=== PATIENT | female | born 1935 | race Caucasian/White ===

== ENCOUNTER → 2016-04-04 | Outpatient (CLI) | payer OTHER ==
[~2016-04-04] MED LIST: AMB5 PO; AMLO-110 PO; ASPEC81 PO; ATOR10TA88 PO; CALC600T37 PO; CALCTAB13 PO; CHOL2000 PO; CLC100X PO; CRAN500C2 PO; CRANPOW PO; DLCS PR; ENOX40IN SQ; FISHOIL PO; FLUT0.15; GLIM2TAB2 PO; HYZ/10015 PO; LISI10TA PO; LOSA50TA6 PO; MELO15TA10 PO; METF-383 PO; METF1000 PO; METF500T PO; METO-551 PO; OMEP20CA9 PO; OXYC1TAB3 PO; PRLSR20 PO
[2016-04-04 13:23] LABS: RATIO 114.2 mcg/mg (0-30.0)
[2016-04-04 13:25] LABS: ESTIMATED AVERAGE GLUCOSE 160 mg/dl; HA1C FLAG Normal (Normal)
== END | disposition home or self-care (01) ==
LOC: C.LABPVFM 08:11
PROVIDERS: ATTEND Family Medicine
DX: E11.29 Type 2 diabetes mellitus with other diabetic kidney complication (principal); E11.49 Type 2 diabetes mellitus with other diabetic neurological complication

== ENCOUNTER → 2016-04-07 | Outpatient (CLI) | payer OTHER | END | disposition home or self-care (01) | LOC: C.LABPVFM 10:23 | PROVIDERS: ATTEND Family Medicine | DX: N39.0 Urinary tract infection, site not specified (principal) ==

== ENCOUNTER → 2016-08-08 | Outpatient (CLI) | payer OTHER ==
[2016-08-08 13:19] LABS: ESTIMATED AVERAGE GLUCOSE 192 mg/dl; HA1C FLAG Normal (Normal)
[2016-08-08 13:29] LABS: ALT/SGPT 27 U/L (12-78); AST/SGOT 18 U/L (15-37); BLOOD UREA NITROGEN 17 mg/dl (7-18); BUN/CREATININE RATIO 20.1 (10-20); CALCIUM 9.3 mg/dl (8.5-10.1); CARBON DIOXIDE 25 mmol/L (21-32); CHLORIDE 99 mmol/L (98-107); CREATININE 0.84 mg/dl (0.60-1.20); GLUCOSE 147 mg/dl (70-99); POTASSIUM 3.8 mmol/L (3.5-5.1); SODIUM 133 mmol/L (136-145)
[2016-08-08 13:31] LABS: ALB/GLOB RATIO 0.9 (0.9-2); ALKALINE PHOSPHATASE 73 U/L (45-117); CHOLESTEROL 120 mg/dl (0-200); HDL CHOLESTEROL 59 mg/dl; LDL CHOLESTEROL CALCULATED 39 mg/dl; TRIGLYCERIDES 111 mg/dl (0-150); VERY LOW DENSITY LIPOPROT CALC 22 mg/dl
[2016-08-08 13:53] LABS: RATIO 44.8 mcg/mg (0-30.0)
== END | disposition home or self-care (01) ==
LOC: C.LABPVFM 09:37
PROVIDERS: ATTEND Family Medicine
DX: R60.9 Edema, unspecified (principal); E78.5 Hyperlipidemia, unspecified; I10 Essential (primary) hypertension; E11.29 Type 2 diabetes mellitus with other diabetic kidney complication

== ENCOUNTER → 2016-09-05 | Outpatient (CLI) | payer OTHER | END | disposition home or self-care (01) | LOC: C.LABPVFM 12:52 | PROVIDERS: ATTEND Nurse Practitioner | DX: N39.0 Urinary tract infection, site not specified (principal) ==

== ENCOUNTER → 2016-09-12 | Outpatient (CLI) | payer OTHER | END | disposition home or self-care (01) | LOC: C.LABPVFM 12:43 | PROVIDERS: ATTEND Nurse Practitioner | DX: R39.9 Unspecified symptoms and signs involving the genitourinary system (principal) ==

== ENCOUNTER → 2016-09-12 | Outpatient (CLI) | payer OTHER ==
--- NOTE | 2016-09-12 15:47 | DIAGNOSTIC IMAGING REPORT ---
KUB CLINICAL HISTORY: Abdominal distension. COMPARISON STUDY: None. FINDINGS: Incidental note is made of cholecystectomy clips and a left hip arthroplasty. The bowel gas pattern is normal. Note is made of a moderate amount of stool within the colon and rectum. IMPRESSION: 1. No evidence for a bowel obstruction. 2. Moderate amount of stool within the colon and rectum. Electronically signed by: Jay Jay Caceres M.D. 09/12/2016 3:46 PM Dictated Date/Time: 09/12/2016 3:45 PM
== END | disposition home or self-care (01) ==
LOC: C.RADPV 15:07
PROVIDERS: ATTEND Family Medicine
DX: R14.0 Abdominal distension (gaseous) (principal); R39.9 Unspecified symptoms and signs involving the genitourinary system

== ENCOUNTER → 2016-09-16 | Outpatient (CLI) | payer OTHER ==
--- NOTE | 2016-09-16 15:27 | DIAGNOSTIC IMAGING REPORT ---
RIGHT HIP UNILATERAL 2 VIEWS CLINICAL HISTORY: HIP PAIN RIGHT Right pain COMPARISON: None. DISCUSSION: Considerable degenerative narrowing of the right hip joint space. Mild sclerosis superior acetabular margin. No evidence for acetabular protrusion. Moderate degenerative change right sacroiliac joint. There is no evidence for soft tissue swelling. IMPRESSION: Moderate to rather significant degenerative narrowing right hip joint space. No acute process. Moderate degenerative change right sacroiliac joint. The above report was generated using voice recognition software. It may contain grammatical, syntax or spelling errors. Electronically signed by: Richard Hartley M.D. 09/16/2016 3:25 PM Dictated Date/Time: 09/16/2016 3:25 PM
== END | disposition home or self-care (01) ==
LOC: C.RADPV 14:43
PROVIDERS: ATTEND Family Medicine
DX: M25.551 Pain in right hip (principal); M25.851 Other specified joint disorders, right hip

== ENCOUNTER 2016-09-24 11:16 | Emergency (ER) | payer OTHER ==
[~2016-09-24] VITALS: Ht 157.5 cm; Wt 103.5 kg
[~2016-09-24 11:16] MED LIST changes: -AMLO-110 PO; -CALC600T37 PO; -CHOL2000 PO; -CRAN500C2 PO; -FLUT0.15; -GLIM2TAB2 PO; -HYZ/10015 PO; -LOSA50TA6 PO; -MELO15TA10 PO; -METF-383 PO; -METF1000 PO; -OMEP20CA9 PO; -PRLSR20 PO
[2016-09-24 11:20] VITALS: TEMP 36.7; Ht 157.5 cm; Wt 103.5 kg
[2016-09-24 12:12] LABS: BASO % 0.4 %; BASO ABS # 0.03 K/uL (0-0.2); COMPLETE YES; HEMATOCRIT 34.8 % (37-47); IG% 0.4 %; LYMPH % 19.1 %; LYMPH ABS # 1.35 K/uL (1.2-3.4); MEAN CELL VOLUME 84.3 fL (80-100); MEAN CORPUSCULAR HEMOGLOBIN 29.5 pg (25-34); MEAN CORPUSCULAR HGB CONC 35.1 g/dl (32-36); MEAN PLATELET VOLUME 8.8 fL (7.4-10.4); NEUT % 65.1 %; PLATELET COUNT 357 K/uL (130-400); RED BLOOD COUNT 4.13 M/uL (4.2-5.4); WHITE BLOOD COUNT 7.06 K/uL (4.8-10.8)
[2016-09-24 12:20] LABS: INR 1.1 (0.9-1.1); PROTHROMBIN TIME (PATIENT) 11.3 SECONDS (9.0-12.0)
[2016-09-24 12:23] LABS: BUN/CREATININE RATIO 22.3 (10-20); CREATININE 0.74 mg/dl (0.60-1.20); POTASSIUM 3.9 mmol/L (3.5-5.1)
[2016-09-24] MEDS ORDERED: METF-383 PO (12:35)
[2016-09-24] MEDS ORDERED: FLUT0.15 (12:35)
[2016-09-24] MEDS ORDERED: LOSA50TA6 PO (12:35)
[2016-09-24] MEDS ORDERED: AMLO-110 PO (12:35)
[2016-09-24] MEDS ORDERED: OMEP20CA9 PO (14:55)
[2016-09-24] MEDS ORDERED: MELO15TA10 PO (15:05)
[2016-09-24] MEDS ORDERED: CHOL2000 PO (15:05)
[2016-09-24] MEDS ORDERED: CALC600T37 PO (15:05)
--- NOTE | 2016-09-24 15:20 | Medical Consult ---
Consultation Date of Consultation: Sep 24, 2016. Attending Physician: Dr. Michele Khoury Reason for Consultation: Hyponatremia, melena History of Present Illness This is an 81 y/o female with a history of DM II, HTN, HLD, osteopenia and chronic rhinitis who presented to the ED on 09/24 with melena x 1 episode. The patient states she had 1 episode of melena last night. She denies seeing any gross blood and states that she has been constipated lately. She had been advised to take stool softeners or laxatives but has not had a chance to go to the store to buy some yet. She denies any lightheadedness, dizziness, loss of consciousness, weakness or fatigue. The patient's hemoglobin is stable at 12.2 , and the patient is without tachycardia or hypotension. In the ED, the patient was also found to be hyponatremic. The patient admits to drinking a lot of water lately as she was instructed to drink a full glass of water with the antibiotic she had been taking for her recent UTI and with the Mobic she is taking for her hip pain. The patient and her daughter deny any confusion or worsening of mental status. The patient denies fevers, chills, sweats, chest pain, palpitations, claudication, cough, wheezing, shortness of breath, nausea, vomiting, abdominal pain, dysuria, hematuria, urinary retention, paralysis, weakness, numbness and tingling. Past Medical/Surgical History DM II HTN HLD Osteopenia Chronic rhinitis Family History Diabetes mellitus Kidney disease Prostate cancer Stroke Social History Smoking Status: Never Smoker Smokeless Tobacco Use: No Alcohol Use: none Drug Use: none Marital Status: Housing Status: lives with family (daughter, son in law and grandson) Occupation Status: retired Allergies Coded Allergies: No Known Allergies (Verified , *, 09/24/16) Home Medications Amlodipine 5 mg PO qd Aspirin 81 mg PO qd Atorvastatin 10 mg PO qpm Calcium 600 mg PO qd Cholecalciferol 2000 IU PO qd Fish oil 2 gm PO BID Flonase 1-2 sprays NA qd Losartan 50 mg PO qpm Meloxicam 15 mg PO qd Metformin 850 mg PO BID Metoprolol tartrate 75 mg PO BID Review of Systems Constitutional: No fever, No chills, No sweats, No weakness, No fatigue Eyes: No worsening of vision, No eye pain, No diplopia ENT: No hearing loss, No sore throat, No trouble swallowing Respiratory: No cough, No wheezing, No shortness of breath Cardiovascular: No chest pain, No claudication, No palpitations Abdomen: + constipation, + problem reported (melena 1 episode), No pain, No nausea, No vomiting Musculoskeletal: No joint pain, No muscle pain, No calf pain Genitourinary - Female: No dysuria, No urinary retention, No hematuria Neurologic: No paralysis, No weakness, No numbness/tingling Integumentary: No rash, No itch, No color change Physical Exam Date Time Temp Pulse Resp B/P (MAP) Pulse Ox O2 Delivery O2 Flow Rate FiO2 09/24/16 13:08 66 18 136/65 97 09/24/16 11:32 67 09/24/16 11:20 36.7 71 20 161/74 96 Room Air General appearance: +Morbidly obese. Well-developed, well-nourished, no apparent distress Head: Normocephalic, atraumatic Eyes: Normal inspection, PERRL, EOMI ENT: Normal ENT inspection, hearing grossly normal, pharynx normal Neck: Supple, no JVD, trachea midline Respiratory/Chest: +Slight crackles left base. Normal breath sounds, no respiratory distress Cardiovascular: Regular rate & rhythm, no gallop, no murmur Abdomen/GI: Normal bowel sounds, non-tender, soft Extremities/Musculoskeletal: Normal inspection, no calf tenderness, no pedal edema Neurological/Psych: Alert, normal mood/affect, oriented x 3 Skin: Normal color, warm/dry, no rash Laboratory Results Last 24 Hours Test 09/24/16 11:36 09/24/16 14:51 White Blood Count 7.06 K/uL Red Blood Count 4.13 M/uL Hemoglobin 12.2 g/dL Hematocrit 34.8 % Mean Corpuscular Volume 84.3 fL Mean Corpuscular Hemoglobin 29.5 pg Mean Corpuscular Hemoglobin Concent 35.1 g/dl Platelet Count 357 K/uL Mean Platelet Volume 8.8 fL Neutrophils (%) (Auto) 65.1 % Lymphocytes (%) (Auto) 19.1 % Monocytes (%) (Auto) 13.0 % Eosinophils (%) (Auto) 2.0 % Basophils (%) (Auto) 0.4 % Neutrophils # (Auto) 4.59 K/uL Lymphocytes # (Auto) 1.35 K/uL Monocytes # (Auto) 0.92 K/uL Eosinophils # (Auto) 0.14 K/uL Basophils # (Auto) 0.03 K/uL RDW Standard Deviation 39.0 fL RDW Coefficient of Variation 12.7 % Immature Granulocyte % (Auto) 0.4 % Immature Granulocyte # (Auto) 0.03 K/uL Prothrombin Time 11.3 SECONDS Prothromb Time International Ratio 1.1 Activated Partial Thromboplast Time 25.1 SECONDS Partial Thromboplastin Ratio 1.0 Sodium Level 126 mmol/L Potassium Level 3.9 mmol/L Chloride Level 92 mmol/L Carbon Dioxide Level 26 mmol/L Anion Gap 8.0 mmol/L Blood Urea Nitrogen 17 mg/dl Creatinine 0.74 mg/dl Est Creatinine Clear Calc Drug Dose 66.1 ml/min Estimated GFR () 87.4 Estimated GFR (Non- 75.4 BUN/Creatinine Ratio 22.3 Random Glucose 74 mg/dl Calcium Level 9.0 mg/dl Total Bilirubin 0.5 mg/dl Direct Bilirubin 0.1 mg/dl Aspartate Amino Transf (AST/SGOT) 17 U/L Alanine Aminotransferase (ALT/SGPT) 27 U/L Alkaline Phosphatase 86 U/L Total Protein 7.3 gm/dl Albumin 3.5 gm/dl Lipase 245 U/L Assessment & Plan 81 y/o female with a history of DM II, HTN, HLD, osteopenia and chronic rhinitis who presented to the ED on 09/24 with melena x 1 episode. Pt hemodynamically stable, Hgb stable and without obvious rectal hemorrhage. Asymptomatic from hyponatremia, likely due to excess water intake. Pt agreeable to going home and following up as an outpatient; I do not think admission is necessary at this point in time. Melena--stable -Hgb 12.2 in ED -ED will set pt up with Dr. Jain for non-urgent colonoscopy -Pt already had been planning on seeing PCP on 09/26 to f/u on recent UTI. Recommend pt also has f/u CBC to ensure hemoglobin is stable, can recheck for fecal occult blood -Pt started on Prilosec 20 mg PO BID -Advised pt to use OTC stool softeners or laxatives such as MiraLAX for constipation Hyponatremia secondary to increased free water intake -Recommend fluid restriction of 8121-6975 mL, or roughly 50-60 fluid ounces -Advised pt to drink other fluids besides plain water, such as zero supriya Gatorade /Powerade -At PCP's office can recheck with f/u basic metabolic profile DM II--last HgbA1c checked 08/08/16 was 8.3 -Continue metformin 850 mg PO BID -Continue to follow up with PCP HTN, HLD--stable -Continue amlodipine 5 mg PO qd, ASA 81 mg PO qd, losartan 50 mg PO qd, metoprolol tartrate 75 mg PO BID, atorvastatin 10 mg PO qpm and fish oil 2 gm PO BID Osteopenia -Continue calcium 600 mg PO qd and vitamin D3 2000 IU PO qd Chronic rhinitis -Continue Flonase qd PA Physician Supervision Note: I interviewed and examined the patient. Discussed with Myriam VARNER and agree with findings and plan as documented in the note. Any exceptions or clarifications are listed here: None Patient here with one bout of melena and no abdominal pain of any kind history diverticulosis incidentally found to have a low sodium. In this excessive free water intake. Has no neurological changes or confusion. vital signs are stable next Abdomen is normoactive bowel sounds soft no focal areas of tenderness neurologically she is awake alert and appropriate cranial nerves II through XII are intact she has symmetric strength and sensation Incidental hyponatremia, the patient was instructed on reducing free water intake she is a already has a primary care appointment on Monday she'll follow up 1 bout of melena with stable hemoglobin and no intra-abdominal symptoms she'll follow-up with gastroenterology for possible evaluation instituting proton pump inhibitor ACEs stable for home Documented By: Michele Jones Additional Copies To Lance Soto M.D.
[2016-09-24 15:36] VITALS: BP 153/74; PULSE 69; O2SAT 96
--- NOTE | 2016-09-24 16:18 | EMERGENCY ROOM VISIT NOTE ---
History Report prepared by Tosha: Gita Spann Under the Supervision of: Dr. Michele Khoury M.D. First contact with patient: 11:40 Chief Complaint: GI ASSESSMENT Stated Complaint: BLACK STOOL, PAIN INSIDE WHEN HAVING BM Nursing Triage Summary: pt to the ED with 1 episode of black stool last night with a BM pt is not on blood thinners no dizziness no SOB History of Present Illness The patient is an 81 year old female who presents to the Emergency Room with complaints of an episode of black stool last night at 2200. She has been having a hard time having bowel movements recently. Yesterday, she noticed that her stool was black. She was unsure if there was any blood. While she was straining to have the bowel movement yesterday, she notes that she had pain in her right lower back. She has been having lower back pain for the past few weeks. It worsens when she bends down or has a bowel movement. The pain does not go down into her legs. She denies any lightheadedness, weakness, abdominal pain, fever, vomiting, chest pain, or SOB. She has not taken any iron supplements or Pepto Bismol. She takes a baby aspirin, but no other blood thinners. She has a history of constipation. She was told to try taking Dulcolax which did help for a few days. Source of History: patient Onset: 2200 Position: other (global) Quality: other (black stool) Timing: other (episodic) Associated Symptoms: + back pain, No fevers, No chest pain, No SOB, No vomiting, No abdominal pain, No weakness Note: Pt reports constipation. Pt denies lightheadedness. Review of Systems See HPI for pertinent positives & negatives. A total of 10 systems reviewed and were otherwise negative. Past Medical & Surgical Medical Problems: (1) Hypertension Surgical Problems: (1) History of cholecystectomy (2) History of hip replacement Family History Diabetes mellitus Social History Smoking Status: Never Smoker Drug Use: none Marital Status: Housing Status: lives with family Occupation Status: retired Current/Historical Medications Scheduled Amlodipine (Norvasc), 5 MG PO QAM Aspirin Enteric Coated (Ecotrin Or Generic *), 81 MG PO DAILY Atorvastatin (Lipitor), 10 MG PO QPM Calcium (Calcium), 600 MG PEG DAILY Cholecalciferol (Vitamin D3), 1 CAP PO DAILY Fish Oil ([place]-3), 2 CAP PO BID Fluticasone Propionate (Nasal) (Flonase Allergy Relief), 1-2 SPRAYS NA DAILY Losartan Potassium (Cozaar), 50 MG PO QPM Meloxicam (Mobic), 1 TAB PO DAILY Metformin Hcl (Glucophage), 850 MG PO BID Metoprolol Tartrate (Lopressor), 75 MG PO BID Omeprazole (Prilosec), 20 MG PO BID [Cranberry], 1 CAPSULE PO DAILY Allergies Coded Allergies: No Known Allergies (Verified , *, 09/24/16) Physical Exam Vital Signs Date Time Temp Pulse Resp B/P (MAP) Pulse Ox O2 Delivery O2 Flow Rate FiO2 09/24/16 15:36 69 18 153/74 96 09/24/16 13:08 66 18 136/65 97 09/24/16 11:32 67 09/24/16 11:20 36.7 71 20 161/74 96 Room Air Physical Exam Constitutional: Vital signs reviewed. Eyes: Pupils are equal round reactive to light. Conjunctiva are noninjected. ENT: Pharynx is clear without erythema or exudate. Mucous membranes are moist. Neck supple without meningeal signs. Respiratory: Clear to auscultation bilaterally. Breath sounds are equal bilaterally. Cardiovascular: Regular rate and rhythm. No rubs or gallops. GI: Soft, nondistended and nontender. Bowel sounds are present. Rectal: Guaiac positive brown stool. Musculoskeletal: No peripheral edema. No lower extremity tenderness. Integumentary: No cyanosis. Neurological: The patient is awake and alert. No focal deficits. Motor and sensation intact in the lower extremities bilaterally. Psychiatric: Normal affect. Medical Decision & Procedures Laboratory Results 09/24/16 11:36 Red Blood Count 4.13, Mean Corpuscular Volume 84.3, Mean Corpuscular Hemoglobin 29.5, Mean Corpuscular Hemoglobin Concent 35.1, Mean Platelet Volume 8.8, Neutrophils (%) (Auto) 65.1, Lymphocytes (%) (Auto) 19.1, Monocytes (%) (Auto) 13.0, Eosinophils (%) (Auto) 2.0, Basophils (%) (Auto) 0.4, Neutrophils # (Auto ) 4.59, Lymphocytes # (Auto) 1.35, Monocytes # (Auto) 0.92, Eosinophils # (Auto ) 0.14, Basophils # (Auto) 0.03 09/24/16 11:36 Test 09/24/16 11:36 09/24/16 14:51 White Blood Count 7.06 K/uL (4.8-10.8) Red Blood Count 4.13 M/uL (4.2-5.4) Hemoglobin 12.2 g/dL (12.0-16.0) Hematocrit 34.8 % (37-47) Mean Corpuscular Volume 84.3 fL (80-100) Mean Corpuscular Hemoglobin 29.5 pg (25-34) Mean Corpuscular Hemoglobin Concent 35.1 g/dl (32-36) Platelet Count 357 K/uL (130-400) Mean Platelet Volume 8.8 fL (7.4-10.4) Neutrophils (%) (Auto) 65.1 % Lymphocytes (%) (Auto) 19.1 % Monocytes (%) (Auto) 13.0 % Eosinophils (%) (Auto) 2.0 % Basophils (%) (Auto) 0.4 % Neutrophils # (Auto) 4.59 K/uL (1.4-6.5) Lymphocytes # (Auto) 1.35 K/uL (1.2-3.4) Monocytes # (Auto) 0.92 K/uL (0.11-0.59) Eosinophils # (Auto) 0.14 K/uL (0-0.5) Basophils # (Auto) 0.03 K/uL (0-0.2) RDW Standard Deviation 39.0 fL (36.4-46.3) RDW Coefficient of Variation 12.7 % (11.5-14.5) Immature Granulocyte % (Auto) 0.4 % Immature Granulocyte # (Auto) 0.03 K/uL (0.00-0.02) Prothrombin Time 11.3 SECONDS (9.0-12.0) Prothromb Time International Ratio 1.1 (0.9-1.1) Activated Partial Thromboplast Time 25.1 SECONDS (21.0-31.0) Partial Thromboplastin Ratio 1.0 Anion Gap 8.0 mmol/L (3-11) Est Creatinine Clear Calc Drug Dose 66.1 ml/min Estimated GFR () 87.4 Estimated GFR (Non- 75.4 BUN/Creatinine Ratio 22.3 (10-20) Calcium Level 9.0 mg/dl (8.5-10.1) Total Bilirubin 0.5 mg/dl (0.2-1) Direct Bilirubin 0.1 mg/dl (0-0.2) Aspartate Amino Transf (AST/SGOT) 17 U/L (15-37) Alanine Aminotransferase (ALT/SGPT) 27 U/L (12-78) Alkaline Phosphatase 86 U/L (45-117) Total Protein 7.3 gm/dl (6.4-8.2) Albumin 3.5 gm/dl (3.4-5.0) Lipase 245 U/L (73-393) Laboratory results as reviewed by me. ED Course 1142: The patient was evaluated in room C6. A complete history and physical exam was performed. 1335: I reevaluated the patient. I discussed the test results with her. She does not wish to stay in the hospital. I have paged GI to arrange follow up. 1341: I discussed the patient's case with Dr. Jain, [facility] gastroenterology. He recommends the patient be started on 20 mg of Prilosec twice daily and recheck hemoglobin on Monday. They will set up a colonoscopy for her. 1344: I reevaluated the patient. I discussed Dr. Jain's recommendations with her. She verbalized understanding. She still would not like to stay in the hospital. She states that she has been drinking a lot of water and avoiding salt because of her hypertension which might be the reason for her low sodium. She was told to hold her aspirin and follow up with GI on Monday. 1356: The nurse informed me that the patient and her family have changed their minds and would like the patient to stay in the hospital. 1404: I discussed the patient's case with Dr. Jones, [facility] hospitalist. The patient will be further evaluated by him. 1451: Dr. Jones has evaluated the patient. After discussion, the patient has decided to go home and follow up as an outpatient. Medical Decision This is an 81-year-old female who presents with black stools and back pain. Differential diagnosis includes spinal stenosis, lumbar disc disease, strain, GI bleed, peptic ulcer disease, anemia. I did perform a limited focused review of portions of the patient's old chart on the electronic medical record. The patient has had no recent pertinent visits to this hospital. I did evaluate the patient as noted above. Patient is presenting with an episode of black stool. She does not take any NSAIDs or blood thinners other than a baby aspirin daily. She also has been having lower back pain for several weeks. She is neurologically intact without signs of spinal cord injury. Her pain is worse with movement. He is IV access was established the patient was placed on a continuous security monitor. I did order and review the patient's blood work as noted in the electronic medical record. She is not anemic. Her sodium is 126. I did discuss the test results with the patient and her daughter. She does state that she has been drinking a lot of water and avoiding salt due to her high blood pressure. She does not have symptomatic hyponatremia. She states last time she had a colonoscopy was 10 years ago. I did discuss the test results with the patient and her daughter. Initially the patient did not wish to be hospitalized. I therefore spoke to Dr. jain of gastroenterology who stated he would arrange for follow up on Monday for recheck of her H&H and endoscopy. He he did recommend Prilosec 20 mg twice a day. I discussed the plan with the patient but then she changed her mind and decided she would stay in the hospital. I did discuss the case with Dr. Mills of the [facility] medical service. He saw the patient and after discussion with him she decided she would go home. I did involve the pillowcase maker to help assure follow up on Monday. I did carefully review return instructions with her and her daughter. She was discharged in good condition. She was given a prescription for Prilosec. Medication Reconcilliation Current Medication List: was personally reviewed by me Blood Pressure Screening Patient's blood pressure: Elevated blood pressure Blood pressure disposition: Referred to PCP Consults Time Called: [phone] Consulting Physician: Dr. Jain [facility] gastroenterology Returned Call: [phone] I discussed the patient's case with him. He recommends the patient be started on 20 mg of Prilosec twice daily and recheck hemoglobin on Monday. They will set up a colonoscopy for her. Additional Consults: Time Called: [phone] Consulted Physician: Dr. Jones, [facility] hospitalist Returned Call: [phone] Additional Comments: I discussed the patient's case with him. The patient will be further evaluated by him. Impression Primary Impression: Upper GI bleed Additional Impressions: Hyponatremia Low back pain Scribe Attestation The scribe's documentation has been prepared under my direct and personally reviewed by me in its entirety. I confirm that the note above accurately reflects all work, treatment, procedures, and medical decision making performed by me. Departure Information Dispostion Home / Self-Care Prescriptions Omeprazole (PRILOSEC) 20 Mg Cap 20 MG PO BID, #20 CAP Prov: Michele Khoury M.D. 09/24/16 Referrals Lance Soto M.D. (PCP) Aiden Jain MD Forms HOME CARE DOCUMENTATION FORM, IMPORTANT VISIT INFORMATION Patient Instructions ED Bleed UGI Stable, Hyponatremia Dc, My [facility] Additional Instructions You have been examined and treated today on an emergency basis only. This is not a substitute for, or an effort to provide, complete comprehensive medical care. It is impossible to recognize and treat all injuries or illnesses in a single emergency department visit. It is therefore important that you follow up closely with your physician within 48 hours to recheck here hemoglobin and sodium level. Also follow up Dr. jain of gastroenterology. Call as soon as possible for an appointment. Return for worsening symptoms or if you develop fever, vomiting, lightheadedness, weakness, shortness of breath, chest pain, blood in your stool or any other concerning symptoms. Problem Qualifiers Additional Impressions: Low back pain Chronicity: acute Back pain laterality: bilateral Sciatica presence: without sciatica Qualified Codes: M54.5 - Low back pain
[2016-09-26] MEDS ORDERED: CRAN500C2 PO (14:56)
[2016-09-26] MEDS ORDERED: GLIM2TAB2 PO (14:56)
[2016-09-26] MEDS ORDERED: HYZ/10015 PO (14:56)
[2016-09-26] MEDS ORDERED: METF1000 PO (14:56)
[2016-09-26] MEDS ORDERED: PRLSR20 PO (14:56)
== END 2016-09-24 15:37 | disposition home or self-care (01) ==
LOC: C.EDB 11:17 → C.EDC 15:37
DX: K92.2 Gastrointestinal hemorrhage, unspecified (principal); E87.1 Hypo-osmolality and hyponatremia; M54.5 Low back pain; E11.9 Type 2 diabetes mellitus without complications; I10 Essential (primary) hypertension; E78.5 Hyperlipidemia, unspecified; J31.0 Chronic rhinitis; M85.80 Other specified disorders of bone density and structure, unspecified site; Z83.3 Family history of diabetes mellitus; Z84.1 Family history of disorders of kidney and ureter; Z80.9 Family history of malignant neoplasm, unspecified; Z82.49 Family history of ischemic heart disease and other diseases of the circulatory system; Z79.82 Long term (current) use of aspirin; Z79.899 Other long term (current) drug therapy

== ENCOUNTER → 2016-09-26 | Outpatient (CLI) | payer OTHER ==
[~2016-09-26] MED LIST changes: -AMB5 PO; +AMLO-110 PO; +CALC600T37 PO; -CALCTAB13 PO; +CHOL2000 PO; -CLC100X PO; +CRAN500C2 PO; -DLCS PR; -ENOX40IN SQ; +FLUT0.15; +GLIM2TAB2 PO; +HYZ/10015 PO; -LISI10TA PO; +LOSA50TA6 PO; +MELO15TA10 PO; +METF-383 PO; +METF1000 PO; -METF500T PO; +OMEP20CA9 PO; -OXYC1TAB3 PO; +PRLSR20 PO
[2016-09-26 12:50] LABS: BASO % 0.5 %; BASO ABS # 0.04 K/uL (0-0.2); COMPLETE YES; EOS % 2.6 %; HEMATOCRIT 35.1 % (37-47); IG% 0.4 %; LYMPH % 21.6 %; LYMPH ABS # 1.59 K/uL (1.2-3.4); MEAN CELL VOLUME 84.6 fL (80-100); MEAN CORPUSCULAR HEMOGLOBIN 29.9 pg (25-34); MEAN CORPUSCULAR HGB CONC 35.3 g/dl (32-36); MONO % 10.4 %; NEUT % 64.5 %; PLATELET COUNT 325 K/uL (130-400); RED BLOOD COUNT 4.15 M/uL (4.2-5.4); WHITE BLOOD COUNT 7.37 K/uL (4.8-10.8)
[2016-09-26 13:26] LABS: BLOOD UREA NITROGEN 17 mg/dl (7-18); BUN/CREATININE RATIO 22.7 (10-20); CALCIUM 9.4 mg/dl (8.5-10.1); CARBON DIOXIDE 27 mmol/L (21-32); CHLORIDE 95 mmol/L (98-107); CREATININE 0.74 mg/dl (0.60-1.20); GLUCOSE 85 mg/dl (70-99); POTASSIUM 3.7 mmol/L (3.5-5.1); SODIUM 129 mmol/L (136-145)
== END | disposition home or self-care (01) ==
LOC: C.LABPVFM 10:51
PROVIDERS: ATTEND Family Medicine
DX: M19.90 Unspecified osteoarthritis, unspecified site (principal); R19.5 Other fecal abnormalities; R82.99 Other abnormal findings in urine

== ENCOUNTER → 2016-09-28 | Day surgery (SDC) | payer OTHER ==
[2016-09-26 14:59] VITALS: Ht 157.5 cm; Wt 106.8 kg
[~2016-09-28] VITALS: Ht 157.5 cm; Wt 106.8 kg
[~2016-09-28] MED LIST changes: -CRANPOW PO; +LIDOCAINE HCL 2% 2 ML VIAL (20MG/ML) ONE; -LOSA50TA6 PO; -MELO15TA10 PO; -METF-383 PO; -OMEP20CA9 PO; +PROPOFOL IV EMULSION 10 MG/ML 20 ML VIAL IV ONE; +SODIUM CHLORIDE 0.9% 500ML 500 ML IV ONE
--- NOTE | 2016-09-28 08:36 | Endo History and Physical ---
History & Physical Date of Service: Sep 28, 2016. Chief Complaint: Melena Referring Physician: Dr. Soto History of Present Illness 81 yo CF who presents for EGD secondary to melena. Past Surgical History Hx Cardiac Surgery: No Hx Internal Defibrillator: No Hx Pacemaker: No Hx Abdominal Surgery: Yes (MICHAELA) Hx of Implantable Prosthesis: No Hx Post-Op Nausea and Vomiting: No Hx Cancer Surgery: No Hx Thoracic Surgery: No Hx Orthopedic: Yes (LT ANGIE, LT FEMUR PLATE S/P BREAK) Hx Urinary Tract Surgery: No Family History Polyp Social History Smoking Status: Never Smoker Hx Substance Use: No Hx Alcohol Use: No Allergies Coded Allergies: No Known Allergies (Verified , 09/28/16) Current Medications Reported Home Medications Medications Dose Route/Sig Max Daily Dose Days Date Category Dose Instructions Prilosec (Omeprazole) 20 Mg Capcr 20 Mg PO BID 09/26/16 Reported NEW PRESCRIPTION - PT HAS NOT STARTED YET Cranberry (Cranberry (Vaccinium Macrocarp) 500 Mg Cap 1 Cap PO QAM 09/26/16 Reported Hyzaar 25MG/100MG (HCTZ/Losartan Potassium) Tab 1 Tab PO QPM 09/26/16 Reported Glimepiride 2 Mg Tab 1 Tab PO QPM 09/26/16 Reported Glucophage (Metformin Hcl) 1,000 Mg Tab 1,000 Mg PO BID 09/26/16 Reported Vitamin D3 (Cholecalciferol) 2,000 Unit Cap 1 Cap PO QAM 09/24/16 Reported Calcium 600 Mg Tab 600 Mg PO BID 09/24/16 Reported Flonase Allergy Relief (Fluticasone Propionate (Nasal)) 50 Mcg/Act Spr 1-2 Sprays NA DAILY 09/24/16 Reported Norvasc (Amlodipine Besylate) 5 Mg Tab 5 Mg PO QAM 09/24/16 Reported [place]-3 (Fish Oil) Oil 2 Cap PO BID 11/13/11 Reported Lopressor (Metoprolol Tartrate) 50 Mg Tab 1.5 Tabs PO BID 11/13/11 Reported Ecotrin Or Generic * (Aspirin) 81 Mg Ectab 81 Mg PO ON HOLD 11/19/08 Reported Lipitor (Atorvastatin Calcium) 10 Mg Tab 10 Mg PO QPM 11/11/08 Reported Vital Signs Weight (Kilograms): 106.82 Height (Feet): 5 Height (Inches): 2 Physical Exam General Appearance: WD/WN, no apparent distress Respiratory/Chest: Auscultation: breath sounds normal Cardiovascular: Heart Auscultation: RRR Abdomen: Bowel Sounds: normal Inspection & Palpation: soft, non-distended, no tenderness, guarding & rebound Assessment and Plan Assessment: 81 yo CF who presents for EGD secondary to melena. Plan: Proceed with EGD.
--- NOTE | 2016-09-28 09:27 | Discharge Instructions ---
Endoscopy Patient Instructions Date / Procedure(s) Performed Sep 28, 2016. EGD Allergy Information Coded Allergies: No Known Allergies (Verified , 09/28/16) Discharge Date / Findings Sep 28, 2016. Normal EGD Medication Instructions Stopped Medication(s): ASPIRIN LAST DOSE 09/24/16 OK to resume all medications today as prescribed Reported Home Medications Medications Dose Route/Sig Max Daily Dose Days Date Category Dose Instructions Prilosec (Omeprazole) 20 Mg Capcr 20 Mg PO BID 09/26/16 Reported NEW PRESCRIPTION - PT HAS NOT STARTED YET Cranberry (Cranberry (Vaccinium Macrocarp) 500 Mg Cap 1 Cap PO QAM 09/26/16 Reported Hyzaar 25MG/100MG (HCTZ/Losartan Potassium) Tab 1 Tab PO QPM 09/26/16 Reported Glimepiride 2 Mg Tab 1 Tab PO QPM 09/26/16 Reported Glucophage (Metformin Hcl) 1,000 Mg Tab 1,000 Mg PO BID 09/26/16 Reported Vitamin D3 (Cholecalciferol) 2,000 Unit Cap 1 Cap PO QAM 09/24/16 Reported Calcium 600 Mg Tab 600 Mg PO BID 09/24/16 Reported Flonase Allergy Relief (Fluticasone Propionate (Nasal)) 50 Mcg/Act Spr 1-2 Sprays NA DAILY 09/24/16 Reported Norvasc (Amlodipine Besylate) 5 Mg Tab 5 Mg PO QAM 09/24/16 Reported [place]-3 (Fish Oil) Oil 2 Cap PO BID 11/13/11 Reported Lopressor (Metoprolol Tartrate) 50 Mg Tab 1.5 Tabs PO BID 11/13/11 Reported Ecotrin Or Generic * (Aspirin) 81 Mg Ectab 81 Mg PO ON HOLD 11/19/08 Reported Lipitor (Atorvastatin Calcium) 10 Mg Tab 10 Mg PO QPM 11/11/08 Reported Provider Instructions Activity Restrictions - No exercising or heavy lifting for 24 hours. - Do not drink alcohol the day of the procedure. - Do not drive a car or operate machinery until the day after the procedure. - Do not make any important decisions or sign important papers in 24 hours after the procedure. Following Day: - Return to full activity which may include returning to work/school. Diet Start your diet with liquids and light foods (jello, soup, juice, toast). Then eat your usual diet if not nauseated. Treatment For Common After Affects For mild abdominal pain, bloating, or excessive gas: - Rest - Eat lightly - Lie on right side Follow-Up Information Follow-up with DR. LY as scheduled Anesthesia Information What You Should Know You have had a procedure that required some medicine to reduce anxiety and discomfort. This treatment is called moderate sedation. After receiving the treatment, you may be sleepy, but you will be able to breathe on your own. The effects of the treatment may last for several hours. Follow these instructions along with Activity/Diet recommendations noted above: * Do NOT do anything where dizziness or clumsiness would be dangerous. * Rest quietly at home today, then you can be up and about tomorrow. * Have a responsible person stay with you the rest of today. * You may have had an I.V. today. If so, you may take the dressing off later today. Recommendations Call your doctor if: * Trouble breathing * Continuous vomiting for more than 24 hours * Temperature above 101 degrees * Severe abdominal pain or bloating * Pain not relieved by pain medicine ordered * There is increased drainage or redness from any incision * A large amount of rectal bleeding greater than 2-3 tablespoons. (If you had a polyp/s removed or have hemorrhoids, a small amount of blood - from the rectum is to be expected.) * You have any unanswered questions or concerns. IN THE EVENT OF A SERIOUS EMERGENCY, GO TO THE NEAREST EMERGENCY ROOM Your discharge instructions were prepared by provider Dutch Mckeon. Patient Instructions Signature Page Matthew Ordonez Patient (or Guardian) Signature/Date: I have read and understand the instructions given to me by my caregivers. Caregiver/RN/Doctor Signature/Date: The above-named patient and/or guardian has received patient instructions on this date. + Original Patient Signature Page (only) stays with chart. Please make copy for patient.
--- NOTE | 2016-09-28 09:47 | Anesthesiology Progress Note ---
Anesthesia Post Op Note Date & Time Sep 28, 2016 at 09:47 Vital Signs Pain Intensity: 0 Vital Signs Past 12 Hours Date Time Temp Pulse Resp B/P (MAP) Pulse Ox O2 Delivery O2 Flow Rate FiO2 09/28/16 09:40 76 20 165/77 (106) 98 Room Air 09/28/16 09:25 68 16 126/42 (70) 97 Room Air 09/28/16 08:30 36.5 74 20 170/73 (105) 100 Room Air Notes Mental Status: alert / awake / arousable, participated in evaluation Pt Amnestic to Procedure: Yes Nausea / Vomiting: adequately controlled Pain: adequately controlled Airway Patency, RR, SpO2: stable & adequate BP & HR: stable & adequate Hydration State: stable & adequate Anesthetic Complications: no major complications apparent
[2016-09-28 09:55] VITALS: BP 158/82; PULSE 68; O2SAT 97
--- NOTE | 2016-09-29 00:14 | GI REPORT ---
Procedure Date: 09/28/2016 9:10 AM Procedure: Upper GI endoscopy Indications: Melena Medicines: Monitored Anesthesia Care Complications: No immediate complications. Estimated Blood Loss: Estimated blood loss: none. Procedure: Pre-Anesthesia Assessment: - Prior to the procedure, a History and Physical was performed, and patient medications and allergies were reviewed. The patient's tolerance of previous anesthesia was also reviewed. The risks and benefits of the procedure and the sedation options and risks were discussed with the patient. All questions were answered, and informed consent was obtained. Prior Anticoagulants: The patient has taken no previous anticoagulant or antiplatelet agents. ASA Grade Assessment: III - A patient with severe systemic disease. After reviewing the risks and benefits, the patient was deemed in satisfactory condition to undergo the procedure. After obtaining informed consent, the endoscope was passed under direct vision. Throughout the procedure, the patient's blood pressure, pulse, and oxygen saturations were monitored continuously. The On-site loaner was introduced through the mouth, and advanced to the second part of duodenum. The upper GI endoscopy was accomplished without difficulty. The patient tolerated the procedure well. Findings: The esophagus was normal. The stomach was normal. The examined duodenum was normal. Impression: - Normal esophagus. - Normal stomach. - Normal examined duodenum. - No specimens collected. Recommendation: - Resume previous diet. - Continue present medications. - Return to primary care physician as previously scheduled. Dutch Mckeon, 09/28/2016 9:26:13 AM This report has been signed electronically. Note Initiated On: 09/28/2016 9:10 AM I attest to the content of the Intraoperative Record and orders documented therein, exceptions below
== END | disposition home or self-care (01) ==
LOC: C.GI 08:08
PROVIDERS: ATTEND Internal Medicine
DX: K92.1 Melena (principal); Z83.71 Family history of colonic polyps; Z79.84 Long term (current) use of oral hypoglycemic drugs; Z79.899 Other long term (current) drug therapy

== ENCOUNTER → 2016-10-21 | Outpatient (CLI) | payer OTHER ==
[~2016-10-21] MED LIST changes: -LIDOCAINE HCL 2% 2 ML VIAL (20MG/ML) ONE; -PROPOFOL IV EMULSION 10 MG/ML 20 ML VIAL IV ONE; -SODIUM CHLORIDE 0.9% 500ML 500 ML IV ONE
[2016-10-21 12:37] LABS: URINE APPEARANCE CLEAR (CLEAR); URINE BILIRUBIN NEG (NEG); URINE COLOR YELLOW; URINE NITRITE NEG (NEG); URINE SPECIFIC GRAVITY 1.014 (1.000-1.030); UROBILINOGEN NEG (NEG); ZZUR CULT IF INDIC CLEAN CATCH NO
[2016-10-21 12:46] LABS: MANUAL MICROSCOPIC REQUIRED? NO; REVIEW REQ? NO
[2016-10-21 13:03] LABS: ALKALINE PHOSPHATASE 79 U/L (45-117); AST/SGOT 13 U/L (15-37); BLOOD UREA NITROGEN 16 mg/dl (7-18); CALCIUM 9.3 mg/dl (8.5-10.1); CARBON DIOXIDE 30 mmol/L (21-32); CHLORIDE 103 mmol/L (98-107); GLUCOSE 132 mg/dl (70-99); POTASSIUM 4.2 mmol/L (3.5-5.1); SODIUM 137 mmol/L (136-145)
[2016-10-21 13:06] LABS: ALT/SGPT 20 U/L (12-78)
[2016-10-21 13:21] LABS: ESTIMATED AVERAGE GLUCOSE 154 mg/dl; HA1C FLAG Normal (Normal)
== END | disposition home or self-care (01) ==
LOC: C.LABPVFM 10:35
PROVIDERS: ATTEND Family Medicine
DX: N39.0 Urinary tract infection, site not specified (principal); E11.49 Type 2 diabetes mellitus with other diabetic neurological complication

== ENCOUNTER → 2016-10-27 | Outpatient (CLI) | payer OTHER ==
--- NOTE | 2016-10-27 12:37 | MAMMOGRAPHY REPORT ---
BILATERAL DIGITAL SCREENING MAMMOGRAM WITH CAD: 10/27/2016 TECHNIQUE: Current study was also evaluated with a Computer Aided Detection (CAD) system. Bilateral CC and MLO and right XCCL views were obtained. COMPARISON: Comparison is made to exams dated: 10/27/2015 mammogram, 10/23/2014 mammogram, 09/16/2013 m ammogram, 09/12/2012 mammogram, 09/12/2011 mammogram, and 09/06/2010 mammogram - [facility] er. BREAST COMPOSITION: There are scattered areas of fibroglandular density in both breasts. FINDINGS: No suspicious masses, calcifications, or areas of architectural distortion are noted in ei ther breast. There has been no significant interval change compared to prior exams. Scattered bilater al benign-appearing calcifications are not significantly changed. IMPRESSION: ACR BI-RADS CATEGORY 2: BENIGN There is no mammographic evidence of malignancy. A 1 year screening mammogram is recommended. The pa tient will receive written notification of the results. Approximately 10% of breast cancers are not detected with mammography. A negative mammographic report should not delay biopsy if a clinically suggestive mass is present. Monica Wood M.D. /:10/27/2016 11:57:[address] Judge: Rosalind PAVON(Niki)(M), [facility] letter sent: Normal 1/2 BI-RADS Code: ACR BI-RADS Category 2: Benign
== END | disposition home or self-care (01) ==
LOC: C.MAMM 10:47
PROVIDERS: ATTEND Family Medicine
DX: Z12.31 Encounter for screening mammogram for malignant neoplasm of breast (principal)

== ENCOUNTER → 2017-05-04 | Outpatient (CLI) | payer OTHER ==
[~2017-05-04] MED LIST changes: +ATOR10TA82 PO; -ATOR10TA88 PO
[2017-05-04 14:32] LABS: ALBUMIN 3.6 gm/dl (3.4-5.0); ALT/SGPT 20 U/L (12-78); BLOOD UREA NITROGEN 20 mg/dl (7-18); CALCIUM 9.1 mg/dl (8.5-10.1); CARBON DIOXIDE 28 mmol/L (21-32); CHOLESTEROL 123 mg/dl (0-200); CREATININE 0.76 mg/dl (0.60-1.20); GLUCOSE 118 mg/dl (70-99); POTASSIUM 3.8 mmol/L (3.5-5.1); SODIUM 136 mmol/L (136-145)
[2017-05-04 14:35] LABS: ALKALINE PHOSPHATASE 84 U/L (45-117); AST/SGOT 17 U/L (15-37); LDL CHOLESTEROL CALCULATED 51 mg/dl
== END | disposition home or self-care (01) ==
LOC: C.LABPVFM 08:38
PROVIDERS: ATTEND Family Medicine
DX: I10 Essential (primary) hypertension (principal); E78.5 Hyperlipidemia, unspecified; R60.9 Edema, unspecified; E11.49 Type 2 diabetes mellitus with other diabetic neurological complication

== ENCOUNTER 2020-10-20 14:32 | Inpatient (IN) ==
[2020-10-20 15:51] LABS: Hematocrit (blood only) 36.3 % (37-47); Mean Corpuscular Hemoglobin 29.5 pg (25-34); Mean Corpuscular Hgb Conc 33.1 g/dL (32-36); Mean Corpuscular Volume 89.2 fL (80-100); Mean Platelet Volume 10.3 fL (7.4-10.4); Platelet Count 155 K/uL (130-400); RDW Coefficient of Variation 14.2 % (11.5-14.5); RDW Standard Deviation 47.1 fL (36.4-46.3); Red Blood Count 4.07 M/uL (4.2-5.4); White Blood Count 5.37 K/uL (4.8-10.8)
[2020-10-20 15:58] LABS: Albumin Level 2.9 gm/dl (3.4-5.0); BUN Creatinine Ratio 16.1 (10-20); C Reactive Protein 15.1 mg/dl (0-0.29); Calcium 7.9 mg/dl (8.5-10.1); Creatinine Clr Calc Pharmacy 49.4 ml/min; Est GFR (Non-African American) 49.2 ml/min; Potassium 3.2 mmol/L (3.5-5.1)
[2020-10-20 16:03] LABS: Albumin Globulin Ratio 0.6 (0.9-2); Bilirubin,Total 0.4 mg/dl (0.2-1); Globulin 4.5 gm/dl (2.5-4.0); Total Protein 7.4 gm/dl (6.4-8.2); Troponin I 0.021 ng/ml (0-0.045)
[2020-10-20] MEDS ORDERED: IBUPROFEN 600 MG TAB PO STA (16:07)
[2020-10-20 16:14] LABS: Basophils # (auto) 0.01 K/uL (0-0.2); Basophils % (auto) 0.2 %; Immature Granulocytes # (auto) 0.01 K/uL (0.00-0.02); Immature Granulocytes % (auto) 0.2 %; Lymphocytes # (auto) 0.54 K/uL (1.2-3.4); Lymphocytes % (auto) 10.1 %; Monocytes # (auto) 0.29 K/uL (0.11-0.59); Monocytes % (auto) 5.4 %; Neutrophils # (auto) 4.52 K/uL (1.4-6.5); Neutrophils % (auto) 84.1 %; Poikilocytosis Present; Polychromasia 1+
--- NOTE | 2020-10-20 16:21 | XRay Report ---
XR chest 1V portable HISTORY: 85 years-old Female cough, covid sxs acute cough COMPARISON: Chest radiograph 08/11/2020 TECHNIQUE: Portable AP view of the chest FINDINGS: Cardiac silhouette is enlarged. Pulmonary vascular congestion with bilateral interstitial coarsening with ill-defined Lower lung zone predominant airspace densities. No pneumothorax. Unchanged blunting of the costophren ic angles. No large pleural effusion. Degenerative changes of the shoulders and spine. IMPRESSION: 1. Cardiomegaly with pulmonary vascular congestion. 2. Interstitial coarsening with bilateral mid and lower lung zone ill-defined airspace opacities sugg estive of multifocal pneumonia. ACT 112: Negative or not required by law. The above report was generated using voice recognition software. It may contain grammatical, syntax o r spelling errors. Electronically signed by: Klever Berrios M.D. 10/20/2020 4:20 PM
[2020-10-20] MEDS ORDERED: dexAMETHasone 6 MG in SYRINGE 0 ML IV ONE (16:54)
[2020-10-20] MEDS ORDERED: dexAMETHasone**PF** 10 MG/ML VIAL ONE (17:09)
[2020-10-20 18:07] LABS: D Dimer 960 ug/L FEU (0-500)
--- NOTE | 2020-10-20 18:24 | History & Physical Report ---
Date of Service October 20, 2020 Assessment & Plan (1) Pneumonia due to COVID-19 virus: Plan: Patient has multifocal pneumonia seen on x-ray She has mild acute hypoxic respiratory failure Admit to Covid isolation Patient was given dexamethasone 6 mg IV x1 in the ER, will continue daily for the next 9 days Okay to give loading dose of remdesivir, follow dosing over next 4 days Albuterol nebs every 6 hours O2 support D-dimer ordered, if positive will need CT angiogram to rule out PE. If negative, DVT prophylaxis with heparin (2) CHF (congestive heart failure): Plan: Continue metoprolol, losartan, and low-dose aspirin Continue Lasix 20 mg p.o. daily Continue atorvastatin Does not appear to be an active CHF exacerbation at this time (3) Hyperlipidemia: Plan: Continue atorvastatin (4) DM (diabetes mellitus), type 2 with neurological complications: Plan: We will hold glimepiride and Metformin for now Patient is on 70/30 at 10 units daily I will add sliding scale to this If patient can tolerate diet, start carb controlled History of Present Illness Chief Complaint: SOB Primary Care Provider: EDNA Barajas This is a 85-year-old female with past medical history of hypertension, type 2 diabetes mellitus, hyperlipidemia that presents today complaining of cough and shortness of breath. Her daughter is in the room who is also experiencing similar symptoms and is also to be admitted. Daughter did give me most of history. Patient tells me that several generations live in her house. This includes her grandson and his daughter, which is the patient's great-granddaughter. Approximately 2 weeks ago, the granddaughter was sent home from school after being exposed to another child at school that had tested positive for Covid. Last week, the granddaughter, who is 11 years old, started to show some mild URI symptoms and was taken by her father to be tested which was positive. Although the child is doing well, about 1 week ago the patient started experiencing similar symptoms. This started with a low-grade fever and some generalized fatigue. Unfortunately, this progressed to shortness of breath and a loose but nonproductive cough. Patient does admit that her cough is not as severe as her daughters and is more dry sounding. Patient had significant dyspnea on exertion. She has not lost her taste or sense or smell. She tried to write out the symptoms but they continue to worsen until she became very short of breath with minimal activity. This is what prompted her to come to the emergency room today with her daughter. In the ER, she was found to have a room air O2 sat of 88%. She is doing much better on nasal cannula oxygen with a sat of 93%. She is febrile to 38.1 C. She is very weak appearing. She does admit to me that she was not vaccinated. Patient is now being admitted with her mother to Covid isolation secondary to Covid pneumonia. Allergies Allergy/AdvReac Type Severity Reaction Status Date / Time codeine AdvReac Confusion Verified 10/20/20 09:53 Home Medications Medication Instructions Recorded Confirmed Type aspirin 81 mg tablet,delayed 81 mg PO QAM 11/30/17 10/20/20 History release (Aspirin Low Dose) cholecalciferol (vitamin D3) 50 2,000 unit PO QAM 11/30/17 10/20/20 History mcg (2,000 unit) capsule (Vitamin D3) metoprolol tartrate 50 mg tablet 75 mg PO BID #270 tab 01/10/20 10/20/20 Rx atorvastatin 10 mg tablet 10 mg PO HS #90 tab 02/17/20 10/20/20 Rx metformin 1,000 mg tablet 1,000 mg PO BID #180 tab 02/17/20 10/20/20 Rx furosemide 20 mg tablet 20 mg PO DAILY #30 tab 08/06/20 10/20/20 Rx pen needle, diabetic, safety 30 #100 ea 08/18/20 10/20/20 Rx gauge x 3/16" (Assure ID Pen Needle) potassium chloride 10 mEq 10 meq PO DAILY #30 tab 08/20/20 10/20/20 Rx tablet,extended release (Klor-Con) glimepiride 2 mg tablet 2 mg PO QAM #90 tab 09/29/20 10/20/20 Rx flash glucose scanning reader #1 ea 10/06/20 10/20/20 Rx (FreeStyle Nesha 14 Day [place]) flash glucose sensor (FreeStyle #1 ea 10/06/20 10/20/20 Rx Nesha 14 Day Sensor) insulin aspar prot-insulin aspart 10 unit SUBCUT DAILY ml 10/06/20 10/20/20 History 100 unit/mL (70-30) subcutaneous pen (Novolog Mix 70-30FlexPen U-100) amlodipine 10 mg tablet 10 mg PO DAILY 10/20/20 10/20/20 History fluticasone propionate 50 2 spray INTRANASAL QAM 10/20/20 10/20/20 History mcg/actuation nasal spray,suspension losartan 100 mg tablet 100 mg PO DAILY 10/20/20 10/20/20 History nystatin 100,000 unit/gram topical 1 applic TOPICAL BID PRN 10/20/20 10/20/20 History powder Past Med/Surg History Medical History Bifascicular block Cancer of sigmoid colon S/P surgery/chemo-09/2017 Colon cancer DVT, lower extremity LLE (01/2018); s/p Xarelto x 3 months GI bleed 10/2017 s/p ex lap Hearing deficit History of palpitations History of PSVT (paroxysmal supraventricular tachycardia) on beta nando Low back pain Chronic Obesity Osteoarthritis Upper GI bleed Surgical History H/O exploratory laparotomy EX LAP, ABDOMINAL WASHOUT (2/2 GIB)= 10/24/17= GRADE 1 VIEW, JACOBSEN 2, ETT 7.0 AT [facility] History of cholecystectomy OPEN History of esophagogastroduodenoscopy (EGD) History of hip replacement LEFT History of open reduction and internal fixation (ORIF) procedure LEFT FEMUR History of open sigmoidectomy 09/2018 History of removal of Port-a-Cath (09/13/18) Removal of Left Subclavian Mediport Dr. 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 Beliefs That Will Affect Care: None marital status: / Current Living Situation: Family Current Living Situation Comment: With daugher Feels Safe at Home: Yes Childhood Exposure to Second-Hand Smoke: No caffeine: Yes Dental Care, Regularly: No Physical Activity Frequency: Does not Exercise Seatbelt Use: always Sunscreen Use: No Assistive Devices: Cane, Glasses and Walker Review of Systems Constitutional: + fever, + fatigue, + weakness and + anorexia; no chills, no weight loss and no weight gain Eyes: as per Subjective / HPI Respiratory: + cough, + chest congestion, + dyspnea, + dyspnea on exertion and + wheezing; no sputum production Cardiovascular: no chest pain, no orthopnea, no palpitations, no lightheadedness and no edema Gastrointestinal: no abdominal pain, no nausea, no vomiting, no constipation and no diarrhea/loose stools Genitourinary: no dysuria, no difficulty urinating, no urinary frequency, no urinary hesitancy, no urinary urgency and no flank pain Musculoskeletal: no back pain, no neck pain, no joint pain, no stiffness and no myalgia Integumentary: no rash Neurologic: no gait abnormality, no unsteadiness, no falls and no generalized weakness Physical Exam Constitutional: + ill appearing and cooperative; no acute distress Neck: trachea midline, no thyromegaly Respiratory: normal respiratory effort Auscultation: + diminished lung sounds, + rhonchi and + wheezes; no crackles and no rales Cardiovascular: Rate/Rhythm: regular rate and regular rhythm Heart Sounds: normal S1 and normal S2 Gastrointestinal (Abdomen): Inspection/Auscultation: abdomen normal to inspection Percussion/Palpation: abdomen soft; abdomen nontender, no guarding, abdomen not rigid and no hepatosplenomegaly Skin: no rashes, warm and dry Results & Data Results & Data ([facility]) Vital Signs (Past 12 Hours) Vital Signs Temp Pulse Resp BP Pulse Ox 10/20/20 17:00 79 25 H 127/64 88 L 10/20/20 16:31 89 24 144/82 H 92 10/20/20 16:00 90 20 143/65 H 93 10/20/20 15:30 82 25 H 155/67 H 92 10/20/20 15:00 85 18 131/74 89 L 10/20/20 14:43 38.1 C H 115 H 22 162/78 H 92 10/20/20 14:40 86 23 162/78 H 93 Laboratory Results Laboratory Results WBC 5.37 K/uL (4.8-10.8) 10/20/20 14:58 RBC 4.07 M/uL (4.2-5.4) L 10/20/20 14:58 Hgb 12.0 g/dL (12.0-16.0) 10/20/20 14:58 Hct 36.3 % (37-47) L 10/20/20 14:58 MCV 89.2 fL (80-100) 10/20/20 14:58 MCH 29.5 pg (25-34) 10/20/20 14:58 MCHC 33.1 g/dL (32-36) 10/20/20 14:58 RDW Std Deviation 47.1 fL (36.4-46.3) H 10/20/20 14:58 RDW Coeff of Sarika 14.2 % (11.5-14.5) 10/20/20 14:58 Plt Count 155 K/uL (130-400) 10/20/20 14:58 MPV 10.3 fL (7.4-10.4) 10/20/20 14:58 Immature Gran % (Auto) 0.2 % 10/20/20 14:58 Neut % (Auto) 84.1 % 10/20/20 14:58 Lymph % (Auto) 10.1 % 10/20/20 14:58 [place] % (Auto) 5.4 % 10/20/20 14:58 Eos % (Auto) 0.0 % 10/20/20 14:58 Baso % (Auto) 0.2 % 10/20/20 14:58 Neut # (Auto) 4.52 K/uL (1.4-6.5) 10/20/20 14:58 Lymph # (Auto) 0.54 K/uL (1.2-3.4) L 10/20/20 14:58 [place] # (Auto) 0.29 K/uL (0.11-0.59) 10/20/20 14:58 Eos # (Auto) 0.00 K/uL (0-0.5) 10/20/20 14:58 Baso # (Auto) 0.01 K/uL (0-0.2) 10/20/20 14:58 Immature Gran # (Auto) 0.01 K/uL (0.00-0.02) 10/20/20 14:58 Polychromasia 1+ 10/20/20 14:58 Poikilocytosis Present 10/20/20 14:58 D-Dimer 960 ug/L FEU (0-500) H* 10/20/20 17:39 Sodium 136 mmol/L (136-145) 10/20/20 14:58 Potassium 3.2 mmol/L (3.5-5.1) L 10/20/20 14:58 Chloride 106 mmol/L (98-107) 10/20/20 14:58 Carbon Dioxide 19 mmol/L (21-32) L 10/20/20 14:58 Anion Gap 11.0 (3-11) 10/20/20 14:58 BUN 17 mg/dl (7-18) 10/20/20 14:58 Creatinine 1.03 mg/dl (0.6-1.2) 10/20/20 14:58 Est Cr Clr Drug Dosing 49.4 ml/min 10/20/20 14:58 Est GFR ( Amer) 57.0 ml/min 10/20/20 14:58 Est GFR (Non-Af Amer) 49.2 ml/min 10/20/20 14:58 BUN/Creatinine Ratio 16.1 (10-20) 10/20/20 14:58 Glucose 205 mg/dl (70-99) H 10/20/20 14:58 Calcium 7.9 mg/dl (8.5-10.1) L 10/20/20 14:58 Total Bilirubin 0.4 mg/dl (0.2-1) 10/20/20 14:58 AST 25 U/L (15-37) 10/20/20 14:58 ALT 20 U/L (12-78) 10/20/20 14:58 Alkaline Phosphatase 53 U/L (45-117) 10/20/20 14:58 Troponin I 0.021 ng/ml (0-0.045) 10/20/20 14:58 C-Reactive Protein 15.10 mg/dl (0-0.29) H 10/20/20 14:58 NT-Pro-B Natriuret Pep 1273 pg/ml (0-1800) 10/20/20 14:58 Total Protein 7.4 gm/dl (6.4-8.2) 10/20/20 14:58 Albumin 2.9 gm/dl (3.4-5.0) L 10/20/20 14:58 Globulin 4.5 gm/dl (2.5-4.0) H 10/20/20 14:58 Albumin/Globulin Ratio 0.6 (0.9-2) L 10/20/20 14:58 Procalcitonin 0.17 ng/ml (0-0.5) 10/20/20 15:58 COVID-19 Eval Order Covid19 at [facility] 10/20/20 14:59 SARS-CoV-2 (PCR) POSITIVE (Negative) A* 10/20/20 14:59 Impressions Chest X-Ray 10/20/20 15:41 XR chest 1V portable HISTORY: 85 years-old Female cough, covid sxs acute cough COMPARISON: Chest radiograph 08/11/2020 TECHNIQUE: Portable AP view of the chest FINDINGS: Cardiac silhouette is enlarged. Pulmonary vascular congestion with bilateral interstitial coarsening with ill-defined Lower lung zone predominant airspace densities. No pneumothorax. Unchanged blunting of the costophrenic angles. No large pleural effusion. Degenerative changes of the shoulders and spine. IMPRESSION: 1. Cardiomegaly with pulmonary vascular congestion. 2. Interstitial coarsening with bilateral mid and lower lung zone ill-defined airspace opacities suggestive of multifocal pneumonia. ACT 112: Negative or not required by law. The above report was generated using voice recognition software. It may contain grammatical, syntax or spelling errors. Electronically signed by: Klever Berrios M.D. 10/20/2020 4:20 PM PG Care Time/CCT Total # of Minutes Spent Total Time Spent with Patient: Total time spent is greater than 50% in coordination of care (as documented) at patient's floor/unit and/or counseling patient: Coding Level of Care Code 02075 Initial Inpt Care Lvl 3 Diagnoses CHF (congestive heart failure) I50.9 Hyperlipidemia E78.5 DM (diabetes mellitus), type 2 with neurological complications E11.49 Pneumonia due to COVID-19 virus U07.1; J12.82
[2020-10-20] MEDS ORDERED: REMDESIVIR 200 MG in SODIUM CHLORIDE 0.9% 210 ML IV STA (18:26)
[2020-10-20] MEDS ORDERED: OPTIRAY 320 125ml IV ONE (20:27)
--- NOTE | 2020-10-20 20:43 | CT Scan Report ---
CT angio chest PE protocol CT DOSE: 717.46 mGycm HISTORY: 85 years-old Female with PE. Acute shortness of breath TECHNIQUE: Multiple CTA images of the chest were obtained after the intravenous administration of 119 ml Optiray. Coronal and sagittal MIPS were obtained from the axial data set and were submitted for review. All measurements were obtained according to NASCET criteria. A dose lowering technique was u tilized adhering to the principles of ALARA. COMPARISON: Chest radiograph of same day FINDINGS: Limited study secondary to upper extremity positioning. CTA: Moderate cardiomegaly. No pericardial effusion. Extensive coronary artery and mitral annular calcific ations. Moderate atherosclerosis of the thoracic aorta without aneurysm or dissection. Descending tho racic aortic tortuosity. Limited evaluation of the pulmonary arterial tree secondary to contrast bolu s timing, respiratory motion artifact and quantum mottle. No central pulmonary emboli identified. No pericardial effusion. CT CHEST: Multinodular thyroid. Prominent mediastinal and hilar lymph nodes measuring up to 9 mm are likely michael ctive. No pneumothorax or pleural effusion. Patchy bilateral subpleural predominant multisegmental groundgla ss densities are noted with mild dependent subsegmental bibasilar consolidation. The central airways are patent. No pneumoperitoneum. Calcifications of the splenic artery. Hepatic steatosis with hepatomegaly. Unrem arkable soft tissues. Degenerative changes of the shoulders and spine. No acute fracture. Demineraliz ed appearance of the bones. IMPRESSION: 1. Limited exam as above. No central pulmonary emboli identified. 2. Patchy bilateral subpleural predominant groundglass densities are compatible with viral pneumonia. 3. Prominent mediastinal and hilar lymph nodes are likely reactive. 4. Moderate cardiomegaly. ACT 112: Negative or not required by law. The above report was generated using voice recognition software. It may contain grammatical, syntax o r spelling errors. Electronically signed by: Klever Berrios M.D. 10/20/2020 8:42 PM
[2020-10-20 22:59] LABS: Appearance Urine Cloudy (Clear); Bacteria Urine Automated 3+ (Negative); Bilirubin Urine Negative (Negative); Blood Urine 2+ (Negative); Color Urine Yellow; Epithelial Cell Urine Auto >30 /lpf (0-5); Glucose Urine UA Negative (Negative); Ketones Urine Trace (Negative); Leukocyte Esterase Urine 1+ (Negative); Nitrite Urine Negative (Negative); Protein Urine 1+ (Negative); Specific Gravity Urine > 1.045 (1.000-1.030); Urobilinogen Urine Negative (Negative); WBC Urine Automated >30 /hpf (0-5)
[2020-10-20] MEDS ORDERED: GLUCOSE 10 TABS/TUBE PO PRN (23:49)
[2020-10-20] MEDS ORDERED: GLUCAGON FOR INJ 1 MG VIAL SQ PRN (23:49)
[2020-10-20] MEDS ORDERED: ONDANSETRON INJ 2 MG/ML 2 ML VIAL IV PRN (23:49)
[2020-10-20] MEDS ORDERED: DEXTROSE 50% 50 ML SYRINGE IV PRN (23:49)
[2020-10-20] MEDS ORDERED: GLUCOSE 40% GEL 15 GM TUBE PO PRN (23:49)
[2020-10-21] MEDS: HEPARIN SOD 5,000 UNIT/0.5 ML VIAL SQ SCH ×3 (00:45→16:17)
[2020-10-21] MEDS: ATORVASTATIN 10 MG TAB PO SCH ×2 (00:45→20:04)
[2020-10-21] MEDS: ALBUTEROL 0.5% NEB SOLN 2.5 MG/0.5 ML VIAL NEB SCH ×3 (00:46→07:12)
[2020-10-21] MEDS: METOPROLOL TARTRATE 25 MG TAB PO SCH ×3 (00:47→20:04)
[2020-10-21] MEDS: INSULIN ASPART 100 UNITS/ML 3 ML PEN SC SCH ×9 (01:09→21:22)
[2020-10-21] MEDS ORDERED: INSULIN ASPART 100 UNITS/ML 3 ML PEN SC ONE (04:00)
[2020-10-21 06:03] LABS: Hematocrit (blood only) 39.1 % (37-47); Mean Corpuscular Hemoglobin 29.7 pg (25-34); Mean Corpuscular Hgb Conc 33.2 g/dL (32-36); Mean Corpuscular Volume 89.5 fL (80-100); Mean Platelet Volume 10.4 fL (7.4-10.4); Platelet Count 154 K/uL (130-400); RDW Coefficient of Variation 14.2 % (11.5-14.5); RDW Standard Deviation 46.7 fL (36.4-46.3); Red Blood Count 4.37 M/uL (4.2-5.4); White Blood Count 4.36 K/uL (4.8-10.8)
[2020-10-21 06:27] LABS: Giant Platelets 1+; Immature Granulocytes # (auto) 0.01 K/uL (0.00-0.02); Immature Granulocytes % (auto) 0.2 %; Lymphocytes # (auto) 0.43 K/uL (1.2-3.4); Lymphocytes % (auto) 9.9 %; Monocytes # (auto) 0.17 K/uL (0.11-0.59); Monocytes % (auto) 3.9 %; Neutrophils # (auto) 3.75 K/uL (1.4-6.5)
[2020-10-21 06:35] LABS: Albumin Level 2.8 gm/dl (3.4-5.0); BUN Creatinine Ratio 21.2 (10-20); Calcium 8.1 mg/dl (8.5-10.1); Creatinine Clr Calc Pharmacy 58.2 ml/min; Est GFR (Non-African American) 59.5 ml/min; Potassium 3.7 mmol/L (3.5-5.1)
[2020-10-21 06:47] LABS: Albumin Globulin Ratio 0.6 (0.9-2); Bilirubin,Total 0.4 mg/dl (0.2-1); Globulin 4.6 gm/dl (2.5-4.0); Total Protein 7.4 gm/dl (6.4-8.2)
[2020-10-21] MEDS: dexAMETHasone 6 MG in SYRINGE 0 ML IV SCH (08:02)
[2020-10-21] MEDS: LOSARTAN POTASSIUM 50 MG TAB PO SCH (08:04)
[2020-10-21] MEDS: ASPIRIN 81 MG ECTAB PO SCH (08:05)
[2020-10-21] MEDS: CHOLECALCIFEROL 1,000 UNITS 25 MCG TAB PO SCH (08:05)
[2020-10-21] MEDS: FUROSEMIDE 20 MG TAB PO SCH (08:05)
[2020-10-21] MEDS: amLODIPine BESYLATE 5 MG TAB PO SCH (08:05)
[2020-10-21] MEDS: POTASSIUM CHLORIDE 10 MEQ TABCR PO SCH (08:05)
[2020-10-21] MEDS: NYSTATIN POWDER 15GM BTL EXT SCH ×2 (08:07→20:05)
[2020-10-21] MEDS: INSULIN HUMAN NPH SC SCH (08:23)
--- NOTE | 2020-10-21 11:26 | Electrocardiogram Report ---
Test Reason : Blood Pressure : / mmHG Vent. Rate : 087 BPM Atrial Rate : 087 BPM P-R Int : 208 ms QRS Dur : 144 ms QT Int : 410 ms P-R-T Axes : 077 -70 028 degrees QTc Int : 493 ms Sinus rhythm with Premature atrial complexes Right bundle branch block Left anterior fascicular block Bifascicular block Possible Lateral infarct , age undetermined Abnormal ECG When compared with ECG of 01-FEB-2018 06:07, Premature atrial complexes are now Present Borderline criteria for Lateral infarct are now Present Confirmed by Delgado White ([id number]) on 10/21/2020 11:25:54 AM Referred By: Layla Monterroso Confirmed By:Delgado White
[2020-10-21] MEDS: ALBUTEROL 0.083% NEBU SOLN 3 ML VIAL NEB SCH ×2 (13:05→19:10)
[2020-10-21] MEDS ORDERED: PHARMACY GLYCEMIC MGMT CONSULT PRN (15:53)
--- NOTE | 2020-10-21 16:08 | Hospitalist Progress Note ---
Date of Service October 21, 2020 Assessment & Plan (1) Pneumonia due to COVID-19 virus: Plan: - COVID positive - CTA: Limited exam as above. No central pulmonary emboli identified. Patchy bilateral subpleural predominant groundglass densities are compatible with viral pneumonia. Prominent mediastinal and hilar lymph nodes are likely reactive. Moderate cardiomegaly. 3-4 L oxygen requirement at time of assessment Continue isolation precautions Continue dexamethasone 10-day total course to be complete 10/30 Continue remdesivir Albuterol nebulizers every 6 hours Transaminitis CRP 15.0, trend Covid dosed Lovenox PPx (2) CHF (congestive heart failure): Plan: Continue metoprolol tartrate 75 mg p.o. twice daily Continue losartan 100 mg p.o. daily Continue aspirin 81 mg daily Patient approximately 5-7 kg above previous known dry weight, lungs coarse with trace rales and some congestion seen on CTA. Suspect patient may be more fluid overloaded than on initial appearance, Lasix 20 mg IV x1 given. 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 daily (3) Hyperlipidemia: Plan: Continue atorvastatin (4) DM (diabetes mellitus), type 2 with neurological complications: Plan: Glucose checks AC/at bedtime Diabetic diet Pharmacy glycemic consult placed for hyperglycemia in the setting of Covid illness Plan: FEN GI: Diabetic diet DVT prophylaxis: Creatinine clearance 58.2, convert prophylaxis from UFH to Lovenox 40 mg every 12 CODE STATUS: Full code Admission and Anticipated Discharge Date Admission Date: October 20, 2020 Lacie Castro is seen at the bedside this morning. She reports that she feels wiped out, and continues to have a junky cough and shortness of breath. Cough is productive for some white sputum today. Denies rigors, not sure if she has a fever, no chills at time of assessment. She reports that she has body aches all over. Reports she has been peeing often, no dysuria. Appetite is poor, but patient thinks a little bit better than yesterday. Endorses some swelling in her legs at baseline which is required Lasix in the past starting this past month. Reviewed dry weight on chart review, appears to be approximately +5 kg from recent documented dry weight Review of Systems Review of Systems: Constitutional: See HPI Eyes: Denies vision change ENT: Denies ear pain, sore throat, sinus pain Cardiovascular: Denies Chest pain, chest pressure, palpitations, extremity swelling Respiratory: See HPI Gastrointestinal: See HPI Genitourinary: Denies dysuria Musculoskeletal: See HPI Integumentary:Denies acute rash, lesions, bruising Neurological: Endorses mild headache, denies numbness/tingling Physical Exam Physical Exam: General: Alert and oriented x3, appears ill/fatigued, nontoxic. Cooperative HEENT: Atraumatic, normocephalic. Pulm: Diffusely coarse, bibasilar crackles/white rales. Symmetrical chest rise. No respiratory distress. Cardiac: RRR, -mrg. Radial pulses intact and symmetrical. Abdominal: Nontender, nondistended, soft. BS present. Extremities: Warm, dry. Mild tenderness to squeeze of arms/legs, patient reports legs tend to be tender to squeezing at baseline with no acute change. Calf asymmetry. PT pulse intact and symmetrical. Trace ankle edema. Results & Data Results & Data ([facility]) Vital Signs (Past 12 Hours) Vital Signs Temp Pulse Pulse Pulse Resp BP Pulse Ox 10/21/20 14:56 94 H 10/21/20 13:05 82 22 93 10/21/20 12:04 37.1 C 124 H 18 142/78 H 91 10/21/20 07:53 36.7 C 82 16 147/76 H 94 10/21/20 07:12 66 18 96 10/21/20 07:07 67 PG Care Time/CCT Total # of Minutes Spent Total Time Spent with Patient: Total time spent is greater than 50% in coordination of care (as documented) at patient's floor/unit and/or counseling patient: Coding Level of Care Code 68843 Subseq Hosp Care Lvl 3 Diagnoses Pneumonia due to COVID-19 virus U07.1; J12.82 CHF (congestive heart failure) I50.9 Hyperlipidemia E78.5 DM (diabetes mellitus), type 2 with neurological complications E11.49
[2020-10-21] MEDS ORDERED: FUROSEMIDE 20 MG in SYRINGE 0 ML IV ONE (16:15)
[2020-10-21] MEDS ORDERED: ENOXAPARIN INJ 40 MG/0.4 ML SYR SQ SCH (16:15)
[2020-10-21] MEDS ORDERED: FUROSEMIDE 40 MG/4 ML VIAL IV ONE (17:46)
--- NOTE | 2020-10-21 19:52 | Pharmacy Report ---
Pharmacy Glycemic Short Note 2 - Date of Service October 21, 2020 - Glycemic Short BSG Results (Last 24 hours): 10/21/20 10/21/20 10/21/20 00:32 04:26 05:27 Glucose 243 H POC Glucose 245 H 246 H 10/21/20 10/21/20 10/21/20 07:51 12:02 16:39 Glucose POC Glucose 218 H 224 H 204 H OUTPATIENT ANTIDIABETIC REGIMEN: * Novolog 70/30, 10 units SC daily * Metformin 1000 mg PO BIDM * Glimepiride 2 mg PO daily * HbA1c: 10.1% (08/11/20) ASSESSMENT: * SOFIA is a 85 year old female admitted on 10/20/20 with COVID-19 pneumonia * Receiving dexamethasone 6 mg IV daily * BSGs have been elevated since time of admission yesterday * NPH 30 units (~0.4 unit/kg of adjusted body weight) given with dexamethasone this morning * Pharmacy consulted for glycemic management at dinnertime today * Will tighten Novolog parameters this evening PLAN FOR INPATIENT GLYCEMIC CONTROL: * Hold outpatient oral diabetes medications * Basal insulin * NPH 30 units SC daily given today * Reassess in AM * Bolus insulin * NovoLog per scale ACHS or Q6hrs while NPO * Goal Range: Low 110 mg/dL - High 140 mg/dL * Correction Factor: 15 mg/dL/unit * Nutritional / Prandial insulin per carb ratio of 1 unit per 5 grams CHO consumed PLAN FOR DISCHARGE: * tbd
[2020-10-21] MEDS: REMDESIVIR 100 MG in SODIUM CHLORIDE 0.9% 230 ML IV SCH (19:58)
[2020-10-21] MEDS: SODIUM CHLORIDE 0.9% 10ML FLUSH IV SCH (22:18)
[2020-10-22] MEDS: ALBUTEROL 0.083% NEBU SOLN 3 ML VIAL NEB SCH ×2 (01:17→07:30)
[2020-10-22] MEDS ORDERED: INSULIN ASPART 100 UNITS/ML 3 ML PEN SC SCH (02:00)
[2020-10-22] MEDS: ENOXAPARIN INJ 40 MG/0.4 ML SYR SQ SCH ×2 (05:21→17:04)
--- NOTE | 2020-10-22 05:36 | Emergency Department Note ---
History of Present Illness General Chief complaint: Shortness of Breath/Dyspnea Stated complaint: ILLNESS, COVID POSITIVE Time Seen by Provider: 10/20/20 15:15 Source: patient Mode of arrival: ambulatory Limitations: no limitations History of Present Illness This patient is an 85-year-old female who presents to the emergency department for evaluation of symptoms of COVID-19. Patient has been ill for 8 days. She was recently exposed to her great granddaughter who was positive for COVID-19. Patient has had loss of taste/smell, decreased appetite, body aches, fevers, cough, shortness of breath and fatigue. She has not yet been tested. She has been taking Tylenol at home for fevers. Patient is a diabetic. Home Medications Medication Instructions Recorded Confirmed Type aspirin 81 mg tablet,delayed 81 mg PO QAM 11/30/17 10/20/20 History release (Aspirin Low Dose) cholecalciferol (vitamin D3) 50 2,000 unit PO QAM 11/30/17 10/20/20 History mcg (2,000 unit) capsule (Vitamin D3) metoprolol tartrate 50 mg tablet 75 mg PO BID #270 tab 01/10/20 10/20/20 Rx atorvastatin 10 mg tablet 10 mg PO HS #90 tab 02/17/20 10/20/20 Rx metformin 1,000 mg tablet 1,000 mg PO BID #180 tab 02/17/20 10/20/20 Rx furosemide 20 mg tablet 20 mg PO DAILY #30 tab 08/06/20 10/20/20 Rx pen needle, diabetic, safety 30 #100 ea 08/18/20 10/20/20 Rx gauge x 3/16" (Assure ID Pen Needle) potassium chloride 10 mEq 10 meq PO DAILY #30 tab 08/20/20 10/20/20 Rx tablet,extended release (Klor-Con) glimepiride 2 mg tablet 2 mg PO QAM #90 tab 09/29/20 10/20/20 Rx flash glucose scanning reader #1 ea 10/06/20 10/20/20 Rx (FreeStyle Nesha 14 Day [place]) flash glucose sensor (FreeStyle #1 ea 10/06/20 10/20/20 Rx Nesha 14 Day Sensor) insulin aspar prot-insulin aspart 10 unit SUBCUT DAILY ml 10/06/20 10/20/20 History 100 unit/mL (70-30) subcutaneous pen (Novolog Mix 70-30FlexPen U-100) amlodipine 10 mg tablet 10 mg PO DAILY 10/20/20 10/20/20 History fluticasone propionate 50 2 spray INTRANASAL QAM 10/20/20 10/20/20 History mcg/actuation nasal spray,suspension losartan 100 mg tablet 100 mg PO DAILY 10/20/20 10/20/20 History nystatin 100,000 unit/gram topical 1 applic TOPICAL BID PRN 10/20/20 10/20/20 History powder Allergies Allergy/AdvReac Type Severity Reaction Status Date / Time codeine AdvReac Confusion Verified 10/20/20 09:53 Past Med/Surg History Medical History Bifascicular block Cancer of sigmoid colon S/P surgery/chemo-09/2017 Colon cancer DVT, lower extremity LLE (01/2018); s/p Xarelto x 3 months GI bleed 10/2017 s/p ex lap Hearing deficit History of palpitations History of PSVT (paroxysmal supraventricular tachycardia) on beta nando Low back pain Chronic Obesity Osteoarthritis Upper GI bleed Surgical History H/O exploratory laparotomy EX LAP, ABDOMINAL WASHOUT (2/2 GIB)= 10/24/17= GRADE 1 VIEW, JACOBSEN 2, ETT 7.0 AT [facility] History of cholecystectomy OPEN History of esophagogastroduodenoscopy (EGD) History of hip replacement LEFT History of open reduction and internal fixation (ORIF) procedure LEFT FEMUR History of open sigmoidectomy 09/2018 History of removal of Port-a-Cath (09/13/18) Removal of Left Subclavian Mediport Dr. 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 Beliefs That Will Affect Care: None marital status: / Current Living Situation: Family Current Living Situation Comment: With daugher Other Information That Helps Us Care for You: No Feels Safe at Home: Yes Safety Concerns: Feels Safe At This Time Childhood Exposure to Second-Hand Smoke: No caffeine: Yes Dental Care, Regularly: No Physical Activity Frequency: Does not Exercise Seatbelt Use: always Sunscreen Use: No Assistive Devices: Glasses and Oxygen - Continuous Review of Systems A total of 10 systems reviewed and were otherwise negative Physical Exam Vital Signs Vital Signs - 24 hr 10/20/20 14:40 10/20/20 14:43 10/20/20 15:00 Temperature 38.1 C H Temperature Source Oral Pulse Rate 86 115 H 85 Pulse Rate [Apical] Pulse Rate from SpO2 Sensor 86 85 Pulse Rhythm Regular Pulse Strength Normal Respiratory Rate 23 22 18 Blood Pressure 162/78 H 162/78 H 131/74 Blood Pressure [Left Arm] Blood Pressure Mean 106 106 93 Blood Pressure Mean [Left Arm] Blood Pressure Position Sitting Pulse Oximetry 93 92 89 L Oxygen Delivery Method Room Air Room Air Room Air Sepsis Recent Fever Within 48 Hours Yes Sepsis New/Unexplained Change in Mental Status N/A Sepsis Action Taken by Nursing No Action Required 10/20/20 15:30 10/20/20 16:00 10/20/20 16:31 Temperature Temperature Source Pulse Rate 82 90 89 Pulse Rate [Apical] Pulse Rate from SpO2 Sensor 77 88 81 Pulse Rhythm Pulse Strength Respiratory Rate 25 H 20 24 Blood Pressure 155/67 H 143/65 H 144/82 H Blood Pressure [Left Arm] Blood Pressure Mean 96 91 102 Blood Pressure Mean [Left Arm] Blood Pressure Position Pulse Oximetry 92 93 92 Oxygen Delivery Method Room Air Room Air Room Air Sepsis Recent Fever Within 48 Hours Sepsis New/Unexplained Change in Mental Status Sepsis Action Taken by Nursing 10/20/20 17:00 10/20/20 19:00 Temperature Temperature Source Pulse Rate 79 Pulse Rate [Apical] 78 Pulse Rate from SpO2 Sensor 79 Pulse Rhythm Pulse Strength Respiratory Rate 25 H 21 Blood Pressure 127/64 Blood Pressure [Left Arm] 139/62 Blood Pressure Mean 85 Blood Pressure Mean [Left Arm] 87 Blood Pressure Position Pulse Oximetry 88 L 94 Oxygen Delivery Method Room Air Sepsis Recent Fever Within 48 Hours Sepsis New/Unexplained Change in Mental Status Sepsis Action Taken by Nursing VITALS: Vitals are noted on the nurse's note and reviewed by myself. GENERAL: This is an 85-year-old female, moderately ill-appearing, sitting up in bed. SKIN: The skin was without rashes. EARS: External auditory canals clear, tympanic membranes pearly coon without erythema or effusion bilaterally. EYES: Pupils equal round and reactive to light and accommodation. MOUTH: Mucous membranes somewhat dry. NECK: Supple without nuchal rigidity. No lymphadenopathy. HEART: Regular rate and rhythm without murmurs gallops or rubs. LUNGS: Diminished breath sounds throughout. ABDOMEN: Soft, nontender to palpation. EXTREMITIES: 1+ pitting edema bilaterally. NEURO: Patient was alert and oriented to person place and time. Course Administered Medications Albuterol (Albuterol 0.083% Nebu Soln 3 Ml Vial) 2.5 mg NEB Q6R MICHELLE Stop: 11/19/20 00:59 Last Admin: 10/22/20 01:17 Dose: 2.5 mg Documented by: [id number] Admin: 10/21/20 19:10 Dose: 2.5 mg Documented by: [id number] Admin: 10/21/20 13:05 Dose: 2.5 mg Documented by: [id number] Amlodipine Besylate (Amlodipine Besylate 5 Mg Tab) 10 mg PO DAILY MICHELLE Stop: 11/20/20 08:59 Last Admin: 10/21/20 08:05 Dose: 10 mg Documented by: [id number] Aspirin (Aspirin 81 Mg Ectab) 81 mg PO QAM MICHELLE Stop: 11/20/20 08:59 Last Admin: 10/21/20 08:05 Dose: 81 mg Documented by: [id number] Atorvastatin Calcium (Atorvastatin 10 Mg Tab) 10 mg PO HS MICHELLE Stop: 11/19/20 23:48 Last Admin: 10/21/20 20:04 Dose: 10 mg Documented by: [id number] Admin: 10/21/20 00:45 Dose: 10 mg Documented by: [id number] Enoxaparin Sodium (Enoxaparin Inj 40 Mg/0.4 Ml Syr) 40 mg SQ Q12H MICHELLE Stop: 11/21/20 05:59 Last Admin: 10/22/20 05:21 Dose: 40 mg Documented by: [id number] Furosemide (Furosemide 20 Mg Tab) 20 mg PO DAILY MICHELLE Stop: 11/20/20 08:59 Last Admin: 10/21/20 08:05 Dose: 20 mg Documented by: [id number] Dexamethasone 6 mg/ Syringe 1.5 mls @ 1 mls/min IV DAILY MICHELLE Stop: 10/31/20 08:59 Last Admin: 10/21/20 08:02 Dose: 1 mls/min Documented by: [id number] Remdesivir 100 mg/ Sodium (Chloride) 250 mls @ 250 mls/hr IV Q24H [facility]; Protocol Stop: 10/24/20 20:59 Last Infusion: 10/21/20 21:00 Dose: 0 mls/hr Documented by: [id number] Admin: 10/21/20 19:58 Dose: 250 mls/hr Documented by: [id number] Insulin Aspart (Insulin Aspart 100 Units/Ml 3 Ml Pen) 0 units SC ACHS [facility] Stop: 11/20/20 07:29 Last Admin: 10/21/20 21:22 Dose: 5 units Documented by: [id number] Cosigned by: [id number] Admin: 10/21/20 17:40 Dose: 10 units Documented by: [id number] Cosigned by: [id number] Admin: 10/21/20 12:32 Dose: 5 units Documented by: [id number] Cosigned by: [id number] Admin: 10/21/20 08:21 Dose: 6 units Documented by: [id number] Cosigned by: [id number] Insulin Human NPH (Insulin Human Nph) 30 units SC DAILY MICHELLE Stop: 11/20/20 08:59 Last Admin: 10/21/20 08:23 Dose: 30 units Documented by: [id number] Cosigned by: [id number] Losartan Potassium (Losartan Potassium 50 Mg Tab) 100 mg PO DAILY [facility] Stop: 11/20/20 08:59 Last Admin: 10/21/20 08:04 Dose: 100 mg Documented by: [id number] Metoprolol Tartrate (Metoprolol Tartrate 25 Mg Tab) 75 mg PO BID [facility] Stop: 11/20/20 00:29 Last Admin: 10/21/20 20:04 Dose: 75 mg Documented by: [id number] Admin: 10/21/20 12:07 Dose: 75 mg Documented by: [id number] Admin: 10/21/20 00:47 Dose: 75 mg Documented by: [id number] Nystatin (Nystatin Powder 15gm Btl) 1 appln EXT BID [facility] Stop: 11/20/20 08:59 Last Admin: 10/21/20 20:05 Dose: 1 appln Documented by: [id number] Admin: 10/21/20 08:07 Dose: 1 appln Documented by: [id number] Potassium Chloride (Potassium Chloride 10 Meq Tabcr) 10 meq PO DAILY MICHELLE Stop: 11/20/20 08:59 Last Admin: 10/21/20 08:05 Dose: 10 meq Documented by: [id number] Sodium Chloride (Sodium Chloride 0.9% 10ml Flush) 30 ml IV Q24H MICHELLE Stop: 10/24/20 20:01 Last Admin: 10/21/20 22:18 Dose: 30 ml Documented by: [id number] Vitamin D (Cholecalciferol 1,000 Units 25 Mcg Tab) 2,000 units PO QAM MICHELLE Stop: 11/20/20 08:59 Last Admin: 10/21/20 08:05 Dose: 2,000 units Documented by: [id number] Discontinued Medications Albuterol (Albuterol 0.5% Neb Soln 2.5 Mg/0.5 Ml Vial) 2.5 mg NEB Q6R [facility] Stop: 11/19/20 00:59 Last Admin: 10/21/20 07:12 Dose: 2.5 mg Documented by: [id number] Admin: 10/21/20 00:47 Dose: Not Given Documented by: [id number] Admin: 10/21/20 00:47 Dose: Not Given Documented by: [id number] Admin: 10/21/20 00:47 Dose: Not Given Documented by: [id number] Admin: 10/21/20 00:47 Dose: Not Given Documented by: [id number] Admin: 10/21/20 00:46 Dose: Not Given Documented by: [id number] Dexamethasone Sodium Phosphate (DexamethasonePf 10 Mg/Ml Vial) Confirm Administered Dose 10 mg .ROUTE .STK-MED ONE Stop: 10/20/20 17:10 Last Admin: 10/20/20 17:16 Dose: Not Given Documented by: [id number] Enoxaparin Sodium (Enoxaparin Inj 40 Mg/0.4 Ml Syr) 40 mg SQ Q12 MICHELLE Stop: 11/20/20 16:14 Last Admin: 10/21/20 17:24 Dose: 40 mg Documented by: [id number] Furosemide (Furosemide 40 Mg/4 Ml Vial) Confirm Administered Dose 40 mg IV .STK- MED ONE Stop: 10/21/20 17:47 Last Admin: 10/21/20 17:58 Dose: Not Given Documented by: [id number] Heparin Sodium (Porcine) (Heparin Sod 5,000 Unit/0.5 Ml Vial) 5,000 units SQ Q8 MICHELLE Stop: 11/20/20 00:29 Last Admin: 10/21/20 16:17 Dose: Not Given Documented by: [id number] Admin: 10/21/20 07:59 Dose: 5,000 units Documented by: [id number] Admin: 10/21/20 00:45 Dose: 5,000 units Documented by: [id number] Dexamethasone 6 mg/ Syringe 1.5 mls @ 1 mls/min IV ONE ONE Stop: 10/20/20 16:55 Last Admin: 10/20/20 17:15 Dose: 1 mls/min Documented by: [id number] Remdesivir 200 mg/ Sodium (Chloride) 250 mls @ 125 mls/hr IV ONE STA; Protocol Stop: 10/20/20 20:25 Last Infusion: 10/20/20 22:24 Dose: 0 mls/hr Documented by: [id number] Admin: 10/20/20 20:06 Dose: 125 mls/hr Documented by: [id number] Furosemide 20 mg/ Syringe 2 mls @ 4 mls/min IV ONE ONE Stop: 10/21/20 16:16 Last Admin: 10/21/20 17:55 Dose: 4 mls/min Documented by: [id number] Ibuprofen (Ibuprofen 600 Mg Tab) 600 mg PO NOW STA Stop: 10/20/20 16:08 Last Admin: 10/20/20 16:17 Dose: 600 mg Documented by: [id number] Insulin Aspart (Insulin Aspart 100 Units/Ml 3 Ml Pen) 0 units SC ACHS MICHELLE Stop: 11/19/20 00:29 Last Admin: 10/21/20 05:16 Dose: Not Given Documented by: [id number] Admin: 10/21/20 05:15 Dose: Not Given Documented by: [id number] Admin: 10/21/20 05:14 Dose: Not Given Documented by: [id number] Admin: 10/21/20 05:12 Dose: Not Given Documented by: [id number] Admin: 10/21/20 01:09 Dose: 4 units Documented by: [id number] Cosigned by: [id number] Insulin Aspart (Insulin Aspart 100 Units/Ml 3 Ml Pen) 0 units SC ONE ONE Stop: 10/21/20 04:01 Last Admin: 10/21/20 04:34 Dose: 4 units Documented by: [id number] Cosigned by: [id number] Insulin Aspart (Insulin Aspart 100 Units/Ml 3 Ml Pen) 0 units SC 0200 MICHELLE Stop: 10/22/20 02:01 Last Admin: 10/22/20 02:37 Dose: 2 units Documented by: [id number] Cosigned by: [id number] Ioversol (Optiray 320 125ml) 119 ml IV ONCE ONE Stop: 10/20/20 20:28 Last Admin: 10/20/20 20:27 Dose: 119 ml Documented by: [id number] Medical Decision Making Differential Diagnosis Differential diagnosis includes COVID-19 pneumonia, reactive airway disease, pneumonia, pneumothorax, COPD, CHF, infections, cardiac ischemia, pulmonary embolism, musculoskeletal, gastrointestinal, as well as other pathologies. Home Medications Current Medication List: was personally reviewed by me Laboratory Data Attestation: I reviewed the patient's lab results. Result diagrams: 10/21/20 05:27 10/21/20 05:27 Lab Results 10/20/20 10/20/20 10/20/20 Range/Units 14:58 14:58 14:59 WBC 5.37 (4.8-10.8) K/uL RBC 4.07 L (4.2-5.4) M/uL Hgb 12.0 (12.0-16.0) g/dL Hct 36.3 L (37-47) % MCV 89.2 (80-100) fL MCH 29.5 (25-34) pg MCHC 33.1 (32-36) g/dL RDW Std Deviation 47.1 H (36.4-46.3) fL RDW Coeff of Sarika 14.2 (11.5-14.5) % Plt Count 155 (130-400) K/uL MPV 10.3 (7.4-10.4) fL Immature Gran % (Auto) 0.2 % Neut % (Auto) 84.1 % Lymph % (Auto) 10.1 % Dundy % (Auto) 5.4 % Eos % (Auto) 0.0 % Baso % (Auto) 0.2 % Neut # (Auto) 4.52 (1.4-6.5) K/uL Lymph # (Auto) 0.54 L (1.2-3.4) K/uL Dundy # (Auto) 0.29 (0.11-0.59) K/uL Eos # (Auto) 0.00 (0-0.5) K/uL Baso # (Auto) 0.01 (0-0.2) K/uL Immature Gran # (Auto) 0.01 (0.00-0.02) K/uL Polychromasia 1+ Poikilocytosis Present D-Dimer (0-500) ug/L FEU Sodium 136 (136-145) mmol/L Potassium 3.2 L (3.5-5.1) mmol/L Chloride 106 (98-107) mmol/L Carbon Dioxide 19 L (21-32) mmol/L Anion Gap 11.0 (3-11) BUN 17 (7-18) mg/dl Creatinine 1.03 (0.6-1.2) mg/dl Est Cr Clr Drug Dosing 49.4 ml/min Est GFR ( Amer) 57.0 ml/min Est GFR (Non-Af Amer) 49.2 ml/min BUN/Creatinine Ratio 16.1 (10-20) Glucose 205 H (70-99) mg/dl Calcium 7.9 L (8.5-10.1) mg/dl Total Bilirubin 0.4 (0.2-1) mg/dl AST 25 (15-37) U/L ALT 20 (12-78) U/L Alkaline Phosphatase 53 (45-117) U/L Troponin I 0.021 (0-0.045) ng/ml C-Reactive Protein 15.10 H (0-0.29) mg/dl NT-Pro-B Natriuret Pep 1273 (0-1800) pg/ml Total Protein 7.4 (6.4-8.2) gm/dl Albumin 2.9 L (3.4-5.0) gm/dl Globulin 4.5 H (2.5-4.0) gm/dl Albumin/Globulin Ratio 0.6 L (0.9-2) Procalcitonin (0-0.5) ng/ml COVID-19 Eval Order Covid19 at [facility] SARS-CoV-2 (PCR) (Negative) 10/20/20 10/20/20 10/20/20 Range/Units 14:59 15:58 17:39 WBC (4.8-10.8) K/uL RBC (4.2-5.4) M/uL Hgb (12.0-16.0) g/dL Hct (37-47) % MCV (80-100) fL MCH (25-34) pg MCHC (32-36) g/dL RDW Std Deviation (36.4-46.3) fL RDW Coeff of Sarika (11.5-14.5) % Plt Count (130-400) K/uL MPV (7.4-10.4) fL Immature Gran % (Auto) % Neut % (Auto) % Lymph % (Auto) % Dundy % (Auto) % Eos % (Auto) % Baso % (Auto) % Neut # (Auto) (1.4-6.5) K/uL Lymph # (Auto) (1.2-3.4) K/uL Dundy # (Auto) (0.11-0.59) K/uL Eos # (Auto) (0-0.5) K/uL Baso # (Auto) (0-0.2) K/uL Immature Gran # (Auto) (0.00-0.02) K/uL Polychromasia Poikilocytosis D-Dimer 960 H* (0-500) ug/L FEU Sodium (136-145) mmol/L Potassium (3.5-5.1) mmol/L Chloride (98-107) mmol/L Carbon Dioxide (21-32) mmol/L Anion Gap (3-11) BUN (7-18) mg/dl Creatinine (0.6-1.2) mg/dl Est Cr Clr Drug Dosing ml/min Est GFR ( Amer) ml/min Est GFR (Non-Af Amer) ml/min BUN/Creatinine Ratio (10-20) Glucose (70-99) mg/dl Calcium (8.5-10.1) mg/dl Total Bilirubin (0.2-1) mg/dl AST (15-37) U/L ALT (12-78) U/L Alkaline Phosphatase (45-117) U/L Troponin I (0-0.045) ng/ml C-Reactive Protein (0-0.29) mg/dl NT-Pro-B Natriuret Pep (0-1800) pg/ml Total Protein (6.4-8.2) gm/dl Albumin (3.4-5.0) gm/dl Globulin (2.5-4.0) gm/dl Albumin/Globulin Ratio (0.9-2) Procalcitonin 0.17 (0-0.5) ng/ml COVID-19 Eval Order SARS-CoV-2 (PCR) POSITIVE A* (Negative) Imaging Data Attestation: I personally reviewed and interpreted this imaging study as follows: Radiologist's Impression: Chest X-Ray 10/20/20 15:41 XR chest 1V portable HISTORY: 85 years-old Female cough, covid sxs acute cough COMPARISON: Chest radiograph 08/11/2020 TECHNIQUE: Portable AP view of the chest FINDINGS: Cardiac silhouette is enlarged. Pulmonary vascular congestion with bilateral interstitial coarsening with ill-defined Lower lung zone predominant airspace densities. No pneumothorax. Unchanged blunting of the costophrenic angles. No large pleural effusion. Degenerative changes of the shoulders and spine. IMPRESSION: 1. Cardiomegaly with pulmonary vascular congestion. 2. Interstitial coarsening with bilateral mid and lower lung zone ill-defined airspace opacities suggestive of multifocal pneumonia. ACT 112: Negative or not required by law. The above report was generated using voice recognition software. It may contain grammatical, syntax or spelling errors. Electronically signed by: Klever Berrios M.D. 10/20/2020 4:20 PM ECG Data Attestation: I personally reviewed and interpreted this ECG as follows: Indication: + SOB/dyspnea Rate (beats per minute): 87 Rhythm: + normal sinus ECG Intervals/blocks: + Left anterior fascicular block and + Right Bundle branch block ECG ST segments: + Nonspecific ST abnormalities Change: the following changes noted (PACs present) MDM Narrative Continuous cardiac cath technologist: Order was placed for continuous cardiac cath technologist. Patient was placed on the cardiac cath technologist. Patient was noted to be in normal sinus rhythm at an initial rate of 85 bpm. The patient is an 85-year-old female who presents today complaining of worsening symptoms of COVID-19. Patient has been ill for 8 days. She is found to be hypoxic in the ER and was placed on oxygen via nasal cannula. Labs revealed no leukocytosis or anemia. Glucose elevated at 205. CRP was elevated. Chest x- ray suggestive of multifocal pneumonia/pulmonary vascular congestion. Given patient's history of CHF and chest x-ray findings, she was not given any IV fluids. She was given a dose of 6 mg Decadron IV. She was given ibuprofen for fever. The patient's case was discussed with the [facility] hospitalist group, who agreed to evaluate the patient for further care. Impression & Plan Pneumonia due to COVID-19 virus, Hypoxia Discharge Plan Visit Data Chief Complaint: Shortness of Breath/Dyspnea Stated Complaint: ILLNESS, COVID POSITIVE ED Provider: Nico Anna ED Midlevel Provider: Jennifer Peter Discharge Problem: Pneumonia due to COVID-19 virus, Hypoxia Patient Disposition: Admitted As Inpatient Discharge Instructions Interventions: ED Discharge Assessment Last Done: 10/20/20 23:21
[2020-10-22 07:00] LABS: Hematocrit (blood only) 37.5 % (37-47); Hemoglobin 12.6 g/dL (12.0-16.0); Immature Granulocytes # (auto) 0.02 K/uL (0.00-0.02); Immature Granulocytes % (auto) 0.3 %; Lymphocytes % (auto) 11.3 %; Mean Corpuscular Hemoglobin 29.8 pg (25-34); Mean Corpuscular Hgb Conc 33.6 g/dL (32-36); Mean Corpuscular Volume 88.7 fL (80-100); Mean Platelet Volume 10.7 fL (7.4-10.4); Monocytes # (auto) 0.58 K/uL (0.11-0.59); Monocytes % (auto) 9.4 %; Platelet Count 191 K/uL (130-400); RDW Coefficient of Variation 14.4 % (11.5-14.5); RDW Standard Deviation 46.7 fL (36.4-46.3); Red Blood Count 4.23 M/uL (4.2-5.4)
[2020-10-22 07:37] LABS: BUN Creatinine Ratio 22.6 (10-20); Creatinine Clr Calc Pharmacy 52.1 ml/min; Est GFR (African American) 59.8 ml/min; Est GFR (Non-African American) 51.6 ml/min; Potassium 3.3 mmol/L (3.5-5.1)
[2020-10-22] MEDS: dexAMETHasone 6 MG in SYRINGE 0 ML IV SCH (07:55)
[2020-10-22] MEDS: CHOLECALCIFEROL 1,000 UNITS 25 MCG TAB PO SCH (07:58)
[2020-10-22] MEDS: ASPIRIN 81 MG ECTAB PO SCH (07:58)
[2020-10-22] MEDS: amLODIPine BESYLATE 5 MG TAB PO SCH (07:58)
[2020-10-22] MEDS: LOSARTAN POTASSIUM 50 MG TAB PO SCH (07:58)
[2020-10-22] MEDS: FUROSEMIDE 20 MG TAB PO SCH (07:58)
[2020-10-22] MEDS: NYSTATIN POWDER 15GM BTL EXT SCH ×2 (07:59→20:25)
[2020-10-22] MEDS: POTASSIUM CHLORIDE 10 MEQ TABCR PO SCH (07:59)
[2020-10-22] MEDS: METOPROLOL TARTRATE 25 MG TAB PO SCH ×2 (07:59→20:25)
[2020-10-22] MEDS: INSULIN ASPART 100 UNITS/ML 3 ML PEN SC SCH ×4 (08:00→20:45)
[2020-10-22] MEDS: INSULIN HUMAN NPH SC SCH (08:30)
[2020-10-22] MEDS ORDERED: COUGH DROP (SUGAR FREE) LOZ 24 LOZ/1 BOX BUCCAL ONE (08:38)
[2020-10-22] MEDS ORDERED: FUROSEMIDE 20 MG in SYRINGE 0 ML IV SCH (09:00)
[2020-10-22] MEDS ORDERED: cefTRIAXone SODIUM 2,000 MG in DEXTROSE 5% 50 ML IV SCH (09:00)
[2020-10-22] MEDS ORDERED: INSULIN HUMAN NPH SC SCH (09:00)
[2020-10-22] MEDS: ACETAMINOPHEN 325 MG TAB PO PRN (11:00)
--- NOTE | 2020-10-22 11:26 | Pharmacy Report ---
Pharmacy Glycemic Short Note 2 - Date of Service October 22, 2020 - Glycemic Short BSG Results (Last 24 hours): 10/21/20 10/21/20 10/21/20 12:02 16:39 20:21 Glucose POC Glucose 224 H 204 H 203 H 10/22/20 10/22/20 10/22/20 01:52 06:43 07:52 Glucose 169 H POC Glucose 156 H 193 H 10/22/20 10:59 Glucose POC Glucose 200 H OUTPATIENT ANTIDIABETIC REGIMEN: * Novolog 70/30, 10 units SC daily * Metformin 1000 mg PO BIDM * Glimepiride 2 mg PO daily * HbA1c: 10.1% (08/11/20) ASSESSMENT: 10/22: * Patient received total of 60 units of insulin yesterday; 30 units basal + 30 units bolus. * Fasting BSG today was 193 mg/dl. Post prandial BSGs yesterday were above 200. * NPH insulin dose should have been increased this AM but it was already given before the adjustment was made. Dose increased for tomorrow AM. * Pt continues to be on Decadron 6 mg IV q24h which is also contributing to the BSG elevation. * Post prandial BSGs have all been elevated above 200 mg/dl. Novolog parameters tightened with lunch. 10/21/20: * SOFIA is a 85 year old female admitted on 10/20/20 with COVID-19 pneumonia * Receiving dexamethasone 6 mg IV daily * BSGs have been elevated since time of admission yesterday * NPH 30 units (~0.4 unit/kg of adjusted body weight) given with dexamethasone this morning * Pharmacy consulted for glycemic management at dinnertime today * Will tighten Novolog parameters this evening PLAN FOR INPATIENT GLYCEMIC CONTROL: * Hold outpatient oral Metformin * Basal insulin * NPH 30 units SC given today * NPH dose increased to 35 units daily starting tomorrow. * Bolus insulin: tightened CF/CR * NovoLog per scale ACHS or Q6hrs while NPO * Goal Range: Low 110 mg/dL - High 140 mg/dL * Correction Factor: 12 mg/dL/unit * Nutritional / Prandial insulin per carb ratio of 1 unit per 4.5 grams CHO consumed PLAN FOR DISCHARGE: * tbd
[2020-10-22] MEDS ORDERED: ALBUTEROL 0.083% NEBU SOLN 3 ML VIAL NEB PRN (12:13)
[2020-10-22] MEDS ORDERED: FUROSEMIDE 20 MG in SYRINGE 0 ML IV ONE (13:30)
--- NOTE | 2020-10-22 13:52 | XRay Report ---
XR chest 1V portable HISTORY: 85 years-old Female hypoxia, ?pulm edema. COVID+ acute hypoxia COMPARISON: Chest radiograph and CTA chest 10/20/2020 TECHNIQUE: Portable AP view of the chest FINDINGS: Cardiac silhouette is enlarged. Pulmonary vascular congestion with progressively worsened reticular i nterstitial densities with ill-defined bibasilar opacities. No pneumothorax. Unchanged blunting of th e costophrenic angles without large pleural effusion. Degenerative changes of the shoulders and spine . IMPRESSION: Cardiomegaly and pulmonary vascular congestion with progressively worsened bilateral mixe d interstitial and alveolar opacities. Findings are suggestive of worsening pneumonia. Superimposed p ulmonary edema would be difficult to exclude. ACT 112: Negative or not required by law. The above report was generated using voice recognition software. It may contain grammatical, syntax o r spelling errors. Electronically signed by: Klever Berrios M.D. 10/22/2020 1:51 PM
[2020-10-22] MEDS: POTASSIUM CHLORIDE CRTAB 20 MEQ TABCR PO SCH ×2 (14:50→20:25)
--- NOTE | 2020-10-22 17:50 | Hospitalist Progress Note ---
Date of Service October 22, 2020 Assessment & Plan (1) Pneumonia due to COVID-19 virus: Plan: - COVID positive - Patient with acute hypoxic respiratory failture 2/2 COVID19 complicated by underlying CHF and possible pulmonary edema. Stable, but remains significantly ill. - CTA: Limited exam as above. No central pulmonary emboli identified. Patchy bilateral subpleural predominant groundglass densities are compatible with viral pneumonia. Prominent mediastinal and hilar lymph nodes are likely reactive. Moderate cardiomegaly. - SpO2 goal >90% Continue isolation precautions Continue dexamethasone 10-day total course to be complete 10/30 Continue remdesivir Albuterol nebulizers every 6 hours Covid dosed Lovenox PPx - Repeat CXR with worsened pna vs pulmonary edema. Lasix tx as noted in CHF (2) CHF (congestive heart failure): Plan: Continue metoprolol tartrate 75 mg p.o. twice daily Continue losartan 100 mg p.o. daily Continue aspirin 81 mg daily Patient approximately 5-7 kg above previous known dry weight, lungs coarse with trace rales and some congestion seen on CTA. Suspect patient may be more fluid overloaded than on initial appearance, Lasix 20 mg IV x1 given. Follow O2, maintain preference for slightly short goods drier status given Covid pneumonia CXR with increased pna vs pulmonary edema. Lasix converted to 20mg IV qAM, follow volume and BID dose PRN as tolerated (3) Hyperlipidemia: Plan: Continue atorvastatin (4) DM (diabetes mellitus), type 2 with neurological complications: Plan: Glucose checks AC/at bedtime Diabetic diet Pharmacy glycemic consult placed for hyperglycemia in the setting of Covid illness (5) Acute respiratory failure with hypoxia: Plan: FEN GI: Diabetic diet DVT prophylaxis: Lovenox CODE STATUS: Full code Admission and Anticipated Discharge Date Admission Date: October 20, 2020 Subjective Seen at bedside. Pt reports feels well, no shortness of breath. Has not ambulated. No chest pain/chest pressure. No fever/chills. Continues to have a cough, wet but not productive. Review of Systems Review of Systems: Constitutional: See HPI Eyes: Denies double vision, vision change, eye pain ENT: Denies ear pain, sore throat, sinus pain Cardiovascular: Denies Chest pain, chest pressure, palpitations, extremity swelling Respiratory: See HPI Gastrointestinal: Denies abdominal pain, nausea, vomiting, constipation, diarrhea Genitourinary: Denies pain with urination, urinary urgency. +urinary frequency with lasix Musculoskeletal: Denies weakness Integumentary:Denies rash, lesions, bruising Neurological: Denies numbness, tingling, focal weakness Physical Exam Physical Exam: General: Alert and oriented x3, appears ill/fatigued, nontoxic. Cooperative HEENT: Atraumatic, normocephalic. Pulm: Diffusely coarse, bibasilar crackles/rales. Symmetrical chest rise. No respiratory distress. Cardiac: RRR, -mrg. Radial pulses intact and symmetrical. Abdominal: Nontender, nondistended, soft. BS present. Extremities: Warm, dry. Mild tenderness to squeeze of arms/legs, patient reports legs tend to be tender to squeezing at baseline with no acute change. Calf asymmetry. PT pulse intact and symmetrical. Trace ankle edema. Results & Data Results & Data ([facility]) Vital Signs (Past 12 Hours) Vital Signs Temp Pulse Pulse Resp BP BP Pulse Ox 10/22/20 15:51 36.8 C 65 20 113/69 93 10/22/20 14:49 36.7 C 10/22/20 11:00 37.9 C H 76 22 130/56 L 94 10/22/20 07:54 37.3 C 84 18 152/64 H 91 10/22/20 07:38 36.5 C 60 18 123/75 92 10/22/20 07:31 86 20 93 10/22/20 07:12 67 PG Care Time/CCT Total # of Minutes Spent Total Time Spent with Patient: Total time spent is greater than 50% in coordination of care (as documented) at patient's floor/unit and/or counseling patient: Coding Level of Care Code 60083 Subseq Hosp Care Lvl 3 Diagnoses Pneumonia due to COVID-19 virus U07.1; J12.82 CHF (congestive heart failure) I50.9 Hyperlipidemia E78.5 DM (diabetes mellitus), type 2 with neurological complications E11.49 Acute respiratory failure with hypoxia J96.01
[2020-10-22] MEDS: REMDESIVIR 100 MG in SODIUM CHLORIDE 0.9% 230 ML IV SCH (20:24)
[2020-10-22] MEDS: ATORVASTATIN 10 MG TAB PO SCH (20:25)
[2020-10-22] MEDS: SODIUM CHLORIDE 0.9% 10ML FLUSH IV SCH (22:25)
[2020-10-23] MEDS: ENOXAPARIN INJ 40 MG/0.4 ML SYR SQ SCH ×2 (06:10→17:51)
[2020-10-23] MEDS: INSULIN ASPART 100 UNITS/ML 3 ML PEN SC SCH ×4 (09:10→20:13)
[2020-10-23] MEDS: INSULIN HUMAN NPH SC SCH (09:10)
[2020-10-23] MEDS: dexAMETHasone 6 MG in SYRINGE 0 ML IV SCH (09:12)
[2020-10-23] MEDS: POTASSIUM CHLORIDE CRTAB 20 MEQ TABCR PO SCH ×3 (09:14→19:56)
[2020-10-23] MEDS: ASPIRIN 81 MG ECTAB PO SCH (09:14)
[2020-10-23] MEDS: LOSARTAN POTASSIUM 50 MG TAB PO SCH (09:14)
[2020-10-23] MEDS: METOPROLOL TARTRATE 25 MG TAB PO SCH ×2 (09:15→19:56)
[2020-10-23] MEDS: amLODIPine BESYLATE 5 MG TAB PO SCH (09:15)
[2020-10-23] MEDS ORDERED: FUROSEMIDE 40 MG in SYRINGE 0 ML IV ONE ×3 (09:15→19:00)
[2020-10-23] MEDS: CHOLECALCIFEROL 1,000 UNITS 25 MCG TAB PO SCH (09:15)
[2020-10-23] MEDS: NYSTATIN POWDER 15GM BTL EXT SCH ×2 (09:16→19:57)
[2020-10-23] MEDS: cephALEXin 500 MG CAP PO SCH ×4 (09:19→19:57)
[2020-10-23 09:38] LABS: Hematocrit (blood only) 38.2 % (37-47); Hemoglobin 12.8 g/dL (12.0-16.0); Immature Granulocytes # (auto) 0.02 K/uL (0.00-0.02); Immature Granulocytes % (auto) 0.3 %; Lymphocytes # (auto) 0.59 K/uL (1.2-3.4); Lymphocytes % (auto) 9.6 %; Mean Corpuscular Hemoglobin 29.4 pg (25-34); Mean Corpuscular Hgb Conc 33.5 g/dL (32-36); Mean Corpuscular Volume 87.6 fL (80-100); Mean Platelet Volume 10.4 fL (7.4-10.4); Monocytes # (auto) 0.57 K/uL (0.11-0.59); Monocytes % (auto) 9.3 %; Neutrophils # (auto) 4.94 K/uL (1.4-6.5); Neutrophils % (auto) 80.8 %; Platelet Count 204 K/uL (130-400); RDW Coefficient of Variation 14.3 % (11.5-14.5); Red Blood Count 4.36 M/uL (4.2-5.4); White Blood Count 6.12 K/uL (4.8-10.8)
[2020-10-23 10:01] LABS: BUN Creatinine Ratio 24.4 (10-20); Calcium 7.9 mg/dl (8.5-10.1); Creatinine Clr Calc Pharmacy 50.7 ml/min; Est GFR (African American) 57.7 ml/min; Est GFR (Non-African American) 49.8 ml/min; Potassium 3.7 mmol/L (3.5-5.1)
--- NOTE | 2020-10-23 13:47 | Hospitalist Progress Note ---
Date of Service October 23, 2020 Assessment & Plan (1) Pneumonia due to COVID-19 virus: Plan: 85yo F who presents with AHRF 2/2 COVID PNA and AoC CHF. COVID PNA - COVID positive - Patient with acute hypoxic respiratory failture 2/2 COVID19 complicated by underlying CHF and possible pulmonary edema. Stable, but remains significantly ill. - CTA: Limited exam as above. No central pulmonary emboli identified. Patchy bilateral subpleural predominant groundglass densities are compatible with viral pneumonia. Prominent mediastinal and hilar lymph nodes are likely reactive. Moderate cardiomegaly. - Repeat CXR with worsened pna vs pulmonary edema. Lasix tx as noted in CHF - Pt remains ill with untrending oxygen requirements, SpO2 goal >90%. currently on high flow nasal cannula Continue isolation precautions Continue dexamethasone 10-day total course to be complete 10/30. Converted to p.o. to reduce total intake fluid load. Continue remdesivir Albuterol nebulizers every 6 hours Covid dosed Lovenox PPx (2) CHF (congestive heart failure): Plan: Patient approximately, lungs coarse with trace rales and some congestion seen on CTA. Suspect patient may be more fluid overloaded than on initial appearance, uptrending weight. Lasix increased to 40 mg IV twice daily, trend creatinine. Target 1-2L N/day at this time if tolerated Continue metoprolol tartrate 75 mg p.o. twice daily Continue losartan 100 mg p.o. daily Continue aspirin 81 mg daily CXR with increased pna vs pulmonary edema. Decadron/IVs consolidated or converted to p.o. to minimize intake volume (3) Hyperlipidemia: Plan: Continue atorvastatin (4) DM (diabetes mellitus), type 2 with neurological complications: Plan: Glucose checks AC/at bedtime Diabetic diet Pharmacy glycemic consult placed for hyperglycemia in the setting of Covid illness (5) Acute respiratory failure with hypoxia: Plan: FEN GI: Diabetic diet DVT prophylaxis: Lovenox CODE STATUS: Full code Admission and Anticipated Discharge Date Admission Date: October 20, 2020 Subjective Seen at bedside today. Reports she feels better than prior, and is not having difficulty breathing. Continues to have nonproductive cough this morning. No fevers/chills/sweats. Denies pain at time of assessment. Update given to grandson, update by phone given to daughter who called while pt at bedside. + wheezing, + Faith. No dyspnea at rest. Review of Systems Review of Systems: Constitutional: See HPI Eyes: Denies double vision, vision change, eye pain ENT: Denies ear pain, sore throat, sinus pain Cardiovascular: Denies Chest pain, chest pressure, palpitations, extremity swelling Respiratory: See HPI Gastrointestinal: Denies abdominal pain, nausea, vomiting, constipation, diarrhea Genitourinary: Denies pain with urination, urinary urgency. +urinary frequency with lasix Musculoskeletal: Denies weakness Integumentary:Denies rash, lesions, bruising Neurological: Denies numbness, tingling, focal weakness Gastrointestinal: no abdominal pain, no nausea, no vomiting, no constipation and no diarrhea/loose stools Genitourinary: no dysuria, no difficulty urinating, no urinary frequency, no urinary hesitancy, no urinary urgency and no flank pain Integumentary: no rash Neurologic: no gait abnormality, no unsteadiness, no falls and no generalized weakness Physical Exam Physical Exam: General: Alert and oriented x3, appears nontoxic. Cooperative HEENT: Atraumatic, normocephalic. Vision and hearing intact. Pulm: Diffusely coarse, bibasilar crackles/rales. Symmetrical chest rise. No respiratory distress. Cardiac: RRR, -mrg. Radial pulses intact and symmetrical. Abdominal: Nontender, nondistended, soft. BS present. Extremities: Warm, dry. No Calf asymmetry. PT pulse intact and symmetrical. Trace ankle edema. Results & Data Results & Data ([facility]) Vital Signs (Past 12 Hours) Vital Signs Temp Pulse Pulse Resp BP Pulse Ox 10/23/20 11:22 36.9 C 66 26 H 121/63 90 10/23/20 07:39 37.0 C 74 14 151/80 H 90 10/23/20 07:00 68 10/23/20 04:21 36.4 C L 67 18 145/84 H 91 PG Care Time/CCT Total # of Minutes Spent Total Time Spent with Patient: Total time spent is greater than 50% in coordination of care (as documented) at patient's floor/unit and/or counseling patient: Coding Level of Care Code 69589 Subseq Hosp Care Lvl 3 Diagnoses Pneumonia due to COVID-19 virus U07.1; J12.82 CHF (congestive heart failure) I50.9 Hyperlipidemia E78.5 DM (diabetes mellitus), type 2 with neurological complications E11.49 Acute respiratory failure with hypoxia J96.01
--- NOTE | 2020-10-23 15:03 | Pharmacy Report ---
Pharmacy Glycemic Short Note 2 - Date of Service October 23, 2020 - Glycemic Short BSG Results (Last 24 hours): 10/22/20 10/22/20 10/23/20 15:52 20:20 07:40 Glucose POC Glucose 155 H 259 H 152 H 10/23/20 10/23/20 09:25 11:23 Glucose 268 H POC Glucose 230 H OUTPATIENT ANTIDIABETIC REGIMEN: * Novolog 70/30, 10 units SC daily * Metformin 1000 mg PO BIDM * Glimepiride 2 mg PO daily * HbA1c: 10.1% (08/11/20) ASSESSMENT: 10/23: * Patient received total of 76 units of insulin yesterday; 30 units basal + 46 units bolus. * Fasting BSG of 152 mg/dL remains above goal but improved compared to y . Will continue current NPH order this am. * Post prandial BSGs are fluctuating. Carb coverage was tightened yesterday. Will further tighten today. * Doses will require adjustment on 10/24 am per dexamethasone will be changing from IV to PO 10/22: * Patient received total of 60 units of insulin yesterday; 30 units basal + 30 units bolus. * Fasting BSG today was 193 mg/dl. Post prandial BSGs yesterday were above 200. * NPH insulin dose should have been increased this AM but it was already given before the adjustment was made. Dose increased for tomorrow AM. * Pt continues to be on Decadron 6 mg IV q24h which is also contributing to the BSG elevation. * Post prandial BSGs have all been elevated above 200 mg/dl. Novolog parameters tightened with lunch. 10/21/20: * SOFIA is a 85 year old female admitted on 10/20/20 with COVID-19 pneumonia * Receiving dexamethasone 6 mg IV daily * BSGs have been elevated since time of admission yesterday * NPH 30 units (~0.4 unit/kg of adjusted body weight) given with dexamethasone this morning * Pharmacy consulted for glycemic management at dinnertime today * Will tighten Novolog parameters this evening PLAN FOR INPATIENT GLYCEMIC CONTROL: * Hold outpatient oral Metformin * Basal insulin * NPH 35 units SC qam - give with dexamethasone * Reassess NPH dose 10/24 * Bolus insulin: tighten carb ratio * NovoLog per scale ACHS or Q6hrs while NPO * Goal Range: Low 110 mg/dL - High 140 mg/dL * Correction Factor: 12 mg/dL/unit * Nutritional / Prandial insulin per carb ratio of 1 unit per 4 grams CHO consumed Starting 10/24: change CF to 15 and carb ratio to 5 PLAN FOR DISCHARGE: * tbd
[2020-10-23 17:46] LABS: BUN Creatinine Ratio 27.4 (10-20); Calcium 8.5 mg/dl (8.5-10.1); Creatinine Clr Calc Pharmacy 46.6 ml/min; Est GFR (African American) 52.1 ml/min; Est GFR (Non-African American) 44.9 ml/min; Potassium 3.7 mmol/L (3.5-5.1)
[2020-10-23] MEDS ORDERED: FUROSEMIDE 40 MG/4 ML VIAL IV ONE (18:00)
[2020-10-23] MEDS: REMDESIVIR 100 MG in SODIUM CHLORIDE 0.9% 230 ML IV SCH (19:54)
[2020-10-23] MEDS: ATORVASTATIN 10 MG TAB PO SCH (19:56)
[2020-10-23] MEDS: SODIUM CHLORIDE 0.9% 10ML FLUSH IV SCH (22:19)
[2020-10-24] MEDS: ENOXAPARIN INJ 40 MG/0.4 ML SYR SQ SCH ×2 (06:10→17:35)
[2020-10-24 06:17] LABS: Basophils # (auto) 0.01 K/uL (0-0.2); Basophils % (auto) 0.1 %; Hematocrit (blood only) 40.6 % (37-47); Hemoglobin 13.7 g/dL (12.0-16.0); Immature Granulocytes # (auto) 0.03 K/uL (0.00-0.02); Immature Granulocytes % (auto) 0.4 %; Lymphocytes # (auto) 0.58 K/uL (1.2-3.4); Lymphocytes % (auto) 7.1 %; Mean Corpuscular Hemoglobin 29.7 pg (25-34); Mean Corpuscular Hgb Conc 33.7 g/dL (32-36); Mean Corpuscular Volume 88.1 fL (80-100); Mean Platelet Volume 10.6 fL (7.4-10.4); Monocytes # (auto) 1.12 K/uL (0.11-0.59); Monocytes % (auto) 13.7 %; Neutrophils # (auto) 6.41 K/uL (1.4-6.5); Neutrophils % (auto) 78.7 %; Platelet Count 267 K/uL (130-400); RDW Coefficient of Variation 14.2 % (11.5-14.5); Red Blood Count 4.61 M/uL (4.2-5.4); White Blood Count 8.15 K/uL (4.8-10.8)
[2020-10-24 07:02] LABS: Calcium 8.3 mg/dl (8.5-10.1); Creatinine Clr Calc Pharmacy 48.8 ml/min; Est GFR (African American) 55.1 ml/min; Est GFR (Non-African American) 47.5 ml/min; Potassium 3.6 mmol/L (3.5-5.1)
[2020-10-24] MEDS: cephALEXin 500 MG CAP PO SCH ×2 (08:15→13:02)
[2020-10-24] MEDS: INSULIN ASPART 100 UNITS/ML 3 ML PEN SC SCH ×4 (08:15→20:20)
[2020-10-24] MEDS: LOSARTAN POTASSIUM 50 MG TAB PO SCH (08:16)
[2020-10-24] MEDS: ASPIRIN 81 MG ECTAB PO SCH (08:16)
[2020-10-24] MEDS: POTASSIUM CHLORIDE CRTAB 20 MEQ TABCR PO SCH ×3 (08:16→20:06)
[2020-10-24] MEDS: amLODIPine BESYLATE 5 MG TAB PO SCH (08:16)
[2020-10-24] MEDS: CHOLECALCIFEROL 1,000 UNITS 25 MCG TAB PO SCH (08:18)
[2020-10-24] MEDS: NYSTATIN POWDER 15GM BTL EXT SCH ×2 (08:18→20:07)
[2020-10-24] MEDS: METOPROLOL TARTRATE 25 MG TAB PO SCH ×2 (08:18→20:06)
[2020-10-24] MEDS: INSULIN HUMAN NPH SC SCH (08:37)
--- NOTE | 2020-10-24 08:44 | XRay Report ---
XR chest 1V portable CLINICAL HISTORY: worsening hypoxia COMPARISON STUDY: Chest CT October 20, 2020. Chest radiograph October 22, 2020. FINDINGS: Lung volumes are normal. Cardiomegaly is unchanged. No pneumothorax or pleural effusion is identified. Extensive bilateral space opacities have progressed. Lucency projecting over the right as pect the mediastinum is likely artifactual. IMPRESSION: 1. Progression of extensive bilateral airspace opacities suggestive of viral pneumonia. 2. Right mediastinal lucency is likely artifactual. Pneumomediastinum is considered less likely. This can be assessed on follow-up chest radiograph. ACT 112: Negative or not required by law. Electronically signed by: Jay Jay Caceres M.D. 10/24/2020 8:43 AM
[2020-10-24] MEDS ORDERED: FUROSEMIDE 80 MG in SYRINGE 0 ML IV ONE (08:45)
--- NOTE | 2020-10-24 08:52 | Pulmonary Consultation ---
Date of Consultation October 24, 2020 Assessment & Plan (1) Acute respiratory failure with hypoxia: (2) Pneumonia due to COVID-19 virus: CT chest 10/20/2020 personally reviewed: Bilateral patchy groundglass opacities appreciated upper and lower lobes Cardiomegaly Minimal mediastinal lymphadenopathy --Acute hypoxic respiratory failure Secondary to multilobar COVID-19 pneumonia COVID-19 PCR positive CRP 15--> 6.9 Procalcitonin 0.17 BNP 10/24/2020 565 Continue with O2 supplementation to keep oxygen saturation between 90-92%. Awake proning will be helpful Continue with incentive spirometry Continue with flutter valve. Recommend patient to be kept euvolemic to negative balance --Probable CELI Patient would benefit from CPAP Patient was scared of the mass. I did explain to the patient that I will go down on the pressure if she is willing to try Plan: Patient is greater than 72 hours since coming to the hospital Her CRP is 6.9 which is less than 7.5. She would not qualify for Tocilizumab. I will increase the dexamethasone 10 mg on a daily basis, give extra 4 mg today Awake proning will be helpful. Case discussed with RN Start the patient on incentive spirometry. No further recommendations from pulmonary perspective. Please call directly with any questions. Thank you for the consult. Please note the above document was generated using voice recognition software. It may contain grammatical, syntax or spelling errors.Any formal questions or concerns about the content, text or information contained within the body of this dictation should be directly addressed to the provider for clarification. History of Present Illness Attending Physician: Darryl Villalpando MD History of Present Illness 85-year-old female past medical history of hypertension, diabetes, dyslipidemia was presented to the hospital with complaints of shortness of breath Patient was found to be COVID-19 positive Patient was requiring increased need of oxygen, pulmonary were consulted to mandi oseguera the same At the time of examination patient was on high flow 85%, 40 L saturating 90-91% She was not in any respiratory distress Denied any chest pain, no headache, no nausea, no vomiting. She stated that she felt better compared to before. No fever or chills Does complain of cough not bringing up any phlegm. No nausea or vomiting. Fair appetite Social history: Non-smoker Allergies Allergy/AdvReac Type Severity Reaction Status Date / Time codeine AdvReac Confusion Verified 10/20/20 09:53 Home Medications Medication Instructions Recorded Confirmed Type aspirin 81 mg tablet,delayed 81 mg PO QAM 11/30/17 10/20/20 History release (Aspirin Low Dose) cholecalciferol (vitamin D3) 50 2,000 unit PO QAM 11/30/17 10/20/20 History mcg (2,000 unit) capsule (Vitamin D3) metoprolol tartrate 50 mg tablet 75 mg PO BID #270 tab 01/10/20 10/20/20 Rx atorvastatin 10 mg tablet 10 mg PO HS #90 tab 02/17/20 10/20/20 Rx metformin 1,000 mg tablet 1,000 mg PO BID #180 tab 02/17/20 10/20/20 Rx furosemide 20 mg tablet 20 mg PO DAILY #30 tab 08/06/20 10/20/20 Rx pen needle, diabetic, safety 30 #100 ea 08/18/20 10/20/20 Rx gauge x 3/16" (Assure ID Pen Needle) potassium chloride 10 mEq 10 meq PO DAILY #30 tab 08/20/20 10/20/20 Rx tablet,extended release (Klor-Con) glimepiride 2 mg tablet 2 mg PO QAM #90 tab 09/29/20 10/20/20 Rx flash glucose scanning reader #1 ea 10/06/20 10/20/20 Rx (FreeStyle Nesha 14 Day Ventress) flash glucose sensor (FreeStyle #1 ea 10/06/20 10/20/20 Rx Nesha 14 Day Sensor) insulin aspar prot-insulin aspart 10 unit SUBCUT DAILY ml 10/06/20 10/20/20 History 100 unit/mL (70-30) subcutaneous pen (Novolog Mix 70-30FlexPen U-100) amlodipine 10 mg tablet 10 mg PO DAILY 10/20/20 10/20/20 History fluticasone propionate 50 2 spray INTRANASAL QAM 10/20/20 10/20/20 History mcg/actuation nasal spray,suspension losartan 100 mg tablet 100 mg PO DAILY 10/20/20 10/20/20 History nystatin 100,000 unit/gram topical 1 applic TOPICAL BID PRN 10/20/20 10/20/20 History powder Patient History Medical History Bifascicular block Cancer of sigmoid colon S/P surgery/chemo-09/2017 Colon cancer DVT, lower extremity LLE (01/2018); s/p Xarelto x 3 months GI bleed 10/2017 s/p ex lap Hearing deficit History of palpitations History of PSVT (paroxysmal supraventricular tachycardia) on beta nando Low back pain Chronic Obesity Osteoarthritis Upper GI bleed Surgical History H/O exploratory laparotomy EX LAP, ABDOMINAL WASHOUT (2/ GIB)= 10/24/17= GRADE 1 VIEW, JACOBSEN 2, ETT 7.0 AT [facility] History of cholecystectomy OPEN History of esophagogastroduodenoscopy (EGD) History of hip replacement LEFT History of open reduction and internal fixation (ORIF) procedure LEFT FEMUR History of open sigmoidectomy 09/2018 History of removal of Port-a-Cath (09/13/18) Removal of Left Subclavian Mediport Dr. 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 Beliefs That Will Affect Care: None marital status: / Current Living Situation: Family Current Living Situation Comment: With daugher Other Information That Helps Us Care for You: No Feels Safe at Home: Yes Safety Concerns: Feels Safe At This Time Childhood Exposure to Second-Hand Smoke: No caffeine: Yes Dental Care, Regularly: No Physical Activity Frequency: Does not Exercise Seatbelt Use: always Sunscreen Use: No Assistive Devices: Oxygen - Continuous Review of Systems Review of Systems: All systems reviewed & are unremarkable except as noted in HPI & below Physical Exam Physical Exam: Constitutional: No acute distress HEENT: EOMI, PERRLA Respiratory system: Decreased air entry bilaterally, no wheeze, no rhonchi, positive crackles bilateral lower lobes CVS: S1-S2 positive, no murmurs or gallops Abdomen: Soft, nontender, nondistended, positive bowel sounds x4, obese Extremities: +2 pulses bilaterally radialis/ dorsalis pedis, no cyanosis, +1 pitting edema bilateral lower extremity Neuro: Awake alert oriented x3 Psych: Normal mood and affect G/U: Positive Calderon Skin: no rashes, warm and dry Lymphatic: no cervical or axillary lymphadenopathy Results & Data Results & Data ([facility]) Vital Signs (Past 12 Hours) Vital Signs Temp Pulse Pulse Resp BP Pulse Ox 10/24/20 08:23 103 H 22 93 10/24/20 07:36 36.5 C 90 26 H 167/73 H 90 10/24/20 07:00 77 10/24/20 03:39 36.8 C 74 24 131/65 94 10/24/20 01:42 80 22 93 10/24/20 00:05 36.4 C L 87 19 144/83 H 81 L 10/24/20 05:37 10/24/20 05:37 PG Care Time/CCT Total # of Minutes Spent Total Time Spent with Patient: Total time spent is greater than 50% in coordination of care (as documented) at patient's floor/unit and/or counseling patient: Coding Level of Care Code 59741 Initial Inpt Care Lvl 3 Diagnoses Acute respiratory failure with hypoxia J96.01 Pneumonia due to COVID-19 virus U07.1; J12.82
[2020-10-24] MEDS ORDERED: FUROSEMIDE 40 MG in SYRINGE 0 ML IV SCH (09:00)
[2020-10-24] MEDS ORDERED: dexAMETHasone 4 MG TAB PO SCH (09:00)
[2020-10-24] MEDS ORDERED: dexAMETHasone 4 MG in SYRINGE 0 ML IV ONE (09:00)
--- NOTE | 2020-10-24 09:11 | Hospitalist Progress Note ---
Date of Service October 24, 2020 Assessment & Plan (1) Pneumonia due to COVID-19 virus: Plan: 85yo F who presents with AHRF 2/2 COVID PNA and AoC CHF. COVID PNA - COVID positive - Patient with acute hypoxic respiratory failture 2/2 COVID19 complicated by underlying CHF and possible pulmonary edema. Stable, but remains significantly ill. - CTA: Limited exam as above. No central pulmonary emboli identified. Patchy bilateral subpleural predominant groundglass densities are compatible with viral pneumonia. Prominent mediastinal and hilar lymph nodes are likely reactive. Moderate cardiomegaly. - CXR 10/24: Worsening bilat opac susp for worsening covid19 PNA - Pt remains ill with untrending oxygen requirements, SpO2 goal >90%. currently on high flow nasal cannula Continue isolation precautions Continue dexamethasone 10-day total course to be complete 10/30. Converted to p.o. to reduce total intake fluid load. Continue remdesivir Albuterol nebulizers every 6 hours Covid dosed Lovenox PPx - Pt refuses bipap, see discussion below - Prone as tolerated, continue recruitment/IS/flutter (2) CHF (congestive heart failure): Plan: Patient w/ lungs coarse with trace rales and some congestion seen on CTA. Suspect patient may be more fluid overloaded than on initial appearance, uptrending weight following admission - Lasix increased to 80 mg IV twice daily, trend creatinine. Target 1-2L N-/day at this time if tolerated. Decrease/hold for Cr / BUN uptrend - 1250cc output with 80mg IV 10/24, pt with inadequate output until IV lasix increased to tdd ~120mg IV. Continue metoprolol tartrate 75 mg p.o. twice daily Continue losartan 100 mg p.o. daily Continue aspirin 81 mg daily CXR with increased pna vs pulmonary edema. Decadron/IVs consolidated or converted to p.o. to minimize intake volume (3) Hyperlipidemia: Plan: Continue atorvastatin (4) DM (diabetes mellitus), type 2 with neurological complications: Plan: Glucose checks AC/at bedtime Diabetic diet Pharmacy glycemic consult placed for hyperglycemia in the setting of Covid illness (5) Acute respiratory failure with hypoxia: Plan: - tx as noted in COVID PNA Plan: FEN GI: Diabetic diet DVT prophylaxis: Lovenox CODE STATUS: Discussed current course of illness requirements. Recommended BiPaP, and that her current oxygen requirements were very high and if to worsen could become life threatening/fatal. Pt expresses an understanding of this, but declines BiPaP and does not want CPR/Intubation under any circumstances. Is able to verbalize back that worsening of her breathing could lead to a fatal emergency, but affirms she does not want intubation/CPR and that she 'would rather go than use that mask, if I go I go." Discussed conversation by phone and updated pts daughter who comfirms that her mother has expressed in the past she did not want CPR/intubation. Discussed that she is on ~day 12 of COVID illness and likely has elements of both worsening COVID on a background of fluid overload/pulmonary edema. Continuing to aggressively diuresis as Cr has remained stable. Code status changed to DNR/DNI 10/24. Admission and Anticipated Discharge Date Admission Date: October 20, 2020 Lcaie Castro seen at the bedside this morning .Feels fatigued, nonproductive cough persists. No fever/chills overnight. Discussed current course of illness requirements. Recommended BiPaP, and that her current oxygen requirements were very high and if to worsen could become life threatening/fatal. Pt expresses an understanding of this, but declines BiPaP and does not want CPR/Intubation under any circumstances. Is able to ve rbalize back that worsening of her breathing could lead to a fatal emergency, but affirms she does not want intubation/CPR and that she 'would rather go than use that mask, if I go I go." Discussed conversation by phone and updated pts daughter who comfirms that her mother has expressed in the past she did not want CPR/intubation. Discussed that she is on ~day 12 of COVID illness and likely has elements of both worsening COVID on a background of fluid overload/pulmonary edema. Continuing to aggressively diuresis as Cr has remained stable. Code status changed to DNR/DNI. Discussed case with pulmonary team, pt does not qualify for tocolizumab, will see as consult. Review of Systems Review of Systems: Constitutional: See HPI Eyes: Denies double vision, vision change, eye pain ENT: Denies ear pain, sore throat, sinus pain Cardiovascular: Denies Chest pain, chest pressure, palpitations, extremity sw elling Respiratory: See HPI Gastrointestinal: Denies abdominal pain, nausea, vomiting, constipation, diarrhea Genitourinary: Denies pain with urination, urinary urgency. +urinary frequency with lasix Musculoskeletal: Endorses general fatigue Integumentary:Denies rash, lesions, bruising Neurological: Denies numbness, tingling, focal weakness Physical Exam Physical Exam: General: Alert and oriented x3, appears nontoxic. Cooperative HEENT: Atraumatic, normocephalic. Vision and hearing intact. Pulm: bibasilar crackles, moderate air movement. Symmetrical chest rise. No respiratory distress. Cardiac: RRR, -mrg. Radial pulses intact and symmetrical. Abdominal: Nontender, nondistended, soft. BS present. Extremities: Warm, dry. No Calf asymmetry. PT pulse intact and symmetrical. Trace ankle edema. Results & Data Results & Data ([facility]) Vital Signs (Past 12 Hours) Vital Signs Temp Pulse Pulse Resp BP Pulse Ox 10/24/20 08:23 103 H 22 93 10/24/20 07:36 36.5 C 90 26 H 167/73 H 90 10/24/20 07:00 77 10/24/20 03:39 36.8 C 74 24 131/65 94 10/24/20 01:42 80 22 93 10/24/20 00:05 36.4 C L 87 19 144/83 H 81 L PG Care Time/CCT Total # of Minutes Spent Total Time Spent with Patient: Total time spent is greater than 50% in coordi nation of care (as documented) at patient's floor/unit and/or counseling patient: Coding Level of Care Code 41720 Subseq Hosp Care Lvl 3 Diagnoses Pneumonia due to COVID-19 virus U07.1; J12.82 CHF (congestive heart failure) I50.9 Hyperlipidemia E78.5 DM (diabetes mellitus), type 2 with neurological complications E11.49 Acute respiratory failure with hypoxia J96.01
[2020-10-24 09:49] LABS: C Reactive Protein 6.29 mg/dl (0-0.29)
--- NOTE | 2020-10-24 10:12 | Pharmacy Report ---
Pharmacy Glycemic Short Note 2 - Date of Service October 24, 2020 - Glycemic Short BSG Results (Last 24 hours): 10/23/20 10/23/20 10/23/20 11:23 16:09 17:16 Glucose 168 H POC Glucose 230 H 176 H 10/23/20 10/24/20 10/24/20 19:53 05:37 07:35 Glucose 169 H POC Glucose 145 H 185 H OUTPATIENT ANTIDIABETIC REGIMEN: * Novolog 70/30, 10 units SC daily * Metformin 1000 mg PO BIDM * Glimepiride 2 mg PO daily * HbA1c: 10.1% (08/11/20) ASSESSMENT: 10/24 * BSGs remain elevated despite increasing NPH and tighten CF/CR yesterday * Dexamethasone changed to PO this AM but then changed back to IV and increased dose to 10mg. * 24hr long acting insulin coverage needed based on A1c. Will increase NPH to BID since patient is on novolog mix (like NPH/novolog mix) as an outpatient. 10/23: * Patient received total of 76 units of insulin yesterday; 30 units basal + 46 units bolus. * Fasting BSG of 152 mg/dL remains above goal but improved compared to yesterday. Will continue current NPH order this am. * Post prandial BSGs are fluctuating. Carb coverage was tightened yesterday. Will further tighten today. * Doses will require adjustment on 10/24 am per dexamethasone will be changing from IV to PO 10/22: * Patient received total of 60 units of insulin yesterday; 30 units basal + 30 units bolus. * Fasting BSG today was 193 mg/dl. Post prandial BSGs yesterday were above 200. * NPH insulin dose should have been increased this AM but it was already given before the adjustment was made. Dose increased for tomorrow AM. * Pt continues to be on Decadron 6 mg IV q24h which is also contributing to the BSG elevation. * Post prandial BSGs have all been elevated above 200 mg/dl. Novolog parameters tightened with lunch. 10/21/20: * SOFIA is a 85 year old female admitted on 10/20/20 with COVID-19 pneumonia * Receiving dexamethasone 6 mg IV daily * BSGs have been elevated since time of admission yesterday * NPH 30 units (~0.4 unit/kg of adjusted body weight) given with dexamethasone this morning * Pharmacy consulted for glycemic management at dinnertime today * Will tighten Novolog parameters this evening PLAN FOR INPATIENT GLYCEMIC CONTROL: * Hold outpatient oral Metformin * Basal insulin * NPH 35 units SC qam - give with dexamethasone * Add NPH 15 units SQ PM * Bolus insulin: no change * NovoLog per scale ACHS or Q6hrs while NPO * Goal Range: Low 110 mg/dL - High 140 mg/dL * Correction Factor: 15 mg/dL/unit * Nutritional / Prandial insulin per carb ratio of 1 unit per 45grams CHO consumed PLAN FOR DISCHARGE: * tbd
[2020-10-24] MEDS ORDERED: INSULIN HUMAN NPH SC SCH (16:30)
[2020-10-24] MEDS: REMDESIVIR 100 MG in SODIUM CHLORIDE 0.9% 230 ML IV SCH (19:53)
[2020-10-24] MEDS: FUROSEMIDE 40 MG in SYRINGE 0 ML IV SCH (20:06)
[2020-10-24] MEDS: ATORVASTATIN 10 MG TAB PO SCH (20:06)
[2020-10-24] MEDS ORDERED: FUROSEMIDE 80 MG in SYRINGE 0 ML IV SCH (21:00)
[2020-10-24] MEDS: SODIUM CHLORIDE 0.9% 10ML FLUSH IV SCH (21:06)
[2020-10-25] MEDS: ENOXAPARIN INJ 40 MG/0.4 ML SYR SQ SCH ×2 (05:34→17:33)
[2020-10-25 08:04] LABS: Basophils # (auto) 0.01 K/uL (0-0.2); Basophils % (auto) 0.1 %; Hematocrit (blood only) 41.7 % (37-47); Hemoglobin 13.8 g/dL (12.0-16.0); Immature Granulocytes # (auto) 0.04 K/uL (0.00-0.02); Immature Granulocytes % (auto) 0.5 %; Lymphocytes # (auto) 1.05 K/uL (1.2-3.4); Lymphocytes % (auto) 12.2 %; Mean Corpuscular Hemoglobin 29.3 pg (25-34); Mean Corpuscular Hgb Conc 33.1 g/dL (32-36); Mean Corpuscular Volume 88.5 fL (80-100); Mean Platelet Volume 10.9 fL (7.4-10.4); Monocytes % (auto) 5.8 %; Neutrophils # (auto) 7.03 K/uL (1.4-6.5); Neutrophils % (auto) 81.4 %; Platelet Count 307 K/uL (130-400); RDW Coefficient of Variation 14.3 % (11.5-14.5); Red Blood Count 4.71 M/uL (4.2-5.4); White Blood Count 8.63 K/uL (4.8-10.8)
[2020-10-25 08:24] LABS: BUN Creatinine Ratio 31.5 (10-20); Calcium 8.3 mg/dl (8.5-10.1); Creatinine Clr Calc Pharmacy 50.7 ml/min; Est GFR (African American) 57.7 ml/min; Est GFR (Non-African American) 49.8 ml/min; Potassium 3.7 mmol/L (3.5-5.1)
[2020-10-25] MEDS: INSULIN HUMAN NPH SC SCH ×2 (09:15→17:20)
[2020-10-25] MEDS: FUROSEMIDE 40 MG in SYRINGE 0 ML IV SCH ×2 (09:15→20:30)
[2020-10-25] MEDS: INSULIN ASPART 100 UNITS/ML 3 ML PEN SC SCH ×4 (09:15→20:51)
[2020-10-25] MEDS: dexAMETHasone 10 MG in SYRINGE 0 ML IV SCH (09:15)
[2020-10-25] MEDS: CHOLECALCIFEROL 1,000 UNITS 25 MCG TAB PO SCH (09:18)
[2020-10-25] MEDS: amLODIPine BESYLATE 5 MG TAB PO SCH (09:19)
[2020-10-25] MEDS: cephALEXin 500 MG CAP PO SCH ×2 (09:19→20:30)
[2020-10-25] MEDS: ASPIRIN 81 MG ECTAB PO SCH (09:19)
[2020-10-25] MEDS: LOSARTAN POTASSIUM 50 MG TAB PO SCH (09:19)
--- NOTE | 2020-10-25 09:19 | Pharmacy Report ---
Pharmacy Glycemic Short Note 2 - Date of Service October 25, 2020 - Glycemic Short BSG Results (Last 24 hours): 10/24/20 10/24/20 10/24/20 11:40 16:11 19:58 Glucose POC Glucose 206 H 177 H 197 H 10/25/20 10/25/20 06:58 07:25 Glucose 203 H POC Glucose 189 H OUTPATIENT ANTIDIABETIC REGIMEN: * Novolog 70/30, 10 units SC daily * Metformin 1000 mg PO BIDM * Glimepiride 2 mg PO daily * HbA1c: 10.1% (08/11/20) ASSESSMENT: 10/25 * Pt has received 82 units of insulin over the past 24hrs * 50 units of basal with NPH * 32 units of bolus with NovoLog * BSGs [phone] mg/dl * All BSGs above goal range. Pt continues on dexamethasone 10mg IV daily which is complicating glycemic control. * CHO intake remains minimal; consuming 15-18g CHO per meal therefore NovoLog administration looks low compared to basal insulin. * Will increase NPH and continue to titrate based on BSG trends. * Insulin will need tapered significantly when dexamethasone dc. 10/24 * BSGs remain elevated despite increasing NPH and tighten CF/CR yesterday * Dexamethasone changed to PO this AM but then changed back to IV and increased dose to 10mg. * 24hr long acting insulin coverage needed based on A1c. Will increase NPH to BID since patient is on novolog mix (like NPH/novolog mix) as an outpatient. 10/23: * Patient received total of 76 units of insulin yesterday; 30 units basal + 46 units bolus. * Fasting BSG of 152 mg/dL remains above goal but improved compared to yesterday. Will continue current NPH order this am. * Post prandial BSGs are fluctuating. Carb coverage was tightened yesterday. Will further tighten today. * Doses will require adjustment on 10/24 am per dexamethasone will be changing from IV to PO 10/22: * Patient received total of 60 units of insulin yesterday; 30 units basal + 30 units bolus. * Fasting BSG today was 193 mg/dl. Post prandial BSGs yesterday were above 200. * NPH insulin dose should have been increased this AM but it was already given before the adjustment was made. Dose increased for tomorrow AM. * Pt continues to be on Decadron 6 mg IV q24h which is also contributing to the BSG elevation. * Post prandial BSGs have all been elevated above 200 mg/dl. Novolog parameters tightened with lunch. 10/21/20: * SOFIA is a 85 year old female admitted on 10/20/20 with COVID-19 pneumonia * Receiving dexamethasone 6 mg IV daily * BSGs have been elevated since time of admission yesterday * NPH 30 units (~0.4 unit/kg of adjusted body weight) given with dexamethasone this morning * Pharmacy consulted for glycemic management at dinnertime today * Will tighten Novolog parameters this evening PLAN FOR INPATIENT GLYCEMIC CONTROL: * Hold outpatient oral Metformin * Basal insulin * NPH 45 units SC qam - give with dexamethasone * increase NPH 20 units SQ PM * Bolus insulin: no change * NovoLog per scale ACHS or Q6hrs while NPO * Goal Range: Low 110 mg/dL - High 140 mg/dL * Correction Factor: 10 mg/dL/unit * Nutritional / Prandial insulin per carb ratio of 1 unit per 3 grams CHO consumed PLAN FOR DISCHARGE: * tbd
[2020-10-25] MEDS: METOPROLOL TARTRATE 25 MG TAB PO SCH ×2 (09:20→20:31)
[2020-10-25] MEDS: POTASSIUM CHLORIDE CRTAB 20 MEQ TABCR PO SCH ×3 (09:21→20:32)
[2020-10-25] MEDS: NYSTATIN POWDER 15GM BTL EXT SCH ×2 (09:21→20:31)
--- NOTE | 2020-10-25 11:30 | Hospitalist Progress Note ---
Date of Service October 25, 2020 Assessment & Plan (1) Pneumonia due to COVID-19 virus: Plan: 85yo F who presents with AHRF 2/2 COVID PNA and AoC CHF. COVID PNA Remains on high flow nasal cannula at 40 L, slightly decreased oxygen fraction from 0.85 2.8 today, SPO2 sats 97% on 0.85 - COVID positive - Patient with acute hypoxic respiratory failture 2/2 COVID19 complicated by underlying CHF and possible pulmonary edema. Stable, but remains significantly ill. - CTA: Limited exam as above. No central pulmonary emboli identified. Patchy bilateral subpleural predominant groundglass densities are compatible with viral pneumonia. Prominent mediastinal and hilar lymph nodes are likely reactive. Moderate cardiomegaly. - CXR 10/24: Worsening bilat opac susp for worsening covid19 PNA - Pt remains ill with untrending oxygen requirements, SpO2 goal >90%. currently on high flow nasal cannula Continue isolation precautions Continue dexamethasone 10-day total course to be complete 10/30. Converted to p.o. to reduce total intake fluid load. Dose increased to 10 mg Continue remdesivir Albuterol nebulizers every 6 hours Covid dosed Lovenox PPx - Pt refuses bipap, see discussion below - Prone as tolerated, continue recruitment/IS/flutter (2) CHF (congestive heart failure): Plan: Patient w/ lungs coarse with trace rales and some congestion seen on CTA. Suspect patient may be more fluid overloaded than on initial appearance, uptrending weight following admission -Continue Lasix twice daily, trend creatinine. Target 1-2L N-/day at this time if tolerated. Decrease/hold for Cr / BUN uptrend Continue metoprolol tartrate 75 mg p.o. twice daily Continue losartan 100 mg p.o. daily Continue aspirin 81 mg daily CXR with increased pna vs pulmonary edema. Decadron/IVs consolidated or converted to p.o. to minimize intake volume (3) Hyperlipidemia: Plan: Continue atorvastatin (4) DM (diabetes mellitus), type 2 with neurological complications: Plan: Glucose checks AC/at bedtime Diabetic diet Pharmacy glycemic consult placed for hyperglycemia in the setting of Covid illness (5) Acute respiratory failure with hypoxia: Plan: - tx as noted in COVID PNA Plan: FEN GI: Diabetic diet DVT prophylaxis: Lovenox CODE STATUS: Discussed current course of illness requirements. recommended BiPaP during course of illness and that her current oxygen requirements were very high and if to worsen could become life threatening/fatal. Pt expresses an understanding of this, but declines BiPaP and does not want CPR/Intubation under any circumstances. Is able to verbalize back that worsening of her breathing could lead to a fatal emergency, but affirms she does not want intubation/CPR and that she 'would rather go than use that mask, if I go I go." Discussed conversation by phone and updated pts daughter who comfirms that her mother has expressed in the past she did not want CPR/intubation. Discussed that she is on ~day 12 of COVID illness and likely has elements of both worsening COVID on a background of fluid overload/pulmonary edema. Continuing to aggressively diuresis as Cr has remained stable. Code status changed to DNR/DNI 10/24. Admission and Anticipated Discharge Date Admission Date: October 20, 2020 Lacie Castro is seen at the bedside this morning. She reports she continues to feel tired and has a wet cough, but thinks she feels slightly better than yesterday. No diarrhea/constipation. Continues to be shortness of breath worsened with exertion. Continues to feel globally fatigued, without focal weakness. No chest pain, chest pressure, palpitations. update given to patient's daughter by phone, all questions answered Review of Systems Review of Systems: Constitutional: See HPI Eyes: Denies double vision, vision change, eye pain ENT: Denies ear pain, sore throat, sinus pain Cardiovascular: Denies Chest pain, chest pressure, palpitations, extremity swelling Respiratory: See HPI Gastrointestinal: Denies abdominal pain, nausea, vomiting, constipation, diarrhea Genitourinary: Denies pain with urination, urinary urgency. Musculoskeletal: Endorses general fatigue Integumentary:Denies rash, lesions, bruising Neurological: Denies numbness, tingling, focal weakness Physical Exam Physical Exam: General: Alert and oriented x3, appears ill but nontoxic. Cooperative HEENT: Atraumatic, normocephalic. Vision and hearing intact. Pulm: bibasilar crackles, coarse, moderate air movement. Symmetrical chest rise. No respiratory distress. Cardiac: RRR, -mrg. Radial pulses intact and symmetrical. Abdominal: Nontender, nondistended, soft. BS present. Extremities: Warm, dry. No Calf asymmetry. PT pulse intact and symmetrical. +ankle edema. Results & Data Results & Data ([facility]) Vital Signs (Past 12 Hours) Vital Signs Temp Pulse Pulse Resp BP Pulse Ox 10/25/20 11:04 69 18 90 10/25/20 09:20 91 10/25/20 08:04 36.8 C 67 20 139/95 91 10/25/20 07:47 68 18 90 10/25/20 07:00 65 10/25/20 03:50 36.8 C 68 18 129/76 90 10/25/20 03:07 69 20 91 10/25/20 02:23 92 10/25/20 01:19 60 85 L 10/25/20 00:00 58 L PG Care Time/CCT Total # of Minutes Spent Total Time Spent with Patient: Total time spent is greater than 50% in coordination of care (as documented) at patient's floor/unit and/or counseling patient: Coding Level of Care Code 77549 Subseq Hosp Care Lvl 3 Diagnoses Pneumonia due to COVID-19 virus U07.1; J12.82 CHF (congestive heart failure) I50.9 Hyperlipidemia E78.5 DM (diabetes mellitus), type 2 with neurological complications E11.49 Acute respiratory failure with hypoxia J96.01
[2020-10-25] MEDS: ATORVASTATIN 10 MG TAB PO SCH (20:31)
[2020-10-26] MEDS: ENOXAPARIN INJ 40 MG/0.4 ML SYR SQ SCH ×2 (05:05→17:39)
[2020-10-26 07:31] LABS: Basophils # (auto) 0.02 K/uL (0-0.2); Basophils % (auto) 0.1 %; Hematocrit (blood only) 41.3 % (37-47); Hemoglobin 13.6 g/dL (12.0-16.0); Immature Granulocytes # (auto) 0.07 K/uL (0.00-0.02); Immature Granulocytes % (auto) 0.5 %; Lymphocytes # (auto) 1.32 K/uL (1.2-3.4); Lymphocytes % (auto) 9.9 %; Mean Corpuscular Hemoglobin 29.3 pg (25-34); Mean Corpuscular Hgb Conc 32.9 g/dL (32-36); Mean Platelet Volume 10.6 fL (7.4-10.4); Monocytes # (auto) 0.77 K/uL (0.11-0.59); Monocytes % (auto) 5.7 %; Neutrophils # (auto) 11.22 K/uL (1.4-6.5); Neutrophils % (auto) 83.8 %; Platelet Count 379 K/uL (130-400); RDW Coefficient of Variation 14.4 % (11.5-14.5); Red Blood Count 4.64 M/uL (4.2-5.4)
[2020-10-26 07:57] LABS: Albumin Level 2.5 gm/dl (3.4-5.0); BUN Creatinine Ratio 31.6 (10-20); Calcium 8.6 mg/dl (8.5-10.1); Creatinine Clr Calc Pharmacy 48.3 ml/min; Est GFR (African American) 54.4 ml/min; Potassium 4.2 mmol/L (3.5-5.1)
[2020-10-26 08:00] LABS: Albumin Globulin Ratio 0.5 (0.9-2); Bilirubin,Total 0.7 mg/dl (0.2-1); Globulin 4.8 gm/dl (2.5-4.0); Total Protein 7.3 gm/dl (6.4-8.2)
[2020-10-26] MEDS: INSULIN ASPART 100 UNITS/ML 3 ML PEN SC SCH ×4 (09:20→20:52)
[2020-10-26] MEDS: INSULIN HUMAN NPH SC SCH ×2 (09:20→17:30)
[2020-10-26] MEDS: FUROSEMIDE 40 MG in SYRINGE 0 ML IV SCH ×2 (09:20→20:18)
[2020-10-26] MEDS: dexAMETHasone 10 MG in SYRINGE 0 ML IV SCH (09:21)
[2020-10-26] MEDS: cephALEXin 500 MG CAP PO SCH ×2 (09:21→20:17)
[2020-10-26] MEDS: POTASSIUM CHLORIDE CRTAB 20 MEQ TABCR PO SCH ×3 (09:22→20:18)
[2020-10-26] MEDS: METOPROLOL TARTRATE 25 MG TAB PO SCH ×2 (09:22→20:17)
[2020-10-26] MEDS: LOSARTAN POTASSIUM 50 MG TAB PO SCH (09:22)
[2020-10-26] MEDS: ASPIRIN 81 MG ECTAB PO SCH (09:23)
[2020-10-26] MEDS: CHOLECALCIFEROL 1,000 UNITS 25 MCG TAB PO SCH (09:23)
[2020-10-26] MEDS: amLODIPine BESYLATE 5 MG TAB PO SCH (09:23)
[2020-10-26] MEDS: NYSTATIN POWDER 15GM BTL EXT SCH ×2 (09:24→20:16)
[2020-10-26] MEDS: SODIUM CHLORIDE 0.65% NA SOLN 45 ML (OCEAN) PRN ×2 (12:57→17:33)
--- NOTE | 2020-10-26 17:22 | Hospitalist Progress Note ---
Date of Service October 26, 2020 Assessment & Plan (1) Pneumonia due to COVID-19 virus: Plan: severe, with acute hypoxic resp failure and large FiO2 requirement. day #7 of IV dexamethasone. dose increased to 10mg/day on 10/25 due to worsening status. previous CTA chest w/o PE. course complicated by probable acute diastolic CHF. s/p 5-day course of Remdesivir. Did not meet candidacy for Tocilizumab. she is likely ~13 days into her illness thus we are clearly in the "inflammatory" state/phase of COVID-19. cont lovenox 40mg BID for VTE prophylaxis. pulm toilet, self-proning as tolerated, etc. patient is DNR. (2) Acute respiratory failure with hypoxia: Plan: 2nd to #1, #3 ongoing (3) Acute diastolic (congestive) heart failure: Plan: has been diuresed for several days. patient does not examine volume-overloaded today. will give additional lasix tonight, then hold lasix and repeat BMP / exam in am to determine need for additional diuresis. cont metoprolol. last echo - 09/2020 as outpatient - preserved EF. (4) Hx of deep venous thrombosis: Plan: no PE on CTA study on 10/20. cont lovenox for DVT proph. (5) Urinary tract infection: Plan: day #4 of keflex. plan 7 days in total. (6) DM (diabetes mellitus), type 2 with neurological complications: Plan: pharmacy assisting with management. cont basal-bolus combo. (7) Hypertension: Plan: BPs acceptable on current meds (8) Hyperlipidemia: Plan: remains on lipitor (9) Morbid obesity with BMI of 40.0-44.9, adult: Plan: BMI 43 (10) Chronic kidney disease, stage 3a: Plan: CrCl high 40s/low 50s bmp am (11) DVT prophylaxis: Plan: lovenox 40mg BID Plan: minimal elevation in AST - cont to trend but relatively stable; likely 2nd to COVID recheck procal in am daughter extensively updated by phone this evening (Janette Earatiya -- currently hospitalized herself with COVID) Admission and Anticipated Discharge Date Admission Date: October 20, 2020 Subjective per staff patient has dyspnea with any movement she is very, very weak appetite fair at best tele overnight wnl patient endorses terrible sleep she is fatigued and tired she continues with cough, dyspnea, orthopnea no chest pain or abd pain continues to pray frequently for recovery Review of Systems Review of Systems: gen - no fever or chills HEENT - no loss of taste/smell CV - no chest pain pulm - no sputum Physical Exam Physical Exam: gen - looks exhausted & tired, dyspneic with moving in bed neck - no obvious JVD mouth - MM beginning to look dry heart - RRR, s1 s2 lungs - fine, dry, bibasilar rales; no wheeze; tachypnea when she moves in bed abd - soft NT ND BS+ ext - trace edema, pulses 2+ b/l psych - restricted affect but a/o x 3 Results & Data Results & Data ([facility]) Vital Signs (Past 12 Hours) Vital Signs Temp Pulse Pulse Pulse Resp BP Pulse Ox 10/26/20 17:07 37.0 C 68 20 142/66 H 98 10/26/20 15:27 72 19 89 L 10/26/20 15:00 66 10/26/20 13:05 91 10/26/20 12:00 36.8 C 72 20 142/63 H 95 10/26/20 10:24 65 20 93 10/26/20 08:10 93 10/26/20 07:29 69 21 91 10/26/20 07:15 62 10/26/20 07:00 36.5 C 64 24 131/73 95 Laboratory Results Laboratory Results - last 24 hr 10/26/20 10/26/20 10/26/20 06:47 06:47 07:00 WBC 13.40 H RBC 4.64 Hgb 13.6 Hct 41.3 MCV 89.0 MCH 29.3 MCHC 32.9 RDW Std Deviation 47.0 H RDW Coeff of Sarika 14.4 Plt Count 379 MPV 10.6 H Immature Gran % (Auto) 0.5 Neut % (Auto) 83.8 Lymph % (Auto) 9.9 [place] % (Auto) 5.7 Eos % (Auto) 0.0 Baso % (Auto) 0.1 Neut # (Auto) 11.22 H Lymph # (Auto) 1.32 [place] # (Auto) 0.77 H Eos # (Auto) 0.00 Baso # (Auto) 0.02 Immature Gran # (Auto) 0.07 H Sodium 141 Potassium 4.2 Chloride 107 Carbon Dioxide 25 Anion Gap 10.0 BUN 34 H Creatinine 1.07 Est Cr Clr Drug Dosing 48.3 Est GFR ( Amer) 54.4 Est GFR (Non-Af Amer) 47.0 BUN/Creatinine Ratio 31.6 H Glucose 145 H POC Glucose 135 H Calcium 8.6 Total Bilirubin 0.7 AST 44 H ALT 40 Alkaline Phosphatase 69 Total Protein 7.3 Albumin 2.5 L Globulin 4.8 H Albumin/Globulin Ratio 0.5 L 10/26/20 10/26/20 10/26/20 11:46 16:45 20:10 WBC RBC Hgb Hct MCV MCH MCHC RDW Std Deviation RDW Coeff of Sarika Plt Count MPV Immature Gran % (Auto) Neut % (Auto) Lymph % (Auto) [place] % (Auto) Eos % (Auto) Baso % (Auto) Neut # (Auto) Lymph # (Auto) [place] # (Auto) Eos # (Auto) Baso # (Auto) Immature Gran # (Auto) Sodium Potassium Chloride Carbon Dioxide Anion Gap BUN Creatinine Est Cr Clr Drug Dosing Est GFR ( Amer) Est GFR (Non-Af Amer) BUN/Creatinine Ratio Glucose POC Glucose 277 H 185 H 211 H Calcium Total Bilirubin AST ALT Alkaline Phosphatase Total Protein Albumin Globulin Albumin/Globulin Ratio PG Care Time/CCT Total # of Minutes Spent Total Time Spent with Patient: Total time spent is greater than 50% in coordination of care (as documented) at patient's floor/unit and/or counseling patient: Coding Level of Care Code 59667 Subseq Hosp Care Lvl 3 Diagnoses Pneumonia due to COVID-19 virus U07.1; J12.82 Acute respiratory failure with hypoxia J96.01 Acute diastolic (congestive) heart failure I50.31 Hx of deep venous thrombosis Z86.718 Urinary tract infection N39.0 DM (diabetes mellitus), type 2 with neurological complications E11.49 Hypertension I10 Hypertension type: essential hypertension Hyperlipidemia E78.5 Morbid obesity with BMI of 40.0-44.9, adult E66.01; Z68.41 DVT prophylaxis Z29.9 Chronic kidney disease, stage 3a N18.31 (1) Hypertension Hypertension type: essential hypertension Qualified Code(s): I10 - Essential (primary) hypertension
[2020-10-26] MEDS: MELATONIN 3 MG TAB PO SCH (20:17)
[2020-10-26] MEDS: ATORVASTATIN 10 MG TAB PO SCH (20:18)
[2020-10-27] MEDS: ENOXAPARIN INJ 40 MG/0.4 ML SYR SQ SCH ×2 (05:54→19:06)
[2020-10-27 07:14] LABS: Calcium 8.5 mg/dl (8.5-10.1); Creatinine Clr Calc Pharmacy 51.3 ml/min; Est GFR (African American) 58.4 ml/min; Est GFR (Non-African American) 50.4 ml/min; Magnesium 2.2 mg/dl (1.8-2.4); Potassium 3.8 mmol/L (3.5-5.1)
[2020-10-27 07:20] LABS: D Dimer 1420 ug/L FEU (0-500)
[2020-10-27] MEDS: dexAMETHasone 10 MG in SYRINGE 0 ML IV SCH (08:45)
[2020-10-27] MEDS: FUROSEMIDE 40 MG in SYRINGE 0 ML IV SCH ×2 (08:45→16:53)
[2020-10-27] MEDS: INSULIN ASPART 100 UNITS/ML 3 ML PEN SC SCH ×4 (08:45→22:21)
[2020-10-27] MEDS: METOPROLOL TARTRATE 25 MG TAB PO SCH ×2 (08:46→22:25)
[2020-10-27] MEDS: cephALEXin 500 MG CAP PO SCH ×2 (08:46→22:25)
[2020-10-27] MEDS: POTASSIUM CHLORIDE CRTAB 20 MEQ TABCR PO SCH ×2 (08:46→13:17)
[2020-10-27] MEDS: ASPIRIN 81 MG ECTAB PO SCH (08:47)
[2020-10-27] MEDS: CHOLECALCIFEROL 1,000 UNITS 25 MCG TAB PO SCH (08:47)
[2020-10-27] MEDS: NYSTATIN POWDER 15GM BTL EXT SCH ×2 (08:47→22:27)
[2020-10-27] MEDS: LOSARTAN POTASSIUM 50 MG TAB PO SCH (08:47)
[2020-10-27] MEDS: SODIUM CHLORIDE 0.65% NA SOLN 45 ML (OCEAN) PRN (08:48)
[2020-10-27] MEDS: amLODIPine BESYLATE 5 MG TAB PO SCH (08:48)
[2020-10-27] MEDS ORDERED: INSULIN HUMAN NPH SC SCH (09:00)
--- NOTE | 2020-10-27 11:03 | Pharmacy Report ---
Pharmacy Glycemic Short Note 2 - Date of Service October 27, 2020 - Glycemic Short BSG Results (Last 24 hours): 10/26/20 10/26/20 10/26/20 11:46 16:45 20:10 Glucose POC Glucose 277 H 185 H 211 H 10/27/20 10/27/20 06:06 07:30 Glucose 95 POC Glucose 85 OUTPATIENT ANTIDIABETIC REGIMEN: * Novolog 70/30, 10 units SC daily * Metformin 1000 mg PO BIDM * Glimepiride 2 mg PO daily * HbA1c: 10.1% (08/11/20) ASSESSMENT: 10/27/20: * Pt received 144 units of insulin yesterday. * 65 units of basal with NPH * 79 units of bolus with Novolog * BSGs remain above goal for most of the day, but fasting BSG has been trending down nicely past few days. * NPH dose increased slightly this morning to provide additional coverage throughout the day. * Carb ratio was tightened yesterday evening, to provide additional prandial coverage while continuing on high-dose steroids. * No further increase at this time. Will continue to adjust as required. 10/25 * Pt has received 82 units of insulin over the past 24hrs * 50 units of basal with NPH * 32 units of bolus with NovoLog * BSGs [phone] mg/dl * All BSGs above goal range. Pt continues on dexamethasone 10mg IV daily which is complicating glycemic control. * CHO intake remains minimal; consuming 15-18g CHO per meal therefore NovoLog administration looks low compared to basal insulin. * Will increase NPH and continue to titrate based on BSG trends. * Insulin will need tapered significantly when dexamethasone dc. 10/24 * BSGs remain elevated despite increasing NPH and tighten CF/CR yesterday * Dexamethasone changed to PO this AM but then changed back to IV and increased dose to 10mg. * 24hr long acting insulin coverage needed based on A1c. Will increase NPH to BID since patient is on novolog mix (like NPH/novolog mix) as an outpatient. 10/22: * Patient received total of 60 units of insulin yesterday; 30 units basal + 30 units bolus. * Fasting BSG today was 193 mg/dl. Post prandial BSGs yesterday were above 200. * NPH insulin dose should have been increased this AM but it was already given before the adjustment was made. Dose increased for tomorrow AM. * Pt continues to be on Decadron 6 mg IV q24h which is also contributing to the BSG elevation. * Post prandial BSGs have all been elevated above 200 mg/dl. Novolog parameters tightened with lunch. 10/21/20: * SOFIA is a 85 year old female admitted on 10/20/20 with COVID-19 pneumonia * Receiving dexamethasone 6 mg IV daily * BSGs have been elevated since time of admission yesterday * NPH 30 units (~0.4 unit/kg of adjusted body weight) given with dexamethasone this morning * Pharmacy consulted for glycemic management at dinnertime today * Will tighten Novolog parameters this evening PLAN FOR INPATIENT GLYCEMIC CONTROL: * Hold outpatient oral Metformin * Basal insulin * NPH 50 units SC qam - give with dexamethasone * increase NPH 20 units SQ PM * Bolus insulin: no change * NovoLog per scale ACHS or Q6hrs while NPO * Goal Range: Low 110 mg/dL - High 140 mg/dL * Correction Factor: 10 mg/dL/unit * Nutritional / Prandial insulin per carb ratio of 1 unit per 2 grams CHO consumed PLAN FOR DISCHARGE: * tbd
[2020-10-27] MEDS: INSULIN HUMAN NPH SC SCH (17:35)
[2020-10-27] MEDS: POLYETHYLENE (MIRALAX) 17 GM PACK PO SCH (17:53)
[2020-10-27] MEDS: SENNA 8.6 MG TAB PO SCH (19:06)
--- NOTE | 2020-10-27 21:04 | Hospitalist Progress Note ---
Date of Service October 27, 2020 Assessment & Plan (1) Pneumonia due to COVID-19 virus: Plan: severe, with acute hypoxic resp failure and large FiO2 requirement. remains on high settings of HFNC. day #8 of IV dexamethasone. plan 10 days minimum. dose increased to 10mg/day on 10/25 due to worsening status. previous CTA chest w/o PE. course complicated by probable acute diastolic CHF which seems resolved. s/p 5-day course of Remdesivir. Did not meet candidacy for Tocilizumab. she is likely ~14 days into her illness thus we are clearly in the "inflammatory" state/phase of COVID-19. cont lovenox 40mg BID for VTE prophylaxis. pulm toilet, self-proning as tolerated, etc. check dopplers of legs due to complaints re: legs, prior h/o DVT, etc. of note - procal remains negative; bacterial superinfection felt unlikely (2) Acute respiratory failure with hypoxia: Plan: 2nd to #1, #3 ongoing (3) Acute diastolic (congestive) heart failure: Plan: resolved. stop IV lasix. last echo - 09/2020 as outpatient - preserved EF. (4) Hx of deep venous thrombosis: Plan: no PE on CTA study on 10/20. cont lovenox for DVT proph. obtain dopplers given b/l leg pains. (5) Urinary tract infection: Plan: day #5 of keflex. plan 7 days in total. (6) DM (diabetes mellitus), type 2 with neurological complications: Plan: pharmacy assisting with management. cont basal-bolus combo. (7) Hypertension: Plan: BPs acceptable on current meds (8) Hyperlipidemia: Plan: remains on lipitor (9) Morbid obesity with BMI of 40.0-44.9, adult: Plan: BMI 43 (10) Chronic kidney disease, stage 3a: Plan: CrCl high 40s/low 50s bmp am for stability (11) DVT prophylaxis: Plan: lovenox 40mg BID (12) Bilateral leg pain: Plan: neuropathy? other? check b12/TSH check dopplers of legs - r/o DVT if dopplers neg consider low-dose gabapentin Plan: minimal elevation in AST - cont to trend but relatively stable; likely 2nd to COVID daughter extensively updated today Admission and Anticipated Discharge Date Admission Date: October 20, 2020 Subjective tele overnight wnl pt reports sleeping better last night she feel more rested today good appetite still coughing, still dyspneic with minimal exertion - but no worse than prior overall she thinks she is a little better today does report acute/chronic b/l leg pains very sensitive to touch worse than baseline however pain is from the knees downward pt reports having had a DVT in the past Review of Systems Review of Systems: gen - no fevers or chills; still w/ fatigue & weakness CV - no chest pain abd - c/o constipation; no nausea - voiding fine pulm - no significant sputum Physical Exam Physical Exam: gen - less-tired appearing today; affect more full today; coughing fit while I was in room neck - no obvious JVD mouth - MM dry heart - RRR, s1 s2, no murmur lungs - fine, dry, bibasilar rales - no change; no wheeze; coughing abd - soft NT ND BS+ ext - no edema, pulses 2+ b/l psych - a/o x 3 musculo - calves and shins mildly tender to palpation; negative Jovana's Results & Data Results & Data ([facility]) Vital Signs (Past 12 Hours) Vital Signs Temp Pulse Pulse Pulse Resp BP Pulse Ox 10/27/20 19:24 36.5 C 66 17 116/68 90 10/27/20 19:02 89 L 10/27/20 18:56 87 22 88 L 10/27/20 15:24 72 18 90 10/27/20 15:18 36.8 C 59 L 23 120/67 93 10/27/20 15:00 62 10/27/20 11:53 36.8 C 61 22 109/68 90 10/27/20 10:59 65 20 90 Laboratory Results Laboratory Results - last 24 hr 10/27/20 10/27/20 10/27/20 06:06 06:06 06:06 D-Dimer 1420 H* Sodium 139 Potassium 3.8 Chloride 108 H Carbon Dioxide 23 Anion Gap 8.0 BUN 38 H Creatinine 1.01 Est Cr Clr Drug Dosing 51.3 Est GFR ( Amer) 58.4 Est GFR (Non-Af Amer) 50.4 BUN/Creatinine Ratio 38.0 H Glucose 95 POC Glucose Calcium 8.5 Magnesium 2.2 AST 37 Procalcitonin 0.05 0910/27/20 10/27/20 07:30 11:49 16:41 D-Dimer Sodium Potassium Chloride Carbon Dioxide Anion Gap BUN Creatinine Est Cr Clr Drug Dosing Est GFR ( Amer) Est GFR (Non-Af Amer) BUN/Creatinine Ratio Glucose POC Glucose 85 205 H 245 H Calcium Magnesium AST Procalcitonin PG Care Time/CCT Total # of Minutes Spent Total Time Spent with Patient: Total time spent is greater than 50% in coordination of care (as documented) at patient's floor/unit and/or counseling patient: Coding Level of Care Code 43267 Subseq Hosp Care Lvl 3 Diagnoses Pneumonia due to COVID-19 virus U07.1; J12.82 Acute respiratory failure with hypoxia J96.01 Acute diastolic (congestive) heart failure I50.31 Hx of deep venous thrombosis Z86.718 Urinary tract infection N39.0 DM (diabetes mellitus), type 2 with neurological complications E11.49 Hypertension I10 Hypertension type: essential hypertension Hyperlipidemia E78.5 Morbid obesity with BMI of 40.0-44.9, adult E66.01; Z68.41 Chronic kidney disease, stage 3a N18.31 DVT prophylaxis Z29.9 Bilateral leg pain M79.604; M79.605 (1) Hypertension Hypertension type: essential hypertension Qualified Code(s): I10 - Essential (primary) hypertension
[2020-10-27] MEDS: ATORVASTATIN 10 MG TAB PO SCH (22:25)
[2020-10-27] MEDS: MELATONIN 3 MG TAB PO SCH (22:25)
[2020-10-28] MEDS: ENOXAPARIN INJ 40 MG/0.4 ML SYR SQ SCH ×2 (06:19→17:30)
--- NOTE | 2020-10-28 07:06 | Ultrasound Report ---
ULTRASOUND BILATERAL LOWER EXTREMITY VENOUS CLINICAL HISTORY: Leg pain. Elevated d-dimer. Covid. COMPARISON STUDY: Bilateral lower extremity venous ultrasound dated 01/16/2020 TECHNIQUE: Real-time, grayscale, and color Doppler sonography of the deep veins of the right and left lower extremity was performed from the inguinal crease to the calf. Compression and augmentation wer e utilized. FINDINGS: There is no sonographic evidence of deep venous thrombosis identified in the right or left lower extremity. The common femoral, superficial femoral, and popliteal veins are patent and normally compressible bilaterally. The greater saphenous vein and the profunda femoris vein at the junction w ith the common femoral vein are clear in both legs. The visualized calf veins are patent bilaterally. IMPRESSION: There is no sonographic evidence of deep venous thrombosis identified in the right or lef t lower extremity. ACT 112: Negative or not required by law. Electronically signed by: Leopoldo Dimas M.D. 10/28/2020 7:04 AM
[2020-10-28 07:22] LABS: Calcium 8.6 mg/dl (8.5-10.1); Creatinine Clr Calc Pharmacy 51.8 ml/min; Est GFR (African American) 59.1 ml/min
[2020-10-28 07:33] LABS: Thyroid Stimulating Hormone 0.347 uIu/ml (0.300-4.500)
[2020-10-28] MEDS: dexAMETHasone 10 MG in SYRINGE 0 ML IV SCH (08:25)
[2020-10-28] MEDS: METOPROLOL TARTRATE 25 MG TAB PO SCH ×2 (08:28→20:40)
[2020-10-28] MEDS: amLODIPine BESYLATE 5 MG TAB PO SCH (08:29)
[2020-10-28] MEDS: NYSTATIN POWDER 15GM BTL EXT SCH ×2 (08:29→20:42)
[2020-10-28] MEDS: INSULIN ASPART 100 UNITS/ML 3 ML PEN SC SCH ×4 (08:30→20:35)
[2020-10-28] MEDS: LOSARTAN POTASSIUM 50 MG TAB PO SCH (08:30)
[2020-10-28] MEDS: CHOLECALCIFEROL 1,000 UNITS 25 MCG TAB PO SCH (08:30)
[2020-10-28] MEDS: ASPIRIN 81 MG ECTAB PO SCH (08:31)
[2020-10-28] MEDS: SENNA 8.6 MG TAB PO SCH (08:32)
[2020-10-28] MEDS: POLYETHYLENE (MIRALAX) 17 GM PACK PO SCH (08:32)
[2020-10-28] MEDS ORDERED: INSULIN HUMAN NPH SC SCH (09:00)
--- NOTE | 2020-10-28 11:06 | Pharmacy Report ---
Pharmacy Glycemic Short Note 2 - Date of Service October 28, 2020 - Glycemic Short BSG Results (Last 24 hours): 10/27/20 10/27/20 10/27/20 11:49 16:41 22:21 Glucose POC Glucose 205 H 245 H 195 H 10/28/20 10/28/20 06:23 07:04 Glucose 81 POC Glucose 77 OUTPATIENT ANTIDIABETIC REGIMEN: * Novolog 70/30, 10 units SC daily * Metformin 1000 mg PO BIDM * Glimepiride 2 mg PO daily * HbA1c: 10.1% (08/11/20) ASSESSMENT: 10/28/20: * Despite adjustments to insulin regimen yesterday, BSGs remained elevated through the afternoon/evening. * Fasting BSG has been below goal the past two mornings. * In light of patient's recent BSG trends, will shift to once-daily qAM NPH to provide maximum coverage throughout the day. * Will consider further increase in carb coverage if daytime hyperglycemia persists (though coverage is already quite aggressive). 10/27 * Pt received 144 units of insulin yesterday. * 65 units of basal with NPH * 79 units of bolus with Novolog * BSGs remain above goal for most of the day, but fasting BSG has been trending down nicely past few days. * NPH dose increased slightly this morning to provide additional coverage throughout the day. * Carb ratio was tightened yesterday evening, to provide additional prandial coverage while continuing on high-dose steroids. * No further increase at this time. Will continue to adjust as required. 10/25 * Pt has received 82 units of insulin over the past 24hrs * 50 units of basal with NPH * 32 units of bolus with NovoLog * BSGs [phone] mg/dl * All BSGs above goal range. Pt continues on dexamethasone 10mg IV daily which is complicating glycemic control. * CHO intake remains minimal; consuming 15-18g CHO per meal therefore NovoLog administration looks low compared to basal insulin. * Will increase NPH and continue to titrate based on BSG trends. * Insulin will need tapered significantly when dexamethasone dc. 10/24 * BSGs remain elevated despite increasing NPH and tighten CF/CR yesterday * Dexamethasone changed to PO this AM but then changed back to IV and increased dose to 10mg. * 24hr long acting insulin coverage needed based on A1c. Will increase NPH to BID since patient is on novolog mix (like NPH/novolog mix) as an outpatient. 10/21/20: * SOFIA is a 85 year old female admitted on 10/20/20 with COVID-19 pneumonia * Receiving dexamethasone 6 mg IV daily * BSGs have been elevated since time of admission yesterday * NPH 30 units (~0.4 unit/kg of adjusted body weight) given with dexamethasone this morning * Pharmacy consulted for glycemic management at dinnertime today * Will tighten Novolog parameters this evening PLAN FOR INPATIENT GLYCEMIC CONTROL: * Hold outpatient oral Metformin * Basal insulin * NPH 75 units SC qAM - give with dexamethasone (omit if DXM is held or discontinued) * Bolus insulin: no change * NovoLog per scale ACHS or Q6hrs while NPO * Goal Range: Low 110 mg/dL - High 140 mg/dL * Correction Factor: 9 mg/dL/unit * Nutritional / Prandial insulin per carb ratio of 1 unit per 2 grams CHO consumed PLAN FOR DISCHARGE: * tbd
[2020-10-28] MEDS: THIAMINE HCL 100 MG TAB PO SCH (11:15)
[2020-10-28] MEDS: CYANOCOBALAMIN 1000 MCG/ML VIAL IM SCH (11:29)
[2020-10-28] MEDS: SODIUM CHLORIDE 0.65% NA SOLN 45 ML (OCEAN) PRN (12:08)
[2020-10-28] MEDS: GABAPENTIN 100 MG CAP PO SCH (20:39)
[2020-10-28] MEDS: ATORVASTATIN 10 MG TAB PO SCH (20:41)
[2020-10-28] MEDS: MELATONIN 3 MG TAB PO SCH (20:41)
[2020-10-28] MEDS ORDERED: bisacodyL 10 MG SUPP PR PRN (21:27)
--- NOTE | 2020-10-28 22:31 | Hospitalist Progress Note ---
Date of Service October 28, 2020 Assessment & Plan (1) Pneumonia due to COVID-19 virus: Plan: severe, with acute hypoxic resp failure and large FiO2 requirement. remains on high settings of HFNC. no significant change overnight. day #9 of IV dexamethasone. plan 10 days minimum. she is on "high-dose" 10mg. will have to wean for several days before stopping. dose was increased to 10mg/day on 10/25 due to worsening status. previous CTA chest w/o PE. course complicated by probable acute diastolic CHF which is resolved. s/p 5-day course of Remdesivir. Did not meet candidacy for Tocilizumab. she is likely ~15 days into her illness. cont lovenox 40mg BID for VTE prophylaxis. pulm toilet, self-proning as tolerated, etc. checked dopplers of legs -- negative for DVT. procal has been negative; bacterial superinfection not suspected. (2) Acute respiratory failure with hypoxia: Plan: 2nd to #1, #3 ongoing (3) Acute diastolic (congestive) heart failure: Plan: resolved. last echo - 09/2020 as outpatient - preserved EF. diuretics stopped. (4) Hx of deep venous thrombosis: Plan: no PE on CTA study on 10/20. dopplers b/l legs neg for DVT. cont lovenox for DVT proph. (5) Urinary tract infection: Plan: completed 7 day course of abx (6) DM (diabetes mellitus), type 2 with neurological complications: Plan: pharmacy assisting with management. cont basal-bolus combo. BSGs today wnl. (7) Hypertension: Plan: BPs acceptable on current meds (8) Hyperlipidemia: Plan: statin (9) Morbid obesity with BMI of 40.0-44.9, adult: Plan: BMI 43 (10) Chronic kidney disease, stage 3a: Plan: CrCl high 40s/low 50s bmps have been stable (11) DVT prophylaxis: Plan: lovenox 40mg BID (12) Bilateral leg pain: Plan: suspect neuropathy this is a long-standing issue B12 def can contribute TSH wnl due to prior chemo for cancer?? other? start gabapentin 100mg HS titrate slowly dopplers neg for DVT (13) Vitamin B12 deficiency: Plan: could be causing what seems to be neuropathy in legs level is <200 start IM injections of B12, 1000mcg daily x 5 doses while here then 1000mcg po daily thereafter x 1 year start gabapentin 100mg HS for presumed neuropathy of legs Plan: needs PT, OT when respiratory status will allow updated her daughter today (who has COVID and was d/c from hospital today) Admission and Anticipated Discharge Date Admission Date: October 20, 2020 Subjective tele stable overnight no events overnight or today did prone for nearly 1 hour today per patient appetite good cough remains - no change CARTWRIGHT remains - no change trying to remain positive, praying much of the day, etc I informed her that her daughter who had COVID was d/c home today - she was happy to hear this Review of Systems Review of Systems: gen - ongoing fatigue psych - slept ok last pm neuro - ongoing paresthesias b/l LEs pulm - CARTWRIGHT, cough - no change GI - still constipated despite meds CV - no chest pain Physical Exam Physical Exam: gen - NAD, no respiratory distress, mild dyspnea with rolling/moving in bed neck - no obvious JVD mouth - MMM today heart - RRR, s1 s2, no murmur lungs - fine, dry, bibasilar rales about [address] back; no wheeze; mild tachypnea if she moves quickly in bed abd - soft NT ND BS+ ext - no edema, pulses 2+ b/l psych - a/o x 3 Results & Data Results & Data ([facility]) Vital Signs (Past 12 Hours) Vital Signs Temp Pulse Pulse Resp BP Pulse Ox 10/28/20 19:39 36.8 C 62 20 108/68 93 10/28/20 16:00 61 10/28/20 15:16 36.7 C 61 19 112/58 L 97 10/28/20 15:10 61 20 93 10/28/20 11:03 36.6 C 54 L 19 125/68 91 10/28/20 10:54 58 L 20 95 Laboratory Results Laboratory Results - last 24 hr 10/28/20 10/28/20 10/28/20 06:23 06:23 07:04 Sodium 140 Potassium 4.0 Chloride 107 Carbon Dioxide 25 Anion Gap 8.0 BUN 43 H Creatinine 1.00 Est Cr Clr Drug Dosing 51.8 Est GFR ( Amer) 59.1 Est GFR (Non-Af Amer) 51.0 BUN/Creatinine Ratio 43.0 H Glucose 81 POC Glucose 77 Calcium 8.6 Vitamin B12 195 TSH 0.347 10/28/20 10/28/20 10/28/20 11:01 16:23 16:47 Sodium Potassium Chloride Carbon Dioxide Anion Gap BUN Creatinine Est Cr Clr Drug Dosing Est GFR ( Amer) Est GFR (Non-Af Amer) BUN/Creatinine Ratio Glucose POC Glucose 153 H 135 H 139 H Calcium Vitamin B12 TSH 10/28/20 20:34 Sodium Potassium Chloride Carbon Dioxide Anion Gap BUN Creatinine Est Cr Clr Drug Dosing Est GFR ( Amer) Est GFR (Non-Af Amer) BUN/Creatinine Ratio Glucose POC Glucose 147 H Calcium Vitamin B12 TSH PG Care Time/CCT Total # of Minutes Spent Total Time Spent with Patient: Total time spent is greater than 50% in coordination of care (as documented) at patient's floor/unit and/or counseling patient: Coding Level of Care Code 98237 Subseq Hosp Care Lvl 3 Diagnoses Pneumonia due to COVID-19 virus U07.1; J12.82 Acute respiratory failure with hypoxia J96.01 Acute diastolic (congestive) heart failure I50.31 Hx of deep venous thrombosis Z86.718 Urinary tract infection N39.0 DM (diabetes mellitus), type 2 with neurological complications E11.49 Hypertension I10 Hypertension type: essential hypertension Hyperlipidemia E78.5 Morbid obesity with BMI of 40.0-44.9, adult E66.01; Z68.41 Chronic kidney disease, stage 3a N18.31 DVT prophylaxis Z29.9 Bilateral leg pain M79.604; M79.605 Vitamin B12 deficiency E53.8 (1) Hypertension Hypertension type: essential hypertension Qualified Code(s): I10 - Essential (primary) hypertension
[2020-10-29] MEDS: ENOXAPARIN INJ 40 MG/0.4 ML SYR SQ SCH ×2 (05:48→17:23)
[2020-10-29] MEDS: SENNA 8.6 MG TAB PO SCH (08:52)
[2020-10-29] MEDS: LOSARTAN POTASSIUM 50 MG TAB PO SCH (08:52)
[2020-10-29] MEDS: METOPROLOL TARTRATE 25 MG TAB PO SCH ×2 (08:52→21:48)
[2020-10-29] MEDS: amLODIPine BESYLATE 5 MG TAB PO SCH (08:52)
[2020-10-29] MEDS: CYANOCOBALAMIN 1000 MCG/ML VIAL IM SCH (08:52)
[2020-10-29] MEDS: THIAMINE HCL 100 MG TAB PO SCH (08:52)
[2020-10-29] MEDS: POLYETHYLENE (MIRALAX) 17 GM PACK PO SCH (08:53)
[2020-10-29] MEDS: ASPIRIN 81 MG ECTAB PO SCH (08:53)
[2020-10-29] MEDS: CHOLECALCIFEROL 1,000 UNITS 25 MCG TAB PO SCH (08:53)
[2020-10-29] MEDS ORDERED: INSULIN HUMAN NPH SC SCH (09:00)
[2020-10-29] MEDS: INSULIN ASPART 100 UNITS/ML 3 ML PEN SC SCH ×4 (09:08→21:39)
[2020-10-29] MEDS: dexAMETHasone 10 MG in SYRINGE 0 ML IV SCH (09:09)
[2020-10-29] MEDS: NYSTATIN POWDER 15GM BTL EXT SCH ×2 (09:10→22:37)
--- NOTE | 2020-10-29 10:15 | Pharmacy Report ---
Pharmacy Glycemic Short Note 2 - Date of Service October 29, 2020 - Glycemic Short BSG Results (Last 24 hours): 10/28/20 10/28/20 10/28/20 11:01 16:23 16:47 POC Glucose 153 H 135 H 139 H 10/28/20 10/29/20 20:34 07:38 POC Glucose 147 H 79 OUTPATIENT ANTIDIABETIC REGIMEN: * Novolog 70/30, 10 units SC daily * Metformin 1000 mg PO BIDM * Glimepiride 2 mg PO daily * HbA1c: 10.1% (08/11/20) ASSESSMENT: 10/29 * BSGs very well controlled yesterday, 77, 153, 139, and 147 mg/dL * Received 133 units of insulin (75 units of NPH and 58 units of Novolog) * Fasting BSG of 79 mg/dL this morning (77 mg/dL yesterday) * Will reduce NPH today and maintain current Novolog parameters * Final dose of dexamethasone today, will need to reassess NPH in AM 10/28 * Despite adjustments to insulin regimen yesterday, BSGs remained elevated through the afternoon/evening. * Fasting BSG has been below goal the past two mornings. * In light of patient's recent BSG trends, will shift to once-daily qAM NPH to provide maximum coverage throughout the day. * Will consider further increase in carb coverage if daytime hyperglycemia persists (though coverage is already quite aggressive). 10/27 * Pt received 144 units of insulin yesterday. * 65 units of basal with NPH * 79 units of bolus with Novolog * BSGs remain above goal for most of the day, but fasting BSG has been trending down nicely past few days. * NPH dose increased slightly this morning to provide additional coverage throughout the day. * Carb ratio was tightened yesterday evening, to provide additional prandial coverage while continuing on high-dose steroids. * No further increase at this time. Will continue to adjust as required. 10/21/20: * SOFIA is a 85 year old female admitted on 10/20/20 with COVID-19 pneumonia * Receiving dexamethasone 6 mg IV daily * BSGs have been elevated since time of admission yesterday * NPH 30 units (~0.4 unit/kg of adjusted body weight) given with dexamethasone this morning * Pharmacy consulted for glycemic management at dinnertime today * Will tighten Novolog parameters this evening PLAN FOR INPATIENT GLYCEMIC CONTROL: * Hold outpatient oral Metformin * Basal insulin * NPH 65 units SC today with last dose of dexamethasone * Reassess in AM * Bolus insulin: no change * NovoLog per scale ACHS or Q6hrs while NPO * Goal Range: Low 110 mg/dL - High 140 mg/dL * Correction Factor: 9 mg/dL/unit * Nutritional / Prandial insulin per carb ratio of 1 unit per 2 grams CHO consumed PLAN FOR DISCHARGE: * tbd - will have better idea of insulin needs once steroids are discontinued
--- NOTE | 2020-10-29 21:43 | Hospitalist Progress Note ---
Date of Service October 29, 2020 Assessment & Plan (1) Pneumonia due to COVID-19 virus: Plan: severe, with acute hypoxic resp failure and large FiO2 requirement. remains on high settings of HFNC. again no significant change overnight. day #10 of IV dexamethasone. plan 10 days minimum. she is on "high-dose" 10mg. will wean to 6mg tomorrow. dose was increased to 10mg/day on 10/25 due to worsening status. previous CTA chest w/o PE. course complicated by probable acute diastolic CHF which has been clinically resolved. s/p 5-day course of Remdesivir. Did not meet candidacy for Tocilizumab. she is likely ~16 days into her illness. cont lovenox 40mg BID for VTE prophylaxis. pulm toilet, self-proning as tolerated, etc. checked dopplers of legs -- negative for DVT. procal has been negative; bacterial superinfection not suspected. repeat cxr in am due to worsening rales on Left today. may need additional diuresis. (2) Acute respiratory failure with hypoxia: Plan: 2nd to #1, #3 ongoing (3) Acute diastolic (congestive) heart failure: Plan: resolved. last echo - 09/2020 as outpatient - preserved EF. diuretics stopped. repeat cxr am. (4) Hx of deep venous thrombosis: Plan: no PE on CTA study on 10/20. dopplers b/l legs neg for DVT. cont lovenox for DVT proph. (5) Urinary tract infection: Plan: completed 7 day course of abx (6) DM (diabetes mellitus), type 2 with neurological complications: Plan: pharmacy assisting with management. cont basal-bolus combo. BSGs today wnl. (7) Hypertension: Plan: BPs acceptable on current meds (8) Hyperlipidemia: Plan: statin (9) Morbid obesity with BMI of 40.0-44.9, adult: Plan: BMI 43 (10) Chronic kidney disease, stage 3a: Plan: CrCl high 40s/low 50s bmps have been stable repeat BMP am (11) DVT prophylaxis: Plan: lovenox 40mg BID (12) Bilateral leg pain: Plan: suspect neuropathy this is a long-standing issue B12 def can contribute TSH wnl due to prior chemo for cancer?? other? started gabapentin 100mg HS 10/28/20 titrate slowly - plan to increase to BID dosing on 10/31/20 dopplers neg for DVT (13) Vitamin B12 deficiency: Plan: could be causing what seems to be neuropathy in legs level is <200 started IM injections of B12, 1000mcg daily x 5 doses while here -- day #2 today then 1000mcg po daily thereafter x 1 year started gabapentin 100mg HS for presumed neuropathy of legs Plan: PT, OT consults appreciated; will need rehab post-discharge Admission and Anticipated Discharge Date Admission Date: October 20, 2020 Subjective no events overnight or today feels about the same eating better still with significant cough - dry, no sputum CARTWRIGHT unchanged no pain in any location tele stable overnight did work with PT today - did ok Review of Systems Review of Systems: gen - fatigue, but no fevers/anorexia/chills CV - no chest pain or pleuritic pain pulm - no changes; ongoing cough, cartwright GI - no abd pain, finally had bowel movement Physical Exam Physical Exam: gen - NAD, coughing throughout the visit neck - no JVD mouth - MMM heart - RRR, s1 s2, no murmur lungs - fine, dry, bibasilar rales about [address] back; a little worse crackles today on Left; mild wheeze b/l abd - soft NT ND BS+ ext - trace edema b/l, pulses 2+ b/l psych - a/o x 3, good spirits Results & Data Results & Data ([facility]) Vital Signs (Past 12 Hours) Vital Signs Temp Pulse Pulse Pulse Resp BP Pulse Ox 10/29/20 19:33 36.8 C 67 30 H 136/66 93 10/29/20 19:23 60 20 90 10/29/20 15:58 36.7 C 60 23 126/69 91 10/29/20 15:37 56 L 20 89 L 10/29/20 15:19 63 10/29/20 11:22 36.7 C 56 L 22 110/66 89 L 10/29/20 11:06 56 L 19 90 10/29/20 09:49 53 L Laboratory Results Laboratory Results - last 24 hr 10/29/20 10/29/20 10/29/20 07:38 11:21 16:01 POC Glucose 79 177 H 137 H 10/29/20 20:40 POC Glucose 130 H PG Care Time/CCT Total # of Minutes Spent Total Time Spent with Patient: Total time spent is greater than 50% in coordination of care (as documented) at patient's floor/unit and/or counseling patient: Coding Level of Care Code 44522 Subseq Hosp Care Lvl 2 Diagnoses Pneumonia due to COVID-19 virus U07.1; J12.82 Acute respiratory failure with hypoxia J96.01 Acute diastolic (congestive) heart failure I50.31 Hx of deep venous thrombosis Z86.718 Urinary tract infection N39.0 DM (diabetes mellitus), type 2 with neurological complications E11.49 Hypertension I10 Hypertension type: essential hypertension Hyperlipidemia E78.5 Morbid obesity with BMI of 40.0-44.9, adult E66.01; Z68.41 Chronic kidney disease, stage 3a N18.31 DVT prophylaxis Z29.9 Bilateral leg pain M79.604; M79.605 Vitamin B12 deficiency E53.8 (1) Hypertension Hypertension type: essential hypertension Qualified Code(s): I10 - Essential (primary) hypertension
[2020-10-29] MEDS: ATORVASTATIN 10 MG TAB PO SCH (21:44)
[2020-10-29] MEDS: GABAPENTIN 100 MG CAP PO SCH ×2 (21:45→22:37)
[2020-10-29] MEDS: MELATONIN 3 MG TAB PO SCH (21:47)
[2020-10-30] MEDS: ENOXAPARIN INJ 40 MG/0.4 ML SYR SQ SCH ×2 (06:20→18:20)
[2020-10-30 07:04] LABS: Calcium 8.6 mg/dl (8.5-10.1); Creatinine Clr Calc Pharmacy 54.7 ml/min; Est GFR (African American) 62.9 ml/min; Est GFR (Non-African American) 54.2 ml/min
[2020-10-30] MEDS: CARBOHYDRATES FOR HYPOGLYCEMIA PO PRN ×3 (07:23→23:18)
[2020-10-30] MEDS: CHOLECALCIFEROL 1,000 UNITS 25 MCG TAB PO SCH (07:44)
[2020-10-30] MEDS: ASPIRIN 81 MG ECTAB PO SCH (07:44)
[2020-10-30] MEDS: THIAMINE HCL 100 MG TAB PO SCH (07:45)
[2020-10-30] MEDS: LOSARTAN POTASSIUM 50 MG TAB PO SCH (07:45)
[2020-10-30] MEDS: METOPROLOL TARTRATE 25 MG TAB PO SCH ×3 (07:45→21:17)
[2020-10-30] MEDS: NYSTATIN POWDER 15GM BTL EXT SCH ×2 (07:46→21:14)
[2020-10-30] MEDS: CYANOCOBALAMIN 1000 MCG/ML VIAL IM SCH (07:46)
[2020-10-30] MEDS: SENNA 8.6 MG TAB PO SCH (07:46)
[2020-10-30] MEDS: amLODIPine BESYLATE 5 MG TAB PO SCH (07:47)
[2020-10-30] MEDS: POLYETHYLENE (MIRALAX) 17 GM PACK PO SCH (07:47)
[2020-10-30] MEDS ORDERED: FUROSEMIDE 20 MG TAB PO ONE ×2 (08:26→16:00)
[2020-10-30] MEDS ORDERED: INSULIN HUMAN NPH SC SCH (09:00)
--- NOTE | 2020-10-30 09:09 | XRay Report ---
XR chest 1V portable CLINICAL HISTORY: covid-19, worsening rales COMPARISON STUDY: October 24, 2020 FINDINGS: No pneumothorax. No pleural effusion. Patchy mixed reticular and airspace opacities are seen bilaterally, slightly improved within right an d left mid to upper lung region and unchanged at bilateral lower lungs. Cardiac silhouette is mildly enlarged, cardiac border is partially obscured by surrounding opacities. Previously seen lucent line at the right aspect of mediastinum likely representing deviated trachea w hich could be due to mass effect from vasculature versus other etiology, findings are stable since pr ior. Pulmonary vasculature is obscured.. Osseous structures: Degenerative changes of the spine and bilateral shoulders. IMPRESSION: 1. Airspace opacities within bilateral lower lungs not significantly changed since prior. Previously seen airspace opacities within mid and upper lungs are improved since prior. 2. Mild cardiomegaly. 3. Previously seen lucency at the right mediastinal region likely represent deviated intrathoracic t rachea which could be due to mass effect from vasculature which was seen on recent CT of the chest pe rformed on October 20, 2020. ACT 112: Negative or not required by law. The above report was generated using voice recognition software. It may contain grammatical, syntax o r spelling errors. Electronically signed by: Ritu Blackwell DO 10/30/2020 9:07 AM
[2020-10-30] MEDS: dexAMETHasone 6 MG in SYRINGE 0 ML IV SCH (09:18)
[2020-10-30] MEDS: INSULIN ASPART 100 UNITS/ML 3 ML PEN SC SCH ×4 (09:37→21:47)
[2020-10-30] MEDS ORDERED: INSULIN HUMAN NPH SC ONE (09:45)
[2020-10-30] MEDS ORDERED: INSULIN ASPART 100 UNITS/ML 3 ML PEN SC ONE (09:45)
--- NOTE | 2020-10-30 09:46 | Pharmacy Report ---
Pharmacy Glycemic Short Note 2 - Date of Service October 30, 2020 - Glycemic Short BSG Results (Last 24 hours): 10/29/20 10/29/20 10/29/20 11:21 16:01 20:40 Glucose POC Glucose 177 H 137 H 130 H 10/30/20 10/30/20 10/30/20 05:53 07:21 07:39 Glucose 55 L POC Glucose 58 L* 62 L* 10/30/20 10/30/20 07:59 08:00 Glucose POC Glucose 69 L* 110 H OUTPATIENT ANTIDIABETIC REGIMEN: * Novolog 70/30, 10 units SC daily * Metformin 1000 mg PO BIDM * Glimepiride 2 mg PO daily * HbA1c: 10.1% (08/11/20) ASSESSMENT: 10/30 * BSGs yesterday ranging 79-177 mg/dL * Received 173 units of insulin (65 units of NPH, 108 units of Novolog) * Fasting BSG of 58 mg/dL, treated with orange juice * Steroids were originally to be discontinued today, but now changed from dexamethasone 10 mg to 6 mg IV daily * Unfortunately, was not notified of steroid change so insulin orders were delayed and likely caused the lunch BSG of 350 mg/dL * Will give one-time IV insulin bolus to help bring down BSGs * NPH reduced today in light of steroid dose reduction and low fasting BSG this morning (~30% reduction) 10/29 * BSGs very well controlled yesterday, 77, 153, 139, and 147 mg/dL * Received 133 units of insulin (75 units of NPH and 58 units of Novolog) * Fasting BSG of 79 mg/dL this morning (77 mg/dL yesterday) * Will reduce NPH today and maintain current Novolog parameters * Final dose of dexamethasone today, will need to reassess NPH in AM 10/28 * Despite adjustments to insulin regimen yesterday, BSGs remained elevated through the afternoon/evening. * Fasting BSG has been below goal the past two mornings. * In light of patient's recent BSG trends, will shift to once-daily qAM NPH to provide maximum coverage throughout the day. * Will consider further increase in carb coverage if daytime hyperglycemia persists (though coverage is already quite aggressive). 10/21/20: * SOFIA is a 85 year old female admitted on 10/20/20 with COVID-19 pneumonia * Receiving dexamethasone 6 mg IV daily * BSGs have been elevated since time of admission yesterday * NPH 30 units (~0.4 unit/kg of adjusted body weight) given with dexamethasone this morning * Pharmacy consulted for glycemic management at dinnertime today * Will tighten Novolog parameters this evening PLAN FOR INPATIENT GLYCEMIC CONTROL: * Hold outpatient oral Metformin * Basal insulin * NPH 45 units SC today with dexamethasone * Reassess in AM * Bolus insulin: no change * NovoLog per scale ACHS or Q6hrs while NPO * Goal Range: Low 110 mg/dL - High 140 mg/dL * Correction Factor: 10 mg/dL/unit * Nutritional / Prandial insulin per carb ratio of 1 unit per 2.5 grams CHO consumed PLAN FOR DISCHARGE: * tbd - will have better idea of insulin needs once steroids are discontinued
[2020-10-30] MEDS ORDERED: INSULIN HUMAN REGULAR PER UNIT 8 UNITS in SYRINGE 7.92 ML IV ONE (11:45)
[2020-10-30] MEDS: NYSTATIN SUSP 500,000 U/5 ML UDC PO SCH ×2 (17:51→21:15)
[2020-10-30] MEDS: ATORVASTATIN 10 MG TAB PO SCH (21:13)
[2020-10-30] MEDS: MELATONIN 3 MG TAB PO SCH (21:14)
[2020-10-30] MEDS: GABAPENTIN 100 MG CAP PO SCH (21:14)
--- NOTE | 2020-10-30 21:28 | Hospitalist Progress Note ---
Date of Service October 30, 2020 Assessment & Plan (1) Pneumonia due to COVID-19 virus: Plan: severe, with acute hypoxic resp failure and large FiO2 requirement. remains on high settings of HFNC but respiratory able to wean mildly today. s/p 10 days of IV dexamethasone. initially was on 6mg daily; then dose was increased to 10mg/day on 10/25 due to worsening resp status. will cut back to 6mg today. would wean by 2mg every days to off. previous CTA chest w/o PE. course complicated by probable acute diastolic CHF. s/p 5-day course of Remdesivir. Did not meet candidacy for Tocilizumab. she is likely ~17 days into her illness. cont lovenox 40mg BID for VTE prophylaxis. pulm toilet, self-proning as tolerated, etc. checked dopplers of legs -- negative for DVT. procal has been negative; bacterial superinfection not suspected. repeat cxr today shows improved infiltrates in apices; basilar infiltrates unchanged. will give 2 doses of PO lasix today (AM and dinner-time) to keep neg I/O balance. (2) Acute respiratory failure with hypoxia: Plan: 2nd to #1, #3 ongoing but decreasing HFNC requirements (3) Acute diastolic (congestive) heart failure: Plan: last echo - 09/2020 as outpatient - preserved EF. diuresed aggressively earlier in stay. due to slowly rising weight, edema of legs, etc will give 2 additional doses of PO lasix today. (4) Hx of deep venous thrombosis: Plan: no PE on CTA study on 10/20. dopplers b/l legs neg for DVT. cont lovenox for DVT proph. (5) Urinary tract infection: Plan: completed 7 day course of abx no symptoms of such at this time (6) DM (diabetes mellitus), type 2 with neurological complications: Plan: pharmacy assisting with management. cont basal-bolus combo. recurrent hypoglycemia - defer adjustments to pharmacy. (7) Hypertension: Plan: BPs acceptable on current meds (8) Hyperlipidemia: Plan: statin (9) Morbid obesity with BMI of 40.0-44.9, adult: Plan: BMI 43 (10) Chronic kidney disease, stage 3a: Plan: CrCl high 40s/low 50s bmps have been stable repeat BMP am due to lasix use (11) DVT prophylaxis: Plan: lovenox 40mg BID (12) Bilateral leg pain: Plan: suspect neuropathy this is a long-standing issue B12 def can contribute TSH wnl due to prior chemo for cancer?? other? started gabapentin 100mg HS 10/28/20 titrate slowly - plan to increase to BID dosing on 10/31/20 dopplers neg for DVT (13) Vitamin B12 deficiency: Plan: could be causing what seems to be neuropathy in legs level is <200 started IM injections of B12, 1000mcg daily x 5 doses while here -- day #3 today then 1000mcg po daily thereafter x 1 year started gabapentin 100mg HS for presumed neuropathy of legs Plan: PT, OT consults appreciated; will need rehab post-discharge patient not interested - we had lengthy discussion about going home post-d/c would likely lead to poor recovery she is very weak and needs intensive rehab to regain prior function anticipate she needs another 5-7 days (could be more) to wean FiO2 daughter Azra updated by phone today Admission and Anticipated Discharge Date Admission Date: October 20, 2020 Subjective tele this am showed brief run of tachycardia no symptoms during such occurred while working with PT? otherwise tele has been normal cough, dyspnea, CARTWRIGHT - no change sleeping ok eating well we discussed rehab post-d/c -- "I'm going home" she states she has been to rehab before -- has no interest in such Review of Systems Review of Systems: gen - fatigue, weakness unchanged pulm - cough unchanged; no sputum; dyspnea - no change cv - no orthopnea, no chest pain GI - no diarrhea Physical Exam Physical Exam: gen - NAD, coughing throughout the visit and purposely taking d eep breaths (she said "I'm practicing my deep breathing") neck - no JVD mouth - MMM heart - RRR, s1 s2, no murmur lungs - fine, dry, bibasilar rales about 1/[address] up back - no change from prior exams abd - soft NT ND BS+ ext - 1+ edema b/l, pulses 2+ b/l psych - a/o x 3 skin - no rash Results & Data Results & Data ([facility]) Vital Signs (Past 12 Hours) Vital Signs Temp Pulse Resp BP BP Pulse Ox 10/30/20 21:17 71 146/78 H 10/30/20 19:48 36.6 C 64 20 134/59 L 92 10/30/20 19:12 64 22 91 10/30/20 16:45 36.8 C 58 L 22 133/74 91 10/30/20 14:21 36.7 C 69 20 143/68 H 95 10/30/20 13:40 74 18 108/64 94 10/30/20 11:33 36.4 C L 66 26 H 134/63 92 10/30/20 10:56 63 18 91 Laboratory Results Laboratory Results - last 24 hr 10/30/20 10/30/20 10/30/20 05:53 07:21 07:39 Sodium 136 Potassium Chloride 107 Carbon Dioxide 23 Anion Gap 6.0 BUN 50 H Creatinine 0.95 Est Cr Clr Drug Dosing 54.7 Est GFR ( Amer) 62.9 Est GFR (Non-Af Amer) 54.2 BUN/Creatinine Ratio 52.0 H Glucose 55 L POC Glucose 58 L* 62 L* Calcium 8.6 Specimen Hemolysis 10/30/20 10/30/20 10/30/20 07:40 07:59 08:00 Sodium Potassium Chloride Carbon Dioxide Anion Gap BUN Creatinine Est Cr Clr Drug Dosing Est GFR ( Amer) Est GFR (Non-Af Amer) BUN/Creatinine Ratio Glucose POC Glucose 69 L* 110 H Calcium Specimen Hemolysis 10/30/20 10/30/20 10/30/20 08:40 11:30 11:31 Sodium Potassium 5.0 Chloride Carbon Dioxide Anion Gap BUN Creatinine Est Cr Clr Drug Dosing Est GFR ( Amer) Est GFR (Non-Af Amer) BUN/Creatinine Ratio Glucose POC Glucose 354 H* 350 H* Calcium Specimen Hemolysis 10/30/20 10/30/20 16:44 21:10 Sodium Potassium Chloride Carbon Dioxide Anion Gap BUN Creatinine Est Cr Clr Drug Dosing Est GFR ( Amer) Est GFR (Non-Af Amer) BUN/Creatinine Ratio Glucose POC Glucose 129 H 129 H Calcium Specimen Hemolysis PG Care Time/CCT Total # of Minutes Spent Total Time Spent with Patient: Total time spent is greater than 50% in coordination of care (as documented) at patient's floor/unit and/or counseling patient: Coding Level of Care Code 99995 Subseq Hosp Care Lvl 2 Diagnoses Pneumonia due to COVID-19 virus U07.1; J12.82 Acute respiratory failure with hypoxia J96.01 Acute diastolic (congestive) heart failure I50.31 Hx of deep venous thrombosis Z86.718 Urinary tract infection N39.0 DM (diabetes mellitus), type 2 with neurological complications E11.49 Hypertension I10 Hypertension type: essential hypertension Hyperlipidemia E78.5 Morbid obesity with BMI of 40.0-44.9, adult E66.01; Z68.41 Chronic kidney disease, stage 3a N18.31 DVT prophylaxis Z29.9 Bilateral leg pain M79.604; M79.605 Vitamin B12 deficiency E53.8 (1) Hypertension Hypertension type: essential hypertension Qualified Code(s): I10 - Essential (primary) hypertension
[2020-10-31] MEDS: ENOXAPARIN INJ 40 MG/0.4 ML SYR SQ SCH ×2 (05:41→16:48)
[2020-10-31] MEDS: NYSTATIN SUSP 500,000 U/5 ML UDC PO SCH ×4 (08:02→21:31)
[2020-10-31] MEDS: POLYETHYLENE (MIRALAX) 17 GM PACK PO SCH (08:02)
[2020-10-31] MEDS: amLODIPine BESYLATE 5 MG TAB PO SCH (08:04)
[2020-10-31] MEDS: THIAMINE HCL 100 MG TAB PO SCH (08:04)
[2020-10-31] MEDS: SENNA 8.6 MG TAB PO SCH (08:04)
[2020-10-31] MEDS: METOPROLOL TARTRATE 25 MG TAB PO SCH ×2 (08:04→21:37)
[2020-10-31] MEDS: CYANOCOBALAMIN 1000 MCG/ML VIAL IM SCH (08:04)
[2020-10-31] MEDS: CHOLECALCIFEROL 1,000 UNITS 25 MCG TAB PO SCH (08:05)
[2020-10-31] MEDS: LOSARTAN POTASSIUM 50 MG TAB PO SCH (08:06)
[2020-10-31] MEDS: ASPIRIN 81 MG ECTAB PO SCH (08:06)
[2020-10-31] MEDS: dexAMETHasone 6 MG in SYRINGE 0 ML IV SCH (08:16)
[2020-10-31] MEDS: NYSTATIN POWDER 15GM BTL EXT SCH ×2 (08:16→21:35)
[2020-10-31] MEDS: INSULIN ASPART 100 UNITS/ML 3 ML PEN SC SCH ×4 (08:46→21:47)
[2020-10-31] MEDS ORDERED: INSULIN HUMAN NPH SC SCH (09:00)
[2020-10-31 09:24] LABS: BUN Creatinine Ratio 33.3 (10-20); Calcium 8.2 mg/dl (8.5-10.1); Creatinine Clr Calc Pharmacy 48.6 ml/min; Est GFR (African American) 54.4 ml/min; Potassium 4.6 mmol/L (3.5-5.1)
[2020-10-31] MEDS: FUROSEMIDE 20 MG TAB PO SCH (12:14)
[2020-10-31] MEDS: OXYMETAZOLINE 0.05% 30 ML BTL PRN (15:23)
--- NOTE | 2020-10-31 20:01 | Hospitalist Progress Note ---
Date of Service October 31, 2020 Assessment & Plan (1) Pneumonia due to COVID-19 virus: Plan: severe, with acute hypoxic resp failure and large FiO2 requirement. slow, gradual day to day improvement in HFNC settings. she reports feeling better overall but very weak. s/p 10 days of IV dexamethasone. initially was on 6mg daily; then dose was increased to 10mg/day on 10/25 due to worsening resp status. cut back to 6mg on 10/30. would wean by 2mg every days to off. thus, wean to 4mg tomorrow. previous CTA chest w/o PE. course complicated by probable acute diastolic CHF. s/p 5-day course of Remdesivir. Did not meet candidacy for Tocilizumab. she is likely ~18 days into her illness. cont lovenox 40mg BID for VTE prophylaxis. pulm toilet, self-proning as tolerated, etc. checked dopplers of legs -- negative for DVT. procal has been negative; bacterial superinfection not suspected. repeat cxr 10/30 with improved infiltrates in apices; basilar infiltrates unchanged. cont lasix daily (PO) to maintain net neg fluid balance. (2) Acute respiratory failure with hypoxia: Plan: 2nd to #1, #3 ongoing - but decreasing HFNC requirements (3) Acute diastolic (congestive) heart failure: Plan: last echo - 09/2020 as outpatient - preserved EF. diuresed aggressively earlier in stay. cont PO lasix to maintain net neg fluid balance day-to-day. (4) Hx of deep venous thrombosis: Plan: no PE on CTA study on 10/20. dopplers b/l legs neg for DVT. cont lovenox for DVT proph. (5) Urinary tract infection: Plan: completed 7 day course of abx resolved (6) DM (diabetes mellitus), type 2 with neurological complications: Plan: pharmacy assisting with management. cont basal-bolus combo. recurrent hypoglycemia - defer adjustments to pharmacy. ordered an HS snack for tonight. (7) Hypertension: Plan: BPs acceptable on current meds (8) Hyperlipidemia: Plan: statin (9) Morbid obesity with BMI of 40.0-44.9, adult: Plan: BMI 43 (10) Chronic kidney disease, stage 3a: Plan: CrCl high 40s/low 50s bmps have been stable repeat BMP am due to lasix use (11) DVT prophylaxis: Plan: lovenox 40mg BID (12) Bilateral leg pain: Plan: suspect neuropathy this is a long-standing issue B12 def can contribute TSH wnl has had DM for long-time so this could be diabetic polyneuropathy prior chemo for cancer could have contributed a well started gabapentin 100mg HS 10/28/20 titrate slowly - plan to increase to 200mg HS tonight then in 2-3 days make it 200mg BID, then gradually increase to 300mg BID dopplers neg for DVT (13) Vitamin B12 deficiency: Plan: level is <200 started IM injections of B12, 1000mcg daily x 5 doses while here -- day #4 today then 1000mcg po daily thereafter x 1 year started gabapentin 100mg HS for presumed neuropathy of legs and titrating such to 200mg tonight Plan: PT, OT consults appreciated; will need rehab post-discharge patient not interested - we had lengthy discussion about going home post-d/c would likely lead to poor recovery she is very weak and needs intensive rehab to regain prior function anticipate she needs another 5-7 days (could be more) to wean FiO2 cricket [place] updated yesterday Admission and Anticipated Discharge Date Admission Date: October 20, 2020 Subjective tele overnight wnl no change overall in cough, dyspnea, energy level eating well fortunately had BM today did have a nosebleed from R nare - needed afrin to stop it remains on HFNC Review of Systems Review of Systems: gen - no fever; fatigue unchanged; weakness unchanged CV - no cp; no orthopnea GI - no N/V/D/abd pain Pulm - no wheeze; cough and dyspnea - no change neuro - no change in hand/leg neuropathy Physical Exam Physical Exam: gen - NAD, no change in appearance since yesterday neck - no JVD mouth - MMM heart - RRR, s1 s2, no murmur lungs - fine, dry, bibasilar rales about [address] back - maybe mildly improved today in comparison to prior exams abd - soft NT ND BS+ ext - <1+ edema b/l, pulses 2+ b/l psych - a/o x 3 Results & Data Results & Data ([facility]) Vital Signs (Past 12 Hours) Vital Signs Temp Pulse Resp BP Pulse Ox 10/31/20 19:45 62 20 95 10/31/20 19:00 36.7 C 67 18 151/79 H 98 10/31/20 16:45 36.6 C 65 22 142/66 H 93 10/31/20 15:40 66 22 92 10/31/20 12:09 36.8 C 56 L 20 121/72 94 10/31/20 10:59 62 24 91 Laboratory Results Laboratory Results - last 24 hr 10/30/20 10/30/20 10/30/20 21:10 23:18 23:19 Sodium Potassium Chloride Carbon Dioxide Anion Gap BUN Creatinine Est Cr Clr Drug Dosing Est GFR ( Amer) Est GFR (Non-Af Amer) BUN/Creatinine Ratio Glucose POC Glucose 129 H 53 L* 56 L* Calcium Specimen Hemolysis 10/30/20 10/31/20 10/31/20 23:33 01:18 03:38 Sodium Potassium Chloride Carbon Dioxide Anion Gap BUN Creatinine Est Cr Clr Drug Dosing Est GFR ( Amer) Est GFR (Non-Af Amer) BUN/Creatinine Ratio Glucose POC Glucose 76 163 H 154 H Calcium Specimen Hemolysis 10/31/20 10/31/20 10/31/20 05:37 07:57 08:33 Sodium 137 Potassium 4.6 Chloride 104 Carbon Dioxide 27 Anion Gap 6.0 BUN 36 H Creatinine 1.07 Est Cr Clr Drug Dosing 48.6 Est GFR ( Amer) 54.4 Est GFR (Non-Af Amer) 47.0 BUN/Creatinine Ratio 33.3 H Glucose 147 H POC Glucose 118 H 93 Calcium 8.2 L Specimen Hemolysis 10/31/20 10/31/20 12:11 16:44 Sodium Potassium Chloride Carbon Dioxide Anion Gap BUN Creatinine Est Cr Clr Drug Dosing Est GFR ( Amer) Est GFR (Non-Af Amer) BUN/Creatinine Ratio Glucose POC Glucose 193 H 162 H Calcium Specimen Hemolysis PG Care Time/CCT Total # of Minutes Spent Total Time Spent with Patient: Total time spent is greater than 50% in coordination of care (as documented) at patient's floor/unit and/or counseling patient: Coding Level of Care Code 44672 Subseq Hosp Care Lvl 3 Diagnoses Pneumonia due to COVID-19 virus U07.1; J12.82 Acute respiratory failure with hypoxia J96.01 Acute diastolic (congestive) heart failure I50.31 Hx of deep venous thrombosis Z86.718 Urinary tract infection N39.0 DM (diabetes mellitus), type 2 with neurological complications E11.49 Hypertension I10 Hypertension type: essential hypertension Hyperlipidemia E78.5 Morbid obesity with BMI of 40.0-44.9, adult E66.01; Z68.41 Chronic kidney disease, stage 3a N18.31 DVT prophylaxis Z29.9 Bilateral leg pain M79.604; M79.605 Vitamin B12 deficiency E53.8 (1) Hypertension Hypertension type: essential hypertension Qualified Code(s): I10 - Essential (primary) hypertension
[2020-10-31] MEDS: GABAPENTIN 100 MG CAP PO SCH (21:30)
[2020-10-31] MEDS: ATORVASTATIN 10 MG TAB PO SCH (21:31)
[2020-10-31] MEDS: MUPIROCIN 2% OINT 22 GM TUBE EXT SCH (21:35)
[2020-10-31] MEDS: MELATONIN 3 MG TAB PO SCH (21:35)
[2020-11-01] MEDS: ENOXAPARIN INJ 40 MG/0.4 ML SYR SQ SCH (06:04)
[2020-11-01 07:48] LABS: Creatinine Clr Calc Pharmacy 59.4 ml/min; Est GFR (Non-African American) 59.5 ml/min; Magnesium 2.4 mg/dl (1.8-2.4); Potassium 4.6 mmol/L (3.5-5.1)
[2020-11-01] MEDS: dexAMETHasone 4 MG TAB PO SCH (08:17)
[2020-11-01] MEDS: NYSTATIN POWDER 15GM BTL EXT SCH ×2 (08:17→21:51)
[2020-11-01] MEDS: METOPROLOL TARTRATE 25 MG TAB PO SCH ×2 (08:17→21:55)
[2020-11-01] MEDS: MUPIROCIN 2% OINT 22 GM TUBE EXT SCH ×2 (08:17→21:53)
[2020-11-01] MEDS: CYANOCOBALAMIN 1000 MCG/ML VIAL IM SCH (08:18)
[2020-11-01] MEDS: CHOLECALCIFEROL 1,000 UNITS 25 MCG TAB PO SCH (08:18)
[2020-11-01] MEDS: NYSTATIN SUSP 500,000 U/5 ML UDC PO SCH ×4 (08:18→21:51)
[2020-11-01] MEDS: POLYETHYLENE (MIRALAX) 17 GM PACK PO SCH (08:18)
[2020-11-01] MEDS: amLODIPine BESYLATE 5 MG TAB PO SCH (08:19)
[2020-11-01] MEDS: ASPIRIN 81 MG ECTAB PO SCH (08:19)
[2020-11-01] MEDS: LOSARTAN POTASSIUM 50 MG TAB PO SCH (08:19)
[2020-11-01] MEDS: SENNA 8.6 MG TAB PO SCH (08:19)
[2020-11-01] MEDS: FUROSEMIDE 20 MG TAB PO SCH (08:20)
[2020-11-01] MEDS: THIAMINE HCL 100 MG TAB PO SCH (08:20)
[2020-11-01] MEDS ORDERED: INSULIN HUMAN NPH SC SCH (09:00)
[2020-11-01] MEDS: INSULIN ASPART 100 UNITS/ML 3 ML PEN SC SCH ×4 (09:10→22:10)
[2020-11-01] MEDS: HYDROcodone/HOMATROPINE SYRUP 5MG/1.5MG 5ML UDP PO PRN ×2 (10:22→17:36)
[2020-11-01] MEDS: OXYMETAZOLINE 0.05% 30 ML BTL PRN (10:23)
[2020-11-01] MEDS: BENZONATATE 100 MG CAPSULE PO SCH ×3 (10:23→21:51)
[2020-11-01] MEDS ORDERED: ENOXAPARIN 80 MG/0.8 ML SYR SQ ONE (11:44)
--- NOTE | 2020-11-01 15:46 | Pharmacy Report ---
Pharmacy Glycemic Short Note 2 - Date of Service November 01, 2020 - Glycemic Short BSG Results (Last 24 hours): 10/31/20 10/31/20 10/31/20 16:44 21:26 23:38 Glucose POC Glucose 162 H 143 H 178 H 11/01/20 11/01/20 11/01/20 03:45 06:42 08:12 Glucose 116 H POC Glucose 136 H 96 11/01/20 11:48 Glucose POC Glucose 211 H OUTPATIENT ANTIDIABETIC REGIMEN: * Novolog 70/30, 10 units SC daily * Metformin 1000 mg PO BIDM * Glimepiride 2 mg PO daily * HbA1c: 10.1% (08/11/20) ASSESSMENT: 11/01: * Matthew received 111 units of insulin yesterday (45 units of NPH, 66 units of Novolog) * Fasting BSG at goal. Continue NPH for steroid induced hyperglycemia. Will decrease dose ~50% due to change in DXM (6 mg IV -> 4 mg Po) * Post prandial BSGs acceptable. Novolog had already been reduced 10/31 PM. Will continue for now 10/30 * BSGs yesterday ranging 79-177 mg/dL * Received 173 units of insulin (65 units of NPH, 108 units of Novolog) * Fasting BSG of 58 mg/dL, treated with orange juice * Steroids were originally to be discontinued today, but now changed from dexamethasone 10 mg to 6 mg IV daily * Unfortunately, was not notified of steroid change so insulin orders were delayed and likely caused the lunch BSG of 350 mg/dL * Will give one-time IV insulin bolus to help bring down BSGs * NPH reduced today in light of steroid dose reduction and low fasting BSG this morning (~30% reduction) 10/29 * BSGs very well controlled yesterday, 77, 153, 139, and 147 mg/dL * Received 133 units of insulin (75 units of NPH and 58 units of Novolog) * Fasting BSG of 79 mg/dL this morning (77 mg/dL yesterday) * Will reduce NPH today and maintain current Novolog parameters * Final dose of dexamethasone today, will need to reassess NPH in AM 10/28 * Despite adjustments to insulin regimen yesterday, BSGs remained elevated through the afternoon/evening. * Fasting BSG has been below goal the past two mornings. * In light of patient's recent BSG trends, will shift to once-daily qAM NPH to provide maximum coverage throughout the day. * Will consider further increase in carb coverage if daytime hyperglycemia persists (though coverage is already quite aggressive). 10/21/20: * SOFIA is a 85 year old female admitted on 10/20/20 with COVID-19 pneumonia * Receiving dexamethasone 6 mg IV daily * BSGs have been elevated since time of admission yesterday * NPH 30 units (~0.4 unit/kg of adjusted body weight) given with dexamethasone this morning * Pharmacy consulted for glycemic management at dinnertime today * Will tighten Novolog parameters this evening PLAN FOR INPATIENT GLYCEMIC CONTROL: * Hold outpatient oral Metformin * Basal insulin * NPH 22 units SC qAM with dexamethasone * Bolus insulin: no change * NovoLog per scale ACHS or Q6hrs while NPO * Goal Range: Low 110 mg/dL - High 140 mg/dL * Correction Factor: 15 mg/dL/unit * Nutritional / Prandial insulin per carb ratio of 1 unit per 3 grams CHO consumed PLAN FOR DISCHARGE: * tbd - will have better idea of insulin needs once steroids are discontinued
[2020-11-01] MEDS ORDERED: FUROSEMIDE 20 MG in SYRINGE 0 ML IV ONE (16:00)
[2020-11-01] MEDS: GABAPENTIN 100 MG CAP PO SCH (21:52)
[2020-11-01] MEDS: ENOXAPARIN INJ 120 MG/0.8 ML SYR SQ SCH (21:52)
[2020-11-01] MEDS: MELATONIN 3 MG TAB PO SCH (21:53)
[2020-11-01] MEDS: ATORVASTATIN 10 MG TAB PO SCH (21:53)
--- NOTE | 2020-11-01 23:22 | Hospitalist Progress Note ---
Date of Service November 01, 2020 Assessment & Plan (1) Pneumonia due to COVID-19 virus: Plan: severe, with acute hypoxic resp failure and large, ongoing FiO2 requirement. she is nearly 20 days into her illness. HFNC settings over the last week had decreased, but then overnight had an increase in FiO2. s/p 10 days of IV dexamethasone. initially was on 6mg daily; then dose was increased to 10mg/day on 10/25 due to worsening resp status. cut back to 6mg on 10/30. then weaned to 4mg today. would wean by 2mg every days to off. previous CTA chest w/o PE but study was not optimal. course complicated by acute diastolic CHF. s/p 5-day course of Remdesivir. Did not meet candidacy for Tocilizumab. cont pulm toilet, self-proning as tolerated, etc. repeat cxr 10/30 with improved infiltrates in apices; basilar infiltrates unchanged. (2) Acute respiratory failure with hypoxia: Plan: 2nd to #1, #3 ongoing had increase in FiO2 requirements overnight 2nd to worsening diastolic CHF? PEs? other? gave additional 20mg of lasix IV today in the afternoon increased lovenox to 1mg/kg BID to cover for possible PEs cont steroids (3) Acute diastolic (congestive) heart failure: Plan: last echo - 09/2020 as outpatient - preserved EF. diuresed aggressively earlier in stay and much of this week. despite such she has increasing body weight. gave additional lasix this afternoon. plan for a limited echo tomorrow to reassess LV function. (4) Hx of deep venous thrombosis: Plan: no PE on CTA study on 10/20 but was suboptimal study. had extensive DVT several years ago. strong family history of VTE - her mother, her daughter, etc. dopplers b/l legs neg for DVT during this stay. despite such I am concerned that she could have PEs given her escalating O2 requirements. would increase lovenox to 1mg/kg BID empirically and plan to repeat a chest CT when she is safe to go to CT scanner. (5) Urinary tract infection: Plan: completed 7 day course of abx resolved (6) DM (diabetes mellitus), type 2 with neurological complications: Plan: pharmacy assisting with management. cont basal-bolus combo. recurrent hypoglycemia - defer adjustments to pharmacy. ordered an HS snack. (7) Hypertension: Plan: BPs acceptable on current meds (8) Hyperlipidemia: Plan: statin (9) Morbid obesity with BMI of 40.0-44.9, adult: Plan: BMI 43 (10) Chronic kidney disease, stage 3a: Plan: CrCl high 40s/low 50s bmps have been stable repeat BMP am due to lasix use (11) DVT prophylaxis: Plan: lovenox 1mg/kg BID as above (12) Bilateral leg pain: Plan: suspect neuropathy this is a long-standing issue B12 def can contribute TSH wnl has had DM for long-time so this could be diabetic polyneuropathy prior chemo for cancer could have contributed a well started gabapentin 100mg HS 10/28/20 increased to 200mg HS 10/31/20 then in 2-3 days make it 200mg BID, then gradually increase to 300mg BID dopplers neg for DVT (13) Vitamin B12 deficiency: Plan: level is <200 started IM injections of B12, 1000mcg daily x 5 doses while here -- day #5 today then 1000mcg po daily thereafter x 1 year started gabapentin for presumed neuropathy of legs Plan: PT, OT consults appreciated; will need rehab post-discharge patient not interested - we had lengthy discussion about going home post-d/c this would likely lead to poor recovery given her extreme weakness anticipate she needs another 5-7 days (could be more) to wean FiO2 cricket [place] updated today Admission and Anticipated Discharge Date Admission Date: October 20, 2020 Subjective tele stable overnight patient states "I had a good day today" she reports breathing is comfortable cough unchanged - still with severe coughing episodes; mainly dry CARTWRIGHT unchanged no further nosebleeding since early yesterday patient did have her FIO2 increased last pm due to desats into the 70s Review of Systems Review of Systems: gen - fatigue, weakness; no fever; no anorexia CV - no chest pain pulm - ongoing cough, dyspnea, CARTWRIGHT gi - no abd pain or nausea/emesis Physical Exam Physical Exam: gen - NAD, no change from 10/31; coughing throughout the visit neck - no obvious JVD mouth - MMM heart - RRR, s1 s2, no murmur lungs - fine, dry, bibasilar rales about [address] up back -- no change from previous abd - soft NT ND BS+ ext - 1+ edema b/l, pulses 2+ b/l psych - a/o x 3 Results & Data Results & Data ([facility]) Vital Signs (Past 12 Hours) Vital Signs Temp Pulse Pulse Resp BP BP Pulse Ox 11/01/20 23:04 37.2 C 59 L 18 135/73 94 11/01/20 21:54 64 148/77 H 11/01/20 20:53 36.7 C 61 19 155/77 H 94 11/01/20 20:01 60 22 94 11/01/20 16:58 36.7 C 58 L 18 127/67 93 11/01/20 15:24 61 18 91 11/01/20 15:03 58 L 11/01/20 11:50 36.8 C 58 L 18 138/67 90 Laboratory Results Laboratory Results - last 24 hr 10/31/20 11/01/20 11/01/20 23:38 03:45 06:42 Sodium 137 Potassium 4.6 Chloride 107 Carbon Dioxide 26 Anion Gap 4.0 BUN 38 H Creatinine 0.88 Est Cr Clr Drug Dosing 59.4 Est GFR ( Amer) 69.0 Est GFR (Non-Af Amer) 59.5 BUN/Creatinine Ratio 43.0 H Glucose 116 H POC Glucose 178 H 136 H Calcium 8.0 L Magnesium 2.4 11/01/20 11/01/20 11/01/20 08:12 11:48 16:56 Sodium Potassium Chloride Carbon Dioxide Anion Gap BUN Creatinine Est Cr Clr Drug Dosing Est GFR ( Amer) Est GFR (Non-Af Amer) BUN/Creatinine Ratio Glucose POC Glucose 96 211 H 150 H Calcium Magnesium 11/01/20 20:51 Sodium Potassium Chloride Carbon Dioxide Anion Gap BUN Creatinine Est Cr Clr Drug Dosing Est GFR ( Amer) Est GFR (Non-Af Amer) BUN/Creatinine Ratio Glucose POC Glucose 157 H Calcium Magnesium PG Care Time/CCT Total # of Minutes Spent Total Time Spent with Patient: Total time spent is greater than 50% in coordination of care (as documented) at patient's floor/unit and/or counseling patient: Coding Level of Care Code 67427 Subseq Hosp Care Lvl 3 Diagnoses Pneumonia due to COVID-19 virus U07.1; J12.82 Acute respiratory failure with hypoxia J96.01 Acute diastolic (congestive) heart failure I50.31 Hx of deep venous thrombosis Z86.718 Urinary tract infection N39.0 DM (diabetes mellitus), type 2 with neurological complications E11.49 Hypertension I10 Hypertension type: essential hypertension Hyperlipidemia E78.5 Morbid obesity with BMI of 40.0-44.9, adult E66.01; Z68.41 Chronic kidney disease, stage 3a N18.31 DVT prophylaxis Z29.9 Bilateral leg pain M79.604; M79.605 Vitamin B12 deficiency E53.8 (1) Hypertension Hypertension type: essential hypertension Qualified Code(s): I10 - Essential (primary) hypertension
[2020-11-02] MEDS: amLODIPine BESYLATE 5 MG TAB PO SCH (08:10)
[2020-11-02] MEDS: POLYETHYLENE (MIRALAX) 17 GM PACK PO SCH (08:10)
[2020-11-02] MEDS: NYSTATIN SUSP 500,000 U/5 ML UDC PO SCH ×4 (08:10→21:00)
[2020-11-02] MEDS: THIAMINE HCL 100 MG TAB PO SCH (08:10)
[2020-11-02] MEDS: SENNA 8.6 MG TAB PO SCH (08:12)
[2020-11-02] MEDS: dexAMETHasone 4 MG TAB PO SCH (08:13)
[2020-11-02] MEDS: CYANOCOBALAMIN 500 MCG TABLET (VITAMIN B-12) PO SCH (08:13)
[2020-11-02] MEDS: LOSARTAN POTASSIUM 50 MG TAB PO SCH (08:13)
[2020-11-02] MEDS: CYANOCOBALAMIN 1000 MCG/ML VIAL IM SCH (08:13)
[2020-11-02] MEDS: BENZONATATE 100 MG CAPSULE PO SCH ×3 (08:14→20:59)
[2020-11-02] MEDS: ASPIRIN 81 MG ECTAB PO SCH (08:14)
[2020-11-02] MEDS: CHOLECALCIFEROL 1,000 UNITS 25 MCG TAB PO SCH (08:14)
[2020-11-02] MEDS: MUPIROCIN 2% OINT 22 GM TUBE EXT SCH ×2 (08:16→21:04)
[2020-11-02] MEDS: METOPROLOL TARTRATE 25 MG TAB PO SCH ×2 (08:16→21:07)
[2020-11-02] MEDS: FUROSEMIDE 20 MG TAB PO SCH (08:16)
[2020-11-02] MEDS: NYSTATIN POWDER 15GM BTL EXT SCH ×2 (08:16→21:03)
[2020-11-02] MEDS: ENOXAPARIN INJ 120 MG/0.8 ML SYR SQ SCH (08:17)
[2020-11-02] MEDS: INSULIN ASPART 100 UNITS/ML 3 ML PEN SC SCH ×4 (08:38→21:43)
[2020-11-02] MEDS ORDERED: INSULIN HUMAN NPH SC SCH (09:00)
--- NOTE | 2020-11-02 09:05 | XCELERA ---
[id number]
[2020-11-02 09:38] LABS: Hemoglobin 13.3 g/dL (12.0-16.0); Mean Corpuscular Hemoglobin 29.9 pg (25-34); Mean Corpuscular Hgb Conc 32.4 g/dL (32-36); Mean Corpuscular Volume 92.1 fL (80-100); Mean Platelet Volume 10.9 fL (7.4-10.4); Platelet Count 325 K/uL (130-400); RDW Coefficient of Variation 14.6 % (11.5-14.5); RDW Standard Deviation 49.6 fL (36.4-46.3); Red Blood Count 4.45 M/uL (4.2-5.4); White Blood Count 14.08 K/uL (4.8-10.8)
--- NOTE | 2020-11-02 09:56 | XRay Report ---
XR chest 1V portable HISTORY: 85 years-old Female Worsening oxygenation acute shortness of breath. COVID Positive. COMPARISON: Chest radiograph 10/30/2020 TECHNIQUE: Portable AP view of the chest FINDINGS: Cardiac silhouette is enlarged. Progressively worsened mixed interstitial and alveolar opacities of t he mid and lower lung zones. No pneumothorax or large pleural effusion. Degenerative changes of the s houlders and spine. IMPRESSION: 1. Progressive bilateral pulmonary opacities suggests worsening pneumonia. 2. Cardiomegaly. ACT 112: Negative or not required by law. The above report was generated using voice recognition software. It may contain grammatical, syntax o r spelling errors. Electronically signed by: Klever Berrios M.D. 11/02/2020 9:54 AM
[2020-11-02 10:14] LABS: BUN Creatinine Ratio 35.5 (10-20); Creatinine Clr Calc Pharmacy 49.4 ml/min; Est GFR (African American) 55.7 ml/min; Est GFR (Non-African American) 48.1 ml/min; Potassium 4.2 mmol/L (3.5-5.1)
[2020-11-02 10:26] LABS: Beta-Hydroxybutyrate 1.47 mg/dl (0.2-2.81)
--- NOTE | 2020-11-02 12:02 | Pharmacy Report ---
Pharmacy Glycemic Short Note 2 - Date of Service November 02, 2020 - Glycemic Short BSG Results (Last 24 hours): 11/01/20 11/01/20 11/02/20 16:56 20:51 08:04 Glucose POC Glucose 150 H 157 H 171 H 11/02/20 11/02/20 11/02/20 09:05 10:23 10:24 Glucose 309 H* POC Glucose 307 H* 309 H* OUTPATIENT ANTIDIABETIC REGIMEN: * Novolog 70/30, 10 units SC daily * Metformin 1000 mg PO BIDM * Glimepiride 2 mg PO daily * HbA1c: 10.1% (08/11/20) ASSESSMENT: 11/02 * 99 units SQ administer over last 24 hrs while tolerating a diet * Fasting BSG elevated above goal this AM, she received 22 units NPH yesterday. * Post-prandial BSGs fairly well controlled yesterday with NPH and Novolog doses. Today is last day of Dexamethasone 4mg PO however, will titrate down NPH dose today and tomorrow in anticipation of improved insulin sensitivity. * Prelunch hyperglycemia noted today, will continue aggressive Novolog correction/prandial doses for now in light of current BSG and reduced NPH dose this AM. 11/01 * Matthew received 111 units of insulin yesterday (45 units of NPH, 66 units of Novolog) * Fasting BSG at goal. Continue NPH for steroid induced hyperglycemia. Will decrease dose ~50% due to change in DXM (6 mg IV -> 4 mg Po) * Post prandial BSGs acceptable. Novolog had already been reduced 10/31 PM. Will continue for now PLAN FOR INPATIENT GLYCEMIC CONTROL: * Hold outpatient oral Metformin * Basal insulin * decrease NPH to 18 units SC qAM with PO dexamethasone, plan to reduce to 12 units SQ qAM tomorrow if dexamethasone d/c'd or lower dose used * Bolus insulin: no change * NovoLog per scale ACHS or Q6hrs while NPO * Goal Range: Low 110 mg/dL - High 140 mg/dL * Correction Factor: 15 mg/dL/unit * Nutritional / Prandial insulin per carb ratio of 1 unit per 3 grams CHO consumed PLAN FOR DISCHARGE: * tbd - will have better idea of insulin needs once steroids are discontinued
--- NOTE | 2020-11-02 12:14 | Hospitalist Progress Note ---
Date of Service November 02, 2020 Assessment & Plan (1) Pneumonia due to COVID-19 virus: Plan: Severe, with acute hypoxic resp failure and large, ongoing FiO2 requirement. - S/p 5-day course of remdesivir. - Did not meet candidacy for tocilizumab. - S/p 10 days of IV dexamethasone -> Will wean to 2 mg PO daily x 2 more days, then stop. - Course complicated by acute diastolic CHF. - Lasix 20 mg IV last given on 11/01. BNP on 11/02 was 250. CXR on 11/02 looking worse. (2) Acute respiratory failure with hypoxia: Plan: 2nd to #1. - Ongoing (3) Acute diastolic (congestive) heart failure: Plan: Last echo in 09/2020 as outpatient - preserved EF. Stable echo this admission with EF 65 - 70%. - Monitor; hold further Lasix for now. (4) Hx of deep venous thrombosis: Plan: No PE on CTA study on 10/20 but was suboptimal study. Had extensive DVT several years ago. Strong family history of VTE - her mother, her daughter, etc. - Dopplers b/l legs neg for DVT during this stay. - Will re-order D-dimer. If higher than previous, would consider repeat CTA chest. -> For now, continue at prophylactic dosing of Lovenox. (5) Bilateral leg pain: Plan: Suspect neuropathy. This is a long-standing issue. TSH wnl. Has had DM for long- time so this could be diabetic polyneuropathy. - Continue gabapentin 200mg PO HS (6) Vitamin B12 deficiency: Plan: B12 level was <200. Started IM injections of B12, 1000mcg daily x 5 doses. - Now on 1000 mcg po daily. (7) DM (diabetes mellitus), type 2 with neurological complications: Plan: Pharmacy assisting with management. - Cont basal-bolus combo. -> Still as high as 310, but tapering steroids. (8) Hypertension: Plan: BP presently 160/70. - Continue amlodipine, losartan, metoprolol (9) Hyperlipidemia: Plan: - Continue statin (10) Morbid obesity with BMI of 40.0-44.9, adult: Plan: BMI 43 - Noted (11) Chronic kidney disease, stage 3a: Plan: CrCl high 40s/low 50s - Cr stable at baseline at present. (12) DVT prophylaxis: Plan: Lovenox 40 mg SQ BID Admission and Anticipated Discharge Date Admission Date: October 20, 2020 Subjective Doing stable today. Feels weak. Shortness of breath is not bad while lying still. Cough is still present, but not as bad after cough medicine. Reports no fevers/chills, chest pain, abdominal pain, nausea, or vomiting. Physical Exam Constitutional: WD/WN, vitals as above Eyes: EOM intact bilaterally; no conjunctival abnormality ENMT: external ear and nose normal, oropharynx normal Neck: trachea midline, no thyromegaly normal visual inspection Respiratory: normal respiratory effort, lungs clear to auscultation + cough and + tachypneic; no respiratory distress Cardiovascular: RRR, no murmur, no edema Gastrointestinal (Abdomen): Inspection/Auscultation: abdomen normal to inspection; abdomen not distended Musculoskeletal: no cyanosis or clubbing, extremities motor strength 5/5 Skin: no rashes, warm and dry Neurologic: moves all extremities and awake Psychiatric: Orientation: alert, oriented to person and cooperative Results & Data Results & Data ([facility]) Vital Signs (Past 12 Hours) Vital Signs Temp Pulse Pulse Resp BP Pulse Ox 11/02/20 10:39 57 L 18 90 11/02/20 08:05 60 159/67 H 11/02/20 08:00 60 11/02/20 07:14 56 L 19 92 11/02/20 03:35 36.8 C 60 20 155/80 H 95 11/02/20 03:29 58 L 18 93 PG Care Time/CCT Total # of Minutes Spent Total Time Spent with Patient: Total time spent is greater than 50% in coordination of care (as documented) at patient's floor/unit and/or counseling patient: Coding Level of Care Code 71685 Subseq Hosp Care Lvl 3 Diagnoses Pneumonia due to COVID-19 virus U07.1; J12.82 Acute respiratory failure with hypoxia J96.01 Acute diastolic (congestive) heart failure I50.31 Hx of deep venous thrombosis Z86.718 DM (diabetes mellitus), type 2 with neurological complications E11.49 Hypertension I10 Hypertension type: essential hypertension Hyperlipidemia E78.5 Morbid obesity with BMI of 40.0-44.9, adult E66.01; Z68.41 Chronic kidney disease, stage 3a N18.31 DVT prophylaxis Z29.9 Bilateral leg pain M79.604; M79.605 Vitamin B12 deficiency E53.8 (1) Hypertension Hypertension type: essential hypertension Qualified Code(s): I10 - Essential (primary) hypertension
[2020-11-02] MEDS: ENOXAPARIN INJ 40 MG/0.4 ML SYR SQ SCH (20:59)
[2020-11-02] MEDS: GABAPENTIN 100 MG CAP PO SCH (20:59)
[2020-11-02] MEDS: MELATONIN 3 MG TAB PO SCH (20:59)
[2020-11-02] MEDS: ATORVASTATIN 10 MG TAB PO SCH (21:00)
[2020-11-03] MEDS ORDERED: INSULIN HUMAN NPH SC SCH ×2 (09:00)
[2020-11-03] MEDS: POLYETHYLENE (MIRALAX) 17 GM PACK PO SCH (09:21)
[2020-11-03] MEDS: METOPROLOL TARTRATE 25 MG TAB PO SCH ×2 (09:21→20:36)
[2020-11-03] MEDS: ASPIRIN 81 MG ECTAB PO SCH (09:22)
[2020-11-03] MEDS: CYANOCOBALAMIN 500 MCG TABLET (VITAMIN B-12) PO SCH (09:22)
[2020-11-03] MEDS: dexAMETHasone 1 MG TAB PO SCH (09:22)
[2020-11-03] MEDS: amLODIPine BESYLATE 5 MG TAB PO SCH (09:22)
[2020-11-03] MEDS: LOSARTAN POTASSIUM 50 MG TAB PO SCH (09:24)
[2020-11-03] MEDS: THIAMINE HCL 100 MG TAB PO SCH (09:24)
[2020-11-03] MEDS: CHOLECALCIFEROL 1,000 UNITS 25 MCG TAB PO SCH (09:24)
[2020-11-03] MEDS: BENZONATATE 100 MG CAPSULE PO SCH ×3 (09:24→20:36)
[2020-11-03] MEDS: NYSTATIN POWDER 15GM BTL EXT SCH ×2 (09:24→21:04)
[2020-11-03] MEDS: MUPIROCIN 2% OINT 22 GM TUBE EXT SCH ×2 (09:25→21:04)
[2020-11-03] MEDS: ENOXAPARIN INJ 40 MG/0.4 ML SYR SQ SCH ×2 (09:25→20:37)
[2020-11-03] MEDS: NYSTATIN SUSP 500,000 U/5 ML UDC PO SCH ×4 (09:25→20:36)
[2020-11-03] MEDS: SENNA 8.6 MG TAB PO SCH (09:25)
[2020-11-03] MEDS: INSULIN ASPART 100 UNITS/ML 3 ML PEN SC SCH ×4 (09:38→21:03)
--- NOTE | 2020-11-03 10:15 | Pharmacy Report ---
Pharmacy Glycemic Short Note 2 - Date of Service November 03, 2020 - Glycemic Short BSG Results (Last 24 hours): 11/02/20 11/02/20 11/02/20 09:05 10:23 10:24 Glucose 309 H* POC Glucose 307 H* 309 H* 11/02/20 11/02/20 11/02/20 12:02 16:50 20:58 Glucose POC Glucose 224 H 174 H 167 H 11/03/20 07:47 Glucose POC Glucose 135 H OUTPATIENT ANTIDIABETIC REGIMEN: * Novolog 70/30, 10 units SC daily * Metformin 1000 mg PO BIDM * Glimepiride 2 mg PO daily * HbA1c: 10.1% (08/11/20) ASSESSMENT: 11/03 * Dexamethasone tapered from 4mg PO daily to 2mg PO daily. Should yield an improvement in BSGs with step down in steroid dosing. * Will decrease CF/CR insulin parameters for decrease in steroids * No changes needed to Lantus as fasting BSG in goal range. 11/02 * 99 units SQ administer over last 24 hrs while tolerating a diet * Fasting BSG elevated above goal this AM, she received 22 units NPH yesterday. * Post-prandial BSGs fairly well controlled yesterday with NPH and Novolog do ses. Today is last day of Dexamethasone 4mg PO however, will titrate down NPH dose today and tomorrow in anticipation of improved insulin sensitivity. * Prelunch hyperglycemia noted today, will continue aggressive Novolog correction/prandial doses for now in light of current BSG and reduced NPH dose this AM. 11/01 * Matthew received 111 units of insulin yesterday (45 units of NPH, 66 units of Novolog) * Fasting BSG at goal. Continue NPH for steroid induced hyperglycemia. Will decrease dose ~50% due to change in DXM (6 mg IV -> 4 mg Po) * Post prandial BSGs acceptable. Novolog had already been reduced 10/31 PM. Will continue for now PLAN FOR INPATIENT GLYCEMIC CONTROL: * Hold outpatient oral Metformin * Basal insulin * NPH 18 units SQ daily in AM * Bolus insulin: loosen * NovoLog per scale ACHS or Q6hrs while NPO * Goal Range: Low 110 mg/dL - High 140 mg/dL * Correction Factor: 20 mg/dL/unit * Nutritional / Prandial insulin per carb ratio of 1 unit per 7 grams CHO consumed PLAN FOR DISCHARGE: * tbd - will have better idea of insulin needs once steroids are discontinued
[2020-11-03] MEDS ORDERED: OPTIRAY 320 125ml IV ONE (11:36)
--- NOTE | 2020-11-03 11:43 | CT Scan Report ---
CT angio chest PE protocol INDICATION: [place] ^11:15 + COVID ^PE. TECHNIQUE: Multidetector row helical CT of the chest was performed. Coronal and sagittal reformations were obtained. Automated dose lowering techniques and/or adjustment according to patient size were u tilized for this exam. Comparison: None available at the time of this dictation. FINDINGS: Lungs and pleura: Diffuse consolidative and airspace opacities are seen bilaterally. Heart and pericardium: Heart size is normal. No pericardial effusion. Vessels: No evidence of pulmonary embolism. Mediastinum and kaykay: Subcentimeter lymph nodes are seen. Chest wall and lower neck: Unremarkable. Abdomen: Unremarkable. Bones: Degenerative changes in the thoracic spine. IMPRESSION: 1. No evidence of pulmonary embolism. 2. Multifocal consolidative and groundglass opacities in this patient with known viral pneumonia. ACT 112: Negative or not required by law. Electronically signed by: Rodrigo Jasmine M.D. 11/03/2020 11:41 AM
--- NOTE | 2020-11-03 15:50 | Hospitalist Progress Note ---
Date of Service November 03, 2020 Assessment & Plan (1) Pneumonia due to COVID-19 virus: Plan: Severe, with acute hypoxic resp failure and large, ongoing FiO2 requirement. - S/p 5-day course of remdesivir. - Did not meet candidacy for tocilizumab. - S/p 10 days of IV dexamethasone -> Will wean to 2 mg PO daily x 2 more days. Last day will be 11/04/2020. - Course complicated by acute diastolic CHF. - Lasix 20 mg IV last given on 11/01. BNP on 11/02 was 250. CXR on 11/02 looking worse. -> Improved today. O2 needs weaning down. (2) Acute respiratory failure with hypoxia: Plan: 2nd to #1. - Ongoing (3) Acute diastolic (congestive) heart failure: Plan: Last echo in 09/2020 as outpatient - preserved EF. Stable echo this admission with EF 65 - 70%. - Monitor; hold further Lasix for now. (4) Hx of deep venous thrombosis: Plan: No PE on CTA study on 10/20 but was suboptimal study. Had extensive DVT several years ago. Strong family history of VTE - her mother, her daughter, etc. - Dopplers b/l legs neg for DVT during this stay. Repeat CTA chest on 11/03 was negative. -> Continue prophylactic dosing of Lovenox. (5) Bilateral leg pain: Plan: Suspect neuropathy. This is a long-standing issue. TSH wnl. Has had DM for long- time so this could be diabetic polyneuropathy. - Continue gabapentin 200mg PO HS (6) Vitamin B12 deficiency: Plan: B12 level was <200. Started IM injections of B12, 1000mcg daily x 5 doses. - Now on 1000 mcg po daily. (7) DM (diabetes mellitus), type 2 with neurological complications: Plan: Pharmacy assisting with management. - Cont basal-bolus combo. -> Still as high as 310, but tapering steroids. Pharmacy will adjust insulin accordingly. (8) Hypertension: Plan: BP presently 125/75. - Continue amlodipine, losartan, metoprolol (9) Hyperlipidemia: Plan: - Continue statin (10) Morbid obesity with BMI of 40.0-44.9, adult: Plan: BMI 43 - Noted (11) Chronic kidney disease, stage 3a: Plan: CrCl high 40s/low 50s - Cr stable at baseline at present. (12) DVT prophylaxis: Plan: Lovenox 40 mg SQ BID Admission and Anticipated Discharge Date Admission Date: October 20, 2020 Subjective Feeling some better today. Still with some cough, but again feels that it is improving with the cough syrup. Modest shortness of breath. Reports no fevers/chills, chest pain, abdominal pain, nausea, or vomiting. Physical Exam Constitutional: WD/WN, vitals as above Eyes: EOM intact bilaterally; no conjunctival abnormality ENMT: external ear and nose normal, oropharynx normal Neck: trachea midline, no thyromegaly normal visual inspection Respiratory: normal respiratory effort, lungs clear to auscultation + cough and + tachypneic; no respiratory distress Cardiovascular: RRR, no murmur, no edema Gastrointestinal (Abdomen): Inspection/Auscultation: abdomen normal to inspection; abdomen not distended Musculoskeletal: no cyanosis or clubbing, extremities motor strength 5/5 Skin: no rashes, warm and dry Neurologic: moves all extremities and awake Psychiatric: Orientation: alert, oriented to person and cooperative Results & Data Results & Data ([facility]) Vital Signs (Past 12 Hours) Vital Signs Temp Pulse Pulse Resp BP Pulse Ox 11/03/20 15:19 36.8 C 70 22 125/72 90 11/03/20 11:56 36.5 C 62 21 127/58 L 92 11/03/20 08:00 53 L 11/03/20 07:49 36.6 C 57 L 22 149/69 H 99 PG Care Time/CCT Total # of Minutes Spent Total Time Spent with Patient: Total time spent is greater than 50% in coordination of care (as documented) at patient's floor/unit and/or counseling patient: Coding Level of Care Code 69046 Subseq Hosp Care Lvl 2 Diagnoses Pneumonia due to COVID-19 virus U07.1; J12.82 Acute respiratory failure with hypoxia J96.01 Acute diastolic (congestive) heart failure I50.31 Hx of deep venous thrombosis Z86.718 Bilateral leg pain M79.604; M79.605 Vitamin B12 deficiency E53.8 DM (diabetes mellitus), type 2 with neurological complications E11.49 Hypertension I10 Hypertension type: essential hypertension Hyperlipidemia E78.5 Morbid obesity with BMI of 40.0-44.9, adult E66.01; Z68.41 Chronic kidney disease, stage 3a N18.31 DVT prophylaxis Z29.9 (1) Hypertension Hypertension type: essential hypertension Qualified Code(s): I10 - Essential (primary) hypertension
[2020-11-03] MEDS: MELATONIN 3 MG TAB PO SCH (20:36)
[2020-11-03] MEDS: ATORVASTATIN 10 MG TAB PO SCH (20:36)
[2020-11-03] MEDS: GABAPENTIN 100 MG CAP PO SCH (20:37)
[2020-11-04 06:43] LABS: Hematocrit (blood only) 36.7 % (37-47); Hemoglobin 11.9 g/dL (12.0-16.0); Mean Corpuscular Hemoglobin 29.2 pg (25-34); Mean Corpuscular Hgb Conc 32.4 g/dL (32-36); Mean Corpuscular Volume 90.2 fL (80-100); Mean Platelet Volume 10.3 fL (7.4-10.4); Platelet Count 267 K/uL (130-400); RDW Coefficient of Variation 14.5 % (11.5-14.5); RDW Standard Deviation 47.4 fL (36.4-46.3); Red Blood Count 4.07 M/uL (4.2-5.4); White Blood Count 13.06 K/uL (4.8-10.8)
[2020-11-04 07:23] LABS: BUN Creatinine Ratio 49.2 (10-20); Calcium 8.1 mg/dl (8.5-10.1); Creatinine Clr Calc Pharmacy 66.1 ml/min; Est GFR (African American) 79.8 ml/min; Est GFR (Non-African American) 68.8 ml/min
[2020-11-04] MEDS: INSULIN ASPART 100 UNITS/ML 3 ML PEN SC SCH ×4 (08:00→20:30)
[2020-11-04] MEDS: THIAMINE HCL 100 MG TAB PO SCH (08:08)
[2020-11-04] MEDS: CHOLECALCIFEROL 1,000 UNITS 25 MCG TAB PO SCH (08:09)
[2020-11-04] MEDS: LOSARTAN POTASSIUM 50 MG TAB PO SCH (08:09)
[2020-11-04] MEDS: SENNA 8.6 MG TAB PO SCH (08:09)
[2020-11-04] MEDS: METOPROLOL TARTRATE 25 MG TAB PO SCH ×2 (08:11→21:16)
[2020-11-04] MEDS: amLODIPine BESYLATE 5 MG TAB PO SCH (08:11)
[2020-11-04] MEDS: dexAMETHasone 1 MG TAB PO SCH (08:12)
[2020-11-04] MEDS: ASPIRIN 81 MG ECTAB PO SCH (08:12)
[2020-11-04] MEDS: CYANOCOBALAMIN 500 MCG TABLET (VITAMIN B-12) PO SCH (08:12)
[2020-11-04] MEDS: BENZONATATE 100 MG CAPSULE PO SCH ×3 (08:12→21:16)
[2020-11-04] MEDS: POLYETHYLENE (MIRALAX) 17 GM PACK PO SCH (08:14)
[2020-11-04] MEDS: ENOXAPARIN INJ 40 MG/0.4 ML SYR SQ SCH ×2 (08:16→21:15)
[2020-11-04] MEDS: NYSTATIN POWDER 15GM BTL EXT SCH ×2 (08:17→21:16)
[2020-11-04] MEDS: MUPIROCIN 2% OINT 22 GM TUBE EXT SCH ×2 (08:23→21:16)
[2020-11-04] MEDS: NYSTATIN SUSP 500,000 U/5 ML UDC PO SCH ×4 (08:23→21:16)
[2020-11-04] MEDS ORDERED: INSULIN HUMAN NPH SC SCH (09:00)
[2020-11-04 09:20] LABS: Estimated Average Glucose 223 mg/dl; Hemoglobin A1C 9.4 % (4.5-5.6)
--- NOTE | 2020-11-04 10:32 | Pharmacy Report ---
Pharmacy Glycemic Short Note 2 - Date of Service November 04, 2020 - Glycemic Short BSG Results (Last 24 hours): 11/03/20 11/03/20 11/03/20 11:53 16:40 20:34 Glucose POC Glucose 286 H 275 H 235 H 11/04/20 11/04/20 06:14 07:42 Glucose 165 H POC Glucose 164 H OUTPATIENT ANTIDIABETIC REGIMEN: * Novolog 70/30, 10 units SC daily * Metformin 1000 mg PO BIDM * Glimepiride 2 mg PO daily * HbA1c: 10.1% (08/11/20) ASSESSMENT: 11/04 * All BSGs > 180 yesterday after dex given. Will increase NPH and tighten CR * Last day of dex therapy today- BSGs should improve tomorrow without steroids. Will empiricaly reduce NPH tomorrow (continue with NPH rather than Lantus since patient is on NPH as an outpatient) 11/03 * Dexamethasone tapered from 4mg PO daily to 2mg PO daily. Should yield an improvement in BSGs with step down in steroid dosing. * Will decrease CF/CR insulin parameters for decrease in steroids 11/02 * 99 units SQ administer over last 24 hrs while tolerating a diet * Fasting BSG elevated above goal this AM, she received 22 units NPH yesterday. * Post-prandial BSGs fairly well controlled yesterday with NPH and Novolog doses. Today is last day of Dexamethasone 4mg PO however, will titrate down NPH dose today and tomorrow in anticipation of improved insulin sensitivity. * Prelunch hyperglycemia noted today, will continue aggressive Novolog correction/prandial doses for now in light of current BSG and reduced NPH dose this AM. 11/01 * Matthew received 111 units of insulin yesterday (45 units of NPH, 66 units of Novolog) * Fasting BSG at goal. Continue NPH for steroid induced hyperglycemia. Will decrease dose ~50% due to change in DXM (6 mg IV -> 4 mg Po) * Post prandial BSGs acceptable. Novolog had already been reduced 10/31 PM. Will continue for now PLAN FOR INPATIENT GLYCEMIC CONTROL: * Hold outpatient oral Metformin * Basal insulin: increase slightly * NPH 21 units SQ daily in AM * Bolus insulin: tighten CR * NovoLog per scale ACHS or Q6hrs while NPO * Goal Range: Low 110 mg/dL - High 140 mg/dL * Correction Factor: 20 mg/dL/unit * Nutritional / Prandial insulin per carb ratio of 1 unit per 6 grams CHO consumed PLAN FOR DISCHARGE: * tbd - will have better idea of insulin needs once steroids are discontinued
--- NOTE | 2020-11-04 16:17 | Hospitalist Progress Note ---
Date of Service November 04, 2020 Assessment & Plan (1) Pneumonia due to COVID-19 virus: Plan: Severe, with acute hypoxic resp failure and large, ongoing FiO2 requirement. - S/p 5-day course of remdesivir. - Did not meet candidacy for tocilizumab. - S/p 10 days of IV dexamethasone -> Weaned to 2 mg PO daily x 2 more days. Last day on 11/04/2020. - Course complicated by acute diastolic CHF. - Lasix 20 mg IV last given on 11/01. BNP on 11/02 was 250. CXR on 11/02 looked worse, but clinically improving. -> Improved today. O2 needs weaning down to 10 L today with good O2 sat. Attempted to lower to 8L, but she went down to 88% without exertion. (2) Acute respiratory failure with hypoxia: Plan: 2nd to #1. - Ongoing (3) Acute diastolic (congestive) heart failure: Plan: Last echo in 09/2020 as outpatient - preserved EF. Stable echo this admission with EF 65 - 70%. - Monitor; hold further Lasix for now. (4) Hx of deep venous thrombosis: Plan: No PE on CTA study on 10/20 but was suboptimal study. Had extensive DVT several years ago. Strong family history of VTE - her mother, her daughter, etc. - Dopplers b/l legs neg for DVT during this stay. Repeat CTA chest on 11/03 was negative. -> Continue prophylactic dosing of Lovenox. (5) Bilateral leg pain: Plan: Suspect neuropathy. This is a long-standing issue. TSH wnl. Has had DM for long- time so this could be diabetic polyneuropathy. - Continue gabapentin 200mg PO HS (6) Vitamin B12 deficiency: Plan: B12 level was <200. Started IM injections of B12, 1000mcg daily x 5 doses. - Now on 1000 mcg po daily. (7) DM (diabetes mellitus), type 2 with neurological complications: Plan: Pharmacy assisting with management. A1c was 9.4% this admission. - Cont basal-bolus combo. -> Still high today, but last day of steroids. Pharmacy adjusted NPH insulin. (8) Hypertension: Plan: BP presently 135/75. - Continue amlodipine, losartan, metoprolol (9) Hyperlipidemia: Plan: - Continue statin (10) Morbid obesity with BMI of 40.0-44.9, adult: Plan: BMI 43 - Noted (11) Chronic kidney disease, stage 3a: Plan: CrCl high 40s/low 50s - Cr stable at baseline at present. (12) DVT prophylaxis: Plan: Lovenox 40 mg SQ BID Admission and Anticipated Discharge Date Admission Date: October 20, 2020 Subjective Feeling some better today. Cough basically gone. Reports no fevers/chills, chest pain, abdominal pain, nausea, or vomiting. Physical Exam Constitutional: WD/WN, vitals as above Eyes: EOM intact bilaterally; no conjunctival abnormality ENMT: external ear and nose normal, oropharynx normal Neck: trachea midline, no thyromegaly normal visual inspection Respiratory: normal respiratory effort, lungs clear to auscultation + cough; no respiratory distress and not tachypneic Cardiovascular: RRR, no murmur, no edema Gastrointestinal (Abdomen): Inspection/Auscultation: abdomen normal to inspection; abdomen not distended Musculoskeletal: no cyanosis or clubbing, extremities motor strength 5/5 Skin: no rashes, warm and dry Neurologic: moves all extremities and awake Psychiatric: Orientation: alert, oriented to person and cooperative Results & Data Results & Data ([facility]) Vital Signs (Past 12 Hours) Vital Signs Temp Pulse Pulse Resp BP BP Pulse Ox 11/04/20 15:42 61 11/04/20 14:54 36.7 C 64 18 133/65 94 11/04/20 10:57 36.7 C 59 L 17 132/74 92 11/04/20 07:53 36.6 C 59 L 17 149/79 H 94 11/04/20 07:15 56 L PG Care Time/CCT Total # of Minutes Spent Total Time Spent with Patient: Total time spent is greater than 50% in coordination of care (as documented) at patient's floor/unit and/or counseling patient: Coding Level of Care Code 96942 Subseq Hosp Care Lvl 2 Diagnoses Pneumonia due to COVID-19 virus U07.1; J12.82 Acute respiratory failure with hypoxia J96.01 Acute diastolic (congestive) heart failure I50.31 Hx of deep venous thrombosis Z86.718 Bilateral leg pain M79.604; M79.605 Vitamin B12 deficiency E53.8 DM (diabetes mellitus), type 2 with neurological complications E11.49 Hypertension I10 Hypertension type: essential hypertension Hyperlipidemia E78.5 Morbid obesity with BMI of 40.0-44.9, adult E66.01; Z68.41 Chronic kidney disease, stage 3a N18.31 DVT prophylaxis Z29.9 (1) Hypertension Hypertension type: essential hypertension Qualified Code(s): I10 - Essential (primary) hypertension
[2020-11-04] MEDS: GABAPENTIN 100 MG CAP PO SCH (21:16)
[2020-11-04] MEDS: ATORVASTATIN 10 MG TAB PO SCH (21:16)
[2020-11-04] MEDS: MELATONIN 3 MG TAB PO SCH (21:16)
[2020-11-05 07:19] LABS: Hematocrit (blood only) 37.6 % (37-47); Hemoglobin 12.4 g/dL (12.0-16.0); Mean Corpuscular Hemoglobin 29.4 pg (25-34); Mean Corpuscular Volume 89.1 fL (80-100); Mean Platelet Volume 10.3 fL (7.4-10.4); Platelet Count 295 K/uL (130-400); RDW Coefficient of Variation 14.6 % (11.5-14.5); RDW Standard Deviation 47.4 fL (36.4-46.3); Red Blood Count 4.22 M/uL (4.2-5.4); White Blood Count 14.91 K/uL (4.8-10.8)
[2020-11-05 07:53] LABS: BUN Creatinine Ratio 38.4 (10-20); Calcium 8.3 mg/dl (8.5-10.1); Creatinine Clr Calc Pharmacy 61.4 ml/min; Est GFR (African American) 71.9 ml/min; Potassium 4.9 mmol/L (3.5-5.1)
[2020-11-05] MEDS: INSULIN HUMAN NPH SC SCH (09:00)
[2020-11-05] MEDS ORDERED: INSULIN HUMAN NPH SC SCH (09:00)
[2020-11-05] MEDS: INSULIN ASPART 100 UNITS/ML 3 ML PEN SC SCH ×4 (09:00→21:51)
[2020-11-05] MEDS: METOPROLOL TARTRATE 25 MG TAB PO SCH ×2 (09:50→20:57)
[2020-11-05] MEDS: NYSTATIN SUSP 500,000 U/5 ML UDC PO SCH ×4 (09:51→20:57)
[2020-11-05] MEDS: BENZONATATE 100 MG CAPSULE PO SCH ×3 (09:52→20:57)
[2020-11-05] MEDS: ASPIRIN 81 MG ECTAB PO SCH (09:52)
[2020-11-05] MEDS: CHOLECALCIFEROL 1,000 UNITS 25 MCG TAB PO SCH (09:52)
[2020-11-05] MEDS: SENNA 8.6 MG TAB PO SCH (09:52)
[2020-11-05] MEDS: CYANOCOBALAMIN 500 MCG TABLET (VITAMIN B-12) PO SCH (09:52)
[2020-11-05] MEDS: amLODIPine BESYLATE 5 MG TAB PO SCH (09:52)
[2020-11-05] MEDS: ENOXAPARIN INJ 40 MG/0.4 ML SYR SQ SCH ×2 (09:53→20:58)
[2020-11-05] MEDS: LOSARTAN POTASSIUM 50 MG TAB PO SCH (09:53)
[2020-11-05] MEDS: THIAMINE HCL 100 MG TAB PO SCH (09:53)
[2020-11-05] MEDS: POLYETHYLENE (MIRALAX) 17 GM PACK PO SCH (09:54)
[2020-11-05] MEDS: MUPIROCIN 2% OINT 22 GM TUBE EXT SCH ×2 (10:05→20:59)
[2020-11-05] MEDS: NYSTATIN POWDER 15GM BTL EXT SCH ×2 (10:06→20:59)
--- NOTE | 2020-11-05 10:48 | Pharmacy Report ---
Pharmacy Glycemic Short Note 2 - Date of Service November 05, 2020 - Glycemic Short BSG Results (Last 24 hours): 11/04/20 11/04/20 11/04/20 11:49 16:50 21:14 Glucose POC Glucose 245 H 279 H 290 H 11/05/20 11/05/20 06:57 07:43 Glucose 77 POC Glucose 82 OUTPATIENT ANTIDIABETIC REGIMEN: * Novolog 70/30, 10 units SC daily * Metformin 1000 mg PO BIDM * Glimepiride 2 mg PO daily * HbA1c: 10.1% (08/11/20) ASSESSMENT: 11/05 * BSGs [phone] mg/dl over the past 24hrs * AM fasting is slightly below goal range for inpatient targets at 82mg/dl. Duration of action of NPH is 12-18hrs. Unlikely that it is affecting fasting BSG but will decrease slightly regardless * All BSGs >240 yesterday. BSGs should improve without dexamethasone today. Will empirically loosen CF/CR since steroids no longer on board. 11/04 * All BSGs > 180 yesterday after dex given. Will increase NPH and tighten CR * Last day of dex therapy today- BSGs should improve tomorrow without steroids. Will empiricaly reduce NPH tomorrow (continue with NPH rather than Lantus since patient is on NPH as an outpatient) 11/03 * Dexamethasone tapered from 4mg PO daily to 2mg PO daily. Should yield an improvement in BSGs with step down in steroid dosing. * Will decrease CF/CR insulin parameters for decrease in steroids 11/02 * 99 units SQ administer over last 24 hrs while tolerating a diet * Fasting BSG elevated above goal this AM, she received 22 units NPH yesterday. * Post-prandial BSGs fairly well controlled yesterday with NPH and Novolog doses. Today is last day of Dexamethasone 4mg PO however, will titrate down NPH dose today and tomorrow in anticipation of improved insulin sensitivity. * Prelunch hyperglycemia noted today, will continue aggressive Novolog correction/prandial doses for now in light of current BSG and reduced NPH dose this AM. 11/01 * Matthew received 111 units of insulin yesterday (45 units of NPH, 66 units of Novolog) * Fasting BSG at goal. Continue NPH for steroid induced hyperglycemia. Will decrease dose ~50% due to change in DXM (6 mg IV -> 4 mg Po) * Post prandial BSGs acceptable. Novolog had already been reduced 10/31 PM. Will continue for now PLAN FOR INPATIENT GLYCEMIC CONTROL: * Hold outpatient oral Metformin * Basal insulin: decrease slightly * NPH 20 units SQ daily in AM * Bolus insulin: tighten CR * NovoLog per scale ACHS or Q6hrs while NPO * Goal Range: Low 110 mg/dL - High 140 mg/dL * Correction Factor: 25 mg/dL/unit * Nutritional / Prandial insulin per carb ratio of 1 unit per 8 grams CHO consumed PLAN FOR DISCHARGE: * tbd - will have better idea of insulin needs once steroids are discontinued
--- NOTE | 2020-11-05 16:08 | Hospitalist Progress Note ---
Date of Service November 05, 2020 Assessment & Plan (1) Pneumonia due to COVID-19 virus: Plan: Severe, with acute hypoxic resp failure and large, ongoing FiO2 requirement. - S/p 5-day course of remdesivir. - Did not meet candidacy for tocilizumab. - S/p 10 days of IV dexamethasone -> Weaned to 2 mg PO daily x 2 more days. Last day on 11/04/2020. - Course complicated by acute diastolic CHF. - Lasix 20 mg IV last given on 11/01. BNP on 11/02 was 250. CXR on 11/02 looked worse, but clinically improving. -> Improved today. O2 needs weaning down to 4-6 L today with good O2 sat. She feels that she still wants to go home. She is not very willing to consider other options. She has somewhat unrealistic expectations that she will just use a bedside commode at home, when she cannot here. (2) Acute respiratory failure with hypoxia: Plan: 2nd to #1. - Ongoing (3) Acute diastolic (congestive) heart failure: Plan: Last echo in 09/2020 as outpatient - preserved EF. Stable echo this admission with EF 65 - 70%. - Monitor; hold further Lasix for now. (4) Hx of deep venous thrombosis: Plan: No PE on CTA study on 10/20 but was suboptimal study. Had extensive DVT several years ago. Strong family history of VTE - her mother, her daughter, etc. - Dopplers b/l legs neg for DVT during this stay. Repeat CTA chest on 11/03 was negative. -> Continue prophylactic dosing of Lovenox. (5) Bilateral leg pain: Plan: Suspect neuropathy. This is a long-standing issue. TSH wnl. Has had DM for long- time so this could be diabetic polyneuropathy. - Continue gabapentin 200mg PO HS (6) Vitamin B12 deficiency: Plan: B12 level was <200. Started IM injections of B12, 1000mcg daily x 5 doses. - Now on 1000 mcg po daily. (7) DM (diabetes mellitus), type 2 with neurological complications: Plan: Pharmacy assisting with management. A1c was 9.4% this admission. - Cont basal-bolus combo. -> Good in morning, but higher after lunch. Pharmacy adjusting NPH insulin. (8) Hypertension: Plan: BP presently 140/70. - Continue amlodipine, losartan, metoprolol (9) Hyperlipidemia: Plan: - Continue statin (10) Morbid obesity with BMI of 40.0-44.9, adult: Plan: BMI 43 - Noted (11) Chronic kidney disease, stage 3a: Plan: CrCl high 40s/low 50s - Cr stable at baseline at present. (12) DVT prophylaxis: Plan: Lovenox 40 mg SQ daily Admission and Anticipated Discharge Date Admission Date: October 20, 2020 Subjective Stable today. Still wants to go home. Reports no fevers/chills, chest pain, abdominal pain, nausea, or vomiting. Physical Exam Constitutional: WD/WN, vitals as above Eyes: EOM intact bilaterally; no conjunctival abnormality ENMT: external ear and nose normal, oropharynx normal Neck: trachea midline, no thyromegaly normal visual inspection Respiratory: normal respiratory effort, lungs clear to auscultation + cough; no respiratory distress and not tachypneic Cardiovascular: RRR, no murmur, no edema Gastrointestinal (Abdomen): Inspection/Auscultation: abdomen normal to inspection; abdomen not distended Musculoskeletal: no cyanosis or clubbing, extremities motor strength 5/5 Skin: no rashes, warm and dry Neurologic: moves all extremities and awake Psychiatric: Orientation: alert, oriented to person and cooperative Results & Data Results & Data ([facility]) Vital Signs (Past 12 Hours) Vital Signs Temp Pulse Pulse Resp BP Pulse Ox 11/05/20 11:54 36.7 C 65 19 147/71 H 94 11/05/20 07:47 36.6 C 64 18 144/83 H 96 11/05/20 06:12 56 L 11/05/20 05:12 36.4 C L 60 18 134/70 93 PG Care Time/CCT Total # of Minutes Spent Total Time Spent with Patient: Total time spent is greater than 50% in coordination of care (as documented) at patient's floor/unit and/or counseling patient: Coding Level of Care Code 67711 Subseq Hosp Care Lvl 2 Diagnoses Pneumonia due to COVID-19 virus U07.1; J12.82 Acute respiratory failure with hypoxia J96.01 Acute diastolic (congestive) heart failure I50.31 Hx of deep venous thrombosis Z86.718 Bilateral leg pain M79.604; M79.605 Vitamin B12 deficiency E53.8 DM (diabetes mellitus), type 2 with neurological complications E11.49 Hypertension I10 Hypertension type: essential hypertension Hyperlipidemia E78.5 Morbid obesity with BMI of 40.0-44.9, adult E66.01; Z68.41 Chronic kidney disease, stage 3a N18.31 DVT prophylaxis Z29.9 (1) Hypertension Hypertension type: essential hypertension Qualified Code(s): I10 - Essential (primary) hypertension
[2020-11-05] MEDS: GABAPENTIN 100 MG CAP PO SCH (20:56)
[2020-11-05] MEDS: MELATONIN 3 MG TAB PO SCH (20:58)
[2020-11-05] MEDS: ATORVASTATIN 10 MG TAB PO SCH (20:58)
[2020-11-06 06:22] LABS: Hematocrit (blood only) 37.2 % (37-47); Hemoglobin 12.3 g/dL (12.0-16.0); Mean Corpuscular Hemoglobin 29.6 pg (25-34); Mean Corpuscular Hgb Conc 33.1 g/dL (32-36); Mean Corpuscular Volume 89.4 fL (80-100); Mean Platelet Volume 10.6 fL (7.4-10.4); Platelet Count 226 K/uL (130-400); RDW Coefficient of Variation 14.9 % (11.5-14.5); Red Blood Count 4.16 M/uL (4.2-5.4); White Blood Count 10.86 K/uL (4.8-10.8)
[2020-11-06 07:01] LABS: BUN Creatinine Ratio 31.4 (10-20); Calcium 8.3 mg/dl (8.5-10.1); Creatinine Clr Calc Pharmacy 61.4 ml/min; Est GFR (African American) 71.9 ml/min; Potassium 4.9 mmol/L (3.5-5.1)
[2020-11-06] MEDS: NYSTATIN SUSP 500,000 U/5 ML UDC PO SCH ×2 (08:22→12:10)
[2020-11-06] MEDS: METOPROLOL TARTRATE 25 MG TAB PO SCH ×2 (08:23→23:08)
[2020-11-06] MEDS: POLYETHYLENE (MIRALAX) 17 GM PACK PO SCH (08:24)
[2020-11-06] MEDS: MUPIROCIN 2% OINT 22 GM TUBE EXT SCH (08:26)
[2020-11-06] MEDS: LOSARTAN POTASSIUM 50 MG TAB PO SCH (08:27)
[2020-11-06] MEDS: CHOLECALCIFEROL 1,000 UNITS 25 MCG TAB PO SCH (08:27)
[2020-11-06] MEDS: ASPIRIN 81 MG ECTAB PO SCH (08:27)
[2020-11-06] MEDS: amLODIPine BESYLATE 5 MG TAB PO SCH (08:27)
[2020-11-06] MEDS: CYANOCOBALAMIN 500 MCG TABLET (VITAMIN B-12) PO SCH (08:27)
[2020-11-06] MEDS: BENZONATATE 100 MG CAPSULE PO SCH ×3 (08:28→23:07)
[2020-11-06] MEDS: THIAMINE HCL 100 MG TAB PO SCH (08:28)
[2020-11-06] MEDS: SENNA 8.6 MG TAB PO SCH (08:28)
[2020-11-06] MEDS: ENOXAPARIN INJ 40 MG/0.4 ML SYR SQ SCH (08:29)
[2020-11-06] MEDS: INSULIN ASPART 100 UNITS/ML 3 ML PEN SC SCH ×4 (08:30→18:18)
[2020-11-06] MEDS: NYSTATIN POWDER 15GM BTL EXT SCH (08:31)
[2020-11-06] MEDS: INSULIN HUMAN NPH SC SCH (08:42)
--- NOTE | 2020-11-06 14:01 | Pharmacy Report ---
Pharmacy Glycemic Short Note 2 - Date of Service November 06, 2020 - Glycemic Short BSG Results (Last 24 hours): 11/05/20 11/05/20 11/06/20 16:39 20:22 05:33 Glucose 99 POC Glucose 231 H 256 H 11/06/20 11/06/20 07:50 11:55 Glucose POC Glucose 97 153 H OUTPATIENT ANTIDIABETIC REGIMEN: * Novolog 70/30, 10 units SC daily * Metformin 1000 mg PO BIDM * Glimepiride 2 mg PO daily * HbA1c: 10.1% (08/11/20) ASSESSMENT: 11/06 * Patient received total of 54 units of insulin yesterday, of which 20 units were NPH * Fasting BSG 99 mg/dL - continue same NPH * Plan to tighten CR 11/05 * BSGs [phone] mg/dl over the past 24hrs * AM fasting is slightly below goal range for inpatient targets at 82mg/dl. Duration of action of NPH is 12-18hrs. Unlikely that it is affecting fasting BSG but will decrease slightly regardless * All BSGs >240 yesterday. BSGs should improve without dexamethasone today. Will empirically loosen CF/CR since steroids no longer on board. 11/04 * All BSGs > 180 yesterday after dex given. Will increase NPH and tighten CR * Last day of dex therapy today- BSGs should improve tomorrow without steroids. Will empiricaly reduce NPH tomorrow (continue with NPH rather than Lantus since patient is on NPH as an outpatient) 11/03 * Dexamethasone tapered from 4mg PO daily to 2mg PO daily. Should yield an improvement in BSGs with step down in steroid dosing. * Will decrease CF/CR insulin parameters for decrease in steroids 11/02 * 99 units SQ administer over last 24 hrs while tolerating a diet * Fasting BSG elevated above goal this AM, she received 22 units NPH yesterday. * Post-prandial BSGs fairly well controlled yesterday with NPH and Novolog doses. Today is last day of Dexamethasone 4mg PO however, will titrate down NPH dose today and tomorrow in anticipation of improved insulin sensitivity. * Prelunch hyperglycemia noted today, will continue aggressive Novolog correction/prandial doses for now in light of current BSG and reduced NPH dose this AM. 11/01 * Matthew received 111 units of insulin yesterday (45 units of NPH, 66 units of Novolog) * Fasting BSG at goal. Continue NPH for steroid induced hyperglycemia. Will decrease dose ~50% due to change in DXM (6 mg IV -> 4 mg Po) * Post prandial BSGs acceptable. Novolog had already been reduced 9 PM. Will continue for now PLAN FOR INPATIENT GLYCEMIC CONTROL: * Hold outpatient oral Metformin * Basal insulin: * NPH 20 units SQ daily in AM * Bolus insulin: tighten CR * NovoLog per scale ACHS or Q6hrs while NPO * Goal Range: Low 110 mg/dL - High 140 mg/dL * Correction Factor: 25 mg/dL/unit * Nutritional / Prandial insulin per carb ratio of 1 unit per 6 grams CHO consumed PLAN FOR DISCHARGE: * tbd - will have better idea of insulin needs in another day once steroids completely worn off, insulin needs have not been stable
--- NOTE | 2020-11-06 15:48 | Hospitalist Progress Note ---
Date of Service November 06, 2020 Assessment & Plan (1) Pneumonia due to COVID-19 virus: Plan: Severe, with acute hypoxic resp failure and large, ongoing FiO2 requirement. - S/p 5-day course of remdesivir. - Did not meet candidacy for tocilizumab. - S/p 10 days of IV dexamethasone -> Weaned to 2 mg PO daily x 2 more days. Last day on 11/04/2020. - Course complicated by acute diastolic CHF. - Lasix 20 mg IV last given on 11/01. BNP on 11/02 was 250. CXR on 11/02 looked worse, but clinically improving. -> Improved today. O2 needs weaning down to 4 L today with good O2 sat. Very sad about tongue which is bothering her quite a bit. (2) Tongue ulcer: Plan: Tongue ulcers noted by the patient on 11/06 to me. Looking back, she has actually been on Nystatin for 15 days without improvement. - Stop Nystatin - Discussed with ENT. Recommend dexamethasone 5 mg / 5 mL swish and spit BID with Magic Mouthwash for symptomatic. - Given Covid, ENT ask to consult as outpatient after isolation. (3) Acute respiratory failure with hypoxia: Plan: 2nd to #1. - Ongoing (4) Acute diastolic (congestive) heart failure: Plan: Last echo in 09/2020 as outpatient - preserved EF. Stable echo this admission with EF 65 - 70%. - Monitor; hold further Lasix for now. (5) Hx of deep venous thrombosis: Plan: No PE on CTA study on 10/20 but was suboptimal study. Had extensive DVT several years ago. Strong family history of VTE - her mother, her daughter, etc. - Dopplers b/l legs neg for DVT during this stay. Repeat CTA chest on 11/03 was negative. -> Continue prophylactic dosing of Lovenox. (6) Bilateral leg pain: Plan: Suspect neuropathy. This is a long-standing issue. TSH wnl. Has had DM for long- time so this could be diabetic polyneuropathy. - Continue gabapentin 200mg PO HS (7) Vitamin B12 deficiency: Plan: B12 level was <200. Started IM injections of B12, 1000mcg daily x 5 doses. - Now on 1000 mcg po daily. (8) DM (diabetes mellitus), type 2 with neurological complications: Plan: Pharmacy assisting with management. A1c was 9.4% this admission. - Cont basal-bolus combo. -> Good in morning, but higher after lunch. Pharmacy adjusting NPH insulin. (She uses this at home, so will continue despite being off steroids.) (9) Hypertension: Plan: BP presently 125/70. - Continue amlodipine, losartan, metoprolol (10) Hyperlipidemia: Plan: - Continue statin (11) Morbid obesity with BMI of 40.0-44.9, adult: Plan: BMI 43 - Noted (12) Chronic kidney disease, stage 3a: Plan: CrCl 50 - 60 mL/min at baseline (Cr ~0.85 - 1.0). - Cr stable at baseline at present. (13) DVT prophylaxis: Plan: Lovenox 40 mg SQ daily Admission and Anticipated Discharge Date Admission Date: October 20, 2020 Subjective Discouraged today because her tongue is painful. Doesn't want to go home now. Reports no fevers/chills, chest pain, abdominal pain, nausea, or vomiting. Physical Exam Constitutional: WD/WN, vitals as above Eyes: EOM intact bilaterally; no conjunctival abnormality ENMT: external ear and nose normal, oropharynx normal Neck: trachea midline, no thyromegaly normal visual inspection Respiratory: normal respiratory effort, lungs clear to auscultation + cough; no respiratory distress and not tachypneic Cardiovascular: RRR, no murmur, no edema Gastrointestinal (Abdomen): Inspection/Auscultation: abdomen normal to inspection; abdomen not distended Musculoskeletal: no cyanosis or clubbing, extremities motor strength 5/5 Skin: no rashes, warm and dry Neurologic: moves all extremities and awake Psychiatric: Orientation: alert, oriented to person and cooperative Results & Data Results & Data ([facility]) Vital Signs (Past 12 Hours) Vital Signs Temp Pulse Pulse Pulse Resp BP BP 11/06/20 15:17 70 11/06/20 13:00 11/06/20 11:58 37.1 C 68 21 125/66 11/06/20 10:00 11/06/20 07:51 37.2 C 71 20 134/71 11/06/20 05:52 11/06/20 04:05 36.9 C 61 20 154/76 H Pulse Ox 11/06/20 15:17 11/06/20 13:00 90 11/06/20 11:58 92 11/06/20 10:00 93 11/06/20 07:51 92 11/06/20 05:52 89 L 11/06/20 04:05 95 PG Care Time/CCT Total # of Minutes Spent Total Time Spent with Patient: Total time spent is greater than 50% in coordination of care (as documented) at patient's floor/unit and/or counseling patient: Coding Level of Care Code 59847 Subseq Hosp Care Lvl 3 Diagnoses Pneumonia due to COVID-19 virus U07.1; J12.82 Acute respiratory failure with hypoxia J96.01 Acute diastolic (congestive) heart failure I50.31 Hx of deep venous thrombosis Z86.718 Bilateral leg pain M79.604; M79.605 Vitamin B12 deficiency E53.8 DM (diabetes mellitus), type 2 with neurological complications E11.49 Hypertension I10 Hypertension type: essential hypertension Hyperlipidemia E78.5 Morbid obesity with BMI of 40.0-44.9, adult E66.01; Z68.41 Chronic kidney disease, stage 3a N18.31 DVT prophylaxis Z29.9 Tongue ulcer K14.0 (1) Hypertension Hypertension type: essential hypertension Qualified Code(s): I10 - Essential (primary) hypertension
[2020-11-06] MEDS ORDERED: DEXAMETHASONE 5 MG/5 ML UDP PO SCH (21:00)
[2020-11-06] MEDS: GABAPENTIN 100 MG CAP PO SCH (23:07)
[2020-11-06] MEDS: ATORVASTATIN 10 MG TAB PO SCH (23:07)
[2020-11-06] MEDS: MELATONIN 3 MG TAB PO SCH (23:07)
[2020-11-07] MEDS: INSULIN ASPART 100 UNITS/ML 3 ML PEN SC SCH ×5 (00:35→22:15)
[2020-11-07] MEDS: NYSTATIN POWDER 15GM BTL EXT SCH ×3 (00:36→22:33)
[2020-11-07] MEDS: MUPIROCIN 2% OINT 22 GM TUBE EXT SCH ×3 (00:38→22:32)
[2020-11-07] MEDS: DEXAMETHASONE CONC 1 MG/ML 30 ML PO SCH ×3 (00:44→22:28)
[2020-11-07] MEDS: CYANOCOBALAMIN 500 MCG TABLET (VITAMIN B-12) PO SCH (09:36)
[2020-11-07] MEDS: ENOXAPARIN INJ 40 MG/0.4 ML SYR SQ SCH (09:36)
[2020-11-07] MEDS: ASPIRIN 81 MG ECTAB PO SCH (09:37)
[2020-11-07] MEDS: amLODIPine BESYLATE 5 MG TAB PO SCH (09:37)
[2020-11-07] MEDS: BENZONATATE 100 MG CAPSULE PO SCH ×3 (09:37→22:31)
[2020-11-07] MEDS: CHOLECALCIFEROL 1,000 UNITS 25 MCG TAB PO SCH (09:37)
[2020-11-07] MEDS: SENNA 8.6 MG TAB PO SCH (09:38)
[2020-11-07] MEDS: POLYETHYLENE (MIRALAX) 17 GM PACK PO SCH (09:38)
[2020-11-07] MEDS: METOPROLOL TARTRATE 25 MG TAB PO SCH ×2 (09:39→22:39)
[2020-11-07] MEDS: LOSARTAN POTASSIUM 50 MG TAB PO SCH (09:39)
[2020-11-07] MEDS: THIAMINE HCL 100 MG TAB PO SCH (09:40)
[2020-11-07] MEDS: INSULIN HUMAN NPH SC SCH ×2 (11:57→22:15)
--- NOTE | 2020-11-07 13:57 | Pharmacy Report ---
Pharmacy Glycemic Short Note 2 - Date of Service November 07, 2020 - Glycemic Short BSG Results (Last 24 hours): 11/06/20 11/06/20 11/07/20 17:15 20:51 07:48 POC Glucose 131 H 190 H 209 H 11/07/20 11:51 POC Glucose 241 H OUTPATIENT ANTIDIABETIC REGIMEN: * Novolog 70/30, 10 units SC daily * Metformin 1000 mg PO BIDM * Glimepiride 2 mg PO daily * HbA1c: 10.1% (08/11/20) ASSESSMENT: 11/07 * Patient received total of 51 units of insulin yesterday, of which 20 units were NPH * Fasting BSG 209 mg/dL despite receiving 2 units of correctional insulin at bedtime for BSG 190mg/dl * Add NPH at HS * Tighten CR & CF 11/06 * Patient received total of 54 units of insulin yesterday, of which 20 units were NPH * Fasting BSG 99 mg/dL - continue same NPH * Plan to tighten CR 11/05 * BSGs [phone] mg/dl over the past 24hrs * AM fasting is slightly below goal range for inpatient targets at 82mg/dl. Duration of action of NPH is 12-18hrs. Unlikely that it is affecting fasting BSG but will decrease slightly regardless * All BSGs >240 yesterday. BSGs should improve without dexamethasone today. Will empirically loosen CF/CR since steroids no longer on board. 11/04 * All BSGs > 180 yesterday after dex given. Will increase NPH and tighten CR * Last day of dex therapy today- BSGs should improve tomorrow without steroids. Will empiricaly reduce NPH tomorrow (continue with NPH rather than Lantus since patient is on NPH as an outpatient) 11/03 * Dexamethasone tapered from 4mg PO daily to 2mg PO daily. Should yield an improvement in BSGs with step down in steroid dosing. * Will decrease CF/CR insulin parameters for decrease in steroids 11/02 * 99 units SQ administer over last 24 hrs while tolerating a diet * Fasting BSG elevated above goal this AM, she received 22 units NPH yesterday. * Post-prandial BSGs fairly well controlled yesterday with NPH and Novolog doses. Today is last day of Dexamethasone 4mg PO however, will titrate down NPH dose today and tomorrow in anticipation of improved insulin sensitivity. * Prelunch hyperglycemia noted today, will continue aggressive Novolog correction/prandial doses for now in light of current BSG and reduced NPH dose this AM. 11/01 * Matthew received 111 units of insulin yesterday (45 units of NPH, 66 units of Novolog) * Fasting BSG at goal. Continue NPH for steroid induced hyperglycemia. Will decrease dose ~50% due to change in DXM (6 mg IV -> 4 mg Po) * Post prandial BSGs acceptable. Novolog had already been reduced 10/31 PM. Will continue for now PLAN FOR INPATIENT GLYCEMIC CONTROL: * Hold outpatient oral Metformin * Basal insulin: * NPH 20 units SQ daily in AM * 0-15 units HS: (0 units BSG < 180, 10 units BSG 180-220, 15 units BSG > 220) * Bolus insulin: tighten CR * NovoLog per scale ACHS or Q6hrs while NPO * Goal Range: Low 110 mg/dL - High 140 mg/dL * Correction Factor: 15 mg/dL/unit * Nutritional / Prandial insulin per carb ratio of 1 unit per 5 grams CHO consumed PLAN FOR DISCHARGE: * tbd - will have better idea of insulin needs in another day once steroids completely worn off, insulin needs have not been stable
--- NOTE | 2020-11-07 18:09 | Hospitalist Progress Note ---
Date of Service November 07, 2020 Assessment & Plan (1) Pneumonia due to COVID-19 virus: Plan: Severe, with acute hypoxic resp failure and large, ongoing FiO2 requirement. - S/p 5-day course of remdesivir. - Did not meet candidacy for tocilizumab. - S/p 10 days of IV dexamethasone -> Weaned to 2 mg PO daily x 2 more days. Last day on 11/04/2020. - Course complicated by acute diastolic CHF. - Lasix 20 mg IV last given on 11/01. BNP on 11/02 was 250. CXR on 11/02 looked worse, but clinically improving. -> Improved today. O2 needs weaning down to 4 L today with good O2 sat. Has more energy. Was able to work with PT, but did desaturate with exertion. (2) Tongue ulcer: Plan: Tongue ulcers noted by the patient on 11/06 to me. Looking back, she has actually been on Nystatin for 15 days without improvement. - Stopped Nystatin on 11/06 - Discussed with ENT. Recommend dexamethasone 5 mg / 5 mL swish and spit BID with Magic Mouthwash for symptomatic. - Given Covid, ENT ask to consult as outpatient after isolation. (3) Acute respiratory failure with hypoxia: Plan: 2nd to #1. - Ongoing (4) Acute diastolic (congestive) heart failure: Plan: Last echo in 09/2020 as outpatient - preserved EF. Stable echo this admission with EF 65 - 70%. - Monitor; hold further Lasix for now. (5) Hx of deep venous thrombosis: Plan: No PE on CTA study on 10/20 but was suboptimal study. Had extensive DVT several years ago. Strong family history of VTE - her mother, her daughter, etc. - Dopplers b/l legs neg for DVT during this stay. Repeat CTA chest on 11/03 was negative. -> Continue prophylactic dosing of Lovenox. (6) Bilateral leg pain: Plan: Suspect neuropathy. This is a long-standing issue. TSH wnl. Has had DM for long- time so this could be diabetic polyneuropathy. - Continue gabapentin 200mg PO HS (7) Vitamin B12 deficiency: Plan: B12 level was <200. Started IM injections of B12, 1000mcg daily x 5 doses. - Now on 1000 mcg po daily. (8) DM (diabetes mellitus), type 2 with neurological complications: Plan: Pharmacy assisting with management. A1c was 9.4% this admission. - Cont basal-bolus combo. -> On NPH (She uses this at home, so will continue despite being off steroids.) Sugars generally 190 - 240 in last 24 hours. (9) Hypertension: Plan: BP presently 125/70. - Continue amlodipine, losartan, metoprolol (10) Hyperlipidemia: Plan: - Continue statin (11) Morbid obesity with BMI of 40.0-44.9, adult: Plan: BMI 43 - Noted (12) Chronic kidney disease, stage 3a: Plan: CrCl 50 - 60 mL/min at baseline (Cr ~0.85 - 1.0). - Cr stable at baseline at present. (13) DVT prophylaxis: Plan: Lovenox 40 mg SQ daily Admission and Anticipated Discharge Date Admission Date: October 20, 2020 Subjective Feeling better today. Reports no fevers/chills, chest pain, abdominal pain, nausea, or vomiting. Physical Exam Constitutional: WD/WN, vitals as above Eyes: EOM intact bilaterally; no conjunctival abnormality ENMT: external ear and nose normal, oropharynx normal Neck: trachea midline, no thyromegaly normal visual inspection Respiratory: normal respiratory effort, lungs clear to auscultation + cough; no respiratory distress and not tachypneic Cardiovascular: RRR, no murmur, no edema Gastrointestinal (Abdomen): Inspection/Auscultation: abdomen normal to inspection; abdomen not distended Musculoskeletal: no cyanosis or clubbing, extremities motor strength 5/5 Skin: no rashes, warm and dry Neurologic: moves all extremities and awake Psychiatric: Orientation: alert, oriented to person and cooperative Results & Data Results & Data ([facility]) Vital Signs (Past 12 Hours) Vital Signs Temp Pulse Pulse Resp BP Pulse Ox 11/07/20 16:00 68 11/07/20 15:31 36.7 C 69 20 121/69 98 11/07/20 11:48 37.0 C 62 20 121/66 94 PG Care Time/CCT Total # of Minutes Spent Total Time Spent with Patient: Total time spent is greater than 50% in coordination of care (as documented) at patient's floor/unit and/or counseling patient: Coding Level of Care Code 96429 Subseq Hosp Care Lvl 2 Diagnoses Pneumonia due to COVID-19 virus U07.1; J12.82 Tongue ulcer K14.0 Acute respiratory failure with hypoxia J96.01 Acute diastolic (congestive) heart failure I50.31 Hx of deep venous thrombosis Z86.718 Bilateral leg pain M79.604; M79.605 Vitamin B12 deficiency E53.8 DM (diabetes mellitus), type 2 with neurological complications E11.49 Hypertension I10 Hypertension type: essential hypertension Hyperlipidemia E78.5 Morbid obesity with BMI of 40.0-44.9, adult E66.01; Z68.41 Chronic kidney disease, stage 3a N18.31 DVT prophylaxis Z29.9 (1) Hypertension Hypertension type: essential hypertension Qualified Code(s): I10 - Essential (primary) hypertension
[2020-11-07] MEDS: GABAPENTIN 100 MG CAP PO SCH (22:28)
[2020-11-07] MEDS: ATORVASTATIN 10 MG TAB PO SCH (22:30)
[2020-11-07] MEDS: MELATONIN 3 MG TAB PO SCH (22:41)
[2020-11-08] MEDS: amLODIPine BESYLATE 5 MG TAB PO SCH (10:05)
[2020-11-08] MEDS: CHOLECALCIFEROL 1,000 UNITS 25 MCG TAB PO SCH (10:08)
[2020-11-08] MEDS: SENNA 8.6 MG TAB PO SCH (10:08)
[2020-11-08] MEDS: THIAMINE HCL 100 MG TAB PO SCH (10:10)
[2020-11-08] MEDS: DEXAMETHASONE CONC 1 MG/ML 30 ML PO SCH ×2 (10:10→20:30)
[2020-11-08] MEDS: METOPROLOL TARTRATE 25 MG TAB PO SCH ×2 (10:11→20:33)
[2020-11-08] MEDS: CYANOCOBALAMIN 500 MCG TABLET (VITAMIN B-12) PO SCH (10:12)
[2020-11-08] MEDS: ASPIRIN 81 MG ECTAB PO SCH (10:13)
[2020-11-08] MEDS: ENOXAPARIN INJ 40 MG/0.4 ML SYR SQ SCH (10:13)
[2020-11-08] MEDS: MUPIROCIN 2% OINT 22 GM TUBE EXT SCH ×2 (10:13→20:37)
[2020-11-08] MEDS: LOSARTAN POTASSIUM 50 MG TAB PO SCH (10:14)
[2020-11-08] MEDS: NYSTATIN POWDER 15GM BTL EXT SCH ×2 (10:14→20:38)
[2020-11-08] MEDS: POLYETHYLENE (MIRALAX) 17 GM PACK PO SCH (10:17)
[2020-11-08] MEDS: INSULIN ASPART 100 UNITS/ML 3 ML PEN SC SCH ×4 (10:20→20:58)
[2020-11-08] MEDS: INSULIN HUMAN NPH SC SCH ×2 (10:20→20:58)
[2020-11-08] MEDS: BENZONATATE 100 MG CAPSULE PO SCH ×3 (10:28→20:29)
--- NOTE | 2020-11-08 16:05 | Hospitalist Progress Note ---
Date of Service November 08, 2020 Assessment & Plan (1) Pneumonia due to COVID-19 virus: Plan: Severe, with acute hypoxic resp failure and large, ongoing FiO2 requirement. - S/p 5-day course of remdesivir. - Did not meet candidacy for tocilizumab. - S/p 10 days of IV dexamethasone -> Weaned to 2 mg PO daily x 2 more days. Last day on 11/04/2020. - Course complicated by acute diastolic CHF. - Lasix 20 mg IV last given on 11/01. -> Improved today. O2 needs weaning down to 3 L today with good O2 sat. Has more energy. Was able to work with PT, but did desaturate with exertion. Much more energy today. Will get PT/OT tomorrow to re-assess. Begin to find a rehab as she is now willing to go to rehab. (2) Tongue ulcer: Plan: Tongue ulcers noted by the patient on 11/06 to me. Looking back, she had actually been on Nystatin for 7 days without improvement. - Stopped Nystatin on 11/06 - Discussed with ENT. Recommend dexamethasone 5 mg / 5 mL swish and spit BID with Magic Mouthwash for symptomatic help. - Given Covid, ENT ask to consult as outpatient after isolation. -> As of 11/08, tongue lesions are definitely improving and causing less pain f or her. (3) Acute respiratory failure with hypoxia: Plan: 2nd to #1. - Ongoing (4) Acute diastolic (congestive) heart failure: Plan: Last echo in 09/2020 as outpatient - preserved EF. Stable echo this admission with EF 65 - 70%. - Monitor; hold further Lasix for now. (5) Hx of deep venous thrombosis: Plan: No PE on CTA study on 10/20 but was suboptimal study. Had extensive DVT several years ago. Strong family history of VTE - her mother, her daughter, etc. - Dopplers b/l legs neg for DVT during this stay. Repeat CTA chest on 11/03 was negative. -> Continue prophylactic dosing of Lovenox. (6) Bilateral leg pain: Plan: Suspect neuropathy. This is a long-standing issue. TSH wnl. Has had DM for long- time so this could be diabetic polyneuropathy. - Continue gabapentin 200mg PO HS (7) Vitamin B12 deficiency: Plan: B12 level was <200. Started IM injections of B12, 1000mcg daily x 5 doses. - Now on 1000 mcg po daily. (8) DM (diabetes mellitus), type 2 with neurological complications: Plan: Pharmacy assisting with management. A1c was 9.4% this admission. - Cont basal-bolus combo. -> On NPH (She uses this at home, so will continue despite being off steroids.) Sugars generally 190 - 240 in last 24 hours. (9) Hypertension: Plan: BP presently 115/70. - Continue amlodipine, losartan, metoprolol (10) Hyperlipidemia: Plan: - Continue statin (11) Morbid obesity with BMI of 40.0-44.9, adult: Plan: BMI 43 - Noted (12) Chronic kidney disease, stage 3a: Plan: CrCl 50 - 60 mL/min at baseline (Cr ~0.85 - 1.0). - Cr stable at baseline at present. (13) DVT prophylaxis: Plan: Lovenox 40 mg SQ daily Admission and Anticipated Discharge Date Admission Date: October 20, 2020 Subjective Doing well today. Joking about Abelino Alvarez. No major issues today. Tongue is feeling better. Reports no fevers/chills, chest pain, shortness of breath, abdominal pain, nausea, or vomiting. Physical Exam Constitutional: WD/WN, vitals as above Eyes: EOM intact bilaterally; no conjunctival abnormality ENMT: external ear and nose normal, oropharynx normal Neck: trachea midline, no thyromegaly normal visual inspection Respiratory: normal respiratory effort, lungs clear to auscultation no respiratory distress, no cough and not tachypneic Cardiovascular: RRR, no murmur, no edema Gastrointestinal (Abdomen): Inspection/Auscultation: abdomen normal to inspection; abdomen not distended Musculoskeletal: no cyanosis or clubbing, extremities motor strength 5/5 Skin: no rashes, warm and dry Neurologic: moves all extremities and awake Psychiatric: Orientation: alert, oriented to person and cooperative Results & Data Results & Data ([facility]) Vital Signs (Past 12 Hours) Vital Signs Temp Pulse Resp BP Pulse Ox 11/08/20 10:41 36.8 C 65 22 114/65 91 11/08/20 07:24 36.7 C 60 20 145/72 H 94 11/08/20 04:12 36.6 C 59 L 19 155/77 H 97 PG Care Time/CCT Total # of Minutes Spent Total Time Spent with Patient: Total time spent is greater than 50% in coordination of care (as documented) at patient's floor/unit and/or counseling patient: Coding Level of Care Code 85677 Subseq Hosp Care Lvl 2 Diagnoses Pneumonia due to COVID-19 virus U07.1; J12.82 Tongue ulcer K14.0 Acute respiratory failure with hypoxia J96.01 Acute diastolic (congestive) heart failure I50.31 Hx of deep venous thrombosis Z86.718 Bilateral leg pain M79.604; M79.605 Vitamin B12 deficiency E53.8 DM (diabetes mellitus), type 2 with neurological complications E11.49 Hypertension I10 Hypertension type: essential hypertension Hyperlipidemia E78.5 Morbid obesity with BMI of 40.0-44.9, adult E66.01; Z68.41 Chronic kidney disease, stage 3a N18.31 DVT prophylaxis Z29.9 (1) Hypertension Hypertension type: essential hypertension Qualified Code(s): I10 - Essential (primary) hypertension
[2020-11-08] MEDS: ATORVASTATIN 10 MG TAB PO SCH (20:29)
[2020-11-08] MEDS: GABAPENTIN 100 MG CAP PO SCH (20:31)
[2020-11-08] MEDS: MELATONIN 3 MG TAB PO SCH (20:36)
[2020-11-09 07:39] LABS: Hematocrit (blood only) 34.3 % (37-47); Hemoglobin 11.5 g/dL (12.0-16.0); Mean Corpuscular Hemoglobin 29.8 pg (25-34); Mean Corpuscular Hgb Conc 33.5 g/dL (32-36); Mean Corpuscular Volume 88.9 fL (80-100); Platelet Count 176 K/uL (130-400); RDW Coefficient of Variation 14.8 % (11.5-14.5); RDW Standard Deviation 47.4 fL (36.4-46.3); Red Blood Count 3.86 M/uL (4.2-5.4); White Blood Count 9.54 K/uL (4.8-10.8)
[2020-11-09 08:03] LABS: Calcium 8.1 mg/dl (8.5-10.1); Creatinine Clr Calc Pharmacy 74.2 ml/min; Est GFR (African American) 90.9 ml/min; Est GFR (Non-African American) 78.5 ml/min; Magnesium 2.1 mg/dl (1.8-2.4); Potassium 4.5 mmol/L (3.5-5.1)
[2020-11-09] MEDS: INSULIN HUMAN NPH SC SCH ×2 (08:45→21:29)
[2020-11-09] MEDS: INSULIN ASPART 100 UNITS/ML 3 ML PEN SC SCH ×4 (08:45→21:28)
[2020-11-09] MEDS: CHOLECALCIFEROL 1,000 UNITS 25 MCG TAB PO SCH (08:45)
[2020-11-09] MEDS: NYSTATIN POWDER 15GM BTL EXT SCH ×2 (08:46→21:04)
[2020-11-09] MEDS: DEXAMETHASONE CONC 1 MG/ML 30 ML PO SCH ×2 (08:47→21:00)
[2020-11-09] MEDS: ENOXAPARIN INJ 40 MG/0.4 ML SYR SQ SCH (08:47)
[2020-11-09] MEDS: CYANOCOBALAMIN 500 MCG TABLET (VITAMIN B-12) PO SCH (08:48)
[2020-11-09] MEDS: LOSARTAN POTASSIUM 50 MG TAB PO SCH (08:48)
[2020-11-09] MEDS: amLODIPine BESYLATE 5 MG TAB PO SCH (08:48)
[2020-11-09] MEDS: ASPIRIN 81 MG ECTAB PO SCH (08:48)
[2020-11-09] MEDS: THIAMINE HCL 100 MG TAB PO SCH (08:49)
[2020-11-09] MEDS: SENNA 8.6 MG TAB PO SCH (08:49)
[2020-11-09] MEDS: MUPIROCIN 2% OINT 22 GM TUBE EXT SCH ×2 (08:50→21:03)
[2020-11-09] MEDS: POLYETHYLENE (MIRALAX) 17 GM PACK PO SCH (09:10)
[2020-11-09] MEDS: METOPROLOL TARTRATE 25 MG TAB PO SCH ×2 (11:03→21:03)
[2020-11-09] MEDS: BENZONATATE 100 MG CAPSULE PO SCH ×3 (11:03→21:00)
[2020-11-09] MEDS: ATORVASTATIN 10 MG TAB PO SCH (20:57)
[2020-11-09] MEDS ORDERED: NYSTATIN SUSP 500,000 U/5 ML UDC PO SCH (21:00)
[2020-11-09] MEDS: GABAPENTIN 100 MG CAP PO SCH (21:02)
[2020-11-09] MEDS: MELATONIN 3 MG TAB PO SCH (21:08)
--- NOTE | 2020-11-09 22:06 | Hospitalist Progress Note ---
Date of Service November 09, 2020 Assessment & Plan (1) Pneumonia due to COVID-19 virus: Plan: Severe, with acute hypoxic resp failure and large, ongoing FiO2 requirement. - S/p 5-day course of remdesivir. - Did not meet candidacy for tocilizumab. - S/p 10 days of IV dexamethasone -> Weaned to 2 mg PO daily x 2 more days. Last day on 11/04/2020. - Course complicated by acute diastolic CHF. - Lasix 20 mg IV last given on 11/01. -> Improved today. remains on 3 L today with good O2 sat. Has more energy. -Awaiting new input from PT. (2) Tongue ulcer: Plan: Tongue ulcers noted by the patient on 11/06 to me. Looking back, she had actually been on Nystatin for 7 days without improvement. - Stopped Nystatin on 11/06 - Discussed with ENT. Recommend dexamethasone 5 mg / 5 mL swish and spit BID with Magic Mouthwash for symptomatic help. - Given Covid, ENT ask to consult as outpatient after isolation. -> As of 11/08, tongue lesions are definitely improving and causing less pain for her. -Patient reports on 11/09 no improvement from the day prior. (3) Acute respiratory failure with hypoxia: Plan: 2nd to #1. - Ongoing (4) Acute diastolic (congestive) heart failure: Plan: Last echo in 09/2020 as outpatient - preserved EF. Stable echo this admission with EF 65 - 70%. - Monitor; hold further Lasix for now. (5) Hx of deep venous thrombosis: Plan: No PE on CTA study on 10/20 but was suboptimal study. Had extensive DVT several years ago. Strong family history of VTE - her mother, her daughter, etc. - Dopplers b/l legs neg for DVT during this stay. Repeat CTA chest on 11/03 was negative. -> Continue prophylactic dosing of Lovenox. (6) Bilateral leg pain: Plan: Suspect neuropathy. This is a long-standing issue. TSH wnl. Has had DM for long- time so this could be diabetic polyneuropathy. - Continue gabapentin 200mg PO HS (7) Vitamin B12 deficiency: Plan: B12 level was <200. Started IM injections of B12, 1000mcg daily x 5 doses. - Now on 1000 mcg po daily. (8) DM (diabetes mellitus), type 2 with neurological complications: Plan: Pharmacy assisting with management. A1c was 9.4% this admission. - Cont basal-bolus combo. -> On NPH (She uses this at home, so will continue despite being off steroids.) Sugars generally 190 - 240 in last 24 hours. (9) Hypertension: Plan: BP presently 115/70. - Continue amlodipine, losartan, metoprolol (10) Hyperlipidemia: Plan: - Continue statin (11) Morbid obesity with BMI of 40.0-44.9, adult: Plan: BMI 43 - Noted (12) Chronic kidney disease, stage 3a: Plan: CrCl 50 - 60 mL/min at baseline (Cr ~0.85 - 1.0). - Cr stable at baseline at present. (13) DVT prophylaxis: Plan: Lovenox 40 mg SQ daily Admission and Anticipated Discharge Date Admission Date: October 20, 2020 Subjective Patient reports no new symptoms. She is interested in seeing physical therapy. Review of Systems 2 Review of Systems: All systems reviewed & are unremarkable except as noted in HPI & below Physical Exam Physical Exam: Constitutional: WD/WN, vitals as above Eyes: EOM intact bilaterally; no conjunctival abnormality ENMT: external ear and nose normal, oropharynx normal Neck: trachea midline, no thyromegaly normal visual inspection Respiratory: normal respiratory effort, lungs clear to auscultation no respiratory distress, no cough and not tachypneic Cardiovascular: RRR, no murmur, no edema Gastrointestinal (Abdomen): Inspection/Auscultation: abdomen normal to inspection; abdomen not distended Musculoskeletal: no cyanosis or clubbing, extremities motor strength 5/5 Skin: no rashes, warm and dry Neurologic: moves all extremities and awake Psychiatric: Orientation: alert, oriented to person and cooperative Results & Data Results & Data ([facility]) Vital Signs (Past 12 Hours) Vital Signs Temp Pulse Resp BP Pulse Ox 11/09/20 18:09 36.4 C L 62 20 111/65 91 11/09/20 15:28 36.5 C 74 19 138/78 93 11/09/20 11:00 36.6 C 64 22 126/65 94 PG Care Time/CCT Total # of Minutes Spent Total Time Spent with Patient: Total time spent is greater than 50% in coordination of care (as documented) at patient's floor/unit and/or counseling patient: Coding Level of Care Code 07535 Subseq Hosp Care Lvl 3 Diagnoses Pneumonia due to COVID-19 virus U07.1; J12.82 Tongue ulcer K14.0 Acute respiratory failure with hypoxia J96.01 Acute diastolic (congestive) heart failure I50.31 Hx of deep venous thrombosis Z86.718 Bilateral leg pain M79.604; M79.605 Vitamin B12 deficiency E53.8 DM (diabetes mellitus), type 2 with neurological complications E11.49 Hypertension I10 Hypertension type: essential hypertension Hyperlipidemia E78.5 Morbid obesity with BMI of 40.0-44.9, adult E66.01; Z68.41 Chronic kidney disease, stage 3a N18.31 DVT prophylaxis Z29.9 Time Spent (min) 35 (1) Hypertension Hypertension type: essential hypertension Qualified Code(s): I10 - Essential (primary) hypertension
[2020-11-10] MEDS: INSULIN ASPART 100 UNITS/ML 3 ML PEN SC SCH ×4 (09:22→21:15)
[2020-11-10] MEDS: CHOLECALCIFEROL 1,000 UNITS 25 MCG TAB PO SCH (09:25)
[2020-11-10] MEDS: ASPIRIN 81 MG ECTAB PO SCH (09:29)
[2020-11-10] MEDS: amLODIPine BESYLATE 5 MG TAB PO SCH (09:29)
[2020-11-10] MEDS: THIAMINE HCL 100 MG TAB PO SCH (09:29)
[2020-11-10] MEDS: LOSARTAN POTASSIUM 50 MG TAB PO SCH (09:29)
[2020-11-10] MEDS: CYANOCOBALAMIN 500 MCG TABLET (VITAMIN B-12) PO SCH (09:30)
[2020-11-10] MEDS: MUPIROCIN 2% OINT 22 GM TUBE EXT SCH ×2 (09:30→21:40)
[2020-11-10] MEDS: SENNA 8.6 MG TAB PO SCH (09:30)
[2020-11-10] MEDS: NYSTATIN POWDER 15GM BTL EXT SCH ×2 (09:30→21:29)
[2020-11-10] MEDS: POLYETHYLENE (MIRALAX) 17 GM PACK PO SCH (09:30)
[2020-11-10] MEDS: DEXAMETHASONE CONC 1 MG/ML 30 ML PO SCH ×2 (09:30→21:30)
[2020-11-10] MEDS: METOPROLOL TARTRATE 25 MG TAB PO SCH ×2 (09:30→21:29)
[2020-11-10] MEDS: BENZONATATE 100 MG CAPSULE PO SCH ×3 (09:32→21:39)
[2020-11-10] MEDS: ENOXAPARIN INJ 40 MG/0.4 ML SYR SQ SCH (09:33)
[2020-11-10] MEDS: INSULIN HUMAN NPH SC SCH ×2 (09:34→21:15)
--- NOTE | 2020-11-10 11:16 | Hospitalist Progress Note ---
Date of Service November 10, 2020 Assessment & Plan (1) Pneumonia due to COVID-19 virus: Plan: Severe, with acute hypoxic resp failure and large, ongoing FiO2 requirement. - S/p 5-day course of remdesivir. - Did not meet candidacy for tocilizumab. - S/p 10 days of IV dexamethasone -> Weaned to 2 mg PO daily x 2 more days. Last day on 11/04/2020. - Course complicated by acute diastolic CHF. - Lasix 20 mg IV last given on 11/01. -> Improved remains on 3 L today with good O2 sat. Has more energy. -appreciatre input from PT (2) Tongue ulcer: Plan: Tongue ulcers noted by the patient on 11/06 to me. Looking back, she had actually been on Nystatin for 7 days without improvement. - Stopped Nystatin on 11/06 - Discussed with ENT. Recommend dexamethasone 5 mg / 5 mL swish and spit BID with Magic Mouthwash for symptomatic help. - Given Covid, ENT ask to consult as outpatient after isolation. -> As of 11/08, tongue lesions are definitely improving and causing less pain for her. -Patient reports on 11/09 no improvement from the day prior. (3) Acute respiratory failure with hypoxia: Plan: 2nd to #1. - Ongoing (4) Acute diastolic (congestive) heart failure: Plan: Last echo in 09/2020 as outpatient - preserved EF. Stable echo this admission with EF 65 - 70%. - Monitor; hold further Lasix for now. (5) Hx of deep venous thrombosis: Plan: No PE on CTA study on 10/20 but was suboptimal study. Had extensive DVT several years ago. Strong family history of VTE - her mother, her daughter, etc. - Dopplers b/l legs neg for DVT during this stay. Repeat CTA chest on 11/03 was negative. -> Continue prophylactic dosing of Lovenox. (6) Bilateral leg pain: Plan: Suspect neuropathy. This is a long-standing issue. TSH wnl. Has had DM for long- time so this could be diabetic polyneuropathy. - Continue gabapentin 200mg PO HS (7) Vitamin B12 deficiency: Plan: B12 level was <200. Started IM injections of B12, 1000mcg daily x 5 doses. - Now on 1000 mcg po daily. (8) DM (diabetes mellitus), type 2 with neurological complications: Plan: Pharmacy assisting with management. A1c was 9.4% this admission. - Cont basal-bolus combo. -> On NPH (She uses this at home, so will continue despite being off steroids.) Sugars generally 190 - 240 in last 24 hours. (9) Hypertension: Plan: BP presently 115/70. - Continue amlodipine, losartan, metoprolol (10) Hyperlipidemia: Plan: - Continue statin (11) Morbid obesity with BMI of 40.0-44.9, adult: Plan: BMI 43 - Noted (12) Chronic kidney disease, stage 3a: Plan: CrCl 50 - 60 mL/min at baseline (Cr ~0.85 - 1.0). - Cr stable at baseline at present. (13) DVT prophylaxis: Plan: Lovenox 40 mg SQ daily Admission and Anticipated Discharge Date Admission Date: October 20, 2020 Subjective 85 yo femaLe reports feeling about the same. She states that she got very short of breath when she participated with Physical therapy. Review of Systems Review of Systems: All systems reviewed & are unremarkable except as noted in HPI & below Physical Exam Physical Exam: Constitutional: WD/WN, vitals as above Eyes: EOM intact bilaterally; no conjunctival abnormality ENMT: external ear and nose normal, oropharynx normal Neck: trachea midline, no thyromegaly normal visual inspection Respiratory: normal respiratory effort, lungs clear to auscultation no respiratory distress, no cough and not tachypneic Cardiovascular: RRR, no murmur, no edema Gastrointestinal (Abdomen): Inspection/Auscultation: abdomen normal to inspection; abdomen not distended Musculoskeletal: no cyanosis or clubbing, extremities motor strength 5/5 Skin: no rashes, warm and dry Neurologic: moves all extremities and awake Psychiatric: Orientation: alert, oriented to person and cooperative Results & Data Results & Data ([facility]) Vital Signs (Past 12 Hours) Vital Signs Temp Pulse Pulse Pulse Resp BP Pulse Ox 11/10/20 08:00 67 20 96 11/10/20 07:39 36.5 C 55 L 22 145/75 H 98 11/10/20 03:21 36.3 C L 53 L 20 148/70 H 98 11/10/20 01:52 54 L 11/09/20 23:41 36.5 C 52 L 20 135/78 98 PG Care Time/CCT Total # of Minutes Spent Total Time Spent with Patient: Total time spent is greater than 50% in coordination of care (as documented) at patient's floor/unit and/or counseling patient: Coding Level of Care Code 42730 Subseq Hosp Care Lvl 2 Diagnoses Pneumonia due to COVID-19 virus U07.1; J12.82 Tongue ulcer K14.0 Acute respiratory failure with hypoxia J96.01 Acute diastolic (congestive) heart failure I50.31 Hx of deep venous thrombosis Z86.718 Bilateral leg pain M79.604; M79.605 Vitamin B12 deficiency E53.8 DM (diabetes mellitus), type 2 with neurological complications E11.49 Hypertension I10 Hypertension type: essential hypertension Hyperlipidemia E78.5 Morbid obesity with BMI of 40.0-44.9, adult E66.01; Z68.41 Chronic kidney disease, stage 3a N18.31 DVT prophylaxis Z29.9 Time Spent (min) 25 (1) Hypertension Hypertension type: essential hypertension Qualified Code(s): I10 - Essential (primary) hypertension
--- NOTE | 2020-11-10 13:51 | Pharmacy Report ---
Pharmacy Glycemic Short Note 2 - Date of Service November 10, 2020 - Glycemic Short BSG Results (Last 24 hours): 11/09/20 11/09/20 11/10/20 16:36 20:36 07:37 POC Glucose 102 H 145 H 148 H 11/10/20 11:35 POC Glucose 208 H OUTPATIENT ANTIDIABETIC REGIMEN: * Novolog 70/30, 10 units SC daily * Metformin 1000 mg PO BIDM * Glimepiride 2 mg PO daily * HbA1c: 10.1% (08/11/20) ASSESSMENT: 11/10 * Patient received total of 65 units of insulin yesterday, of which 20 units were NPH * Fasting BSG 148 mg/dL - continue same NPH scale * Continue same cf/cr 11/07 * Patient received total of 51 units of insulin yesterday, of which 20 units were NPH * Fasting BSG 209 mg/dL despite receiving 2 units of correctional insulin at bedtime for BSG 190mg/dl * Add NPH at HS * Tighten CR & CF 11/06 * Patient received total of 54 units of insulin yesterday, of which 20 units were NPH * Fasting BSG 99 mg/dL - continue same NPH * Plan to tighten CR 11/05 * BSGs [phone] mg/dl over the past 24hrs * AM fasting is slightly below goal range for inpatient targets at 82mg/dl. Duration of action of NPH is 12-18hrs. Unlikely that it is affecting fasting BSG but will decrease slightly regardless * All BSGs >240 yesterday. BSGs should improve without dexamethasone today. Will empirically loosen CF/CR since steroids no longer on board. 11/04 * All BSGs > 180 yesterday after dex given. Will increase NPH and tighten CR * Last day of dex therapy today- BSGs should improve tomorrow without steroids. Will empiricaly reduce NPH tomorrow (continue with NPH rather than Lantus since patient is on NPH as an outpatient) 11/03 * Dexamethasone tapered from 4mg PO daily to 2mg PO daily. Should yield an improvement in BSGs with step down in steroid dosing. * Will decrease CF/CR insulin parameters for decrease in steroids 11/02 * 99 units SQ administer over last 24 hrs while tolerating a diet * Fasting BSG elevated above goal this AM, she received 22 units NPH yesterday. * Post-prandial BSGs fairly well controlled yesterday with NPH and Novolog doses. Today is last day of Dexamethasone 4mg PO however, will titrate down NPH dose today and tomorrow in anticipation of improved insulin sensitivity. * Prelunch hyperglycemia noted today, will continue aggressive Novolog correction/prandial doses for now in light of current BSG and reduced NPH dose this AM. 11/01 * Matthwe received 111 units of insulin yesterday (45 units of NPH, 66 units of Novolog) * Fasting BSG at goal. Continue NPH for steroid induced hyperglycemia. Will decrease dose ~50% due to change in DXM (6 mg IV -> 4 mg Po) * Post prandial BSGs acceptable. Novolog had already been reduced 10/31 PM. Will continue for now PLAN FOR INPATIENT GLYCEMIC CONTROL: * Hold outpatient oral Metformin * Basal insulin: * NPH 20 units SQ daily in AM * 0-15 units HS: (0 units BSG < 180, 10 units BSG 180-220, 15 units BSG > 220) * Bolus insulin: tighten CR * NovoLog per scale ACHS or Q6hrs while NPO * Goal Range: Low 110 mg/dL - High 140 mg/dL * Correction Factor: 15 mg/dL/unit * Nutritional / Prandial insulin per carb ratio of 1 unit per 5 grams CHO consumed PLAN FOR DISCHARGE: * A1c 9.4% - goal <8% * Patient only on Novolog 70/30 - 10 units once daily. Patient could benefit from dosage increase as likely this is not covering full ~24 hr needs. Could consider increasing to Novolog 70/30 - 15 units daily in AM, 10 units daily with dinner. Regimen would likely need adjusted outpatient and titrated as needed. Would ensure patient checking blood sugars at least 2x/day (in AM/PM) and reporting frequent hypo/hyperglycemia to provider * Renal function stable, could continue with metformin and glimepiride on discharge
[2020-11-10] MEDS: GABAPENTIN 100 MG CAP PO SCH (21:29)
[2020-11-10] MEDS: ATORVASTATIN 10 MG TAB PO SCH (21:29)
[2020-11-10] MEDS: MELATONIN 3 MG TAB PO SCH (21:39)
[2020-11-11 07:36] LABS: Hematocrit (blood only) 34.2 % (37-47); Hemoglobin 11.2 g/dL (12.0-16.0); Mean Corpuscular Hemoglobin 29.2 pg (25-34); Mean Corpuscular Hgb Conc 32.7 g/dL (32-36); Mean Corpuscular Volume 89.3 fL (80-100); Platelet Count 163 K/uL (130-400); RDW Coefficient of Variation 15.1 % (11.5-14.5); RDW Standard Deviation 48.6 fL (36.4-46.3); Red Blood Count 3.83 M/uL (4.2-5.4); White Blood Count 6.35 K/uL (4.8-10.8)
[2020-11-11 08:10] LABS: BUN Creatinine Ratio 35.4 (10-20); C Reactive Protein 0.67 mg/dl (0-0.29); Calcium 8.2 mg/dl (8.5-10.1); Creatinine Clr Calc Pharmacy 77.2 ml/min; Est GFR (African American) 92.2 ml/min; Est GFR (Non-African American) 79.6 ml/min; Potassium 4.5 mmol/L (3.5-5.1)
[2020-11-11] MEDS: ENOXAPARIN INJ 40 MG/0.4 ML SYR SQ SCH (09:09)
[2020-11-11] MEDS: amLODIPine BESYLATE 5 MG TAB PO SCH (09:10)
[2020-11-11] MEDS: DEXAMETHASONE CONC 1 MG/ML 30 ML PO SCH ×2 (09:10→20:40)
[2020-11-11] MEDS: LOSARTAN POTASSIUM 50 MG TAB PO SCH (09:10)
[2020-11-11] MEDS: THIAMINE HCL 100 MG TAB PO SCH (09:11)
[2020-11-11] MEDS: SENNA 8.6 MG TAB PO SCH (09:11)
[2020-11-11] MEDS: METOPROLOL TARTRATE 25 MG TAB PO SCH ×2 (09:11→20:42)
[2020-11-11] MEDS: ASPIRIN 81 MG ECTAB PO SCH (09:11)
[2020-11-11] MEDS: CYANOCOBALAMIN 500 MCG TABLET (VITAMIN B-12) PO SCH (09:11)
[2020-11-11] MEDS: CHOLECALCIFEROL 1,000 UNITS 25 MCG TAB PO SCH (09:11)
[2020-11-11] MEDS: MUPIROCIN 2% OINT 22 GM TUBE EXT SCH ×2 (09:12→20:43)
[2020-11-11] MEDS: POLYETHYLENE (MIRALAX) 17 GM PACK PO SCH (09:12)
[2020-11-11] MEDS: NYSTATIN POWDER 15GM BTL EXT SCH ×2 (09:16→20:44)
[2020-11-11] MEDS: BENZONATATE 100 MG CAPSULE PO SCH ×3 (09:19→20:53)
[2020-11-11] MEDS: INSULIN ASPART 100 UNITS/ML 3 ML PEN SC SCH ×4 (09:56→20:48)
[2020-11-11] MEDS: INSULIN HUMAN NPH SC SCH ×2 (09:57→20:47)
[2020-11-11] MEDS: GABAPENTIN 100 MG CAP PO SCH (20:41)
[2020-11-11] MEDS: ATORVASTATIN 10 MG TAB PO SCH (20:44)
[2020-11-11] MEDS: MELATONIN 3 MG TAB PO SCH (20:53)
--- NOTE | 2020-11-11 20:58 | Hospitalist Progress Note ---
Date of Service November 11, 2020 Assessment & Plan (1) Pneumonia due to COVID-19 virus: Plan: Severe, with acute hypoxic resp failure and large, ongoing FiO2 requirement. - S/p 5-day course of remdesivir. - Did not meet candidacy for tocilizumab. - S/p 10 days of IV dexamethasone -> Weaned to 2 mg PO daily x 2 more days. Last day on 11/04/2020. - Course complicated by acute diastolic CHF. - Lasix 20 mg IV last given on 11/01. -> Improved now on 2 L today with good O2 sat. Has more energy. -appreciatre input from PT will transfer outside of COVID unit. (2) Tongue ulcer: Plan: Tongue ulcers noted by the patient on 11/06 to me. Looking back, she had actually been on Nystatin for 7 days without improvement. - Stopped Nystatin on 11/06 - Discussed with ENT. Recommend dexamethasone 5 mg / 5 mL swish and spit BID with Magic Mouthwash for symptomatic help. - Given Covid, ENT ask to consult as outpatient after isolation. -> As of 11/08, tongue lesions are definitely improving and causing less pain for her. -Patient reports on 11/11 mild improvement from the day prior. (3) Acute respiratory failure with hypoxia: Plan: 2nd to #1. - Ongoing (4) Acute diastolic (congestive) heart failure: Plan: Last echo in 09/2020 as outpatient - preserved EF. Stable echo this admission with EF 65 - 70%. - Monitor; hold further Lasix for now. (5) Hx of deep venous thrombosis: Plan: No PE on CTA study on 10/20 but was suboptimal study. Had extensive DVT several years ago. Strong family history of VTE - her mother, her daughter, etc. - Dopplers b/l legs neg for DVT during this stay. Repeat CTA chest on 11/03 was negative. -> Continue prophylactic dosing of Lovenox. (6) Bilateral leg pain: Plan: Suspect neuropathy. This is a long-standing issue. TSH wnl. Has had DM for long- time so this could be diabetic polyneuropathy. - Continue gabapentin 200mg PO HS (7) Vitamin B12 deficiency: Plan: B12 level was <200. Started IM injections of B12, 1000mcg daily x 5 doses. - Now on 1000 mcg po daily. (8) DM (diabetes mellitus), type 2 with neurological complications: Plan: Pharmacy assisting with management. A1c was 9.4% this admission. - Cont basal-bolus combo. -> On NPH (She uses this at home, so will continue despite being off steroids.) Sugars generally 190 - 240 in last 24 hours. (9) Hypertension: Plan: BP presently 115/70. - Continue amlodipine, losartan, metoprolol (10) Hyperlipidemia: Plan: - Continue statin (11) Morbid obesity with BMI of 40.0-44.9, adult: Plan: BMI 43 - Noted (12) Chronic kidney disease, stage 3a: Plan: CrCl 50 - 60 mL/min at baseline (Cr ~0.85 - 1.0). - Cr stable at baseline at present. (13) DVT prophylaxis: Plan: Lovenox 40 mg SQ daily Admission and Anticipated Discharge Date Admission Date: October 20, 2020 Subjective Patient reports no new symptoms. Review of Systems Review of Systems: All systems reviewed & are unremarkable except as noted in HPI & below Physical Exam Physical Exam: Constitutional: WD/WN, vitals as above Eyes: EOM intact bilaterally; no conjunctival abnormality ENMT: external ear and nose normal, oropharynx normal Neck: trachea midline, no thyromegaly normal visual inspection Respiratory: normal respiratory effort, lungs clear to auscultation no respiratory distress, no cough and not tachypneic Cardiovascular: RRR, no murmur, no edema Gastrointestinal (Abdomen): Inspection/Auscultation: abdomen normal to inspection; abdomen not distended Musculoskeletal: no cyanosis or clubbing, extremities motor strength 5/5 Skin: no rashes, warm and dry Neurologic: moves all extremities and awake Psychiatric: Orientation: alert, oriented to person and cooperative Results & Data Results & Data ([facility]) Vital Signs (Past 12 Hours) Vital Signs Temp Pulse Pulse Resp BP BP Pulse Ox 11/11/20 20:37 62 133/72 11/11/20 17:06 36.9 C 55 L 18 117/68 95 11/11/20 11:19 36.7 C 64 19 129/81 94 PG Care Time/CCT Total # of Minutes Spent Total Time Spent with Patient: Total time spent is greater than 50% in coordination of care (as documented) at patient's floor/unit and/or counseling patient: Coding Level of Care Code 54321 Subseq Hosp Care Lvl 2 Diagnoses Pneumonia due to COVID-19 virus U07.1; J12.82 Tongue ulcer K14.0 Acute respiratory failure with hypoxia J96.01 Acute diastolic (congestive) heart failure I50.31 Hx of deep venous thrombosis Z86.718 Bilateral leg pain M79.604; M79.605 Vitamin B12 deficiency E53.8 DM (diabetes mellitus), type 2 with neurological complications E11.49 Hypertension I10 Hypertension type: essential hypertension Hyperlipidemia E78.5 Morbid obesity with BMI of 40.0-44.9, adult E66.01; Z68.41 Chronic kidney disease, stage 3a N18.31 DVT prophylaxis Z29.9 (1) Hypertension Hypertension type: essential hypertension Qualified Code(s): I10 - Essential (primary) hypertension
[2020-11-12] MEDS: THIAMINE HCL 100 MG TAB PO SCH (08:33)
[2020-11-12] MEDS: ENOXAPARIN INJ 40 MG/0.4 ML SYR SQ SCH (08:33)
[2020-11-12] MEDS: SENNA 8.6 MG TAB PO SCH (08:34)
[2020-11-12] MEDS: CHOLECALCIFEROL 1,000 UNITS 25 MCG TAB PO SCH (08:34)
[2020-11-12] MEDS: POLYETHYLENE (MIRALAX) 17 GM PACK PO SCH (08:34)
[2020-11-12] MEDS: CYANOCOBALAMIN 500 MCG TABLET (VITAMIN B-12) PO SCH (08:34)
[2020-11-12] MEDS: LOSARTAN POTASSIUM 50 MG TAB PO SCH (08:34)
[2020-11-12] MEDS: ASPIRIN 81 MG ECTAB PO SCH (08:34)
[2020-11-12] MEDS: DEXAMETHASONE CONC 1 MG/ML 30 ML PO SCH ×2 (08:34→20:46)
[2020-11-12] MEDS: NYSTATIN POWDER 15GM BTL EXT SCH ×2 (08:35→19:48)
[2020-11-12] MEDS: amLODIPine BESYLATE 5 MG TAB PO SCH (08:35)
[2020-11-12] MEDS: MUPIROCIN 2% OINT 22 GM TUBE EXT SCH ×2 (08:36→19:51)
[2020-11-12] MEDS: BENZONATATE 100 MG CAPSULE PO SCH ×3 (08:41→20:08)
[2020-11-12] MEDS: INSULIN HUMAN NPH SC SCH ×2 (08:42→21:39)
[2020-11-12] MEDS: INSULIN ASPART 100 UNITS/ML 3 ML PEN SC SCH ×4 (08:47→21:38)
[2020-11-12] MEDS: METOPROLOL TARTRATE 25 MG TAB PO SCH ×2 (08:51→19:49)
--- NOTE | 2020-11-12 10:46 | Pharmacy Report ---
Pharmacy Glycemic Short Note 2 - Date of Service November 12, 2020 - Glycemic Short BSG Results (Last 24 hours): 11/11/20 11/11/20 11/11/20 11:19 16:26 20:33 POC Glucose 253 H 88 197 H 11/12/20 08:02 POC Glucose 141 H OUTPATIENT ANTIDIABETIC REGIMEN: * Novolog 70/30, 10 units SC daily * Metformin 1000 mg PO BIDM * Glimepiride 2 mg PO daily * HbA1c: 10.1% (08/11/20) ASSESSMENT: 11/12: * Patient received total 93 units of insulin yesterday; 28 units basal + 65 units bolus. * Fasting BSG today was 141 mg/dl. Continued current basal NPH dosing BID (HS dose is a scale based on BSG). * Pre-lunch BSG yesterday was elevated at 253. Novolog CR was tightened. Since then BSGs have been 88 at dinner and 197 at HS. Continue today with same parameters as yesterday. 11/10 * Patient received total of 65 units of insulin yesterday, of which 20 units were NPH * Fasting BSG 148 mg/dL - continue same NPH scale * Continue same cf/cr 11/07 * Patient received total of 51 units of insulin yesterday, of which 20 units were NPH * Fasting BSG 209 mg/dL despite receiving 2 units of correctional insulin at bedtime for BSG 190mg/dl * Add NPH at HS * Tighten CR & CF 11/06 * Patient received total of 54 units of insulin yesterday, of which 20 units were NPH * Fasting BSG 99 mg/dL - continue same NPH * Plan to tighten CR 11/05 * BSGs [phone] mg/dl over the past 24hrs * AM fasting is slightly below goal range for inpatient targets at 82mg/dl. Duration of action of NPH is 12-18hrs. Unlikely that it is affecting fasting BSG but will decrease slightly regardless * All BSGs >240 yesterday. BSGs should improve without dexamethasone today. Will empirically loosen CF/CR since steroids no longer on board. 11/04 * All BSGs > 180 yesterday after dex given. Will increase NPH and tighten CR * Last day of dex therapy today- BSGs should improve tomorrow without steroids. Will empiricaly reduce NPH tomorrow (continue with NPH rather than Lantus since patient is on NPH as an outpatient) 11/03 * Dexamethasone tapered from 4mg PO daily to 2mg PO daily. Should yield an improvement in BSGs with step down in steroid dosing. * Will decrease CF/CR insulin parameters for decrease in steroids 11/02 * 99 units SQ administer over last 24 hrs while tolerating a diet * Fasting BSG elevated above goal this AM, she received 22 units NPH yesterday. * Post-prandial BSGs fairly well controlled yesterday with NPH and Novolog doses . Today is last day of Dexamethasone 4mg PO however, will titrate down NPH dose today and tomorrow in anticipation of improved insulin sensitivity. * Prelunch hyperglycemia noted today, will continue aggressive Novolog correction/prandial doses for now in light of current BSG and reduced NPH dose this AM. 11/01 * Matthew received 111 units of insulin yesterday (45 units of NPH, 66 units of Novolog) * Fasting BSG at goal. Continue NPH for steroid induced hyperglycemia. Will decrease dose ~50% due to change in DXM (6 mg IV -> 4 mg Po) * Post prandial BSGs acceptable. Novolog had already been reduced 10/31 PM. Will continue for now PLAN FOR INPATIENT GLYCEMIC CONTROL: * Hold outpatient oral Metformin * Basal insulin: * NPH 20 units SQ daily in AM * 0-10 units HS: (0 units BSG < 180, 8 units BSG 180-220, 10 units BSG > 220) * Bolus insulin: tightened CR * NovoLog per scale ACHS or Q6hrs while NPO * Goal Range: Low 110 mg/dL - High 140 mg/dL * Correction Factor: 12 mg/dL/unit * Nutritional / Prandial insulin per carb ratio of 1 unit per 3 grams CHO consumed PLAN FOR DISCHARGE: * A1c 9.4% - goal <8% * Patient only on Novolog 70/30 - 10 units once daily. Patient could benefit from dosage increase as likely this is not covering full ~24 hr needs. Could consider increasing to Novolog 70/30 - 15 units daily in AM, 10 units daily with dinner. Regimen would likely need adjusted outpatient and titrated as needed. Would ensure patient checking blood sugars at least 2x/day (in AM/PM) and reporting frequent hypo/hyperglycemia to provider * Renal function stable, could continue with metformin and glimepiride on discharge
[2020-11-12] MEDS: ATORVASTATIN 10 MG TAB PO SCH (19:49)
[2020-11-12] MEDS: GABAPENTIN 100 MG CAP PO SCH (19:50)
[2020-11-12] MEDS: MELATONIN 3 MG TAB PO SCH (20:08)
--- NOTE | 2020-11-12 20:44 | Hospitalist Progress Note ---
Date of Service November 12, 2020 Assessment & Plan (1) Pneumonia due to COVID-19 virus: Plan: Severe, with acute hypoxic resp failure and large, ongoing FiO2 requirement. - S/p 5-day course of remdesivir. - Did not meet candidacy for tocilizumab. - S/p 10 days of IV dexamethasone -> Weaned to 2 mg PO daily x 2 more days. Last day on 11/04/2020. - Course complicated by acute diastolic CHF. - Lasix 20 mg IV last given on 11/01. -> remains on 2 L today with good O2 sat. Has more energy. -awaiting placement (2) Tongue ulcer: Plan: Tongue ulcers noted by the patient on 11/06 to me. Looking back, she had actually been on Nystatin for 7 days without improvement. - Stopped Nystatin on 11/06 - Discussed with ENT. Recommend dexamethasone 5 mg / 5 mL swish and spit BID with Magic Mouthwash for symptomatic help. - Given Covid, ENT ask to consult as outpatient after isolation. -> As of 11/08, tongue lesions are definitely improving and causing less pain for her. -Patient reports on 11/12 mild improvement from the day prior. (3) Acute respiratory failure with hypoxia: Plan: 2nd to #1. - Ongoing (4) Acute diastolic (congestive) heart failure: Plan: Last echo in 09/2020 as outpatient - preserved EF. Stable echo this admission with EF 65 - 70%. - Monitor; hold further Lasix for now. (5) Hx of deep venous thrombosis: Plan: No PE on CTA study on 10/20 but was suboptimal study. Had extensive DVT several years ago. Strong family history of VTE - her mother, her daughter, etc. - Dopplers b/l legs neg for DVT during this stay. Repeat CTA chest on 11/03 was negative. -> Continue prophylactic dosing of Lovenox. (6) Bilateral leg pain: Plan: Suspect neuropathy. This is a long-standing issue. TSH wnl. Has had DM for long- time so this could be diabetic polyneuropathy. - Continue gabapentin 200mg PO HS (7) Vitamin B12 deficiency: Plan: B12 level was <200. Started IM injections of B12, 1000mcg daily x 5 doses. - Now on 1000 mcg po daily. (8) DM (diabetes mellitus), type 2 with neurological complications: Plan: Pharmacy assisting with management. A1c was 9.4% this admission. - Cont basal-bolus combo. -> On NPH (She uses this at home, so will continue despite being off steroids.) Sugars generally 190 - 240 in last 24 hours. (9) Hypertension: Plan: BP presently 115/70. - Continue amlodipine, losartan, metoprolol (10) Hyperlipidemia: Plan: - Continue statin (11) Morbid obesity with BMI of 40.0-44.9, adult: Plan: BMI 43 - Noted (12) Chronic kidney disease, stage 3a: Plan: CrCl 50 - 60 mL/min at baseline (Cr ~0.85 - 1.0). - Cr stable at baseline at present. (13) DVT prophylaxis: Plan: Lovenox 40 mg SQ daily Admission and Anticipated Discharge Date Admission Date: October 20, 2020 Subjective Patient reports feeling well. Review of Systems Review of Systems: All systems reviewed & are unremarkable except as noted in HPI & below Physical Exam Physical Exam: Constitutional: WD/WN, vitals as above Eyes: EOM intact bilaterally; no conjunctival abnormality ENMT: external ear and nose normal, oropharynx normal Neck: trachea midline, no thyromegaly normal visual inspection Respiratory: normal respiratory effort, lungs clear to auscultation no respiratory distress, no cough and not tachypneic Cardiovascular: RRR, no murmur, no edema Gastrointestinal (Abdomen): Inspection/Auscultation: abdomen normal to inspection; abdomen not distended Musculoskeletal: no cyanosis or clubbing, extremities motor strength 5/5 Skin: no rashes, warm and dry Neurologic: moves all extremities and awake Psychiatric: Orientation: alert, oriented to person and cooperative Results & Data Results & Data ([facility]) Vital Signs (Past 12 Hours) Vital Signs Temp Pulse Resp BP Pulse Ox 11/12/20 19:45 36.4 C L 63 22 146/72 H 90 11/12/20 16:03 36.5 C 56 L 16 151/96 H 92 PG Care Time/CCT Total # of Minutes Spent Total Time Spent with Patient: Total time spent is greater than 50% in coordination of care (as documented) at patient's floor/unit and/or counseling patient: Coding Level of Care Code 68172 Subseq Hosp Care Lvl 2 Diagnoses Pneumonia due to COVID-19 virus U07.1; J12.82 Tongue ulcer K14.0 Acute respiratory failure with hypoxia J96.01 Acute diastolic (congestive) heart failure I50.31 Hx of deep venous thrombosis Z86.718 Bilateral leg pain M79.604; M79.605 Vitamin B12 deficiency E53.8 DM (diabetes mellitus), type 2 with neurological complications E11.49 Hypertension I10 Hypertension type: essential hypertension Hyperlipidemia E78.5 Morbid obesity with BMI of 40.0-44.9, adult E66.01; Z68.41 Chronic kidney disease, stage 3a N18.31 DVT prophylaxis Z29.9 Time Spent (min) 25 (1) Hypertension Hypertension type: essential hypertension Qualified Code(s): I10 - Essential (primary) hypertension
[2020-11-13] MEDS: CHOLECALCIFEROL 1,000 UNITS 25 MCG TAB PO SCH (08:20)
[2020-11-13] MEDS: THIAMINE HCL 100 MG TAB PO SCH (08:20)
[2020-11-13] MEDS: amLODIPine BESYLATE 5 MG TAB PO SCH (08:21)
[2020-11-13] MEDS: ASPIRIN 81 MG ECTAB PO SCH (08:21)
[2020-11-13] MEDS: LOSARTAN POTASSIUM 50 MG TAB PO SCH (08:21)
[2020-11-13] MEDS: DEXAMETHASONE CONC 1 MG/ML 30 ML PO SCH ×2 (08:22→21:03)
[2020-11-13] MEDS: ENOXAPARIN INJ 40 MG/0.4 ML SYR SQ SCH (08:22)
[2020-11-13] MEDS: CYANOCOBALAMIN 500 MCG TABLET (VITAMIN B-12) PO SCH (08:52)
[2020-11-13] MEDS: SENNA 8.6 MG TAB PO SCH (08:53)
[2020-11-13] MEDS: METOPROLOL TARTRATE 25 MG TAB PO SCH ×2 (08:53→21:00)
[2020-11-13] MEDS: MUPIROCIN 2% OINT 22 GM TUBE EXT SCH ×2 (08:54→21:03)
[2020-11-13] MEDS: NYSTATIN POWDER 15GM BTL EXT SCH ×2 (08:55→21:03)
[2020-11-13] MEDS: INSULIN ASPART 100 UNITS/ML 3 ML PEN SC SCH ×4 (08:57→21:04)
[2020-11-13] MEDS: INSULIN HUMAN NPH SC SCH ×2 (08:59→21:06)
[2020-11-13] MEDS: BENZONATATE 100 MG CAPSULE PO SCH ×3 (09:06→22:10)
[2020-11-13] MEDS: POLYETHYLENE (MIRALAX) 17 GM PACK PO SCH (09:06)
[2020-11-13] MEDS: CARBOHYDRATES FOR HYPOGLYCEMIA PO PRN (17:14)
--- NOTE | 2020-11-13 20:42 | Hospitalist Progress Note ---
Date of Service November 13, 2020 Assessment & Plan (1) Pneumonia due to COVID-19 virus: Plan: Severe, with acute hypoxic resp failure and large, ongoing FiO2 requirement. - S/p 5-day course of remdesivir. - Did not meet candidacy for tocilizumab. - S/p 10 days of IV dexamethasone -> Weaned to 2 mg PO daily x 2 more days. Last day on 11/04/2020. - Course complicated by acute diastolic CHF. - Lasix 20 mg IV last given on 11/01. -> remains on 2-3 L today with good O2 sat. Has more energy. -awaiting placement (2) Tongue ulcer: Plan: Tongue ulcers noted by the patient on 11/06 to me. Looking back, she had actually been on Nystatin for 7 days without improvement. - Stopped Nystatin on 11/06 - Discussed with ENT. Recommend dexamethasone 5 mg / 5 mL swish and spit BID wit h Magic Mouthwash for symptomatic help. - Given Covid, ENT ask to consult as outpatient after isolation. -> As of 11/08, tongue lesions are definitely improving and causing less pain for her. -Patient reports improvement. Not much pain today. (3) Acute respiratory failure with hypoxia: Plan: 2nd to #1. - Ongoing (4) Acute diastolic (congestive) heart failure: Plan: Last echo in 09/2020 as outpatient - preserved EF. Stable echo this admission wi th EF 65 - 70%. - Monitor; hold further Lasix for now. will check BNP in AM. (5) Hx of deep venous thrombosis: Plan: No PE on CTA study on 10/20 but was suboptimal study. Had extensive DVT several years ago. Strong family history of VTE - her mother, her daughter, etc. - Dopplers b/l legs neg for DVT during this stay. Repeat CTA chest on 11/03 was negative. -> Continue prophylactic dosing of Lovenox. (6) Bilateral leg pain: Plan: Suspect neuropathy. This is a long-standing issue. TSH wnl. Has had DM for long- time so this could be diabetic polyneuropathy. - Continue gabapentin 200mg PO HS (7) Vitamin B12 deficiency: Plan: B12 level was <200. Started IM injections of B12, 1000mcg daily x 5 doses. - Now on 1000 mcg po daily. (8) DM (diabetes mellitus), type 2 with neurological complications: Plan: Pharmacy assisting with management. A1c was 9.4% this admission. - Cont basal-bolus combo. -> On NPH (She uses this at home, so will continue despite being off steroids.) Sugars generally 190 - 240 in last 24 hours. (9) Hypertension: Plan: BP presently 115/70. - Continue amlodipine, losartan, metoprolol (10) Hyperlipidemia: Plan: - Continue statin (11) Morbid obesity with BMI of 40.0-44.9, adult: Plan: BMI 43 - Noted (12) Chronic kidney disease, stage 3a: Plan: CrCl 50 - 60 mL/min at baseline (Cr ~0.85 - 1.0). - Cr stable at baseline at present. (13) DVT prophylaxis: Plan: Lovenox 40 mg SQ daily Admission and Anticipated Discharge Date Admission Date: October 20, 2020 Subjective Patient reports no new symptoms. Review of Systems Review of Systems: All systems reviewed & are unremarkable except as noted in HPI & below Physical Exam Physical Exam: Constitutional: WD/WN, vitals as above Eyes: EOM intact bilaterally; no conjunctival abnormality ENMT: external ear and nose normal, oropharynx normal Neck: trachea midline, no thyromegaly normal visual inspection Respiratory: normal respiratory effort, lungs clear to auscultation no respiratory distress, no cough and not tachypneic Cardiovascular: RRR, no murmur, no edema Gastrointestinal (Abdomen): Inspection/Auscultation: abdomen normal to inspection; abdomen not distended Musculoskeletal: no cyanosis or clubbing, extremities motor strength 5/5 Skin: no rashes, warm and dry Neurologic: moves all extremities and awake Psychiatric: Orientation: alert, oriented to person and cooperative Results & Data Results & Data ([facility]) Vital Signs (Past 12 Hours) Vital Signs Temp Pulse Resp BP Pulse Ox 11/13/20 16:45 36.7 C 57 L 16 118/72 97 11/13/20 15:22 95 PG Care Time/CCT Total # of Minutes Spent Total Time Spent with Patient: Total time spent is greater than 50% in coordination of care (as documented) at patient's floor/unit and/or counseling patient: Coding Level of Care Code 23523 Subseq Hosp Care Lvl 2 Diagnoses Pneumonia due to COVID-19 virus U07.1; J12.82 Tongue ulcer K14.0 Acute respiratory failure with hypoxia J96.01 Acute diastolic (congestive) heart failure I50.31 Hx of deep venous thrombosis Z86.718 Bilateral leg pain M79.604; M79.605 Vitamin B12 deficiency E53.8 DM (diabetes mellitus), type 2 with neurological complications E11.49 Hypertension I10 Hypertension type: essential hypertension Hyperlipidemia E78.5 Morbid obesity with BMI of 40.0-44.9, adult E66.01; Z68.41 Chronic kidney disease, stage 3a N18.31 DVT prophylaxis Z29.9 (1) Hypertension Hypertension type: essential hypertension Qualified Code(s): I10 - Essential (primary) hypertension
[2020-11-13] MEDS: GABAPENTIN 100 MG CAP PO SCH (21:02)
[2020-11-13] MEDS: ATORVASTATIN 10 MG TAB PO SCH (21:02)
[2020-11-13] MEDS: MELATONIN 3 MG TAB PO SCH (22:10)
[2020-11-14 06:46] LABS: Hematocrit (blood only) 32.7 % (37-47); Hemoglobin 10.8 g/dL (12.0-16.0); Mean Corpuscular Hemoglobin 29.6 pg (25-34); Mean Corpuscular Volume 89.6 fL (80-100); Mean Platelet Volume 9.9 fL (7.4-10.4); Platelet Count 155 K/uL (130-400); RDW Coefficient of Variation 15.9 % (11.5-14.5); RDW Standard Deviation 50.8 fL (36.4-46.3); Red Blood Count 3.65 M/uL (4.2-5.4); White Blood Count 5.85 K/uL (4.8-10.8)
[2020-11-14 07:19] LABS: BUN Creatinine Ratio 35.9 (10-20); Creatinine Clr Calc Pharmacy 69.9 ml/min; Est GFR (Non-African American) 73.4 ml/min
[2020-11-14] MEDS: ENOXAPARIN INJ 40 MG/0.4 ML SYR SQ SCH (09:32)
[2020-11-14] MEDS: THIAMINE HCL 100 MG TAB PO SCH (09:33)
[2020-11-14] MEDS: amLODIPine BESYLATE 5 MG TAB PO SCH (09:33)
[2020-11-14] MEDS: CYANOCOBALAMIN 500 MCG TABLET (VITAMIN B-12) PO SCH (09:33)
[2020-11-14] MEDS: SENNA 8.6 MG TAB PO SCH (09:33)
[2020-11-14] MEDS: CHOLECALCIFEROL 1,000 UNITS 25 MCG TAB PO SCH (09:33)
[2020-11-14] MEDS: ASPIRIN 81 MG ECTAB PO SCH (09:34)
[2020-11-14] MEDS: LOSARTAN POTASSIUM 50 MG TAB PO SCH (09:34)
[2020-11-14] MEDS: METOPROLOL TARTRATE 25 MG TAB PO SCH ×2 (09:34→20:54)
[2020-11-14] MEDS: NYSTATIN POWDER 15GM BTL EXT SCH ×2 (09:35→20:53)
[2020-11-14] MEDS: DEXAMETHASONE CONC 1 MG/ML 30 ML PO SCH ×3 (09:37→20:55)
[2020-11-14] MEDS: MUPIROCIN 2% OINT 22 GM TUBE EXT SCH ×2 (09:38→20:54)
[2020-11-14] MEDS: INSULIN HUMAN NPH SC SCH ×2 (09:40→20:52)
[2020-11-14] MEDS: INSULIN ASPART 100 UNITS/ML 3 ML PEN SC SCH ×4 (09:42→20:56)
[2020-11-14] MEDS: BENZONATATE 100 MG CAPSULE PO SCH ×3 (09:44→20:55)
[2020-11-14] MEDS: POLYETHYLENE (MIRALAX) 17 GM PACK PO SCH (09:51)
--- NOTE | 2020-11-14 20:36 | Hospitalist Progress Note ---
Date of Service November 14, 2020 Assessment & Plan (1) Pneumonia due to COVID-19 virus: Plan: Severe, with acute hypoxic resp failure and large, ongoing FiO2 requirement. - S/p 5-day course of remdesivir. - Did not meet candidacy for tocilizumab. - S/p 10 days of IV dexamethasone -> Weaned to 2 mg PO daily x 2 more days. Last day on 11/04/2020. - Course complicated by acute diastolic CHF. - Lasix 20 mg IV last given on 11/01. -> remains on 2 L today with good O2 sat. Has more energy. -awaiting placement (2) Tongue ulcer: Plan: Tongue ulcers noted by the patient on 11/06 to me. Looking back, she had actually been on Nystatin for 7 days without improvement. - Stopped Nystatin on 11/06 - Discussed with ENT. Recommend dexamethasone 5 mg / 5 mL swish and spit BID with Magic Mouthwash for symptomatic help. - Given Covid, ENT ask to consult as outpatient after isolation. -> As of 11/08, tongue lesions are definitely improving and causing less pain for her. -Patient reports improvement. Not much pain today. (3) Acute respiratory failure with hypoxia: Plan: 2nd to #1. - Ongoing (4) Acute diastolic (congestive) heart failure: Plan: Last echo in 09/2020 as outpatient - preserved EF. Stable echo this admission with EF 65 - 70%. - Monitor; hold further Lasix for now. will check BNP in AM. (5) Hx of deep venous thrombosis: Plan: No PE on CTA study on 10/20 but was suboptimal study. Had extensive DVT several years ago. Strong family history of VTE - her mother, her daughter, etc. - Dopplers b/l legs neg for DVT during this stay. Repeat CTA chest on 11/03 was negative. -> Continue prophylactic dosing of Lovenox. (6) Bilateral leg pain: Plan: Suspect neuropathy. This is a long-standing issue. TSH wnl. Has had DM for long- time so this could be diabetic polyneuropathy. - Continue gabapentin 200mg PO HS (7) Vitamin B12 deficiency: Plan: B12 level was <200. Started IM injections of B12, 1000mcg daily x 5 doses. - Now on 1000 mcg po daily. (8) DM (diabetes mellitus), type 2 with neurological complications: Plan: Pharmacy assisting with management. A1c was 9.4% this admission. - Cont basal-bolus combo. -> On NPH (She uses this at home, so will continue despite being off steroids.) Sugars generally 190 - 240 in last 24 hours. (9) Hypertension: Plan: BP presently 115/70. - Continue amlodipine, losartan, metoprolol (10) Hyperlipidemia: Plan: - Continue statin (11) Morbid obesity with BMI of 40.0-44.9, adult: Plan: BMI 43 - Noted (12) Chronic kidney disease, stage 3a: Plan: CrCl 50 - 60 mL/min at baseline (Cr ~0.85 - 1.0). - Cr stable at baseline at present. (13) DVT prophylaxis: Plan: Lovenox 40 mg SQ daily Admission and Anticipated Discharge Date Admission Date: October 20, 2020 Subjective 85 yo female reports no new symptoms. Review of Systems Review of Systems: All systems reviewed & are unremarkable except as noted in HPI & below Physical Exam Physical Exam: Constitutional: WD/WN, vitals as above Eyes: EOM intact bilaterally; no conjunctival abnormality ENMT: external ear and nose normal, oropharynx normal Neck: trachea midline, no thyromegaly normal visual inspection Respiratory: normal respiratory effort, lungs clear to auscultation no respiratory distress, no cough and not tachypneic Cardiovascular: RRR, no murmur, no edema Gastrointestinal (Abdomen): Inspection/Auscultation: abdomen normal to inspection; abdomen not distended Musculoskeletal: no cyanosis or clubbing, extremities motor strength 5/5 Skin: no rashes, warm and dry Neurologic: moves all extremities and awake Psychiatric: Orientation: alert, oriented to person and cooperative Results & Data Results & Data ([facility]) Vital Signs (Past 12 Hours) Vital Signs Temp Pulse Resp BP Pulse Ox 11/14/20 14:41 36.8 C 71 22 106/60 91 PG Care Time/CCT Total # of Minutes Spent Total Time Spent with Patient: Total time spent is greater than 50% in coordination of care (as documented) at patient's floor/unit and/or counseling patient: Coding Level of Care Code 31341 Subseq Hosp Care Lvl 1 Diagnoses Pneumonia due to COVID-19 virus U07.1; J12.82 Tongue ulcer K14.0 Acute respiratory failure with hypoxia J96.01 Acute diastolic (congestive) heart failure I50.31 Hx of deep venous thrombosis Z86.718 Bilateral leg pain M79.604; M79.605 Vitamin B12 deficiency E53.8 DM (diabetes mellitus), type 2 with neurological complications E11.49 Hypertension I10 Hypertension type: essential hypertension Hyperlipidemia E78.5 Morbid obesity with BMI of 40.0-44.9, adult E66.01; Z68.41 Chronic kidney disease, stage 3a N18.31 DVT prophylaxis Z29.9 (1) Hypertension Hypertension type: essential hypertension Qualified Code(s): I10 - Essential (primary) hypertension
[2020-11-14] MEDS: MELATONIN 3 MG TAB PO SCH (20:53)
[2020-11-14] MEDS: ATORVASTATIN 10 MG TAB PO SCH (20:55)
[2020-11-14] MEDS: GABAPENTIN 100 MG CAP PO SCH (20:55)
[2020-11-15] MEDS: METOPROLOL TARTRATE 25 MG TAB PO SCH ×2 (09:19→21:35)
[2020-11-15] MEDS: ASPIRIN 81 MG ECTAB PO SCH (09:26)
[2020-11-15] MEDS: SENNA 8.6 MG TAB PO SCH (09:26)
[2020-11-15] MEDS: DEXAMETHASONE CONC 1 MG/ML 30 ML PO SCH ×2 (09:27→21:35)
[2020-11-15] MEDS: LOSARTAN POTASSIUM 50 MG TAB PO SCH (09:27)
[2020-11-15] MEDS: CHOLECALCIFEROL 1,000 UNITS 25 MCG TAB PO SCH (09:28)
[2020-11-15] MEDS: amLODIPine BESYLATE 5 MG TAB PO SCH (09:28)
[2020-11-15] MEDS: MUPIROCIN 2% OINT 22 GM TUBE EXT SCH ×2 (09:29→21:36)
[2020-11-15] MEDS: NYSTATIN POWDER 15GM BTL EXT SCH ×2 (09:29→21:36)
[2020-11-15] MEDS: CYANOCOBALAMIN 500 MCG TABLET (VITAMIN B-12) PO SCH (09:29)
[2020-11-15] MEDS: THIAMINE HCL 100 MG TAB PO SCH (09:29)
[2020-11-15] MEDS: ENOXAPARIN INJ 40 MG/0.4 ML SYR SQ SCH (09:30)
[2020-11-15] MEDS: BENZONATATE 100 MG CAPSULE PO SCH ×3 (09:31→21:35)
[2020-11-15] MEDS: INSULIN ASPART 100 UNITS/ML 3 ML PEN SC SCH ×4 (09:44→21:31)
[2020-11-15] MEDS: INSULIN HUMAN NPH SC SCH (09:45)
[2020-11-15] MEDS: POLYETHYLENE (MIRALAX) 17 GM PACK PO SCH (09:57)
--- NOTE | 2020-11-15 10:58 | Pharmacy Report ---
Pharmacy Glycemic Short Note 2 - Date of Service November 15, 2020 - Glycemic Short BSG Results (Last 24 hours): 11/14/20 11/14/20 11/14/20 12:10 17:26 20:43 POC Glucose 172 H 74 128 H 11/15/20 11/15/20 08:22 08:22 POC Glucose 69 L* 71 OUTPATIENT ANTIDIABETIC REGIMEN: * Novolog 70/30, 10 units SC daily * Metformin 1000 mg PO BIDM * Glimepiride 2 mg PO daily * HbA1c: 10.1% (08/11/20) ASSESSMENT: 11/15 * Pt has received 80 units of insulin over the past 24hrs * 28 units of basal with NPH * 52 units of bolus with NovoLog * AM fasting BSG low at 69/71 this morning. Will DC PM dose of NPH to prevent LOW tomorrow * Pre-lunch trends the highest BSG of the day but then BSGs trend downwards throughout the day. Will keep CR tight at Breakfast and loosen CF/CR for lunch, dinner, HS to maintain BSGs > 100 11/12: * Patient received total 93 units of insulin yesterday; 28 units basal + 65 units bolus. * Fasting BSG today was 141 mg/dl. Continued current basal NPH dosing BID (HS dose is a scale based on BSG). * Pre-lunch BSG yesterday was elevated at 253. Novolog CR was tightened. Since then BSGs have been 88 at dinner and 197 at HS. Continue today with same parameters as yesterday. 11/10 * Patient received total of 65 units of insulin yesterday, of which 20 units were NPH * Fasting BSG 148 mg/dL - continue same NPH scale * Continue same cf/cr 11/06 * Patient received total of 54 units of insulin yesterday, of which 20 units were NPH * Fasting BSG 99 mg/dL - continue same NPH * Plan to tighten CR 11/04 * All BSGs > 180 yesterday after dex given. Will increase NPH and tighten CR * Last day of dex therapy today- BSGs should improve tomorrow without steroids. Will empiricaly reduce NPH tomorrow (continue with NPH rather than Lantus since patient is on NPH as an outpatient) 11/03 * Dexamethasone tapered from 4mg PO daily to 2mg PO daily. Should yield an improvement in BSGs with step down in steroid dosing. * Will decrease CF/CR insulin parameters for decrease in steroids 11/01 * Matthew received 111 units of insulin yesterday (45 units of NPH, 66 units of Novolog) * Fasting BSG at goal. Continue NPH for steroid induced hyperglycemia. Will decrease dose ~50% due to change in DXM (6 mg IV -> 4 mg Po) * Post prandial BSGs acceptable. Novolog had already been reduced 10/31 PM. Will continue for now PLAN FOR INPATIENT GLYCEMIC CONTROL: * Hold outpatient oral Metformin * Basal insulin: * NPH 20 units SQ daily in AM * DC HS dose of NPH * Bolus insulin: tightened CR * NovoLog per scale ACHS or Q6hrs while NPO * Goal Range: Low 100 mg/dL - High 140 mg/dL * Correction Factor: 20 mg/dL/uni5 * Nutritional / Prandial insulin per carb ratio of 1 unit per 3 grams CHO consumed at breakfast ONLY, loosen to carb ratio = 4 for all other meals PLAN FOR DISCHARGE: * A1c 9.4% - goal <8% * Patient only on Novolog 70/30 - 10 units once daily. Patient could benefit from dosage increase as likely this is not covering full ~24 hr needs. Could consider increasing to Novolog 70/30 - 15 units daily in AM, 10 units daily with dinner. Regimen would likely need adjusted outpatient and titrated as needed. Would ensure patient checking blood sugars at least 2x/day (in AM/PM) and reporting frequent hypo/hyperglycemia to provider * Renal function stable, could continue with metformin and glimepiride on discharge
[2020-11-15] MEDS: CARBOHYDRATES FOR HYPOGLYCEMIA PO PRN (17:30)
--- NOTE | 2020-11-15 20:08 | Hospitalist Progress Note ---
Date of Service November 15, 2020 Assessment & Plan (1) Pneumonia due to COVID-19 virus: Plan: Severe, with acute hypoxic resp failure and large, ongoing FiO2 requirement. - S/p 5-day course of remdesivir. - Did not meet candidacy for tocilizumab. - S/p 10 days of IV dexamethasone -> Weaned to 2 mg PO daily x 2 more days. Last day on 11/04/2020. - Course complicated by acute diastolic CHF. - Lasix 20 mg IV last given on 11/01. -> remains on 2 L today with good O2 sat. Has more energy. -awaiting placement (2) Tongue ulcer: Plan: Tongue ulcers noted by the patient on 11/06 to me. Looking back, she had actually been on Nystatin for 7 days without improvement. - Stopped Nystatin on 11/06 - Discussed with ENT. Recommend dexamethasone 5 mg / 5 mL swish and spit BID with Magic Mouthwash for symptomatic help. - Given Covid, ENT ask to consult as outpatient after isolation. -> As of 11/08, tongue lesions are definitely improving and causing less pain for her. -Patient reports improvement. Not much pain today. (3) Acute respiratory failure with hypoxia: Plan: 2nd to #1. - Ongoing (4) Acute diastolic (congestive) heart failure: Plan: Last echo in 09/2020 as outpatient - preserved EF. Stable echo this admission with EF 65 - 70%. - Monitor; hold further Lasix for now. will check BNP in AM. (5) Hx of deep venous thrombosis: Plan: No PE on CTA study on 10/20 but was suboptimal study. Had extensive DVT several years ago. Strong family history of VTE - her mother, her daughter, etc. - Dopplers b/l legs neg for DVT during this stay. Repeat CTA chest on 11/03 was negative. -> Continue prophylactic dosing of Lovenox. (6) Bilateral leg pain: Plan: Suspect neuropathy. This is a long-standing issue. TSH wnl. Has had DM for long- time so this could be diabetic polyneuropathy. - Continue gabapentin 200mg PO HS (7) Vitamin B12 deficiency: Plan: B12 level was <200. Started IM injections of B12, 1000mcg daily x 5 doses. - Now on 1000 mcg po daily. (8) DM (diabetes mellitus), type 2 with neurological complications: Plan: Pharmacy assisting with management. A1c was 9.4% this admission. - Cont basal-bolus combo. -> On NPH (She uses this at home, so will continue despite being off steroids.) Sugars generally 190 - 240 in last 24 hours. (9) Hypertension: Plan: BP presently 115/70. - Continue amlodipine, losartan, metoprolol (10) Hyperlipidemia: Plan: - Continue statin (11) Morbid obesity with BMI of 40.0-44.9, adult: Plan: BMI 43 - Noted (12) Chronic kidney disease, stage 3a: Plan: CrCl 50 - 60 mL/min at baseline (Cr ~0.85 - 1.0). - Cr stable at baseline at present. (13) DVT prophylaxis: Plan: Lovenox 40 mg SQ daily Admission and Anticipated Discharge Date Admission Date: October 20, 2020 Subjective Patient reports no new symptoms. Review of Systems Review of Systems: All systems reviewed & are unremarkable except as noted in HPI & below Physical Exam Physical Exam: Constitutional: WD/WN, vitals as above Eyes: EOM intact bilaterally; no conjunctival abnormality ENMT: external ear and nose normal, oropharynx normal Neck: trachea midline, no thyromegaly normal visual inspection Respiratory: normal respiratory effort, lungs clear to auscultation no respiratory distress, no cough and not tachypneic Cardiovascular: RRR, no murmur, no edema Gastrointestinal (Abdomen): Inspection/Auscultation: abdomen normal to inspection; abdomen not distended Musculoskeletal: no cyanosis or clubbing, extremities motor strength 5/5 Skin: no rashes, warm and dry Neurologic: moves all extremities and awake Psychiatric: Orientation: alert, oriented to person and cooperative Results & Data Results & Data ([facility]) Vital Signs (Past 12 Hours) Vital Signs Temp Pulse Resp BP Pulse Ox 11/15/20 14:25 36.8 C 84 18 146/76 H 94 PG Care Time/CCT Total # of Minutes Spent Total Time Spent with Patient: Total time spent is greater than 50% in coordination of care (as documented) at patient's floor/unit and/or counseling patient: Coding Level of Care Code 71461 Subseq Hosp Care Lvl 2 Diagnoses Pneumonia due to COVID-19 virus U07.1; J12.82 Tongue ulcer K14.0 Acute respiratory failure with hypoxia J96.01 Acute diastolic (congestive) heart failure I50.31 Hx of deep venous thrombosis Z86.718 Bilateral leg pain M79.604; M79.605 Vitamin B12 deficiency E53.8 DM (diabetes mellitus), type 2 with neurological complications E11.49 Hypertension I10 Hypertension type: essential hypertension Hyperlipidemia E78.5 Morbid obesity with BMI of 40.0-44.9, adult E66.01; Z68.41 Chronic kidney disease, stage 3a N18.31 DVT prophylaxis Z29.9 Time Spent (min) 25 (1) Hypertension Hypertension type: essential hypertension Qualified Code(s): I10 - Essential (primary) hypertension
[2020-11-15] MEDS: ATORVASTATIN 10 MG TAB PO SCH (21:35)
[2020-11-15] MEDS: GABAPENTIN 100 MG CAP PO SCH (21:37)
[2020-11-15] MEDS: MELATONIN 3 MG TAB PO SCH (21:39)
[2020-11-16 06:34] LABS: Hematocrit (blood only) 33.1 % (37-47); Hemoglobin 11.1 g/dL (12.0-16.0); Mean Corpuscular Hemoglobin 30.6 pg (25-34); Mean Corpuscular Hgb Conc 33.5 g/dL (32-36); Mean Corpuscular Volume 91.2 fL (80-100); Mean Platelet Volume 9.9 fL (7.4-10.4); Platelet Count 164 K/uL (130-400); RDW Coefficient of Variation 16.4 % (11.5-14.5); RDW Standard Deviation 53.8 fL (36.4-46.3); Red Blood Count 3.63 M/uL (4.2-5.4); White Blood Count 4.25 K/uL (4.8-10.8)
[2020-11-16 06:56] LABS: BUN Creatinine Ratio 30.7 (10-20); Creatinine Clr Calc Pharmacy 70.9 ml/min; Est GFR (African American) 86.4 ml/min; Est GFR (Non-African American) 74.6 ml/min; Potassium 4.6 mmol/L (3.5-5.1)
[2020-11-16] MEDS: BENZONATATE 100 MG CAPSULE PO SCH ×3 (08:58→20:47)
[2020-11-16] MEDS: ENOXAPARIN INJ 40 MG/0.4 ML SYR SQ SCH (09:01)
[2020-11-16] MEDS: ASPIRIN 81 MG ECTAB PO SCH (09:02)
[2020-11-16] MEDS: SENNA 8.6 MG TAB PO SCH (09:02)
[2020-11-16] MEDS: METOPROLOL TARTRATE 25 MG TAB PO SCH ×2 (09:02→21:10)
[2020-11-16] MEDS: THIAMINE HCL 100 MG TAB PO SCH (09:02)
[2020-11-16] MEDS: LOSARTAN POTASSIUM 50 MG TAB PO SCH (09:03)
[2020-11-16] MEDS: CYANOCOBALAMIN 500 MCG TABLET (VITAMIN B-12) PO SCH (09:03)
[2020-11-16] MEDS: CHOLECALCIFEROL 1,000 UNITS 25 MCG TAB PO SCH (09:03)
[2020-11-16] MEDS: NYSTATIN POWDER 15GM BTL EXT SCH ×2 (09:04→21:11)
[2020-11-16] MEDS: DEXAMETHASONE CONC 1 MG/ML 30 ML PO SCH ×2 (09:04→09:11)
[2020-11-16] MEDS: MUPIROCIN 2% OINT 22 GM TUBE EXT SCH ×2 (09:04→21:11)
[2020-11-16] MEDS: amLODIPine BESYLATE 5 MG TAB PO SCH (09:04)
[2020-11-16] MEDS: INSULIN ASPART 100 UNITS/ML 3 ML PEN SC SCH ×4 (09:05→20:58)
[2020-11-16] MEDS: INSULIN HUMAN NPH SC SCH (09:06)
[2020-11-16] MEDS: POLYETHYLENE (MIRALAX) 17 GM PACK PO SCH (09:13)
[2020-11-16] MEDS ORDERED: DEXAMETHASONE CONC 1 MG/ML 30 ML PO PRN (14:45)
--- NOTE | 2020-11-16 14:51 | Pharmacy Report ---
Pharmacy Glycemic Short Note 2 - Date of Service November 16, 2020 - Glycemic Short BSG Results (Last 24 hours): 11/15/20 11/15/20 11/15/20 17:23 17:24 17:43 Glucose POC Glucose 60 L* 62 L* 82 11/15/20 11/16/20 11/16/20 21:10 05:47 08:20 Glucose 163 H POC Glucose 193 H 160 H 11/16/20 12:13 Glucose POC Glucose 113 H OUTPATIENT ANTIDIABETIC REGIMEN: * Novolog 70/30, 10 units SC daily * Metformin 1000 mg PO BIDM * Glimepiride 2 mg PO daily * HbA1c: 10.1% (08/11/20) ASSESSMENT: 11/16/20: * Pt had an episode of symptomatic hypoglycemia yesterday evening. * Novolog parameters adjusted to provide significantly less carb coverage, in an attempt to avoid further episodes of hypoglycemia. * DXM swish/spit has been switched to PRN, as pt has been refusing doses. * Will continue to follow and adjust further if needed. 11/15 * Pt has received 80 units of insulin over the past 24hrs * 28 units of basal with NPH * 52 units of bolus with NovoLog * AM fasting BSG low at 69/71 this morning. Will DC PM dose of NPH to prevent LOW tomorrow * Pre-lunch trends the highest BSG of the day but then BSGs trend downwards throughout the day. Will keep CR tight at Breakfast and loosen CF/CR for lunch, dinner, HS to maintain BSGs > 100 PLAN FOR INPATIENT GLYCEMIC CONTROL: * Hold outpatient oral Metformin * Basal insulin: * NPH 20 units SQ daily in AM * Bolus insulin: tightened CR * NovoLog per scale ACHS or Q6hrs while NPO * Goal Range: Low 100 mg/dL - High 140 mg/dL * Correction Factor: 20 mg/dL/uni5 * Nutritional / Prandial insulin per carb ratio of 1 unit per 3 grams CHO consumed at breakfast ONLY, loosen to carb ratio 1:6 for all other meals PLAN FOR DISCHARGE: * A1c 9.4% - goal <8% * Patient only on Novolog 70/30 - 10 units once daily. Patient could benefit from dosage increase as likely this is not covering full ~24 hr needs. Could consider increasing to Novolog 70/30 - 15 units daily in AM, 10 units daily with dinner. Regimen would likely need adjusted outpatient and titrated as needed. Would ensure patient checking blood sugars at least 2x/day (in AM/PM) and reporting frequent hypo/hyperglycemia to provider * Renal function stable, could continue with metformin and glimepiride on discharge
[2020-11-16] MEDS: CARBOHYDRATES FOR HYPOGLYCEMIA PO PRN (16:54)
--- NOTE | 2020-11-16 17:05 | Hospitalist Progress Note ---
Date of Service November 16, 2020 Assessment & Plan (1) Debility: Plan: -PT/OT on board. Recommending inpatient/short-term rehab for which patient is agreeable -Case management on board -Patient medically stable for discharge once a bed becomes available (2) Pneumonia due to COVID-19 virus: Plan: Admitted 10/20 severe with associated hypoxic respiratory failure requiring high flow nasal cannula - S/p 5-day course of remdesivir. - Did not meet candidacy for tocilizumab. - S/p 10 days of IV dexamethasone -> Weaned to 2 mg PO daily x 2 more days. stopped on 11/04/2020. - Intermittent Lasix trials for superimposed pulmonary vascular congestion - Overall doing well. Supplemental oxygen has been slowly down titrated and she is currently 99% on 2 L. Staff encouraged to down titrate/stop supplemental oxygen to maintain a pulse ox is 92% - Big issue now is general decline/deconditioned state from lengthy hospitalization. PT/OT on board and recommending inpatient rehab for which patient is agreeable - case management on board. Awaiting placement. (3) Tongue ulcer: Plan: Tongue ulcers noted by the patient on 11/06. - Looking back, she had actually been on Nystatin for 7 days without improvement . - Stopped Nystatin on 11/06 - case Discussed with ENT. Recommend dexamethasone 5 mg / 5 mL swish and spit BID with Magic Mouthwash for symptomatic help. - ulcers likely related to Covid - ulcers has since resolved (4) Acute diastolic (congestive) heart failure: Plan: Last echo in 09/2020 as outpatient - preserved EF. Stable echo this admission with EF 65 - 70%. - multiple doses IV lasix while in house - does take routine lasix which has been on hold. Will resume this (5) Hx of deep venous thrombosis: Plan: No PE on CTA study on 10/20 but was suboptimal study. Had extensive DVT several years ago. Strong family history of VTE - her mother, her daughter, etc. - Dopplers b/l legs neg for DVT during this stay. Repeat CTA chest on 11/03 was negative. -> Continue prophylactic dosing of Lovenox. (6) Bilateral leg pain: Plan: Suspect neuropathy. This is a long-standing issue. TSH wnl. Has had DM for long- time so this could be diabetic polyneuropathy. - Continue gabapentin 200mg PO HS. Leg pain better with addition of this (7) Vitamin B12 deficiency: Plan: B12 level was <200. Started IM injections of B12, 1000mcg daily x 5 doses. - Now on 1000 mcg po daily. - could have been contributing to leg pain (8) DM (diabetes mellitus), type 2 with neurological complications: Plan: Pharmacy assisting with management. A1c was 9.4% this admission. - Cont basal-bolus combo. -> On NPH (She uses this at home, so will continue despite being off steroids.) (9) Hypertension: Plan: BP presently controlled - Continue amlodipine, losartan, metoprolol (10) Hyperlipidemia: Plan: - Continue statin (11) Morbid obesity with BMI of 40.0-44.9, adult: Plan: BMI 43 - Noted (12) Chronic kidney disease, stage 3a: Plan: CrCl 50 - 60 mL/min at baseline (Cr ~0.85 - 1.0). - Cr stable at baseline at present. (13) DVT prophylaxis: Plan: Lovenox 40 mg SQ daily Plan: -At this point, patient has mostly recovered from Covid with pneumonia. Staff encouraged to take her off/down titrate supplemental oxygen to maintain a pulse ox of 92%. Unfortunately, she has become extremely debilitated/deconditioned from her lengthy hospitalization and requires inpatient rehabilitation. Case management on board. Patient is medically and hemodynamically stable once a bed becomes available at the facility. Multiple referrals out to multiple different facilities. Admission and Anticipated Discharge Date Admission Date: October 20, 2020 Subjective Patient seen on daily rounds today. Other than weakness, vocalizes no significant complaints or concerns. Hospitalized 10/20 with Covid pneumonia. Completed remdesivir and Decadron along with intermittent Lasix trials. Was requiring high flow nasal cannula at 40 L at one point. Currently on 2 L and pulse ox is 99%. Overall, she vocalizes no complaints. Denies fevers, chills, chest pain, shortness of breath, orthopnea, PND, abdominal pain, nausea or vomiting. From a medical standpoint, she is stable for discharge just awaiting placement. Has been in the hospital and is debilitated so requires inpatient rehab. Review of Systems Review of Systems: All systems reviewed and are unremarkable except as noted in HPI and below Denies fevers, chills, headache, nasal congestion, sore throat, cough, chest pain, shortness of breath, palpitations, orthopnea, PND, abdominal pain, nausea, vomiting, diarrhea, constipation, dysuria, hematuria, frequency, back pain, joint pain or swelling, easy bruising or bleeding, skin lesions or rashes. Physical Exam Physical Exam: General: Resting comfortably in her hospital bed. Does not appear ill or toxic. NAD. HEENT: Head is AT/NC buccal mucosa is moist and pink Neck: No JVD. Negative hepatojugular reflex Cardiac: RRR but distant Lungs: CTA without W/R/R Abdomen: Normoactive X4. Soft and nontender in all quadrants. Extremities: + Adiposity without true pitting edema Neuro: A&O X4 cranial nerves II through XII are grossly intact no focal neuro deficits Skin: No obvious skin lesions or rashes Psych: Appropriate affect pleasant and cooperative Results & Data Results & Data ([facility]) Vital Signs (Past 12 Hours) Vital Signs Temp Pulse Pulse Resp BP BP Pulse Ox 11/16/20 16:18 36.7 C 71 16 118/66 94 11/16/20 07:26 36.4 C L 62 16 115/72 99 Laboratory Results 11/16/20 05:47 11/16/20 05:47 PG Care Time/CCT Total # of Minutes Spent Total Time Spent with Patient: Total time spent is greater than 50% in coordination of care (as documented) at patient's floor/unit and/or counseling patient: [place] [address] Subseq Hosp Care Lvl 2 Patient Type Established History Expanded Problem Focused Exam Expanded Problem Focused Medical Decision Making Low Complexity Diagnoses Pneumonia due to COVID-19 virus U07.1; J12.82 Tongue ulcer K14.0 Acute diastolic (congestive) heart failure I50.31 Hx of deep venous thrombosis Z86.718 Bilateral leg pain M79.604; M79.605 Vitamin B12 deficiency E53.8 DM (diabetes mellitus), type 2 with neurological complications E11.49 Hypertension I10 Hypertension type: essential hypertension Hyperlipidemia E78.5 Morbid obesity with BMI of 40.0-44.9, adult E66.01; Z68.41 Chronic kidney disease, stage 3a N18.31 DVT prophylaxis Z29.9 Debility R53.81 (1) Hypertension Hypertension type: essential hypertension Qualified Code(s): I10 - Essential (primary) hypertension
[2020-11-16] MEDS: ATORVASTATIN 10 MG TAB PO SCH (21:10)
[2020-11-16] MEDS: GABAPENTIN 100 MG CAP PO SCH (21:10)
[2020-11-16] MEDS: MELATONIN 3 MG TAB PO SCH (21:10)
[2020-11-17] MEDS: LOSARTAN POTASSIUM 50 MG TAB PO SCH (08:40)
[2020-11-17] MEDS: CYANOCOBALAMIN 500 MCG TABLET (VITAMIN B-12) PO SCH (08:40)
[2020-11-17] MEDS: ENOXAPARIN INJ 40 MG/0.4 ML SYR SQ SCH (08:40)
[2020-11-17] MEDS: FUROSEMIDE 20 MG TAB PO SCH (08:41)
[2020-11-17] MEDS: amLODIPine BESYLATE 5 MG TAB PO SCH (08:41)
[2020-11-17] MEDS: ASPIRIN 81 MG ECTAB PO SCH (08:41)
[2020-11-17] MEDS: THIAMINE HCL 100 MG TAB PO SCH (08:41)
[2020-11-17] MEDS: BENZONATATE 100 MG CAPSULE PO SCH ×4 (08:41→20:45)
[2020-11-17] MEDS: METOPROLOL TARTRATE 25 MG TAB PO SCH ×2 (08:41→20:47)
[2020-11-17] MEDS: CHOLECALCIFEROL 1,000 UNITS 25 MCG TAB PO SCH (08:41)
[2020-11-17] MEDS: MUPIROCIN 2% OINT 22 GM TUBE EXT SCH ×2 (08:42→20:47)
[2020-11-17] MEDS: NYSTATIN POWDER 15GM BTL EXT SCH ×2 (08:42→20:47)
[2020-11-17] MEDS: SENNA 8.6 MG TAB PO SCH (08:42)
[2020-11-17] MEDS: POLYETHYLENE (MIRALAX) 17 GM PACK PO SCH (08:42)
[2020-11-17] MEDS ORDERED: INSULIN HUMAN NPH SC SCH (09:00)
[2020-11-17] MEDS: INSULIN ASPART 100 UNITS/ML 3 ML PEN SC SCH ×4 (09:02→20:49)
--- NOTE | 2020-11-17 16:16 | Hospitalist Progress Note ---
Date of Service November 17, 2020 Assessment & Plan (1) Debility: Plan: -From lengthy hospitalization (admitted 10/20) -PT/OT on board. Recommending inpatient/short-term rehab for which patient is agreeable -Case management on board -Patient medically stable for discharge once a bed becomes available (2) Pneumonia due to COVID-19 virus: Plan: Admitted 10/20 severe with associated hypoxic respiratory failure requiring high flow nasal cannula - S/p 5-day course of remdesivir. - Did not meet candidacy for tocilizumab. - S/p 10 days of IV dexamethasone -> Weaned to 2 mg PO daily x 2 more days. stopped on 11/04/2020. - Intermittent Lasix trials for superimposed pulmonary vascular congestion - Overall doing well. Supplemental oxygen has been slowly down titrated and she is currently 99% on RA. - May need supplemental oxygen with ambulation. Staff encouraged to utilize supplemental oxygen to maintain a pulse ox of 92% - Big issue now is general decline/deconditioned state from lengthy hospitalization. PT/OT on board and recommending inpatient rehab for which patient is agreeable - case management on board. Awaiting placement. (3) Tongue ulcer: Plan: Tongue ulcers noted by the patient on 11/06. - Looking back, she had actually been on Nystatin for 7 days without improvement. - Stopped Nystatin on 11/06 - case Discussed with ENT. Recommend dexamethasone 5 mg / 5 mL swish and spit BID with Magic Mouthwash for symptomatic help. - ulcers likely related to Covid - ulcers has since resolved (4) Acute diastolic (congestive) heart failure: Plan: Last echo in 09/2020 as outpatient - preserved EF. Stable echo this admission with EF 65 - 70%. - multiple doses IV lasix while in house - does take routine lasix which had been on hold. Resumed 11/16 (5) Hx of deep venous thrombosis: Plan: No PE on CTA study on 10/20 but was suboptimal study. Had extensive DVT several years ago. Strong family history of VTE - her mother, her daughter, etc. - Dopplers b/l legs neg for DVT during this stay. Repeat CTA chest on 11/03 was negative. -> Continue prophylactic dosing of Lovenox. (6) Bilateral leg pain: Plan: Suspect neuropathy. This is a long-standing issue. TSH wnl. Has had DM for long- time so this could be diabetic polyneuropathy. - Continue gabapentin 200mg PO HS. Leg pain better with addition of this (7) Vitamin B12 deficiency: Plan: B12 level was <200. Started IM injections of B12, 1000mcg daily x 5 doses. - Now on 1000 mcg po daily. - could have been contributing to leg pain (8) DM (diabetes mellitus), type 2 with neurological complications: Plan: Pharmacy assisting with management. A1c was 9.4% this admission. - Cont basal-bolus combo. -> On NPH (She uses this at home, so will continue despite being off steroids.) (9) Hypertension: Plan: BP presently controlled - Continue amlodipine, losartan, metoprolol (10) Hyperlipidemia: Plan: - Continue statin (11) Morbid obesity with BMI of 40.0-44.9, adult: Plan: BMI 43 - Noted (12) Chronic kidney disease, stage 3a: Plan: CrCl 50 - 60 mL/min at baseline (Cr ~0.85 - 1.0). - Cr stable at baseline at present. (13) DVT prophylaxis: Plan: Lovenox 40 mg SQ daily Plan: Patient is not having constipation but did struggle to have a BM yesterday. She takes a bowel regimen at home. Continue utilizing this while in house. -At this point, patient has mostly recovered from Covid with pneumonia. Unfortunately, she has become extremely debilitated/deconditioned from her lengthy hospitalization and requires inpatient rehabilitation. Case management on board. Patient is medically and hemodynamically stable once a bed becomes available at the facility. Multiple referrals out to multiple different facilities. Told no available beds at present time Admission and Anticipated Discharge Date Admission Date: October 20, 2020 Subjective Patient seen on daily rounds today. Only complaint is asking for something to help regulate her bowels. She typically takes a stool softener daily. Did have a large BM yesterday and got short of breath with this but did not get hypoxic. She was put back on oxygen due to the shortness of breath but her pulse ox never dropped below 91%. Otherwise, she denies fevers, chills, chest pain, shortness of breath, abdominal pain, nausea or vomiting. Review of Systems Review of Systems: Currently in a normal sinus rhythm all systems reviewed and are unremarkable except as noted in HPI and below Denies fevers, chills, headache, nasal congestion, sore throat, cough, chest pain, shortness of breath, palpitations, orthopnea, PND, abdominal pain, nausea, vomiting, diarrhea, constipation, dysuria, hematuria, frequency, back pain, joint pain or swelling, easy bruising or bleeding, skin lesions or rashes. Physical Exam Physical Exam: General: Resting comfortably in her hospital bed. She does not appear ill or toxic. NAD. HEENT: Head is AT/NC buccal mucosa is moist and pink Neck: No JVD. Negative hepatojugular reflex Cardiac: RRR but distant heart sounds Lungs: Speaking full sentences on ambient air. No labored breathing. No accessory muscle use. Diminished breath sounds likely due to habitus without wheezes, rales or rhonchi Abdomen: Normoactive X4. Soft and nontender in all quadrants. Extremities: + Adiposity without true pitting edema Neuro: A&O X4 cranial nerves II through XII are grossly intact no focal neuro deficits Skin: No obvious skin lesions or rashes Psych: Appropriate affect pleasant and cooperative Results & Data Results & Data ([facility]) Vital Signs (Past 12 Hours) Vital Signs Temp Pulse Resp BP Pulse Ox 11/17/20 14:58 37.0 C 81 18 113/68 99 11/17/20 07:40 36.6 C 65 16 112/68 96 Laboratory Results No lab data today PG Care Time/CCT Total # of Minutes Spent Total Time Spent with Patient: Total time spent is greater than 50% in coordination of care (as documented) at patient's floor/unit and/or counseling patient: Coding [place] [address] Subseq Hosp Care Lvl 1 Patient Type Established History Problem Focused Exam Problem Focused Medical Decision Making Straight Forward Diagnoses Debility R53.81 Pneumonia due to COVID-19 virus U07.1; J12.82 Tongue ulcer K14.0 Acute diastolic (congestive) heart failure I50.31 Hx of deep venous thrombosis Z86.718 Bilateral leg pain M79.604; M79.605 Vitamin B12 deficiency E53.8 DM (diabetes mellitus), type 2 with neurological complications E11.49 Hypertension I10 Hypertension type: essential hypertension Hyperlipidemia E78.5 Morbid obesity with BMI of 40.0-44.9, adult E66.01; Z68.41 Chronic kidney disease, stage 3a N18.31 DVT prophylaxis Z29.9 (1) Hypertension Hypertension type: essential hypertension Qualified Code(s): I10 - Essential (primary) hypertension
[2020-11-17] MEDS: MELATONIN 3 MG TAB PO SCH (20:46)
[2020-11-17] MEDS: ATORVASTATIN 10 MG TAB PO SCH (20:46)
[2020-11-17] MEDS: GABAPENTIN 100 MG CAP PO SCH (20:47)
[2020-11-18] MEDS: ASPIRIN 81 MG ECTAB PO SCH (08:24)
[2020-11-18] MEDS: CHOLECALCIFEROL 1,000 UNITS 25 MCG TAB PO SCH (08:24)
[2020-11-18] MEDS: THIAMINE HCL 100 MG TAB PO SCH (08:24)
[2020-11-18] MEDS: METOPROLOL TARTRATE 25 MG TAB PO SCH ×2 (08:24→21:25)
[2020-11-18] MEDS: amLODIPine BESYLATE 5 MG TAB PO SCH (08:24)
[2020-11-18] MEDS: CYANOCOBALAMIN 500 MCG TABLET (VITAMIN B-12) PO SCH (08:24)
[2020-11-18] MEDS: LOSARTAN POTASSIUM 50 MG TAB PO SCH (08:24)
[2020-11-18] MEDS: FUROSEMIDE 20 MG TAB PO SCH (08:24)
[2020-11-18] MEDS: ENOXAPARIN INJ 40 MG/0.4 ML SYR SQ SCH (08:25)
[2020-11-18] MEDS: BENZONATATE 100 MG CAPSULE PO SCH ×3 (08:25→21:24)
[2020-11-18] MEDS: SENNA 8.6 MG TAB PO SCH (08:26)
[2020-11-18] MEDS: NYSTATIN POWDER 15GM BTL EXT SCH ×2 (08:26→21:26)
[2020-11-18] MEDS: MUPIROCIN 2% OINT 22 GM TUBE EXT SCH ×2 (08:26→21:27)
[2020-11-18] MEDS: POLYETHYLENE (MIRALAX) 17 GM PACK PO SCH (08:26)
[2020-11-18] MEDS ORDERED: INSULIN GLARGINE SOLOSTAR 100 UNITS/ML 3 ML PEN SC SCH (09:00)
[2020-11-18] MEDS: INSULIN ASPART 100 UNITS/ML 3 ML PEN SC SCH ×4 (10:01→21:28)
--- NOTE | 2020-11-18 13:53 | Pharmacy Report ---
Pharmacy Glycemic Short Note 2 - Date of Service November 18, 2020 - Glycemic Short BSG Results (Last 24 hours): 11/17/20 11/17/20 11/18/20 16:47 20:37 07:50 POC Glucose 141 H 250 H 158 H 11/18/20 12:00 POC Glucose 228 H OUTPATIENT ANTIDIABETIC REGIMEN: * Novolog 70/30, 10 units SC daily * Metformin 1000 mg PO BIDM * Glimepiride 2 mg PO daily * HbA1c: 10.1% (08/11/20) ASSESSMENT: 11/18/20: * Evening BSG was much more reasonable last evening (141mg/dL). * Due to patient's BSG trends of hyperglycemia at HS and hypoglycemia at dinnertime, will trial switching from NPH to Lantus daily. This will el iminate the "peak" from NPH in the evening, and should provide more continual coverage to help control BSGs all day (through HS). * Novolog parameters tightened slightly this morning to provide additional coverage throughout the day. 11/16 * Pt had an episode of symptomatic hypoglycemia yesterday evening. * Novolog parameters adjusted to provide significantly less carb coverage, in an attempt to avoid further episodes of hypoglycemia. * DXM swish/spit has been switched to PRN, as pt has been refusing doses. * Will continue to follow and adjust further if needed. 11/15 * Pt has received 80 units of insulin over the past 24hrs * 28 units of basal with NPH * 52 units of bolus with NovoLog * AM fasting BSG low at 69/71 this morning. Will DC PM dose of NPH to prevent LOW tomorrow * Pre-lunch trends the highest BSG of the day but then BSGs trend downwards throughout the day. Will keep CR tight at Breakfast and loosen CF/CR for lunch, dinner, HS to maintain BSGs > 100 PLAN FOR INPATIENT GLYCEMIC CONTROL: * Hold outpatient oral Metformin * Basal insulin: * Discontinue NPH * Begin Lantus 20 units SQ qAM * Bolus insulin: tightened CR * NovoLog per scale ACHS or Q6hrs while NPO * Goal Range: Low 100 mg/dL - High 140 mg/dL * Correction Factor: 25 mg/dL/unit * Nutritional / Prandial insulin per carb ratio of 1 unit per 3 grams CHO consumed at breakfast ONLY, loosen to carb ratio 1:6 for all other meals PLAN FOR DISCHARGE: * A1c 9.4% - goal <8% * Patient only on Novolog 70/30 - 10 units once daily. Patient could benefit from dosage increase as likely this is not covering full ~24 hr needs. Could consider increasing to Novolog 70/30 - 15 units daily in AM, 10 units daily with dinner. Regimen would likely need adjusted outpatient and titrated as needed. Would ensure patient checking blood sugars at least 2x/day (in AM/PM) and reporting frequent hypo/hyperglycemia to provider * Renal function stable, could continue with metformin and glimepiride on discharge
--- NOTE | 2020-11-18 15:55 | Hospitalist Progress Note ---
Date of Service November 18, 2020 Assessment & Plan (1) Debility: Plan: -From lengthy hospitalization (admitted 10/20) -PT/OT on board. Recommending inpatient/short-term rehab for which patient is agreeable -Case management on board -Patient medically stable for discharge once a bed becomes available (2) Pneumonia due to COVID-19 virus: Plan: Admitted 10/20 severe with associated hypoxic respiratory failure requiring high flow nasal cannula upfront. Now on RA - S/p 5-day course of remdesivir. - Did not meet candidacy for tocilizumab. - S/p 10 days of IV dexamethasone -> Weaned to 2 mg PO daily x 2 more days. stopped on 11/04/2020. - Intermittent Lasix trials for superimposed pulmonary vascular congestion - Overall doing well. - May need supplemental oxygen with ambulation. Staff encouraged to utilize supplemental oxygen to maintain a pulse ox of 92% - Big issue now is general decline/deconditioned state from lengthy hospitalization. PT/OT on board and recommending inpatient rehab for which patient is agreeable - case management on board. Awaiting placement. (3) Tongue ulcer: Plan: Tongue ulcers noted by the patient on 11/06. - Looking back, she had actually been on Nystatin for 7 days without improvement. - Stopped Nystatin on 11/06 - case Discussed with ENT. Recommend dexamethasone 5 mg / 5 mL swish and spit BID with Magic Mouthwash for symptomatic help. - ulcers likely related to Covid - ulcers has since resolved (4) Acute diastolic (congestive) heart failure: Plan: Last echo in 09/2020 as outpatient - preserved EF. Stable echo this admission with EF 65 - 70%. - multiple doses IV lasix while in house - does take routine lasix which had been on hold. Resumed 11/16 (5) Hx of deep venous thrombosis: Plan: No PE on CTA study on 10/20 but was suboptimal study. Had extensive DVT several years ago. Strong family history of VTE - her mother, her daughter, etc. - Dopplers b/l legs neg for DVT during this stay. Repeat CTA chest on 11/03 was negative. -> Continue prophylactic dosing of Lovenox. (6) Bilateral leg pain: Plan: Suspect neuropathy. This is a long-standing issue. TSH wnl. Has had DM for long- time so this could be diabetic polyneuropathy. - Continue gabapentin 200mg PO HS. Leg pain better with addition of this (7) Vitamin B12 deficiency: Plan: B12 level was <200. Started IM injections of B12, 1000mcg daily x 5 doses. - Now on 1000 mcg po daily. - could have been contributing to leg pain (8) DM (diabetes mellitus), type 2 with neurological complications: Plan: Pharmacy assisting with management. A1c was 9.4% this admission. - Cont basal-bolus combo. -> On NPH (She uses this at home, so will continue despite being off steroids.) (9) Hypertension: Plan: BP presently controlled - Continue amlodipine, losartan, metoprolol (10) Hyperlipidemia: Plan: - Continue statin (11) Morbid obesity with BMI of 40.0-44.9, adult: Plan: BMI 43 - Noted (12) Chronic kidney disease, stage 3a: Plan: CrCl 50 - 60 mL/min at baseline (Cr ~0.85 - 1.0). - Cr stable at baseline at present. (13) DVT prophylaxis: Plan: Lovenox 40 mg SQ daily Plan: -At this point, patient has mostly recovered from Covid with pneumonia. Unfortunately, she has become extremely debilitated/deconditioned from her lengthy hospitalization and requires inpatient rehabilitation. Case management on board. Patient is medically and hemodynamically stable once a bed becomes available at the facility. Multiple referrals out to multiple different facilities. Told no available beds at present time Admission and Anticipated Discharge Date Admission Date: October 20, 2020 Subjective Patient seen on daily rounds today. Vocalizes no complaints or concerns. Denies fevers, chills, chest pain, shortness of breath, abdominal pain, nausea or vomiting. Is moving her bowel bladder without difficulty. Pulse ox has been 97% on room airpatient not requiring any supplemental oxygen. Review of Systems Review of Systems: All systems reviewed and are unremarkable except as noted in HPI and below Denies fevers, chills, headache, nasal congestion, sore throat, cough, chest pain, shortness of breath, palpitations, orthopnea, PND, abdominal pain, nausea, vomiting, diarrhea, constipation, dysuria, hematuria, frequency, back pain, joint pain or swelling, easy bruising or bleeding, skin lesions or rashes. Physical Exam Physical Exam: General: Resting comfortably in her hospital bed. NAD. HEENT: Head is AT/NC buccal mucosa is moist and pink Neck: No JVD. Negative hepatojugular reflex Cardiac: RRR heart sounds are distant Lungs: Speaking full sentences on ambient air. Breathing is nonlabored. No accessory muscle use. Diminished breath sounds without wheezes, rales or rhonchi Abdomen: Normoactive X4. Soft and nontender in all quadrants. Extremities: No peripheral clubbing cyanosis or edema Neuro: A&O X4 cranial nerves II through XII are grossly intact no focal neuro deficits Skin: No obvious skin lesions or rashes Psych: Appropriate affect pleasant and cooperative Results & Data Results & Data ([facility]) Vital Signs (Past 12 Hours) Vital Signs Temp Pulse Resp BP Pulse Ox 11/18/20 07:45 36.4 C L 69 16 112/64 97 Laboratory Results no labs today PG Care Time/CCT Total # of Minutes Spent Total Time Spent with Patient: Total time spent is greater than 50% in coordination of care (as documented) at patient's floor/unit and/or counseling patient: [place] [address] Subseq Hosp Care Lvl 1 Patient Type New History Problem Focused Exam Problem Focused Medical Decision Making Straight Forward Diagnoses Debility R53.81 Pneumonia due to COVID-19 virus U07.1; J12.82 Tongue ulcer K14.0 Acute diastolic (congestive) heart failure I50.31 Hx of deep venous thrombosis Z86.718 Bilateral leg pain M79.604; M79.605 Vitamin B12 deficiency E53.8 DM (diabetes mellitus), type 2 with neurological complications E11.49 Hypertension I10 Hypertension type: essential hypertension Hyperlipidemia E78.5 Morbid obesity with BMI of 40.0-44.9, adult E66.01; Z68.41 Chronic kidney disease, stage 3a N18.31 DVT prophylaxis Z29.9 (1) Hypertension Hypertension type: essential hypertension Qualified Code(s): I10 - Essential (primary) hypertension
[2020-11-18] MEDS: GABAPENTIN 100 MG CAP PO SCH (21:24)
[2020-11-18] MEDS: MELATONIN 3 MG TAB PO SCH (21:24)
[2020-11-18] MEDS: ATORVASTATIN 10 MG TAB PO SCH (21:24)
[2020-11-19] MEDS: INSULIN ASPART 100 UNITS/ML 3 ML PEN SC SCH ×4 (08:46→21:16)
[2020-11-19] MEDS: INSULIN GLARGINE SOLOSTAR 100 UNITS/ML 3 ML PEN SC SCH (08:49)
[2020-11-19] MEDS: METOPROLOL TARTRATE 25 MG TAB PO SCH ×2 (08:58→21:15)
[2020-11-19] MEDS: THIAMINE HCL 100 MG TAB PO SCH (08:58)
[2020-11-19] MEDS: CHOLECALCIFEROL 1,000 UNITS 25 MCG TAB PO SCH (08:59)
[2020-11-19] MEDS: LOSARTAN POTASSIUM 50 MG TAB PO SCH (08:59)
[2020-11-19] MEDS: ASPIRIN 81 MG ECTAB PO SCH (08:59)
[2020-11-19] MEDS: FUROSEMIDE 20 MG TAB PO SCH (08:59)
[2020-11-19] MEDS: amLODIPine BESYLATE 5 MG TAB PO SCH (08:59)
[2020-11-19] MEDS: ENOXAPARIN INJ 40 MG/0.4 ML SYR SQ SCH (09:00)
[2020-11-19] MEDS: CYANOCOBALAMIN 500 MCG TABLET (VITAMIN B-12) PO SCH (09:00)
[2020-11-19] MEDS: SENNA 8.6 MG TAB PO SCH (09:00)
[2020-11-19] MEDS: MUPIROCIN 2% OINT 22 GM TUBE EXT SCH ×2 (09:02→21:16)
[2020-11-19] MEDS: NYSTATIN POWDER 15GM BTL EXT SCH ×2 (09:02→21:16)
[2020-11-19] MEDS: BENZONATATE 100 MG CAPSULE PO SCH ×3 (09:11→21:16)
[2020-11-19] MEDS: POLYETHYLENE (MIRALAX) 17 GM PACK PO SCH (09:11)
--- NOTE | 2020-11-19 12:40 | Pharmacy Report ---
Pharmacy Glycemic Short Note 2 - Date of Service November 19, 2020 - Glycemic Short BSG Results (Last 24 hours): 11/18/20 11/18/20 11/19/20 16:53 21:20 08:02 POC Glucose 150 H 250 H 171 H 11/19/20 12:14 POC Glucose 216 H OUTPATIENT ANTIDIABETIC REGIMEN: * Novolog 70/30, 10 units SC daily * Metformin 1000 mg PO BIDM * Glimepiride 2 mg PO daily * HbA1c: 10.1% (08/11/20) ASSESSMENT: 11/19: * Pt received total 74 units of insulin yesterday; 20 units basal and 54 units bolus. * Fasting BSG today was elevated at 171 mg/dl. Basal dose this AM was increased. * Pt seems to be eating carb heavy meal at dinner causing BSG to rise to 250 mg/dl last 2 night at HS. * Dinner BSG was at goal yesterday. Continued Novolog parameters same as yesterday. If BSGs at HS continue to be high, possibly tightening the CR at dinner might be helpful. Will re-assess tomorrow. 11/18/20: * Evening BSG was much more reasonable last evening (141mg/dL). * Due to patient's BSG trends of hyperglycemia at HS and hypoglycemia at dinnertime, will trial switching from NPH to Lantus daily. This will eliminate the "peak" from NPH in the evening, and should provide more continual coverage to help control BSGs all day (through HS). * Novolog parameters tightened slightly this morning to provide additional coverage throughout the day. 11/16 * Pt had an episode of symptomatic hypoglycemia yesterday evening. * Novolog parameters adjusted to provide significantly less carb coverage, in an attempt to avoid further episodes of hypoglycemia. * DXM swish/spit has been switched to PRN, as pt has been refusing doses. * Will continue to follow and adjust further if needed. 11/15 * Pt has received 80 units of insulin over the past 24hrs * 28 units of basal with NPH * 52 units of bolus with NovoLog * AM fasting BSG low at 69/71 this morning. Will DC PM dose of NPH to prevent LOW tomorrow * Pre-lunch trends the highest BSG of the day but then BSGs trend downwards throughout the day. Will keep CR tight at Breakfast and loosen CF/CR for lunch, dinner, HS to maintain BSGs > 100 PLAN FOR INPATIENT GLYCEMIC CONTROL: * Hold outpatient oral Metformin * Basal insulin: increased * Lantus 25 units SQ qAM * Bolus insulin: continued * NovoLog per scale ACHS or Q6hrs while NPO * Goal Range: Low 100 mg/dL - High 140 mg/dL * Correction Factor: 25 mg/dL/unit * Nutritional / Prandial insulin per carb ratio of 1 unit per 3 grams CHO consumed at breakfast ONLY, loosen to carb ratio 1:6 for all other meals PLAN FOR DISCHARGE: * A1c 9.4% - goal <8% * Patient only on Novolog 70/30 - 10 units once daily. Patient could benefit from dosage increase as likely this is not covering full ~24 hr needs. Could consider increasing to Novolog 70/30 - 15 units daily in AM, 10 units daily with dinner. Regimen would likely need adjusted outpatient and titrated as needed. Would ensure patient checking blood sugars at least 2x/day (in AM/PM) and reporting frequent hypo/hyperglycemia to provider * Renal function stable, could continue with metformin and glimepiride on discharge
--- NOTE | 2020-11-19 18:17 | Hospitalist Progress Note ---
Date of Service November 19, 2020 Assessment & Plan (1) Debility: Plan: -From lengthy hospitalization (admitted 10/20 with covid) -PT/OT on board. Recommending inpatient/short-term rehab for which patient is agreeable -Case management on board -Patient medically stable for discharge once a bed becomes available -Was to go to [facility] tomorrow but now we are being told that they will not accept the patient as she is not vaccinated. I am uncertain as to why this is seeing as she is recovering from a recent case of Covid. Per recommendations, she should not have her vaccine for at least 90 days and has natural immunity. She has already been denied from [facility], [facility], and now [facility]. Rachelle Mumtaz is reviewing and case management now making a referral to [facility] (2) Pneumonia due to COVID-19 virus: Plan: Admitted 10/20 severe with associated hypoxic respiratory failure requiring high flow nasal cannula upfront. - S/p 5-day course of remdesivir. - Did not meet candidacy for tocilizumab. - S/p 10 days of IV dexamethasone -> Weaned to 2 mg PO daily x 2 more days. stopped on 11/04/2020. - Intermittent Lasix trials for superimposed pulmonary vascular congestion - Overall doing well. Is requiring 0 to 2 L of supplemental oxygen (mostly room air at rest but requires oxygen after toileting and when she sleeps) - Staff encouraged to utilize supplemental oxygen to maintain a pulse ox of 92% - Big issue now is general decline/deconditioned state from lengthy hospitalization. PT/OT on board and recommending inpatient rehab for which patient is agreeable - case management on board. Awaiting placement. (3) Tongue ulcer: Plan: Tongue ulcers noted by the patient on 11/06. - Looking back, she had actually been on Nystatin for 7 days without improvement. - Stopped Nystatin on 11/06 - case Discussed with ENT. Recommend dexamethasone 5 mg / 5 mL swish and spit BID with Magic Mouthwash for symptomatic help--> no longer requiring - ulcers likely related to Covid - ulcers has since resolved (4) Acute diastolic (congestive) heart failure: Plan: Last echo in 09/2020 as outpatient - preserved EF. Stable echo this admission with EF 65 - 70%. - multiple doses IV lasix while in house - does take routine lasix which had been on hold. Resumed 11/16 (5) Hx of deep venous thrombosis: Plan: No PE on CTA study on 10/20 but was suboptimal study. Had extensive DVT several years ago. Strong family history of VTE - her mother, her daughter, etc. - Dopplers b/l legs neg for DVT during this stay. Repeat CTA chest on 11/03 was negative. -> Continue prophylactic dosing of Lovenox. (6) Bilateral leg pain: Plan: Suspect neuropathy. This is a long-standing issue. TSH wnl. Has had DM for long- time so this could be diabetic polyneuropathy. - Continue gabapentin 200mg PO HS. Leg pain better with addition of this (7) Vitamin B12 deficiency: Plan: B12 level was <200. Started IM injections of B12, 1000mcg daily x 5 doses. - Now on 1000 mcg po daily. - could have been contributing to leg pain (8) DM (diabetes mellitus), type 2 with neurological complications: Plan: Pharmacy assisting with management. A1c was 9.4% this admission. - Cont basal-bolus combo. -> On NPH (She uses this at home, so will continue despite being off steroids.) (9) Hypertension: Plan: BP presently controlled - Continue amlodipine, losartan, metoprolol (10) Hyperlipidemia: Plan: - Continue statin (11) Morbid obesity with BMI of 40.0-44.9, adult: Plan: BMI 43 - Noted (12) Chronic kidney disease, stage 3a: Plan: CrCl 50 - 60 mL/min at baseline (Cr ~0.85 - 1.0). - Cr stable at baseline at present. (13) DVT prophylaxis: Plan: Lovenox 40 mg SQ daily Plan: Plan of care to be discussed with Dr. Bautista. Further orders as warranted. Admission and Anticipated Discharge Date Admission Date: October 20, 2020 Subjective Patient seen on daily rounds today. She vocalizes no complaints or concerns. Denies fevers, chills, chest pain, shortness of breath, abdominal pain, nausea or vomiting. Nursing staff voices no complaints or concerns. Seems to be requiring anywhere between 0 and 2 L to maintain a pulse ox in the low 90s. Mostly needing it after minimal exertion (such as toileting) and when she sleeps. Review of Systems Review of Systems: All systems reviewed and are unremarkable except as noted in HPI and below Denies fevers, chills, headache, nasal congestion, sore throat, cough, chest pain, shortness of breath, palpitations, orthopnea, PND, abdominal pain, nausea, vomiting, diarrhea, constipation, dysuria, hematuria, frequency, back pain, joint pain or swelling, easy bruising or bleeding, skin lesions or rashes. Physical Exam Physical Exam: General: Resting comfortably in her hospital bed. NAD. HEENT: Head is AT/NC buccal mucosa is moist and pink Neck: No JVD. Negative hepatojugular reflex Cardiac: RRR heart sounds are distant Lungs: Speaking full sentences on ambient air. Breathing is nonlabored. No accessory muscle use. Diminished breath sounds without wheezes, rales or rhonchi Abdomen: Normoactive X4. Soft and nontender in all quadrants. Extremities: No peripheral clubbing cyanosis or edema Neuro: A&O X4 cranial nerves II through XII are grossly intact no focal neuro deficits Skin: No obvious skin lesions or rashes Psych: Appropriate affect pleasant and cooperative Results & Data Results & [facility] Vital Signs (Past 12 Hours) Vital Signs Temp Pulse Resp BP BP Pulse Ox 11/19/20 15:10 36.7 C 78 16 97/60 L 91 11/19/20 08:03 36.7 C 74 16 116/66 97 Laboratory Results no labs data PG Care Time/CCT Total # of Minutes Spent Total Time Spent with Patient: Total time spent is greater than 50% in coordination of care (as documented) at patient's floor/unit and/or counseling patient: [place] [address] Subseq Hosp Care Lvl 1 Patient Type Established History Problem Focused Exam Problem Focused Medical Decision Making Straight Forward Diagnoses Debility R53.81 Pneumonia due to COVID-19 virus U07.1; J12.82 Tongue ulcer K14.0 Acute diastolic (congestive) heart failure I50.31 Hx of deep venous thrombosis Z86.718 Bilateral leg pain M79.604; M79.605 Vitamin B12 deficiency E53.8 DM (diabetes mellitus), type 2 with neurological complications E11.49 Hypertension I10 Hypertension type: essential hypertension Hyperlipidemia E78.5 Morbid obesity with BMI of 40.0-44.9, adult E66.01; Z68.41 Chronic kidney disease, stage 3a N18.31 DVT prophylaxis Z29.9 (1) Hypertension Hypertension type: essential hypertension Qualified Code(s): I10 - Essential (primary) hypertension
[2020-11-19] MEDS: MELATONIN 3 MG TAB PO SCH (21:15)
[2020-11-19] MEDS: GABAPENTIN 100 MG CAP PO SCH (21:15)
[2020-11-19] MEDS: ATORVASTATIN 10 MG TAB PO SCH (21:15)
[2020-11-20] MEDS: INSULIN ASPART 100 UNITS/ML 3 ML PEN SC SCH ×4 (08:35→21:23)
[2020-11-20] MEDS: INSULIN GLARGINE SOLOSTAR 100 UNITS/ML 3 ML PEN SC SCH (08:37)
[2020-11-20] MEDS: CYANOCOBALAMIN 500 MCG TABLET (VITAMIN B-12) PO SCH (08:40)
[2020-11-20] MEDS: THIAMINE HCL 100 MG TAB PO SCH (08:44)
[2020-11-20] MEDS: BENZONATATE 100 MG CAPSULE PO SCH ×3 (08:44→21:27)
[2020-11-20] MEDS: ENOXAPARIN INJ 40 MG/0.4 ML SYR SQ SCH (08:46)
[2020-11-20] MEDS: FUROSEMIDE 20 MG TAB PO SCH (08:47)
[2020-11-20] MEDS: MUPIROCIN 2% OINT 22 GM TUBE EXT SCH ×2 (08:47→21:28)
[2020-11-20] MEDS: SENNA 8.6 MG TAB PO SCH (08:47)
[2020-11-20] MEDS ORDERED: ONDANSETRON INJ 2 MG/ML 2 ML VIAL IV PRN (09:07)
[2020-11-20] MEDS: POLYETHYLENE (MIRALAX) 17 GM PACK PO SCH (09:17)
[2020-11-20] MEDS: ASPIRIN 81 MG ECTAB PO SCH (10:33)
[2020-11-20] MEDS: LOSARTAN POTASSIUM 50 MG TAB PO SCH (10:34)
[2020-11-20] MEDS: amLODIPine BESYLATE 5 MG TAB PO SCH (10:35)
[2020-11-20] MEDS: CHOLECALCIFEROL 1,000 UNITS 25 MCG TAB PO SCH (10:35)
[2020-11-20] MEDS: METOPROLOL TARTRATE 25 MG TAB PO SCH ×2 (10:35→21:29)
[2020-11-20] MEDS: NYSTATIN POWDER 15GM BTL EXT SCH ×2 (10:36→21:27)
--- NOTE | 2020-11-20 17:27 | Hospitalist Progress Note ---
Date of Service November 20, 2020 Assessment & Plan (1) Debility: Plan: -From lengthy hospitalization (admitted 10/20 with covid) -PT/OT on board. Recommending inpatient/short-term rehab for which patient is agreeable -Case management on board -Patient medically stable for discharge once a bed becomes available -[facility] but after being told that they would take her and waiting for the bed availability, we were then told that they will not accept the patient as she is not vaccinated (covid). I am uncertain as to why this is seeing as she is recovering from a recent case of Covid. Per recommendations, she should not have her vaccine for at least 90 days and has natural immunity. She has already been denied from [facility], [facility], and now [facility]. -[facility] has accepted patient. awaiting auth. (2) Pneumonia due to COVID-19 virus: Plan: Admitted 10/20 severe with associated hypoxic respiratory failure requiring high flow nasal cannula upfront. - S/p 5-day course of remdesivir. - Did not meet candidacy for tocilizumab. - S/p 10 days of IV dexamethasone -> Weaned to 2 mg PO daily x 2 more days. stopped on 11/04/2020. - Intermittent Lasix trials for superimposed pulmonary vascular congestion - Overall doing well. Is requiring 0 to 2 L of supplemental oxygen (mostly room air at rest but requires oxygen after toileting and when she sleeps) - Staff encouraged to utilize supplemental oxygen to maintain a pulse ox of 92% - Big issue now is general decline/deconditioned state from lengthy hospitalization. PT/OT on board and recommending inpatient rehab for which patient is agreeable - case management on board. Awaiting placement. --Patient has completely recovered from Covid and does not require isolation (3) Tongue ulcer: Plan: Tongue ulcers noted by the patient on 11/06. - Looking back, she had actually been on Nystatin for 7 days without improvement. - Stopped Nystatin on 11/06 - case Discussed with ENT. Recommend dexamethasone 5 mg / 5 mL swish and spit BID with Magic Mouthwash for symptomatic help--> no longer requiring - ulcers likely related to Covid - ulcers has since resolved (4) Acute diastolic (congestive) heart failure: Plan: Last echo in 09/2020 as outpatient - preserved EF. Stable echo this admission with EF 65 - 70%. - multiple doses IV lasix while in house - does take routine lasix which had been on hold. Resumed 11/16 (5) Hx of deep venous thrombosis: Plan: No PE on CTA study on 10/20 but was suboptimal study. Had extensive DVT several years ago. Strong family history of VTE - her mother, her daughter, etc. - Dopplers b/l legs neg for DVT during this stay. Repeat CTA chest on 11/03 was negative. -> Continue prophylactic dosing of Lovenox. (6) Bilateral leg pain: Plan: Suspect neuropathy. This is a long-standing issue. TSH wnl. Has had DM for long- time so this could be diabetic polyneuropathy. - Continue gabapentin 200mg PO HS. Leg pain better with addition of this (7) Vitamin B12 deficiency: Plan: B12 level was <200. Started IM injections of B12, 1000mcg daily x 5 doses. - Now on 1000 mcg po daily. - could have been contributing to leg pain (8) DM (diabetes mellitus), type 2 with neurological complications: Plan: Pharmacy assisting with management. A1c was 9.4% this admission. - Cont basal-bolus combo. -> On NPH (She uses this at home, so will continue despite being off steroids.) (9) Hypertension: Plan: BP presently controlled - Continue amlodipine, losartan, metoprolol (10) Hyperlipidemia: Plan: - Continue statin (11) Morbid obesity with BMI of 40.0-44.9, adult: Plan: BMI 43 - Noted (12) Chronic kidney disease, stage 3a: Plan: CrCl 50 - 60 mL/min at baseline (Cr ~0.85 - 1.0). - Cr stable at baseline at present. (13) DVT prophylaxis: Plan: Lovenox 40 mg SQ daily Plan: Discharged to [facility] once authorization/approval obtained Admission and Anticipated Discharge Date Admission Date: October 20, 2020 Subjective Patient seen on daily rounds today. Early this morning was getting frustrated and was ready to just go home although she is still weak. Did get promising news from [facility] that they are willing to accept patient. And authorization has been submitted and we are just awaiting that. Patient denies fevers, chills, chest pain, shortness of breath, abdominal pain, nausea or vomiting. Review of Systems Review of Systems: All systems reviewed and are unremarkable except as noted in HPI and below Denies fevers, chills, headache, nasal congestion, sore throat, cough, chest pain, shortness of breath, palpitations, orthopnea, PND, abdominal pain, nausea, vomiting, diarrhea, constipation, dysuria, hematuria, frequency, back pain, joint pain or swelling, easy bruising or bleeding, skin lesions or rashes. Physical Exam Physical Exam: General: Resting comfortably in her hospital bed. NAD. HEENT: Head is AT/NC buccal mucosa is moist and pink Neck: No JVD. Negative hepatojugular reflex Cardiac: RRR heart sounds are distant Lungs: Speaking full sentences on ambient air. Breathing is nonlabored. No accessory muscle use. Diminished breath sounds without wheezes, rales or rhonchi Abdomen: Normoactive X4. Soft and nontender in all quadrants. Extremities: No peripheral clubbing cyanosis or edema Neuro: A&O X4 cranial nerves II through XII are grossly intact no focal neuro deficits Skin: No obvious skin lesions or rashes Psych: Appropriate affect pleasant and cooperative Results & Data Results & Data ([facility]) Vital Signs (Past 12 Hours) Vital Signs Temp Pulse Resp BP BP Pulse Ox 11/20/20 14:27 37.2 C 80 20 143/63 H 91 11/20/20 11:42 94 11/20/20 10:28 99 H 111/71 99 11/20/20 06:21 36.8 C 80 20 131/69 90 Laboratory Results no lab data PG Care Time/CCT Total # of Minutes Spent Total Time Spent with Patient: Total time spent is greater than 50% in coordination of care (as documented) at patient's floor/unit and/or counseling patient: [place] [address] Subseq Hosp Care Lvl 1 Patient Type Established History Problem Focused Exam Problem Focused Diagnoses Debility R53.81 Pneumonia due to COVID-19 virus U07.1; J12.82 Tongue ulcer K14.0 Acute diastolic (congestive) heart failure I50.31 Hx of deep venous thrombosis Z86.718 Bilateral leg pain M79.604; M79.605 Vitamin B12 deficiency E53.8 DM (diabetes mellitus), type 2 with neurological complications E11.49 Hypertension I10 Hypertension type: essential hypertension Hyperlipidemia E78.5 Morbid obesity with BMI of 40.0-44.9, adult E66.01; Z68.41 Chronic kidney disease, stage 3a N18.31 DVT prophylaxis Z29.9 (1) Hypertension Hypertension type: essential hypertension Qualified Code(s): I10 - Essential (primary) hypertension
[2020-11-20] MEDS: MELATONIN 3 MG TAB PO SCH (21:27)
[2020-11-20] MEDS: ATORVASTATIN 10 MG TAB PO SCH (21:27)
[2020-11-20] MEDS: GABAPENTIN 100 MG CAP PO SCH (21:27)
[2020-11-21] MEDS: CHOLECALCIFEROL 1,000 UNITS 25 MCG TAB PO SCH (08:15)
[2020-11-21] MEDS: CYANOCOBALAMIN 500 MCG TABLET (VITAMIN B-12) PO SCH (08:16)
[2020-11-21] MEDS: POLYETHYLENE (MIRALAX) 17 GM PACK PO SCH (08:16)
[2020-11-21] MEDS: ENOXAPARIN INJ 40 MG/0.4 ML SYR SQ SCH (08:16)
[2020-11-21] MEDS: METOPROLOL TARTRATE 25 MG TAB PO SCH (08:16)
[2020-11-21] MEDS: MUPIROCIN 2% OINT 22 GM TUBE EXT SCH ×2 (08:16→20:37)
[2020-11-21] MEDS: FUROSEMIDE 20 MG TAB PO SCH (08:16)
[2020-11-21] MEDS: SENNA 8.6 MG TAB PO SCH (08:16)
[2020-11-21] MEDS: LOSARTAN POTASSIUM 50 MG TAB PO SCH (08:16)
[2020-11-21] MEDS: ASPIRIN 81 MG ECTAB PO SCH (08:16)
[2020-11-21] MEDS: amLODIPine BESYLATE 5 MG TAB PO SCH (08:16)
[2020-11-21] MEDS: THIAMINE HCL 100 MG TAB PO SCH (08:16)
[2020-11-21] MEDS: BENZONATATE 100 MG CAPSULE PO SCH ×3 (08:17→20:37)
[2020-11-21] MEDS: NYSTATIN POWDER 15GM BTL EXT SCH ×2 (08:17→20:37)
[2020-11-21] MEDS: INSULIN GLARGINE SOLOSTAR 100 UNITS/ML 3 ML PEN SC SCH (09:08)
[2020-11-21] MEDS: INSULIN ASPART 100 UNITS/ML 3 ML PEN SC SCH ×4 (09:09→20:39)
--- NOTE | 2020-11-21 09:16 | Pharmacy Report ---
Pharmacy Glycemic Short Note 2 - Date of Service November 21, 2020 - Glycemic Short BSG Results (Last 24 hours): 11/20/20 11/20/20 11/20/20 11:57 17:01 20:33 POC Glucose 184 H 138 H 164 H 11/21/20 08:19 POC Glucose 135 H OUTPATIENT ANTIDIABETIC REGIMEN: * Novolog 70/30, 10 units SC daily * Metformin 1000 mg PO BIDM * Glimepiride 2 mg PO daily * HbA1c: 10.1% (08/11/20) ASSESSMENT: 11/21 * Patient's BSGs yesterday were [phone] mg/dL. Patient received 58 units of insulin (25 units of basal and 33 units of bolus). * Fasting today was 135 mg/dL. * Continue Lantus dose of 25 units * Continue current Novolog orders. 11/19: * Pt received total 74 units of insulin yesterday; 20 units basal and 54 units bolus. * Fasting BSG today was elevated at 171 mg/dl. Basal dose this AM was increased. * Pt seems to be eating carb heavy meal at dinner causing BSG to rise to 250 mg/dl last 2 night at HS. * Dinner BSG was at goal yesterday. Continued Novolog parameters same as yesterday. If BSGs at HS continue to be high, possibly tightening the CR at dinner might be helpful. Will re-assess tomorrow. 11/18/20: * Evening BSG was much more reasonable last evening (141mg/dL). * Due to patient's BSG trends of hyperglycemia at HS and hypoglycemia at dinnertime, will trial switching from NPH to Lantus daily. This will eliminate the "peak" from NPH in the evening, and should provide more continual coverage to help control BSGs all day (through HS). * Novolog parameters tightened slightly this morning to provide additional coverage throughout the day. 11/16 * Pt had an episode of symptomatic hypoglycemia yesterday evening. * Novolog parameters adjusted to provide significantly less carb coverage, in an attempt to avoid further episodes of hypoglycemia. * DXM swish/spit has been switched to PRN, as pt has been refusing doses. * Will continue to follow and adjust further if needed. 11/15 * Pt has received 80 units of insulin over the past 24hrs * 28 units of basal with NPH * 52 units of bolus with NovoLog * AM fasting BSG low at 69/71 this morning. Will DC PM dose of NPH to prevent LOW tomorrow * Pre-lunch trends the highest BSG of the day but then BSGs trend downwards throughout the day. Will keep CR tight at Breakfast and loosen CF/CR for lunch, dinner, HS to maintain BSGs > 100 PLAN FOR INPATIENT GLYCEMIC CONTROL: * Hold outpatient oral Metformin * Basal insulin: * Lantus 25 units SQ qAM * Bolus insulin: continued * NovoLog per scale ACHS or Q6hrs while NPO * Goal Range: Low 100 mg/dL - High 140 mg/dL * Correction Factor: 20 mg/dL/unit * Nutritional / Prandial insulin per carb ratio of 1 unit per 3 grams CHO consumed at breakfast ONLY, loosen to carb ratio 1:6 for all other meals PLAN FOR DISCHARGE: * A1c 9.4% - goal <8% * Patient only on Novolog 70/30 - 10 units once daily. Patient could benefit from dosage increase as likely this is not covering full ~24 hr needs. Could consider increasing to Novolog 70/30 - 15 units daily in AM, 10 units daily with dinner. Regimen would likely need adjusted outpatient and titrated as needed. Would ensure patient checking blood sugars at least 2x/day (in AM/PM) and reporting frequent hypo/hyperglycemia to provider * Renal function stable, could continue with metformin and glimepiride on discharge
--- NOTE | 2020-11-21 17:04 | Hospitalist Progress Note ---
Date of Service November 21, 2020 Assessment & Plan (1) Debility: Plan: -From lengthy hospitalization (admitted 10/20 with covid) -PT/OT on board. Recommending inpatient/short-term rehab for which patient is agreeable -Case management on board -Patient medically stable for discharge once a bed becomes available -[facility] but after being told that they would take her and waiting for the bed availability, we were then told that they will not accept the patient as she is not vaccinated (covid). I am uncertain as to why this is seeing as she is recovering from a recent case of Covid. Per recommendations, she should not have her vaccine for at least 90 days and has natural immunity. She has already been denied from [facility], [facility], and now [facility]. -[facility] patient. awaiting auth. Told will not hear back over weekend (2) Pneumonia due to COVID-19 virus: Plan: Admitted 10/20 severe with associated hypoxic respiratory failure requiring high flow nasal cannula upfront. - S/p 5-day course of remdesivir. - Did not meet candidacy for tocilizumab. - S/p 10 days of IV dexamethasone -> Weaned to 2 mg PO daily x 2 more days. stopped on 11/04/2020. - Intermittent Lasix trials for superimposed pulmonary vascular congestion - Overall doing well. Is requiring 0 to 2 L of supplemental oxygen (mostly room air at rest but requires oxygen after toileting and when she sleeps) - Staff encouraged to utilize supplemental oxygen to maintain a pulse ox of 92% - Big issue now is general decline/deconditioned state from lengthy hospitalization. PT/OT on board and recommending inpatient rehab for which patient is agreeable - case management on board. Awaiting placement. --Patient has completely recovered from Covid and does not require isolation (3) Tongue ulcer: Plan: Tongue ulcers noted by the patient on 11/06. - Looking back, she had actually been on Nystatin for 7 days without improvement. - Stopped Nystatin on 11/06 - case Discussed with ENT. Recommend dexamethasone 5 mg / 5 mL swish and spit BID with Magic Mouthwash for symptomatic help--> no longer requiring - ulcers likely related to Covid - ulcers has since resolved (4) Acute diastolic (congestive) heart failure: Plan: Last echo in 09/2020 as outpatient - preserved EF. Stable echo this admission with EF 65 - 70%. - multiple doses IV lasix while in house - does take routine lasix which had been on hold. Resumed 11/16 (5) Hx of deep venous thrombosis: Plan: No PE on CTA study on 10/20 but was suboptimal study. Had extensive DVT several years ago. Strong family history of VTE - her mother, her daughter, etc. - Dopplers b/l legs neg for DVT during this stay. Repeat CTA chest on 11/03 was negative. -> Continue prophylactic dosing of Lovenox. (6) Bilateral leg pain: Plan: Suspect neuropathy. This is a long-standing issue. TSH wnl. Has had DM for long- time so this could be diabetic polyneuropathy. - Continue gabapentin 200mg PO HS. Leg pain better with addition of this (7) Vitamin B12 deficiency: Plan: B12 level was <200. Started IM injections of B12, 1000mcg daily x 5 doses. - Now on 1000 mcg po daily. - could have been contributing to leg pain (8) DM (diabetes mellitus), type 2 with neurological complications: Plan: Pharmacy assisting with management. A1c was 9.4% this admission. - Cont basal-bolus combo. -> On NPH (She uses this at home, so will continue despite being off steroids.) (9) Hypertension: Plan: BP presently controlled - Continue amlodipine, losartan, metoprolol (10) Hyperlipidemia: Plan: - Continue statin (11) Morbid obesity with BMI of 40.0-44.9, adult: Plan: BMI 43 - Noted (12) Chronic kidney disease, stage 3a: Plan: CrCl 50 - 60 mL/min at baseline (Cr ~0.85 - 1.0). - Cr stable at baseline at present. (13) DVT prophylaxis: Plan: Lovenox 40 mg SQ daily Plan: Discharged to [facility] once authorization/approval obtained Admission and Anticipated Discharge Date Admission Date: October 20, 2020 Subjective Patient seen on daily rounds today. Vocalizes no complaints or concerns. Denies fevers, chills, chest pain, shortness of breath, abdominal pain, nausea or vomiting. Has been accepted to [facility]. Authorization submitted but currently pending. Told will not hear back over weekend Review of Systems Review of Systems: All systems reviewed and are unremarkable except as noted in HPI and below Denies fevers, chills, headache, nasal congestion, sore throat, cough, chest pain, shortness of breath, palpitations, orthopnea, PND, abdominal pain, nausea, vomiting, diarrhea, constipation, dysuria, hematuria, frequency, back pain, joint pain or swelling, easy bruising or bleeding, skin lesions or rashes. Physical Exam Physical Exam: General: Resting comfortably in her hospital bed. NAD. HEENT: Head is AT/NC buccal mucosa is moist and pink Neck: No JVD. Negative hepatojugular reflex Cardiac: RRR heart sounds are distant Lungs: Speaking full sentences on ambient air. Breathing is nonlabored. No accessory muscle use. Diminished breath sounds without wheezes, rales or rhonchi Abdomen: Normoactive X4. Soft and nontender in all quadrants. Extremities: No peripheral clubbing cyanosis or edema Neuro: A&O X4 cranial nerves II through XII are grossly intact no focal neuro deficits Skin: No obvious skin lesions or rashes Psych: Appropriate affect pleasant and cooperative Results & Data Results & Data ([facility]) Vital Signs (Past 12 Hours) Vital Signs Temp Pulse Resp BP Pulse Ox 11/21/20 15:14 37.3 C 97 H 18 129/69 90 11/21/20 08:11 36.9 C 80 91 H 141/76 H 91 Laboratory Results No lab data PG Care Time/CCT Total # of Minutes Spent Total Time Spent with Patient: Total time spent is greater than 50% in coordination of care (as documented) at patient's floor/unit and/or counseling patient: Coding Level of Care Code 03667 Subseq Hosp Care Lvl 1 Diagnoses Debility R53.81 Pneumonia due to COVID-19 virus U07.1; J12.82 Tongue ulcer K14.0 Acute diastolic (congestive) heart failure I50.31 Hx of deep venous thrombosis Z86.718 Bilateral leg pain M79.604; M79.605 Vitamin B12 deficiency E53.8 DM (diabetes mellitus), type 2 with neurological complications E11.49 Hypertension I10 Hypertension type: essential hypertension Hyperlipidemia E78.5 Morbid obesity with BMI of 40.0-44.9, adult E66.01; Z68.41 Chronic kidney disease, stage 3a N18.31 DVT prophylaxis Z29.9 (1) Hypertension Hypertension type: essential hypertension Qualified Code(s): I10 - Essential (primary) hypertension
--- NOTE | 2020-11-21 19:05 | XRay Report ---
XR chest 1V portable HISTORY: Shortness of breath. Cough. COMPARISON: Chest 11/02/2020. FINDINGS: The heart remains enlarged. No pneumothorax. No pleural effusions. Patchy bilateral airspac e opacities within the mid to lower lung zones have improved in the interval. No new focal lung conso lidations. No evidence for pulmonary edema. IMPRESSION: 1. Patchy bilateral airspace opacities which have improved in the interval. This favors a resolving v iral pneumonia. 2. Stable cardiomegaly. ACT 112: Negative or not required by law. Electronically signed by: Camilo Frias M.D. 11/21/2020 7:04 PM
[2020-11-21] MEDS: METOPROLOL TARTRATE 100 MG TAB PO SCH (19:46)
[2020-11-21] MEDS: ATORVASTATIN 10 MG TAB PO SCH (20:36)
[2020-11-21] MEDS: GABAPENTIN 100 MG CAP PO SCH (20:36)
[2020-11-21] MEDS: MELATONIN 3 MG TAB PO SCH (20:37)
[2020-11-22] MEDS: POLYETHYLENE (MIRALAX) 17 GM PACK PO SCH (08:05)
[2020-11-22] MEDS: ENOXAPARIN INJ 40 MG/0.4 ML SYR SQ SCH (08:05)
[2020-11-22] MEDS: SENNA 8.6 MG TAB PO SCH (08:06)
[2020-11-22] MEDS: ASPIRIN 81 MG ECTAB PO SCH (08:06)
[2020-11-22] MEDS: THIAMINE HCL 100 MG TAB PO SCH (08:06)
[2020-11-22] MEDS: METOPROLOL TARTRATE 100 MG TAB PO SCH ×2 (08:06→20:56)
[2020-11-22] MEDS: amLODIPine BESYLATE 5 MG TAB PO SCH (08:06)
[2020-11-22] MEDS: CYANOCOBALAMIN 500 MCG TABLET (VITAMIN B-12) PO SCH (08:06)
[2020-11-22] MEDS: LOSARTAN POTASSIUM 50 MG TAB PO SCH (08:06)
[2020-11-22] MEDS: FUROSEMIDE 20 MG TAB PO SCH (08:06)
[2020-11-22] MEDS: BENZONATATE 100 MG CAPSULE PO SCH ×3 (08:07→20:56)
[2020-11-22] MEDS: NYSTATIN POWDER 15GM BTL EXT SCH ×2 (08:07→20:56)
[2020-11-22] MEDS: MUPIROCIN 2% OINT 22 GM TUBE EXT SCH ×2 (08:07→20:57)
[2020-11-22] MEDS ORDERED: CHOLECALCIFEROL 400 UNITS 10 MCG TAB PO SCH (09:00)
[2020-11-22] MEDS ORDERED: FUROSEMIDE 20 MG in SYRINGE 0 ML IV ONE (09:00)
[2020-11-22] MEDS: INSULIN GLARGINE SOLOSTAR 100 UNITS/ML 3 ML PEN SC SCH (09:27)
[2020-11-22] MEDS: INSULIN ASPART 100 UNITS/ML 3 ML PEN SC SCH ×4 (09:27→21:00)
--- NOTE | 2020-11-22 11:07 | Pharmacy Report ---
Pharmacy Glycemic Short Note 2 - Date of Service November 22, 2020 - Glycemic Short BSG Results (Last 24 hours): 11/21/20 11/21/20 11/21/20 12:24 16:49 20:29 POC Glucose 205 H 166 H 247 H 11/21/20 11/22/20 20:31 08:35 POC Glucose 242 H 192 H OUTPATIENT ANTIDIABETIC REGIMEN: * Novolog 70/30, 10 units SC daily * Metformin 1000 mg PO BIDM * Glimepiride 2 mg PO daily * HbA1c: 10.1% (08/11/20) ASSESSMENT: 11/22/20 * Patient's BSGs yesterday were [phone] mg/dL. * Patient received 86 units of insulin (25 units of basal and 61 units of bolus). * Fasting BSG today was 192 mg/dL. * Patient's fasting has been fluctuating but typically averages around 160 mg/dL which is reasonable for patient. Will continue for today. Higher dose available tomorrow if fasting BSG continues above 170 mg/dL. * Patient's lunch BSG continues to be extremely elevated. Tighten breakfast CR slightly. * BSGs throughout the day continue to increase therefore will tighten CR throughout the day. 11/21 * Patient's BSGs yesterday were [phone] mg/dL. Patient received 58 units of insulin (25 units of basal and 33 units of bolus). * Fasting today was 135 mg/dL. * Continue Lantus dose of 25 units * Continue current Novolog orders. 11/19: * Pt received total 74 units of insulin yesterday; 20 units basal and 54 units bolus. * Fasting BSG today was elevated at 171 mg/dl. Basal dose this AM was increased. * Pt seems to be eating carb heavy meal at dinner causing BSG to rise to 250 mg/dl last 2 night at HS. * Dinner BSG was at goal yesterday. Continued Novolog parameters same as yeste . If BSGs at HS continue to be high, possibly tightening the CR at dinner might be helpful. Will re-assess tomorrow. 11/18/20: * Evening BSG was much more reasonable last evening (141mg/dL). * Due to patient's BSG trends of hyperglycemia at HS and hypoglycemia at dinnertime, will trial switching from NPH to Lantus daily. This will eliminate the "peak" from NPH in the evening, and should provide more continual coverage to help control BSGs all day (through HS). * Novolog parameters tightened slightly this morning to provide additional coverage throughout the day. 11/16 * Pt had an episode of symptomatic hypoglycemia yesterday evening. * Novolog parameters adjusted to provide significantly less carb coverage, in an attempt to avoid further episodes of hypoglycemia. * DXM swish/spit has been switched to PRN, as pt has been refusing doses. * Will continue to follow and adjust further if needed. 11/15 * Pt has received 80 units of insulin over the past 24hrs * 28 units of basal with NPH * 52 units of bolus with NovoLog * AM fasting BSG low at 69/71 this morning. Will DC PM dose of NPH to prevent LOW tomorrow * Pre-lunch trends the highest BSG of the day but then BSGs trend downwards throughout the day. Will keep CR tight at Breakfast and loosen CF/CR for lunch, dinner, HS to maintain BSGs > 100 PLAN FOR INPATIENT GLYCEMIC CONTROL: * Hold outpatient oral Metformin * Basal insulin: * Lantus 25 units SQ qAM (30 units if BSG > 170 mg/dL) * Bolus insulin: continued * NovoLog per scale ACHS or Q6hrs while NPO * Goal Range: Low 100 mg/dL - High 140 mg/dL * Correction Factor: 20 mg/dL/unit for breakfast and 25 mg/dL/unit for all other times * Nutritional / Prandial insulin per carb ratio of 1 unit per 2.5 grams CHO consumed at breakfast ONLY, loosen to carb ratio 1:5 for all other meals PLAN FOR DISCHARGE: * A1c 9.4% - goal <8% * Patient only on Novolog 70/30 - 10 units once daily. Patient could benefit from dosage increase as likely this is not covering full ~24 hr needs. Could consider increasing to Novolog 70/30 - 15 units daily in AM, 10 units daily with dinner. Regimen would likely need adjusted outpatient and titrated as needed. Would ensure patient checking blood sugars at least 2x/day (in AM/PM) and reporting frequent hypo/hyperglycemia to provider * Renal function stable, could continue with metformin and glimepiride on discharge
--- NOTE | 2020-11-22 16:58 | Hospitalist Progress Note ---
Date of Service November 22, 2020 Assessment & Plan (1) Tachycardia: Plan: -Patient does have an underlying history of SVT for which she takes a beta- blockade -Given the fact that she is still recovering from Covid, she likely will get fatigued and short of breath with exertion (which seem to have been with toileting yesterday) -Her beta-blockade has since been increased. BP seems to be tolerating this without any issues -Given the tachycardia, she did have some mild pulmonary vascular congestion which seemed to respond with 1 dose of additional Lasix this morning (2) Debility: Plan: -From lengthy hospitalization (admitted 10/20 with covid) -PT/OT on board. Recommending inpatient/short-term rehab for which patient is agreeable -Case management on board -Patient medically stable for discharge once a bed becomes available -[facility] plan was [facility] but after being told that they would take her and waiting for the bed availability, we were then told that they will not accept the patient as she is not vaccinated (covid). I am uncertain as to why this is seeing as she is recovering from a recent case of Covid. Per recommendations, she should not have her vaccine for at least 90 days and has natural immunity. She has already been denied from , [facility], and [facility]. Told will not hear back over weekend (3) Pneumonia due to COVID-19 virus: Plan: Admitted 10/20 severe with associated hypoxic respiratory failure requiring high flow nasal cannula upfront. - S/p 5-day course of remdesivir. - Did not meet candidacy for tocilizumab. - S/p 10 days of IV dexamethasone -> Weaned to 2 mg PO daily x 2 more days. stopped on 11/04/2020. - Intermittent Lasix trials for superimposed pulmonary vascular congestion - Overall doing well. Is requiring 0 to 2 L of supplemental oxygen (mostly room air at rest but requires oxygen after toileting and when she sleeps) - Staff encouraged to utilize supplemental oxygen to maintain a pulse ox of 92% - Big issue now is general decline/deconditioned state from lengthy hospitalization. PT/OT on board and recommending inpatient rehab for which patient is agreeable - case management on board. Awaiting placement. --Patient has completely recovered from Covid and does not require isolation (4) Tongue ulcer: Plan: Tongue ulcers noted by the patient on 11/06. - Looking back, she had actually been on Nystatin for 7 days without improvement. - Stopped Nystatin on 11/06 - case Discussed with ENT. Recommend dexamethasone 5 mg / 5 mL swish and spit BID with Magic Mouthwash for symptomatic help--> no longer requiring - ulcers likely related to Covid - ulcers has since resolved (5) Acute diastolic (congestive) heart failure: Plan: Last echo in 09/2020 as outpatient - preserved EF. Stable echo this admission with EF 65 - 70%. - multiple doses IV lasix while in house - does take routine lasix which had been on hold. Resumed 11/16 -Additional Lasix given IV this morning (6) Hx of deep venous thrombosis: Plan: No PE on CTA study on 10/20 but was suboptimal study. Had extensive DVT several years ago. Strong family history of VTE - her mother, her daughter, etc. - Dopplers b/l legs neg for DVT during this stay. Repeat CTA chest on 11/03 was negative. -> Continue prophylactic dosing of Lovenox. (7) Bilateral leg pain: Plan: Suspect neuropathy. This is a long-standing issue. TSH wnl. Has had DM for long- time so this could be diabetic polyneuropathy. - Continue gabapentin 200mg PO HS. Leg pain better with addition of this (8) Vitamin B12 deficiency: Plan: B12 level was <200. Started IM injections of B12, 1000mcg daily x 5 doses. - Now on 1000 mcg po daily. - could have been contributing to leg pain (9) DM (diabetes mellitus), type 2 with neurological complications: Plan: Pharmacy assisting with management. A1c was 9.4% this admission. - Cont basal-bolus combo. -> On NPH (She uses this at home, so will continue despite being off steroids.) (10) Hypertension: Plan: BP presently controlled - Continue amlodipine, losartan, metoprolol (11) Hyperlipidemia: Plan: - Continue statin (12) Morbid obesity with BMI of 40.0-44.9, adult: Plan: BMI 43 - Noted (13) Chronic kidney disease, stage 3a: Plan: CrCl 50 - 60 mL/min at baseline (Cr ~0.85 - 1.0). - Cr stable at baseline at present. (14) DVT prophylaxis: Plan: Lovenox 40 mg SQ daily Plan: Discharged to [facility] once authorization/approval obtained Admission and Anticipated Discharge Date Admission Date: October 20, 2020 Subjective Patient seen on daily rounds today lastnight, after toileting and getting back to bed-- She bad a nonsustained bout of self terminating sinus tachycardia (nurse reported that it took longer for her to recover after ambulating to the bathroom. She seemed fatigued and winded. Pulse ox was 90 at the time.) Pt does have a h/o SVT and is on chronic metoprolol A CXR was done to ensure that she was on pulmonary vascular congestion. It showed improving infiltrates. No secondary bacterial infection seen. Her beta-blockade was increased This morning, she had mild increase shortness of breath and wheezing per the nurse. An additional dose of IV Lasix was given and her symptoms have since resolved. Review of Systems Review of Systems: All systems reviewed and are unremarkable except as noted in HPI and below Denies fevers, chills, headache, nasal congestion, sore throat, cough, chest pain, shortness of breath, palpitations, orthopnea, PND, abdominal pain, nausea, vomiting, diarrhea, constipation, dysuria, hematuria, frequency, back pain, joint pain or swelling, easy bruising or bleeding, skin lesions or rashes. Physical Exam Physical Exam: General: Resting comfortably in her bedside chair. NAD. HEENT: Head is AT/NC buccal mucosa is moist and pink Neck: No JVD. Negative hepatojugular reflex Cardiac: RRR without M/G/R Lungs: Breathing unlabored. No accessory muscle use. Speaking full sentences on room air. CTA but distant Abdomen: Normoactive X4. Soft and nontender in all quadrants. Extremities: + adiposity without true edema Neuro: A&O X4 cranial nerves II through XII are grossly intact no focal neuro deficits Skin: No obvious skin lesions or rashes Psych: Appropriate affect pleasant and cooperative Results & Data Results & Data ([facility]) Vital Signs (Past 12 Hours) Vital Signs Temp Pulse Resp BP Pulse Ox 11/22/20 14:42 36.3 C L 73 16 103/64 92 11/22/20 06:58 36.3 C L 78 18 117/67 92 PG Care Time/CCT Total # of Minutes Spent Total Time Spent with Patient: Total time spent is greater than 50% in coordination of care (as documented) at patient's floor/unit and/or counseling patient: Coding Level of Care Code 03010 Subseq Hosp Care Lvl 2 History Expanded Problem Focused Exam Expanded Problem Focused Medical Decision Making Moderate Complexity Diagnoses Debility R53.81 Pneumonia due to COVID-19 virus U07.1; J12.82 Tongue ulcer K14.0 Acute diastolic (congestive) heart failure I50.31 Hx of deep venous thrombosis Z86.718 Bilateral leg pain M79.604; M79.605 Vitamin B12 deficiency E53.8 DM (diabetes mellitus), type 2 with neurological complications E11.49 Hypertension I10 Hypertension type: essential hypertension Hyperlipidemia E78.5 Morbid obesity with BMI of 40.0-44.9, adult E66.01; Z68.41 Chronic kidney disease, stage 3a N18.31 DVT prophylaxis Z29.9 Tachycardia R00.0 (1) Hypertension Hypertension type: essential hypertension Qualified Code(s): I10 - Essential (primary) hypertension
[2020-11-22] MEDS: GABAPENTIN 100 MG CAP PO SCH (20:56)
[2020-11-22] MEDS: MELATONIN 3 MG TAB PO SCH (20:56)
[2020-11-22] MEDS: ATORVASTATIN 10 MG TAB PO SCH (20:56)
[2020-11-22] MEDS: ACETAMINOPHEN 325 MG TAB PO PRN (21:04)
--- NOTE | 2020-11-23 08:30 | Hospitalist Progress Note ---
Date of Service November 23, 2020 Assessment & Plan (1) Tachycardia: Plan: -Patient does have an underlying history of SVT for which she takes metoprolol tartrate bid -Given the fact that she is still recovering from Covid, she likely will get fatigued and short of breath with exertion (which seem to have been with toileting yesterday) -Her beta-blockade has since been increased. BP stable -Given the tachycardia, she did have some mild pulmonary vascular congestion which seemed to respond with 1 dose of additional Lasix (2) Debility: Plan: -From lengthy hospitalization (admitted 10/20 with covid) -PT/OT on board. Recommending inpatient/short-term rehab for which patient is agreeable -Case management on board -Patient medically stable for discharge once a bed becomes available -Initial plan was for [facility] but after being told that they would take her and waiting for the bed availability, we were then told that they will not accept the patient as she is not vaccinated (covid). I am uncertain as to why this is seeing as she is recovering from a recent case of Covid. Per recommendations, she should not have her vaccine for at least 90 days and has natural immunity. She has already been denied from [facility], [facility], and now [facility]. -[facility] has accepted patient. awaiting auth. Told will not hear back over weekend (3) Pneumonia due to COVID-19 virus: Plan: Admitted 10/20 severe with associated hypoxic respiratory failure requiring high flow nasal cannula upfront. - S/p 5-day course of remdesivir. - Did not meet candidacy for tocilizumab. - S/p 10 days of IV dexamethasone -> Weaned to 2 mg PO daily x 2 more days. stopped on 11/04/2020. - Intermittent Lasix trials for superimposed pulmonary vascular congestion - Overall doing well. Is requiring 0 to 2 L of supplemental oxygen (mostly room air at rest but requires oxygen after toileting and when she sleeps) - Staff encouraged to utilize supplemental oxygen to maintain a pulse ox of 92% - Big issue now is general decline/deconditioned state from lengthy hos pitalization. PT/OT on board and recommending inpatient rehab for which patient is agreeable - case management on board. Awaiting placement. --Patient has completely recovered from Covid and does not require isolation (4) Tongue ulcer: Plan: Tongue ulcers noted by the patient on 11/06. - Looking back, she had actually been on Nystatin for 7 days without improvement. - Stopped Nystatin on 11/06 - case Discussed with ENT. Recommend dexamethasone 5 mg / 5 mL swish and spit BID with Magic Mouthwash for symptomatic help--> no longer requiring - ulcers likely related to Covid - ulcers has since resolved (5) Acute diastolic (congestive) heart failure: Plan: Last echo in 09/2020 as outpatient - preserved EF. Stable echo this admission with EF 65 - 70%. - multiple doses IV lasix while in house - does take routine lasix which had been on hold. Resumed 11/16 -Additional Lasix given IV this morning (6) Hx of deep venous thrombosis: Plan: No PE on CTA study on 10/20 but was suboptimal study. Had extensive DVT several years ago. Strong family history of VTE - her mother, her daughter, etc. - Dopplers b/l legs neg for DVT during this stay. Repeat CTA chest on 11/03 was negative. -> Continue prophylactic dosing of Lovenox. (7) Bilateral leg pain: Plan: Suspect neuropathy. This is a long-standing issue. TSH wnl. Has had DM for long- time so this could be diabetic polyneuropathy. - Continue gabapentin 200mg PO HS. Leg pain better with addition of this (8) Vitamin B12 deficiency: Plan: B12 level was <200. Started IM injections of B12, 1000mcg daily x 5 doses. - Now on 1000 mcg po daily. - could have been contributing to leg pain (9) DM (diabetes mellitus), type 2 with neurological complications: Plan: Pharmacy assisting with management. A1c was 9.4% this admission. - Cont basal-bolus combo. -> On NPH (She uses this at home, so will continue despite being off steroids.) (10) Hypertension: Plan: BP presently controlled - Continue amlodipine, losartan, metoprolol (11) Hyperlipidemia: Plan: - Continue statin (12) Morbid obesity with BMI of 40.0-44.9, adult: Plan: BMI 43 - Noted (13) Chronic kidney disease, stage 3a: Plan: CrCl 50 - 60 mL/min at baseline (Cr ~0.85 - 1.0). - Cr stable at baseline at present. (14) DVT prophylaxis: Plan: Lovenox 40 mg SQ daily Plan: Discharged to [facility] once authorization/approval obtained Admission and Anticipated Discharge Date Admission Date: October 20, 2020 Results & Data Results & Data ([facility]) Vital Signs (Past 12 Hours) Vital Signs Temp Pulse Pulse Resp BP BP Pulse Ox 11/23/20 07:16 97.5 F L 71 16 136/72 92 11/22/20 22:11 97.7 F 74 18 115/59 L 93 11/22/20 20:54 81 113/66 PG Care Time/CCT Total # of Minutes Spent Total Time Spent with Patient: Total time spent is greater than 50% in coordination of care (as documented) at patient's floor/unit and/or counseling patient: Coding Diagnoses Tachycardia R00.0 Debility R53.81 Pneumonia due to COVID-19 virus U07.1; J12.82 Tongue ulcer K14.0 Acute diastolic (congestive) heart failure I50.31 Hx of deep venous thrombosis Z86.718 Bilateral leg pain M79.604; M79.605 Vitamin B12 deficiency E53.8 DM (diabetes mellitus), type 2 with neurological complications E11.49 Hypertension I10 Hypertension type: essential hypertension Hyperlipidemia E78.5 Morbid obesity with BMI of 40.0-44.9, adult E66.01; Z68.41 Chronic kidney disease, stage 3a N18.31 DVT prophylaxis Z29.9 (1) Hypertension Hypertension type: essential hypertension Qualified Code(s): I10 - Essential (primary) hypertension
[2020-11-23] MEDS: amLODIPine BESYLATE 5 MG TAB PO SCH (08:31)
[2020-11-23] MEDS: ASPIRIN 81 MG ECTAB PO SCH (08:32)
[2020-11-23] MEDS: ENOXAPARIN INJ 40 MG/0.4 ML SYR SQ SCH (08:33)
[2020-11-23] MEDS: CYANOCOBALAMIN 500 MCG TABLET (VITAMIN B-12) PO SCH (08:33)
[2020-11-23] MEDS: METOPROLOL TARTRATE 100 MG TAB PO SCH (08:34)
[2020-11-23] MEDS: LOSARTAN POTASSIUM 50 MG TAB PO SCH (08:34)
[2020-11-23] MEDS: MUPIROCIN 2% OINT 22 GM TUBE EXT SCH (08:35)
[2020-11-23] MEDS: NYSTATIN POWDER 15GM BTL EXT SCH (08:35)
[2020-11-23] MEDS: SENNA 8.6 MG TAB PO SCH (08:36)
[2020-11-23] MEDS: POLYETHYLENE (MIRALAX) 17 GM PACK PO SCH (08:36)
[2020-11-23] MEDS: THIAMINE HCL 100 MG TAB PO SCH (08:36)
[2020-11-23] MEDS: FUROSEMIDE 20 MG TAB PO SCH (08:37)
[2020-11-23] MEDS: BENZONATATE 100 MG CAPSULE PO SCH ×2 (08:41→13:53)
[2020-11-23] MEDS: INSULIN ASPART 100 UNITS/ML 3 ML PEN SC SCH ×2 (08:49→12:39)
[2020-11-23] MEDS ORDERED: INSULIN GLARGINE SOLOSTAR 100 UNITS/ML 3 ML PEN SC SCH (09:00)
[2020-11-23] MEDS: CHOLECALCIFEROL 1,000 UNITS 25 MCG TAB PO SCH (11:23)
[2020-11-23] MEDS: ACETAMINOPHEN 325 MG TAB PO PRN (12:36)
--- NOTE | 2020-11-23 19:04 | Discharge Summary ---
Date of Service November 23, 2020 Admission HPI Per Admitting Provider This is a 85-year-old female with past medical history of hypertension, type 2 diabetes mellitus, hyperlipidemia that presents today complaining of cough and shortness of breath. Her daughter is in the room who is also experiencing similar symptoms and is also to be admitted. Daughter did give me most of history. Patient tells me that several generations live in her house. This includes her grandson and his daughter, which is the patient's great-granddaughter. Approximately 2 weeks ago, the granddaughter was sent home from school after being exposed to another child at school that had tested positive for Covid. Last week, the granddaughter, who is 11 years old, started to show some mild URI symptoms and was taken by her father to be tested which was positive. Although the child is doing well, about 1 week ago the patient started experiencing similar symptoms. This started with a low-grade fever and some generalized fatigue. Unfortunately, this progressed to shortness of breath and a loose but nonproductive cough. Patient does admit that her cough is not as severe as her daughters and is more dry sounding. Patient had significant dyspnea on exertion. She has not lost her taste or sense or smell. She tried to write out the symptoms but they continue to worsen until she became very short of breath with minimal activity. This is what prompted her to come to the emergency room today with her daughter. In the ER, she was found to have a room air O2 sat of 88%. She is doing much better on nasal cannula oxygen with a sat of 93%. She is febrile to 38.1 C. She is very weak appearing. She does admit to me that she was not vaccinated. Patient is now being admitted with her mother to [facility] secondary to Covid pneumonia. Principal Diagnosis acute hypoxic respiratory failure covid pneumonia acute on chronic diastolic heart failure B12 deficiency Tongue ulcerations / Rich Discharge Exam The patient appeared well Vital signs as documented. Lungs are diminished but clear Cardiac exam, Rhythm is regular.. No murmurs, sses Extremities are 1+ edematous and both pedal pulses are normal. Neurologic exam is alert and oriented, no focal loss of strength or sensation Skin is without bruises or rashes Psychologically is without concerns for anxiety or depression. Discharge Data Allergies Allergy/AdvReac Type Severity Reaction Status Date / Time codeine AdvReac Confusion Verified 10/20/20 09:53 Consultations 10/20/20 17:11 ED Decision to Admit Stat 10/24/20 08:45 Consult Pulmonology Routine Ordered Studies 10/20/20 18:28 CT angio chest PE protocol Stat 10/27/20 17:38 US venous doppler LE BI Routine 11/02/20 12:27 CT angio chest PE protocol Routine Diabetes Follow up Diabetes Follow-up Needed for HgbA1c >9% Hospital Course (1) Pneumonia due to COVID-19 virus: Admitted 10/20 with acute severe hypoxic respiratory failure requiring high flow nasal cannula upfront. Patient is no longer infectious require isolation - S/p 5-day course of remdesivir. - Did not meet candidacy for tocilizumab. - S/p 10 days of IV dexamethasone -> Weaned to 2 mg PO daily x 2 more days. stopped on 11/04/2020. - Intermittent Lasix trials for superimposed pulmonary vascular congestion - Overall doing well. Is requiring 0 to 2 L of supplemental oxygen (mostly room air at rest but requires oxygen after toileting and when she sleeps) - Big issue now is general decline/deconditioned state from lengthy hospitalization. PT/OT on board and recommending inpatient rehab for which patient is agreeable --Patient has completely recovered from Covid and does not require isolation (2) Acute diastolic (congestive) heart failure: Last echo in 09/2020 as outpatient - preserved EF. Stable echo this admission with EF 65 - 70%. 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 Recommending inpatient/short-term rehab for which patient is agreeable -Case management on board -Patient medically stable for discharge once a bed becomes available (5) Tongue ulcer: Tongue ulcers noted by the patient on 11/06. - ulcers likely related to Covid - ulcers has since resolved (6) Hx of deep venous thrombosis: No PE on CTA study on 10/20 but was suboptimal study. Had extensive DVT several years ago. Strong family history of VTE - her mother, her daughter, etc. - Dopplers b/l legs neg for DVT during this stay. Repeat CTA chest on 11/03 was negative. -> Continue prophylactic dosing of Lovenox.or post acute care Xarelto 10 mg daily (7) Bilateral leg pain: Suspect neuropathy. This is a long-standing issue. TSH wnl. Has had DM for long-time so this could be diabetic polyneuropathy. - Continue gabapentin 200mg PO HS. Leg pain better with addition of this (8) Vitamin B12 deficiency: B12 level was <200. Started IM injections of B12, 1000mcg daily x 5 doses. -recommend multivitamin (9) DM (diabetes mellitus), type 2 with neurological complications: Pharmacy assisting with management. A1c was 9.4% this admission. - transition to home oral meds blended with ssi, and continue transition as pt allows (10) Hypertension: BP presently controlled - Continue amlodipine, losartan, metoprolol (11) Hyperlipidemia: - Continue statin (12) Morbid obesity with BMI of 40.0-44.9, adult: BMI 43 - Noted (13) Chronic kidney disease, stage 3a: CrCl 50 - 60 mL/min at baseline (Cr ~0.85 - 1.0). - Cr stable at baseline at present. (14) DVT prophylaxis: Lovenox 40 mg SQ daily or xarelto 10 mg Discharged to [facility] Total Time Total Time Spent Total Time Spent (In Minutes): It required greater than 30 minutes to prepare this patient for discharge Discharge Plan Discharge Items Patient Disposition: Transfer Longterm Fac Reason For Visit: COVID PNEUMONIA Discharge Diagnosis: covid pneumonia now the pt is fully recovered and no longer in need of isolation. acute diastolic heart failure, now stable B12 deficiency tongue ulcers / rich Activity: Per Instructions section Activity Comment: per PT/OT evaluation Non-emergency contact: Primary Care Provider Call non-emergency contact if: you have any medication questions and your symptoms worsen Follow-up/Referrals: Layla Monterroso CRNP [Primary Care Provider] - Diet: Carb Consistent or DM2 and Low Sodium (2gm) Addtl Attending Provider Instructions: as you recently have recovered from Covid pneumonia and have a history of some heart issues you may find yourself being slightly short of breath with exertion. Please pace yourself as this should improve over time. Watch your salt intake and your fluid intake, one way is to watch your weight for changes that may indicate fluid retention Have your health providers check you blood work to assure that you are not on too much fluid medicine would recommend transitioning back to her oral medicines for diabetes, will start by having glimepiride plus ssi, checking blood glucose with meals and before bed, if stable will consider adding back metformin and eventually re adding 70/30 insulin if able we are using post discharge xarelto for some debilitated medical patients , you may consider substituting lovenox if you prefer at 40 mg a day sc Pending Studies at Discharge: No Stand-Alone Forms: My [facility] Skilled Items Patient informed of condition?: Yes DNR: Yes Discharge Level of Care: Skilled Communicable Disease: No Discharge Prognosis: Stable Lines: None Urinary Catheter: No Medications and DC Order Prescriptions: New metoprolol tartrate 100 mg Tablet 100 mg PO BID Qty: 60 RF: 0 gabapentin 100 mg Capsule 200 mg PO HS Qty: 30 RF: 0 sennosides [Senokot] 8.6 mg Tablet 17.2 mg PO QAM Qty: 60 RF: 0 polyethylene glycol 3350 [Miralax] 17 gram Powder In Packet 17 g PO DAILY Qty: 30 RF: 0 melatonin 3 mg Tablet 3 mg PO HS Qty: 30 RF: 0 Xarelto 10 mg tablet 10 mg PO DAILY 30 Days Qty: 30 RF: 0 insulin aspart U-100 [Novolog Flexpen U-100 Insulin] 100 unit/mL (3 mL) Insulin Pen 1 unit SC TID@1130,1630,2100 Qty: 3 RF: 0 Continued atorvastatin 10 mg tablet 10 mg PO HS Qty: 90 RF: 3 glimepiride 2 mg tablet 2 mg PO QAM Qty: 90 RF: 3 furosemide 20 mg tablet 20 mg PO DAILY Qty: 30 RF: 4 aspirin [Aspirin Low Dose] 81 mg Tablet,Delayed Release (Dr/Ec) 81 mg PO QAM RF: 0 cholecalciferol (vitamin D3) [Vitamin D3] 2,000 unit Capsule 2,000 unit PO QAM RF: 0 amlodipine 10 mg tablet 10 mg PO DAILY RF: 0 losartan 100 mg tablet 100 mg PO DAILY RF: 0 fluticasone propionate 50 mcg/actuation spray,suspension 2 spray intranasal QAM RF: 0 Discontinued metoprolol tartrate 50 mg tablet 75 mg PO BID Qty: 270 RF: 3 metformin 1,000 mg tablet 1,000 mg PO BID Qty: 180 RF: 3 potassium chloride [Klor-Con 10] 10 mEq tablet extended release 10 meq PO DAILY Qty: 30 RF: 7 insulin asp prt-insulin aspart [Novolog Mix 70-30FlexPen U-100] 100 unit/mL (70-30) insulin pen 10 unit subcut DAILY RF: 0 nystatin 100,000 unit/gram powder 1 applic topical BID PRN (Reason: FLARE UPS) RF: 0 No Action (DME) Assure ID Pen Needle 30 gauge x 3/16" needle See Rx Instructions .ROUTE .MEDSUPPLY Qty: 100 RF: 3 (DME) FreeStyle Nesha 14 Day Sensor Kit See Rx Instructions .Route Qty: 1 RF: 4 (DME) FreeStyle Nesha 14 Day [place] Misc See Rx Instructions .Route Qty: 1 RF: 0 Discharge Orders: Discharge Order (Routine); Ordered 11/23/20 Ordered By: Michele Jones Admission Data Admit Date/Time: 10/20/20 18:26 Attending Provider: Michele Jones Admit Provider: Alsesio Acosta Primary Care Provider: Layla Monterroso Other Providers: [facility] ; Chang Garcia ; [facility] ; [facility], ; [facility] ; [facility] ; Alessio Acosta ; Dorothy Simpson ; [place],[facility] [place] Other Interventions: Discharge Summary Assessment (RN) Last Done: 11/23/20 11:23 Coding Level of Care Code D/C DAY MANAGEMENT >30 MINS Diagnoses Tachycardia R00.0 Debility R53.81 Pneumonia due to COVID-19 virus U07.1; J12.82 Tongue ulcer K14.0 Acute diastolic (congestive) heart failure I50.31 Hx of deep venous thrombosis Z86.718 Bilateral leg pain M79.604; M79.605 Vitamin B12 deficiency E53.8 DM (diabetes mellitus), type 2 with neurological complications E11.49 Hypertension I10 Hypertension type: essential hypertension Hyperlipidemia E78.5 Morbid obesity with BMI of 40.0-44.9, adult E66.01; Z68.41 Chronic kidney disease, stage 3a N18.31 DVT prophylaxis Z29.9
== END 2020-11-23 14:40 | DRG 177 ==
LOC: ED 14:32 → SUATTDRO 18:26 → 2S 18:26 → 3E 11-11 14:33

== ENCOUNTER 2023-02-18 09:25 | Inpatient (IN) ==
--- NOTE | 2023-02-18 09:54 | Emergency Department Note ---
Impression & Plan SOB (shortness of breath), Leukocytosis, Pneumonia, RSV (respiratory syncytial virus infection), Hypomagnesemia, Hypokalemia, Fluid overload ED Provider Note NAME: TOSHIA PENG AGE: 88 SEX: F : 1935 ARRIVES VIA: Walk-In INFORMANT: [Patient] ED PROVIDER(S): [Leopoldo Haynes MD] CHIEF COMPLAINT: Respiratory problems HISTORY OF PRESENT ILLNESS: The patient is an 88-year-old female with a history of heart failure with preserved ejection fraction. She does take daily diuretics. She presents to the ER with several days of increasing dyspnea, postnasal drip, cough, fever and shortness of breath. Any exertion makes her very winded. She does not think that her legs are more swollen than baseline. She has not had vomiting or diarrhea. No known sick contacts. PMHx/PSHx/Social Hx: See Below PHYSICAL EXAM: GENERAL: Patient is in mild distress, seems short of breath. HEENT: No acute trauma, normocephalic atraumatic, mucous membranes moist, no nasal congestion. NECK: No stridor, no adenopathy, no meningismus, trachea is midline. LUNGS: Clear to auscultation bilaterally when listening anterior, no wheeze, no rhonchi, breath sounds equal. Increased respiratory rate. HEART: Without murmurs gallops or rubs, regular rate and rhythm. ABDOMEN: Soft, nontender, no peritonitis. Obese. EXTREMITIES: No cyanosis, full range of motion of all the joints without pain or difficulty. Moderate bilateral pedal edema. NEUROLOGIC: Oriented x 3, no acute motor or sensory deficits, no focal weakness. SKIN: No jaundice, no diaphoresis. DIFFERENTIAL DIAGNOSIS: Fluid overload, bronchitis or pneumonia, sinusitis, COVID-19, influenza, RSV, anemia, dysrhythmia, cardiac ischemia, among others. EMERGENCY DEPARTMENT PROCEDURES: MEDICAL DECISION MAKING: There is a moderate leukocytosis, this could be consistent with infection. There is a normal hemoglobin and platelet count. INR is elevated at 1.4, likely from her Xarelto use. Potassium and magnesium were both low. No renal failure. Lactic acid level is elevated consistent with potential infection. No concerning liver enzyme elevation. BNP was high consistent with some fluid overload. ECG shows a sinus rhythm with some PVCs and PACs, no obvious acute ischemia. Cardiac enzyme testing x 1 is slightly elevated. This troponin elevation could be secondary to cardiac injury or potentially just mismatch from her dyspnea. Urinalysis did not show infection. Respiratory bio fire was positive for parainfluenza as well as RSV. Chest x-ray shows what appears to be a potential right lower lung pneumonia per my reading. On exam, the patient was clearly dyspneic. She could barely even move on the bed without having to stop to catch her breath. The patient had a Calderon catheter placed. She was given 60 mg of IV Lasix to help with diuresis. She received IV cefepime as empiric antibiotic coverage. She was given IV potassium and IV magnesium. The patient presents short of breath. She was clearly dyspneic on exam. Exertion would worsen her shortness of breath. Workup here suggest some fluid overload as well as an RSV infection and even potential pneumonia. Hospitalization is indicated. I spoke with the patient and case management, the on-call hospitalist was consulted. Prior/Outside records/notes reviewed: Cardiology note from 01/27/2023 discussing her chronic heart failure and the plan moving forward. ECG per my interpretation: Indication was shortness of breath. The ECG shows a sinus rhythm with PVCs and PACs. The rate is 85. There is a right bundle branch block. There is no acute ST elevation. The QTc is 490. Continuous Cardiac Monitoring per my interpretation: An order was placed for continuous cardiac monitoring. The monitor shows a rate of 81 with normal sinus rhythm. Imaging/x-ray results per my interpretation: Chest x-ray shows a right lower lung pneumonia. Chronic Medical/Social conditions affecting care: Chronic congestive heart failure, advanced age. Care/Management discussed with: Case management, the on-call hospitalist. Level of care consideration(s): After review of the information above and other included data: --I believe the patient requires escalation of care to admission Critical Care Note: I have personally spent 46 minutes of critical care time in the direct management of this patient. This includes bedside care, interpretation of diagnostic studies, and testing, discussion with consultants, patient, and family members, and other required patient management activities. This 46 minutes is in excess of all separately billable procedures. DISPOSITION: Admission Past Med/Surg History Medical History History of COVID-19 2020, hospitalized History of respiratory failure 2020 r/t covid History of congestive heart failure Unsteady gait General weakness Vitamin B12 deficiency Bifascicular block History of PSVT (paroxysmal supraventricular tachycardia) on beta nando DVT, lower extremity LLE (01/2018) DM (diabetes mellitus), type 2 with neurological complications Hyperlipidemia Obesity Hearing deficit bilateral Cancer of sigmoid colon S/P surgery/chemo-09/2017 Osteoarthritis Low back pain Chronic GI bleed hx, 10/2017 s/p ex lap Hypertension Surgical History History of cataract surgery History of esophagogastroduodenoscopy (EGD) History of removal of Port-a-Cath (09/13/18) History of surgery History of open reduction and internal fixation (ORIF) procedure H/O exploratory laparotomy History of open sigmoidectomy History of hip replacement History of cholecystectomy Family History Uncle Prostate cancer Mother Diabetes Gallbladder disease Grandmother Diabetes Father Hypertension Daughter Family history of diabetes mellitus Social History Smoking Status: Never smoker Second Hand Exposure: Yes (spouse smoked ); Do You Dip or Chew Tobacco: No; Hx Alcohol Use: No Hx Substance Use: No Preferred Language: Danish Communication Ability: Effective Windows Server Administrator Required: No Beliefs That Will Affect Care: None marital status: / Current Living Situation: Personal Care Facility How many Children do You have: 5 Feels Safe at Home: Yes Childhood Exposure to Second-Hand Smoke: No Diet: regular caffeine: Yes Dental Care, Regularly: No Physical Activity Frequency: Does not Exercise Seatbelt Use: always Sunscreen Use: No Assistive Devices: Glasses, Walker and Wheelchair Allergies Allergies Allergy/AdvReac Type Severity Reaction Status Date / Time codeine AdvReac Confusion Verified 01/27/23 09:42 Home Meds Home Medications Medication Instructions Recorded Confirmed cholecalciferol (vitamin D3) 50 2,000 unit PO QAM 11/30/17 02/18/23 mcg (2,000 unit) capsule (Vitamin D3) amlodipine 5 mg tablet 5 mg PO QAM 07/20/22 02/18/23 furosemide 40 mg tablet (Lasix) 80 mg PO QAM 07/20/22 02/18/23 losartan 100 mg tablet 100 mg PO QAM 07/20/22 02/18/23 rivaroxaban 10 mg tablet (Xarelto) 10 mg PO QAM 07/20/22 02/18/23 benzonatate 200 mg capsule 200 mg PO TID PRN cough 01/13/23 02/18/23 guaifenesin 600 mg tablet,extended 600 mg PO BID PRN Congestion 01/13/23 02/18/23 release lanolin alcohols-mineral 1 applic topical DAILY 01/13/23 02/18/23 oil-w.petrolatum-ceresin topical cream (Minerin Creme topical) loperamide 2 mg tablet 2 mg PO Q4H PRN Loose Stool 01/13/23 02/18/23 mecobalamin (vitamin B12) 5,000 5,000 mcg PO QAM 01/13/23 02/18/23 mcg disintegrating tablet menthol 0.44 %-zinc oxide 20.6 % 1 applic topical DAILY PRN Dry Skin 01/13/23 02/18/23 topical ointment (Calmoseptine) phenol-phenolate sodium lozenges 1 yoon mucous membrane DAILY PRN 01/13/23 02/18/23 use as per package Previous Rx's Medication Instructions Recorded flash glucose scanning reader #1 ea 10/06/20 (FreeStyle Nesha 14 Day [place]) flash glucose sensor (FreeStyle #1 ea 10/06/20 Nesha 14 Day Sensor kit) insulin syringe-needle U-100 1 mL #200 ea 12/08/20 25 x 1" (BD Insulin Syringe) lancets 33 gauge (OneTouch Delica #100 ea 02/25/21 Lancets) blood sugar diagnostic (OneTouch #100 ea 08/31/21 Ultra Test strips) atorvastatin 10 mg tablet 10 mg PO HS #90 tabs 12/06/21 metformin 1,000 mg tablet 1,000 mg PO BID #180 tabs 12/24/21 metoprolol tartrate 100 mg tablet 100 mg PO BID #60 tabs 01/28/22 pen needle, diabetic, safety 30 #100 ea 04/22/22 gauge x 3/16" (Assure ID Pen Needle) nystatin 100,000 unit/gram topical 1 applic topical BID #30 grams 08/15/22 powder insulin glargine 100 unit/mL (3 26 unit (0.26 mL) subcut QPM #15 mL 09/20/22 mL) subcutaneous pen (Basaglar KwikPen U-100 Insulin) fluticasone propionate 50 2 spray intranasal QAM #16 grams 11/07/22 mcg/actuation nasal spray,suspension insulin aspart U-100 100 unit/mL See Rx Instructions SC .COMPLEX 01/17/23 (3 mL) subcutaneous pen (Novolog #15 mL FlexPen U-100 Insulin aspart) Results & Data (ED) Vital Signs Vital Signs - 24 hr 02/18/23 09:25 02/18/23 09:25 02/18/23 09:47 Temperature 36.6 C Temperature Source Oral Pulse Rate 113 H 80 Pulse Rate from SpO2 Sensor Respiratory Rate 18 Respiratory Effort / Characteristics Respiratory Depth Respiratory Pattern Blood Pressure 121/72 Blood Pressure Mean 88 Pulse Oximetry 96 94 Oxygen Delivery Method Room Air Room Air Sepsis Recent Fever Within 48 Hours Yes Sepsis New/Unexplained Change in Mental Status N/A Sepsis Action Taken by Nursing No Action Required 02/18/23 09:58 02/18/23 10:00 02/18/23 10:02 Temperature Temperature Source Pulse Rate 80 81 Pulse Rate from SpO2 Sensor 73 Respiratory Rate 31 H Respiratory Effort / Characteristics Non-Labored Respiratory Depth Normal Respiratory Pattern Regular Blood Pressure 116/57 L Blood Pressure Mean 76 Pulse Oximetry 93 Oxygen Delivery Method Sepsis Recent Fever Within 48 Hours Sepsis New/Unexplained Change in Mental Status Sepsis Action Taken by Nursing 02/18/23 11:01 02/18/23 11:07 Temperature Temperature Source Pulse Rate 114 H 114 H Pulse Rate from SpO2 Sensor 114 H 114 H Respiratory Rate 33 H 21 Respiratory Effort / Characteristics Respiratory Depth Respiratory Pattern Blood Pressure 94/68 L 117/75 Blood Pressure Mean 76 89 Pulse Oximetry 94 94 Oxygen Delivery Method Sepsis Recent Fever Within 48 Hours Sepsis New/Unexplained Change in Mental Status Sepsis Action Taken by Intermediate Medications Current Medication List: was personally reviewed by me Laboratory Data Attestation: I reviewed the patient's lab results. 02/18/23 09:55 02/18/23 09:47 Lab Results 02/18/23 02/18/23 02/18/23 Range/Units 09:47 09:55 10:35 WBC 14.28 H (4.8-10.8) K/ul RBC 4.31 (4.20-5.40) M/uL Hgb 12.6 (12.0-16.0) g/dl Hct 38.8 (37.0-47.0) % MCV 90.0 (80.0-100.0) fL MCH 29.2 (25.0-34.0) pg MCHC 32.5 (32.0-36.0) g/dL RDW Std Deviation 49.1 H (36.4-46.3) fL RDW Coeff of Sarika 14.8 H (11.5-14.5) % Plt Count 322 (130-400) K/uL MPV 10.5 (9.4-12.4) fL Immature Gran % (Auto) 0.6 % Neut % (Auto) 84.0 % Lymph % (Auto) 6.0 % [place] % (Auto) 9.0 % Eos % (Auto) 0.0 % Baso % (Auto) 0.4 % Neut # (Auto) 11.98 H (1.40-6.50) K/uL Lymph # (Auto) 0.86 L (1.20-3.40) K/uL [place] # (Auto) 1.29 H (0.11-0.59) K/uL Eos # (Auto) 0.00 (0.00-0.50) K/uL Baso # (Auto) 0.06 (0.00-0.20) K/uL Immature Gran # (Auto) 0.09 (0.01-0.20) K/uL PT 14.6 H (9.0-12.0) Seconds INR 1.4 H (0.9-1.1) APTT 40 H (21-31) Seconds PTT Ratio 1.4 Sodium 136 (136-145) mmol/L Potassium 3.0 L (3.5-5.1) mmol/L Chloride 99 (98-107) mmol/L Carbon Dioxide 21 (21-32) mmol/L Anion Gap 16 H (3-11) BUN 16 (6-23) mg/dl Creatinine 1.15 (0.6-1.2) mg/dl Est Cr Clr Drug Dosing Not Reportable Est GFR ( Amer) 48.9 ml/min Est GFR (Non-Af Amer) 42.2 ml/min BUN/Creatinine Ratio 13.9 (10-20) Glucose 115 H (70-99(Fasting)) mg/dl Lactate 3.4 H* (0.4-2.0) mmol/L Calcium 8.9 (8.6-10.3) mg/dl Magnesium 1.4 L (1.7-2.4) mg/dl Total Bilirubin 0.8 (0.2-1.0) mg/dl AST 18 (13-39) U/L ALT 17 (7-52) U/L Alkaline Phosphatase 71 (34-104) U/L Troponin I High Sens 27.6 H (0-14) pg/ml C-Reactive Protein 19.15 H (0-0.5) mg/dl B-Natriuretic Peptide 659 H (0-100) pg/ml Total Protein 7.9 (6.0-8.3) gm/dl Albumin 3.8 (3.4-5.0) gm/dl Globulin 4.1 H (2.5-4.0) gm/dl Albumin/Globulin Ratio 0.9 (0.9-2) Procalcitonin 0.05 (0-0.5) ng/ml Urine Color Urine Appearance (Clear) Urine pH (4.5-7.5) Ur Specific [place] (1.000-1.030) Urine Protein (Negative) Urine Glucose (UA) (Negative) Urine Ketones (Negative) Urine Blood (Negative) Urine Nitrite (Negative) Urine Bilirubin (Negative) Urine Urobilinogen (Negative) Ur Leukocyte Esterase (Negative) Adenovirus (PCR) Not Detected (NotDetected) B. pertussis DNA (PCR) Not Detected (NotDetected) B.parapertussis DNA PCR Not Detected (NotDetected) C. pneumoniae DNA (PCR) Not Detected (NotDetected) Coronavirus OC43 (PCR) Not Detected (NotDetected) Coronavirus HKU1 (PCR) Not Detected (NotDetected) Coronavirus 229E (PCR) Not Detected (NotDetected) SARS-CoV-2 (PCR) Not Detected (NotDetected) Coronavirus NL63 (PCR) Not Detected (NotDetected) Human Metapneumovir PCR Not Detected (NotDetected) Influenza Type A (PCR) Not Detected (NotDetected) Influenza Type B (PCR) Not Detected (NotDetected) M. pneumoniae (PCR) Not Detected (NotDetected) Parainfluenza 1 (PCR) Not Detected (NotDetected) Parainfluenza 2 (PCR) Not Detected (NotDetected) Parainfluenza 3 (PCR) DETECTED A* (NotDetected) Parainfluenza 4 (PCR) Not Detected (NotDetected) RSV (PCR) DETECTED A* (NotDetected) Entero/Rhino (PCR) Not Detected (NotDetected) 02/18/23 Range/Units 11:05 WBC (4.8-10.8) K/ul RBC (4.20-5.40) M/uL Hgb (12.0-16.0) g/dl Hct (37.0-47.0) % MCV (80.0-100.0) fL MCH (25.0-34.0) pg MCHC (32.0-36.0) g/dL RDW Std Deviation (36.4-46.3) fL RDW Coeff of Sarika (11.5-14.5) % Plt Count (130-400) K/uL MPV (9.4-12.4) fL Immature Gran % (Auto) % Neut % (Auto) % Lymph % (Auto) % [place] % (Auto) % Eos % (Auto) % Baso % (Auto) % Neut # (Auto) (1.40-6.50) K/uL Lymph # (Auto) (1.20-3.40) K/uL [place] # (Auto) (0.11-0.59) K/uL Eos # (Auto) (0.00-0.50) K/uL Baso # (Auto) (0.00-0.20) K/uL Immature Gran # (Auto) (0.01-0.20) K/uL PT (9.0-12.0) Seconds INR (0.9-1.1) APTT (21-31) Seconds PTT Ratio Sodium (136-145) mmol/L Potassium (3.5-5.1) mmol/L Chloride (98-107) mmol/L Carbon Dioxide (21-32) mmol/L Anion Gap (3-11) BUN (6-23) mg/dl Creatinine (0.6-1.2) mg/dl Est Cr Clr Drug Dosing Est GFR ( Amer) ml/min Est GFR (Non-Af Amer) ml/min BUN/Creatinine Ratio (10-20) Glucose (70-99(Fasting)) mg/dl Lactate (0.4-2.0) mmol/L Calcium (8.6-10.3) mg/dl Magnesium (1.7-2.4) mg/dl Total Bilirubin (0.2-1.0) mg/dl AST (13-39) U/L ALT (7-52) U/L Alkaline Phosphatase (34-104) U/L Troponin I High Sens (0-14) pg/ml C-Reactive Protein (0-0.5) mg/dl B-Natriuretic Peptide (0-100) pg/ml Total Protein (6.0-8.3) gm/dl Albumin (3.4-5.0) gm/dl Globulin (2.5-4.0) gm/dl Albumin/Globulin Ratio (0.9-2) Procalcitonin (0-0.5) ng/ml Urine Color Yellow Urine Appearance Clear (Clear) Urine pH 6.0 (4.5-7.5) Ur Specific [place] 1.011 (1.000-1.030) Urine Protein Negative (Negative) Urine Glucose (UA) Negative (Negative) Urine Ketones Negative (Negative) Urine Blood Negative (Negative) Urine Nitrite Negative (Negative) Urine Bilirubin Negative (Negative) Urine Urobilinogen Negative (Negative) Ur Leukocyte Esterase Negative (Negative) Adenovirus (PCR) (NotDetected) B. pertussis DNA (PCR) (NotDetected) B.parapertussis DNA PCR (NotDetected) C. pneumoniae DNA (PCR) (NotDetected) Coronavirus OC43 (PCR) (NotDetected) Coronavirus HKU1 (PCR) (NotDetected) Coronavirus 229E (PCR) (NotDetected) SARS-CoV-2 (PCR) (NotDetected) Coronavirus NL63 (PCR) (NotDetected) Human Metapneumovir PCR (NotDetected) Influenza Type A (PCR) (NotDetected) Influenza Type B (PCR) (NotDetected) M. pneumoniae (PCR) (NotDetected) Parainfluenza 1 (PCR) (NotDetected) Parainfluenza 2 (PCR) (NotDetected) Parainfluenza 3 (PCR) (NotDetected) Parainfluenza 4 (PCR) (NotDetected) RSV (PCR) (NotDetected) Entero/Rhino (PCR) (NotDetected) Administered Medications Acetaminophen (Acetaminophen 325 Mg Tab) 650 mg PO Q4H PRN PRN Reason: Pain or Fever Stop: 03/20/23 14:49 Last Admin: 02/18/23 15:15 Dose: 650 mg Documented By: EVERETT Azithromycin (Azithromycin 250 Mg Tab) 500 mg PO Q24H MICHELLE Stop: 02/21/23 14:59 Last Admin: 02/18/23 15:15 Dose: 500 mg Documented By: EVERETT Ceftriaxone Sodium 2,000 mg/ (Dextrose) 50 mls @ 100 mls/hr IV Q24H [facility]; Protocol Stop: 02/23/23 14:59 Last Admin: 02/18/23 15:17 Dose: 100 mls/hr Documented By: EVERETT Insulin Aspart (Insulin Aspart Per Unit Charge) 0 units SC ACHS [facility]; Protocol Stop: 03/20/23 12:59 Last Admin: 02/18/23 13:15 Dose: Not Given Documented By: PER Co-signed By: COLUMBA Discontinued Medications Furosemide (Furosemide 40 Mg/4 Ml Vial) 60 mg IV ONE ONE Stop: 02/18/23 10:51 Last Admin: 02/18/23 11:06 Dose: 60 mg Documented By: MARCELLUS Guaifenesin (Guaifenesin 600 Mg Tabcr) 1,200 mg PO ONE STA Stop: 02/18/23 12:44 Last Admin: 02/18/23 14:04 Dose: 1,200 mg Documented By: COLUMBA Cefepime HCl (Maxipime) 2,000 mg in 20 mls @ 5 mls/min IV NOW STA; Protocol Stop: 02/18/23 10:12 Last Admin: 02/18/23 10:36 Dose: 5 mls/min Documented By: MARCELLUS Magnesium Sulfate/Dextrose (Magnesium Sulfate / D5w) 1 gm in 100 mls @ 100 mls/hr IV NOW STA Stop: 02/18/23 11:29 Last Infusion: 02/18/23 11:36 Dose: Infused Documented By: Admin: 02/18/23 10:36 Dose: 100 mls/hr Documented By: MARCELLUS Potassium Chloride (K Joey / Wtr) 10 meq in 100 mls @ 100 mls/hr IV ONE ONE Stop: 02/18/23 11:29 Last Infusion: 02/18/23 11:36 Dose: Infused Documented By: Admin: 02/18/23 10:36 Dose: 100 mls/hr Documented By: MARCELLUS Potassium Chloride (Potassium Chloride Crtab 20 Meq Tabcr) 40 meq PO NOW STA Stop: 02/18/23 11:05 Last Admin: 02/18/23 11:40 Dose: 40 meq Documented By: MARCELLUS Imaging Data Radiologist's Impression: Chest X-Ray 02/18/23 09:47 SINGLE VIEW CHEST CLINICAL HISTORY: Dyspnea FINDINGS: An AP, portable, upright chest radiograph is compared to chest x-ray and chest CT dated 12/01/2022. The heart is enlarged noting atherosclerotic calcification of the thoracic aorta. The pulmonary vasculature is noncongested. Chronic interstitial thickening is similar to previous. There is bibasilar scarring/atelectasis. No airspace consolidation or large pleural effusion is identified. No pneumothorax is seen. The skeletal structures are osteopenic. The bony thorax is grossly intact. Degenerative change is noted in the shoulders and spine. IMPRESSION: Cardiomegaly with no acute cardiopulmonary abnormality identified. ACT 112: Negative or not required by law. Electronically signed by: Leopoldo Dimas M.D. 02/18/2023 10:22 AM Discharge Plan Visit Data Chief Complaint: Respiratory Problems Stated Complaint: RESPITORY PROBLEMS ED Provider: Leopoldo Haynes Discharge Problem: SOB (shortness of breath), Leukocytosis, Pneumonia, RSV (respiratory syncytial virus infection), Hypomagnesemia, Hypokalemia, Fluid overload Patient Disposition: Admitted As Inpatient Condition: Fair Discharge Instructions Interventions: ED Discharge Assessment Last Done: 02/18/23 12:48 Discharge Problem: Leukocytosis Qualifiers: Leukocytosis type: unspecified Qualified Code(s): D72.829 - Elevated white blood cell count, unspecified Pneumonia Qualifiers: Pneumonia type: due to unspecified organism Laterality: right Lung location: l ower lobe of lung Qualified Code(s): J18.9 - Pneumonia, unspecified organism Fluid overload Qualifiers: Hypervolemia type: unspecified Qualified Code(s): E87.70 - Fluid overload, unspecified
[2023-02-18] MEDS ORDERED: CEFEPIME 2,000 MG/20 ML VIAL IV STA (10:09)
[2023-02-18 10:13] LABS: Basophils # (auto) 0.06 K/uL (0.00-0.20); Basophils % (auto) 0.4 %; Hematocrit (blood only) 38.8 % (37.0-47.0); Hemoglobin 12.6 g/dl (12.0-16.0); Immature Granulocytes # (auto) 0.09 K/uL (0.01-0.20); Immature Granulocytes % (auto) 0.6 %; Lymphocytes # (auto) 0.86 K/uL (1.20-3.40); Mean Corpuscular Hemoglobin 29.2 pg (25.0-34.0); Mean Corpuscular Hgb Conc 32.5 g/dL (32.0-36.0); Mean Platelet Volume 10.5 fL (9.4-12.4); Monocytes # (auto) 1.29 K/uL (0.11-0.59); Neutrophils # (auto) 11.98 K/uL (1.40-6.50); Platelet Count 322 K/uL (130-400); RDW Coefficient of Variation 14.8 % (11.5-14.5); RDW Standard Deviation 49.1 fL (36.4-46.3); Red Blood Count 4.31 M/uL (4.20-5.40); White Blood Count 14.28 K/ul (4.8-10.8)
--- NOTE | 2023-02-18 10:23 | XRay Report ---
SINGLE VIEW CHEST CLINICAL HISTORY: Dyspnea FINDINGS: An AP, portable, upright chest radiograph is compared to chest x-ray and chest CT dated . The heart is enlarged noting atherosclerotic calcification of the thoracic aorta. The pulmon kaitlyn vasculature is noncongested. Chronic interstitial thickening is similar to previous. There is bib asilar scarring/atelectasis. No airspace consolidation or large pleural effusion is identified. No pn eumothorax is seen. The skeletal structures are osteopenic. The bony thorax is grossly intact. Degene rative change is noted in the shoulders and spine. IMPRESSION: Cardiomegaly with no acute cardiopulmonary abnormality identified. ACT 112: Negative or not required by law. Electronically signed by: Leopoldo Dimas M.D. 02/18/2023 10:22 AM
[2023-02-18 10:26] LABS: Alanine Aminotransferase 17 U/L (7-52); Albumin Globulin Ratio 0.9 (0.9-2); Albumin Level 3.8 gm/dl (3.4-5.0); Alkaline Phosphatase 71 U/L (34-104); Anion Gap 16 (3-11); Aspartate Aminotransferase 18 U/L (13-39); BUN Creatinine Ratio 13.9 (10-20); Bilirubin,Total 0.8 mg/dl (0.2-1.0); Blood Urea Nitrogen 16 mg/dl (6-23); Calcium 8.9 mg/dl (8.6-10.3); Carbon Dioxide 21 mmol/L (21-32); Chloride 99 mmol/L (98-107); Est GFR (African American) 48.9 ml/min; Est GFR (Non-African American) 42.2 ml/min; Globulin 4.1 gm/dl (2.5-4.0); Glucose 115 mg/dl (70-99(Fasting)); Magnesium 1.4 mg/dl (1.7-2.4); Sodium 136 mmol/L (136-145); Total Protein 7.9 gm/dl (6.0-8.3)
[2023-02-18] MEDS ORDERED: MAGNESIUM SULFATE / D5W 1 GM/100 ML BAG IV STA (10:30)
[2023-02-18] MEDS ORDERED: POTASSIUM CHLORIDE / WTR 10 MEQ/100 ML PLCT IV ONE (10:30)
[2023-02-18 10:32] LABS: Troponin I High Sensitivity 27.6 pg/ml (0-14)
[2023-02-18 10:37] LABS: INR 1.4 (0.9-1.1); Partial Thromboplastin Ratio 1.4; Partial Thromboplastin Time 40 Seconds (21-31); Prothrombin Time 14.6 Seconds (9.0-12.0)
[2023-02-18] MEDS ORDERED: FUROSEMIDE 40 MG/4 ML VIAL IV ONE (10:50)
[2023-02-18 10:57] LABS: Adenovirus PCR Not Detected (NotDetected); Bordetella parapertussis PCR Not Detected (NotDetected); Bordetella pertussis PCR Not Detected (NotDetected); Chlamydia pneumoniae PCR Not Detected (NotDetected); Coronavirus 229E PCR Not Detected (NotDetected); Coronavirus CoV-2 (COVID19)PCR Not Detected (NotDetected); Coronavirus HKU1 PCR Not Detected (NotDetected); Coronavirus NL63 PCR Not Detected (NotDetected); Coronavirus OC43PCR Not Detected (NotDetected); Human Metapneumovirus PCR Not Detected (NotDetected); Influenza A PCR Not Detected (NotDetected); Influenza B PCR Not Detected (NotDetected); Mycoplasma pneumoniae PCR Not Detected (NotDetected); Parainfluenza Virus 1 PCR Not Detected (NotDetected); Parainfluenza Virus 2 PCR Not Detected (NotDetected); Parainfluenza Virus 4 PCR Not Detected (NotDetected); Rhinovirus/Enterovirus PCR Not Detected (NotDetected)
[2023-02-18] MEDS ORDERED: POTASSIUM CHLORIDE CRTAB 20 MEQ TABCR PO STA ×2 (11:04→19:35)
--- NOTE | 2023-02-18 11:35 | History & Physical Report ---
Date of Service February 18, 2023 Assessment & Plan (1) RSV (respiratory syncytial virus infection): Plan: Day 4 of symptoms on admission - warned she may get worse before she gets better. Biofire PCR positive for RSV and parainfluenza virus Symptomatic treatment only with incentive spirometer, flutter valve, guaifenesin Aim O2 sats > 90% (2) Pneumonia: Plan: Possible secondary bacterial pneumonia. Will treat given chest x-ray findings, otherwise unexplained white blood count, fever, high risk with obesity hypoventilation, heart failure and diabetes. Ceftriaxone 2 g IV (consider shorter typical coverage antibiotic course) and azithromycin 500 mg p.o. daily for 3 days (3) Hypomagnesemia: Plan: Magnesium level 1.4 on admission. Mag sulfate 1 g IV given in the ER. Additional 3g ordered. Repeat magnesium level daily. (4) Hypokalemia: Plan: K 3.0, 10 mEq IV given in the ER. Additional 40 mEq p.o. now. Repeat levels in a.m. (5) (HFpEF) heart failure with preserved ejection fraction: Plan: Euvolemic. Additional dose of Lasix 60 mg IV given in the emergency room, will return to her usual 80 mg p.o. dosing tomorrow morning (6) DM (diabetes mellitus), type 2 with neurological complications: Plan: HbA1c 7.5 in September, repeat with a.m. labs Outpatient regimen metformin 1000 mg p.o. BID, Lantus 26 units at night and correction factor NovoLog Will reduce inpatient regimen due to likely decreased carbohydrate intake Start Lantus 15 units HS Novolog: --Goal BSG Range: Low 110 mg/dL, High 140 mg/dL --Correction Factor: 25 mg/dL/unit --Carbohydrate ratio = 8 g/unit --BSGs ACHS if eating, q6h if npo (7) Hypertension: Plan: Continue amlodipine, losartan, metoprolol (8) Hyperlipidemia: Plan: Continue atorvastatin Plan VTE prophylaxis - Xarelto Diet - low-sodium, heart healthy, type 2 diabetes Disposition - observation to med/tele, PT/OT as may need rehab on discharge Admission and Anticipated Discharge Date Admission Date: February 18, 2023 History of Present Illness Chief Complaint: Shortness of breath Primary Care Provider: EDNA Barajas Matthew Ordonez is an 88 year old female with T2DM, HFpEF who presents to the ER with shortness of breath, mildly productive cough, postnasal drip, fever, chills since Monday. She reports her symptoms started on Monday and are getting progressively worse. She lives at [facility] and feels too short of breath on exertion to return home at this time although is currently maintain O2 sats on room air. No chest pain, abdominal pain, nausea, vomiting, diarrhea or urinary symptoms. No palpitations, orthopnea, PND, increased weight or leg swelling. Allergies Allergy/AdvReac Type Severity Reaction Status Date / Time codeine AdvReac Confusion Verified 01/27/23 09:42 Home Medications Medication Instructions Recorded Confirmed Type cholecalciferol (vitamin D3) 50 2,000 unit PO QAM 11/30/17 02/18/23 History mcg (2,000 unit) capsule (Vitamin D3) flash glucose scanning reader #1 ea 10/06/20 01/13/23 Rx (FreeStyle Nesha 14 Day [place]) flash glucose sensor (FreeStyle #1 ea 10/06/20 01/13/23 Rx Nesha 14 Day Sensor kit) insulin syringe-needle U-100 1 mL #200 ea 12/08/20 01/13/23 Rx 25 x 1" (BD Insulin Syringe) lancets 33 gauge (OneTouch Delica #100 ea 02/25/21 01/13/23 Rx Lancets) blood sugar diagnostic (OneTouch #100 ea 08/31/21 01/13/23 Rx Ultra Test strips) atorvastatin 10 mg tablet 10 mg PO HS #90 tabs 12/06/21 02/18/23 Rx metformin 1,000 mg tablet 1,000 mg PO BID #180 tabs 12/24/21 02/18/23 Rx metoprolol tartrate 100 mg tablet 100 mg PO BID #60 tabs 01/28/22 02/18/23 Rx pen needle, diabetic, safety 30 #100 ea 04/22/22 01/13/23 Rx gauge x 3/16" (Assure ID Pen Needle) amlodipine 5 mg tablet 5 mg PO QAM 07/20/22 02/18/23 History furosemide 40 mg tablet (Lasix) 80 mg PO QAM 07/20/22 02/18/23 History losartan 100 mg tablet 100 mg PO QAM 07/20/22 02/18/23 History rivaroxaban 10 mg tablet (Xarelto) 10 mg PO QAM 07/20/22 02/18/23 History nystatin 100,000 unit/gram topical 1 applic topical BID #30 grams 08/15/22 02/18/23 Rx powder insulin glargine 100 unit/mL (3 26 unit (0.26 mL) subcut QPM #15 mL 09/20/22 02/18/23 Rx mL) subcutaneous pen (Basaglar KwikPen U-100 Insulin) fluticasone propionate 50 2 spray intranasal QAM #16 grams 11/07/22 02/18/23 Rx mcg/actuation nasal spray,suspension benzonatate 200 mg capsule 200 mg PO TID PRN cough 01/13/23 02/18/23 History guaifenesin 600 mg tablet,extended 600 mg PO BID PRN Congestion 01/13/23 02/18/23 History release lanolin alcohols-mineral 1 applic topical DAILY 01/13/23 02/18/23 History oil-w.petrolatum-ceresin topical cream (Minerin Creme topical) loperamide 2 mg tablet 2 mg PO Q4H PRN Loose Stool 01/13/23 02/18/23 History mecobalamin (vitamin B12) 5,000 5,000 mcg PO QAM 01/13/23 02/18/23 History mcg disintegrating tablet menthol 0.44 %-zinc oxide 20.6 % 1 applic topical DAILY PRN Dry Skin 01/13/23 02/18/23 History topical ointment (Calmoseptine) phenol-phenolate sodium lozenges 1 yoon mucous membrane DAILY PRN 01/13/23 02/18/23 History use as per package insulin aspart U-100 100 unit/mL See Rx Instructions SC .COMPLEX 01/17/23 02/18/23 Rx (3 mL) subcutaneous pen (Novolog #15 mL FlexPen U-100 Insulin aspart) Past Med/Surg History Medical History History of COVID-19 2020, hospitalized History of respiratory failure 2020 r/t covid History of congestive heart failure Unsteady gait General weakness Vitamin B12 deficiency Bifascicular block History of PSVT (paroxysmal supraventricular tachycardia) on beta nando DVT, lower extremity LLE (01/2018) DM (diabetes mellitus), type 2 with neurological complications Hyperlipidemia Obesity Hearing deficit bilateral Cancer of sigmoid colon S/P surgery/chemo-09/2017 Osteoarthritis Low back pain Chronic GI bleed hx, 10/2017 s/p ex lap Hypertension Surgical History History of cataract surgery History of esophagogastroduodenoscopy (EGD) History of removal of Port-a-Cath (09/13/18) History of surgery History of open reduction and internal fixation (ORIF) procedure H/O exploratory laparotomy History of open sigmoidectomy History of hip replacement History of cholecystectomy Family History Uncle Prostate cancer Mother Diabetes Gallbladder disease Grandmother Diabetes Father Hypertension Daughter Family history of diabetes mellitus Social History Smoking Status: Never smoker Second Hand Exposure: Yes (spouse smoked ); Do You Dip or Chew Tobacco: No; Hx Alcohol Use: No Hx Substance Use: No Preferred Language: Irish Communication Ability: Effective Head Of Sales Promotion Required: No Beliefs That Will Affect Care: None marital status: / Current Living Situation: Personal Care Facility How many Children do You have: 5 Feels Safe at Home: Yes Safety Concerns: Feels Safe At This Time Childhood Exposure to Second-Hand Smoke: No Diet: regular caffeine: Yes Dental Care, Regularly: No Physical Activity Frequency: Does not Exercise Seatbelt Use: always Sunscreen Use: No Assistive Devices: Walker and Wheelchair Review of Systems Review of Systems: All systems reviewed & are unremarkable except as noted in HPI & below Physical Exam Constitutional: WD/WN, vitals as above + morbidly obese Eyes: + anicteric sclerae; normal pupil size ENMT: external ear and nose normal, oropharynx normal Respiratory: normal respiratory effort; no respiratory distress Auscultation: + wheezes (mild end expiratory); breath sounds present, no diminished lung sounds, no crackles, no rales and no rhonchi Cardiovascular: Rate/Rhythm: regular rate and + irregularly irregular Heart Sounds: no murmur Vessels: no JVD Extremities: normal capillary refill and + pedal edema; no calf tenderness Gastrointestinal (Abdomen): normal bowel sounds, soft, nontender, no hepatosplenomegaly Musculoskeletal: no cyanosis or clubbing, extremities motor strength 5/5 Skin: no rashes, warm and dry Neurologic: moves all extremities and awake; no focal motor deficits (no unilateral deficit) and not confused Speech / Cognition: normal speech Psychiatric: A+Ox3, euthymic affect Results & Data Results & Data Vital Signs (Past 12 Hours) Vital Signs Temp Pulse Resp BP Pulse Ox O2 Del Method 02/18/23 10:02 81 02/18/23 10:00 80 31 H 116/57 L 93 02/18/23 09:47 80 94 Room Air 02/18/23 09:25 Room Air 02/18/23 09:25 36.6 C 113 H 18 121/72 96 Laboratory Results Abnormal lab results 02/18/23 02/18/23 Range/Units 09:47 09:55 WBC 14.28 H (4.8-10.8) K/ul RDW Std Deviation 49.1 H (36.4-46.3) fL RDW Coeff of Sarika 14.8 H (11.5-14.5) % Neut # (Auto) 11.98 H (1.40-6.50) K/uL Lymph # (Auto) 0.86 L (1.20-3.40) K/uL [place] # (Auto) 1.29 H (0.11-0.59) K/uL PT 14.6 H (9.0-12.0) Seconds INR 1.4 H (0.9-1.1) APTT 40 H (21-31) Seconds Potassium 3.0 L (3.5-5.1) mmol/L Anion Gap 16 H (3-11) Glucose 115 H (70-99(Fasting)) mg/dl Magnesium 1.4 L (1.7-2.4) mg/dl Troponin I High Sens 27.6 H (0-14) pg/ml B-Natriuretic Peptide 659 H (0-100) pg/ml Globulin 4.1 H (2.5-4.0) gm/dl Diagnostic Findings SINGLE VIEW CHEST CLINICAL HISTORY: Dyspnea FINDINGS: An AP, portable, upright chest radiograph is compared to chest x-ray and chest CT dated 12/01/2022. The heart is enlarged noting atherosclerotic calcification of the thoracic aorta. The pulmonary vasculature is noncongested. Chronic interstitial thickening is similar to previous. There is bibasilar scarring/atelectasis. No airspace consolidation or large pleural effusion is identified. No pneumothorax is seen. The skeletal structures are osteopenic. The bony thorax is grossly intact. Degenerative change is noted in the shoulders and spine. IMPRESSION: Cardiomegaly with no acute cardiopulmonary abnormality identified. Medications Administered ER Medications Given: Cefepime 2000mg IV Magnesium sulfate 1g IV Potassium chloride 10 meq IV Furosemide 60mg IV ECG Rate (beats per minute): 85 Rhythm: normal sinus Findings: + 1st degree AV block, + PVC and + RBBB Comparison ECG Date: from (December 01, 2022) Change: the following changes noted (PVCs, premature supraventricular complexes nw present) Code Status & VTE Plan Code Status DNR/DNI as discussed with patient with VTE Prophylaxis Plan VTE Prophylaxis will be ordered: Yes PG Care Time/CCT Total # of Minutes Spent Total Time Spent with Patient: Total time spent is greater than 50% in coordination of care (as documented) at patient's floor/unit and/or counseling patient: Coding Level of Care Code 47171 INT INP/OBS CARE 3/75MIN Diagnoses RSV (respiratory syncytial virus infection) B33.8 Pneumonia J18.9 Laterality: right Lung location: lower lobe of lung Pneumonia type: due to unspecified organism Hypomagnesemia E83.42 Hypokalemia E87.6 (HFpEF) heart failure with preserved ejection fraction I50.30 DM (diabetes mellitus), type 2 with neurological complications E11.49 Essential hypertension I10 Hypertension type: essential hypertension Pure hypercholesterolemia E78.00 Hyperlipidemia type: pure hypercholesterolemia (2) Pneumonia Laterality: right Lung location: lower lobe of lung Pneumonia type: due to unspecified organism Qualified Code(s): J18.9 - Pneumonia, unspecified organism (7) Hypertension Hypertension type: essential hypertension Qualified Code(s): I10 - Essential (primary) hypertension (8) Hyperlipidemia Hyperlipidemia type: pure hypercholesterolemia Qualified Code(s): E78.00 - Pure hypercholesterolemia, unspecified
[2023-02-18 11:46] LABS: Parainfluenza Virus 3 PCR DETECTED (NotDetected); Respiratory Syncytial VirusPCR DETECTED (NotDetected)
[2023-02-18 11:50] LABS: Appearance Urine Clear (Clear); Bilirubin Urine Negative (Negative); Blood Urine Negative (Negative); Color Urine Yellow; Glucose Urine UA Negative (Negative); Ketones Urine Negative (Negative); Leukocyte Esterase Urine Negative (Negative); Nitrite Urine Negative (Negative); Protein Urine Negative (Negative); Specific Gravity Urine 1.011 (1.000-1.030); Urobilinogen Urine Negative (Negative)
[2023-02-18 12:42] LABS: C Reactive Protein 19.15 mg/dl (0-0.5)
[2023-02-18] MEDS ORDERED: guaiFENesin 600 MG TABCR PO STA (12:43)
[2023-02-18] MEDS ORDERED: DEXTROSE 50% 50 ML SYRINGE IV PRN (12:47)
[2023-02-18] MEDS ORDERED: GLUCAGON FOR INJ 1 MG VIAL SQ PRN (12:47)
[2023-02-18] MEDS ORDERED: GLUCOSE 10 TAB/TUBE PO PRN (12:47)
[2023-02-18] MEDS ORDERED: GLUCOSE 40% GEL 15 GM TUBE PO PRN (12:47)
[2023-02-18] MEDS ORDERED: CARBOHYDRATES FOR HYPOGLYCEMIA PO PRN (12:47)
[2023-02-18] MEDS ORDERED: PHARMACY GLYCEMIC MGMT CONSULT PRN (12:47)
[2023-02-18] MEDS: INSULIN ASPART PER UNIT CHARGE SC SCH ×3 (13:15→21:08)
--- NOTE | 2023-02-18 14:36 | Pharmacy Report ---
Pharmacy Glycemic Short Note 2 - Date of Service February 18, 2023 - Glycemic Short BSG Results (Last 24 hours): 02/18/23 02/18/23 09:47 13:09 Glucose 115 H POC Glucose 116 H OUTPATIENT ANTIDIABETIC REGIMEN: * Lantus 26 units SC HS * Novolog SSI * Metformin 1000 mg PO BID * HbA1c pending ASSESSMENT: * 88 yo F admitted on 02/18/23 secondary to possible HF exacerbation and found to be parainfluenza/RSV positive. Pharmacy has been consulted to assist with inpatient glycemic management. Patient is a Type 2 diabetic as an outpatient. Please refer to outpatient regimen and most recent HbA1c above. * Serum BSG was 115 mg/dL this AM. Lunchtime check was 116 mg/dL. Diet ordered and being tolerated. * Will reduce home basal dose by 40% and start this evening. Novolog will be started based on weight/stress of 1-2. PLAN FOR INPATIENT GLYCEMIC CONTROL: * Hold outpatient oral diabetes medications * Basal insulin * Lantus 15 units SC HS * Bolus insulin * NovoLog per scale ACHS or Q6hrs while NPO * Goal Range: Low 110 mg/dL - High 140 mg/dL * Correction Factor: 25 mg/dL/unit * Nutritional / Prandial insulin per carb ratio of 1 unit per 8 grams CHO consumed
[2023-02-18] MEDS ORDERED: AZITHROMYCIN 250 MG TAB PO SCH (15:00)
[2023-02-18] MEDS ORDERED: cefTRIAXone SODIUM 2,000 MG in DEXTROSE 5 % MINI-B 50 ML IV SCH (15:00)
[2023-02-18] MEDS: ACETAMINOPHEN 325 MG TAB PO PRN ×2 (15:15→22:56)
[2023-02-18] MEDS: MAGNESIUM SULFATE / D5W 1 GM/100 ML BAG IV SCH ×3 (15:49→20:58)
[2023-02-18] MEDS ORDERED: INSULIN ASPART PER UNIT CHARGE SC SCH (16:30)
[2023-02-18] MEDS: ATORVASTATIN 10 MG TAB PO SCH (21:00)
[2023-02-18] MEDS: METOPROLOL TARTRATE 100 MG TAB PO SCH (21:00)
[2023-02-18] MEDS: LANTUS PER UNIT CHARGE SQ SCH (21:09)
[2023-02-19 07:00] LABS: Basophils # (auto) 0.03 K/uL (0.00-0.20); Basophils % (auto) 0.3 %; Eosinophils # (auto) 0.05 K/uL (0.00-0.50); Eosinophils % (auto) 0.4 %; Hematocrit (blood only) 36.7 % (37.0-47.0); Hemoglobin 11.6 g/dl (12.0-16.0); Immature Granulocytes # (auto) 0.09 K/uL (0.01-0.20); Immature Granulocytes % (auto) 0.8 %; Lymphocytes # (auto) 0.77 K/uL (1.20-3.40); Lymphocytes % (auto) 6.6 %; Mean Corpuscular Hemoglobin 28.8 pg (25.0-34.0); Mean Corpuscular Hgb Conc 31.6 g/dL (32.0-36.0); Mean Corpuscular Volume 91.1 fL (80.0-100.0); Mean Platelet Volume 10.8 fL (9.4-12.4); Monocytes # (auto) 1.26 K/uL (0.11-0.59); Monocytes % (auto) 10.8 %; Neutrophils # (auto) 9.42 K/uL (1.40-6.50); Neutrophils % (auto) 81.1 %; Platelet Count 261 K/uL (130-400); RDW Standard Deviation 50.2 fL (36.4-46.3); Red Blood Count 4.03 M/uL (4.20-5.40); White Blood Count 11.62 K/ul (4.8-10.8)
[2023-02-19 07:05] LABS: Estimated Average Glucose 174 mg/dl; Hemoglobin A1C 7.7 % (4.5-5.6)
[2023-02-19 07:18] LABS: BUN Creatinine Ratio 13.9 (10-20); Calcium 8.5 mg/dl (8.6-10.3); Creatinine Clr Calc Pharmacy 44.7 ml/min; Est GFR (African American) 52.7 ml/min; Est GFR (Non-African American) 45.5 ml/min; Magnesium 2.4 mg/dl (1.7-2.4); Potassium 3.4 mmol/L (3.5-5.1)
[2023-02-19 08:07] LABS: Thyroid Stimulating Hormone 1.871 uIu/ml (0.300-4.500)
[2023-02-19] MEDS ORDERED: POTASSIUM CHLORIDE CRTAB 20 MEQ TABCR PO STA (08:18)
[2023-02-19] MEDS: CHOLECALCIFEROL 1,000 UNITS 25 MCG TAB PO SCH (08:19)
[2023-02-19] MEDS: guaiFENesin 600 MG TABCR PO SCH ×2 (08:19→20:53)
[2023-02-19] MEDS: METOPROLOL TARTRATE 100 MG TAB PO SCH ×2 (08:19→20:53)
[2023-02-19] MEDS: FUROSEMIDE 80 MG TAB PO SCH (08:19)
[2023-02-19] MEDS: LOSARTAN POTASSIUM 50 MG TAB PO SCH (08:19)
--- NOTE | 2023-02-19 08:26 | Hospitalist Progress Note ---
Date of Service February 19, 2023 Assessment & Plan (1) Tachyarrhythmia: Plan: Had tachyarrhythmia evening of 02/18. She has a hx bifascicular block and HFpEF, last seen in cards clinic by Dr. Townsend in 01/28. Is on xarelto for hs unprovoked DVT and is on metoprolol but not known afib. Last TTE 10/2020 reviewed - EF 65-70% no rwma's, poor quality study, calcified MV. I personally reviewed multiple serial EKG tracings from last night she has underlying bifascicular block throughout and inf/anterolateral Qs. 1 - sinus with premature beats and fusion complexes 2 - probably afib with RVR 3 - rate 110s 4 - sinus with pac's and pvc's 5 - rate 123 and regular or pseudoregular -seems likely to have afib/flutter as well as premature beats and fusion complexes, all exacerbated by electrolyte abnormalities and respiratory infection. regardless is on metoprolol and xarelto -continue meds, continue tele, monitor/replace electrolytes -reviewed recent cardiology clinic note by Dr. Townsend - this is new diagnosis -consulted cardiology - reviewed recs by Dr. Vega - afib/flutter -short acting diltiazem added for rate control -recommended considering change xarelto to apixaban. her xarelto currently at prophylaxis dose, not therapeutic dose. agree and will make change and discuss with patient (2) RSV (respiratory syncytial virus infection): Plan: Day 4 of symptoms on admission - warned she may get worse before she gets better. Biofire PCR positive for RSV and parainfluenza virus. CRP was 19 but procal 0 and again negative this am Symptomatic treatment only with incentive spirometer, flutter valve, guaifenesin Aim O2 sats > 90% (3) Pneumonia: Plan: -CRP was 19 but procal 0, repeat PCT ordered this am - again negative -WBC 14-->11 -bacterial pneumonia unlikely, stopped antibiotics (4) Hypomagnesemia: Plan: Magnesium level 1.4 on admission. Mag sulfate 1 g IV given in the ER. Additional 3g ordered and normalized 02/19. Repeat magnesium level daily. (5) Hypokalemia: Plan: K 3.0 on admission, replaced IV/po -remains mildly low today, oral replacement ordered, AM BMP (6) (HFpEF) heart failure with preserved ejection fraction: Plan: Euvolemic. Additional dose of Lasix 60 mg IV given in the emergency room, will return to her usual 80 mg p.o. dosing tomorrow morning -continue lasix 80 mg po daily, ARB, metoprolol (7) DM (diabetes mellitus), type 2 with neurological complications: Plan: HbA1c 7.5 in September, repeat with a.m. labs Outpatient regimen metformin 1000 mg p.o. BID, Lantus 26 units at night and correction factor NovoLog Will reduce inpatient regimen due to likely decreased carbohydrate intake -on basal-bolus insulin, reviewed pharmacist glycemic consult recs (8) Hypertension: Plan: Continue amlodipine, losartan, metoprolol (9) Hyperlipidemia: Plan: Continue atorvastatin Plan Minimally elevated HS-troponin reflects myocardial strain rather than ACS Lives at [facility], they do her meds, uses walker short distances and primarily wheelchair VTE prophylaxis - Xarelto Diet - low-sodium, heart healthy, type 2 diabetes Disposition - observation to med/tele, PT/OT as may need rehab on discharge. Lives at [facility] Admission and Anticipated Discharge Date Admission Date: February 18, 2023 Subjective Matthew is not feeling well primarily because of frequent coughing, also feeling weak and a little short of breath. Has been tachycardic on/off since admission No chest or abdominal pain, no dysuria, no N/V/D Lives at [facility], they do her meds, uses walker short distances and primarily wheelchair Results & Data Results & Data Vital Signs (Past 12 Hours) Vital Signs Temp Pulse Pulse Resp BP Pulse Ox O2 Del Method 02/19/23 08:08 37.4 C 90 19 172/85 H 91 Room Air 02/19/23 07:15 79 02/19/23 03:04 36.8 C 74 18 150/64 H 91 Room Air 02/19/23 00:52 37.3 C 02/19/23 00:31 Room Air 02/19/23 00:02 110 H 02/18/23 23:30 37.8 C H 02/18/23 23:00 38.5 C H 80 18 146/68 H 96 Room Air 02/18/23 20:22 37.0 C 126 H 18 145/68 H 92 Room Air Laboratory Results 02/19/23 06:06 02/19/23 06:06 PG Care Time/CCT Total # of Minutes Spent Total Time Spent with Patient: I personally spent: 55 minutes today on clinical care activities including: reviewing chart notes and vital signs, reviewing past records reviewing labs reviewing studies discussion with health care facility administrator examining and counseling the patient writing orders documentation Coding Level of Care Code 87239 SUB INP/OBS CARE 3/50MIN Diagnoses Tachyarrhythmia R00.0 RSV (respiratory syncytial virus infection) B33.8 Pneumonia J18.9 Laterality: right Lung location: lower lobe of lung Pneumonia type: due to unspecified organism Hypomagnesemia E83.42 Hypokalemia E87.6 (HFpEF) heart failure with preserved ejection fraction I50.30 DM (diabetes mellitus), type 2 with neurological complications E11.49 Essential hypertension I10 Hypertension type: essential hypertension Pure hypercholesterolemia E78.00 Hyperlipidemia type: pure hypercholesterolemia (3) Pneumonia Laterality: right Lung location: lower lobe of lung Pneumonia type: due to unspecified organism Qualified Code(s): J18.9 - Pneumonia, unspecified organism (8) Hypertension Hypertension type: essential hypertension Qualified Code(s): I10 - Essential (primary) hypertension (9) Hyperlipidemia Hyperlipidemia type: pure hypercholesterolemia Qualified Code(s): E78.00 - Pure hypercholesterolemia, unspecified
[2023-02-19] MEDS ORDERED: RIVAROXABAN 10 MG TABLET PO SCH (09:00)
[2023-02-19] MEDS: INSULIN ASPART PER UNIT CHARGE SC SCH ×4 (09:14→20:50)
--- NOTE | 2023-02-19 09:15 | Cardiology Consultation ---
Date of Consultation February 19, 2023 Assessment & Plan (1) Tachyarrhythmia: (2) Paroxysmal atrial fibrillation: (3) SOB (shortness of breath): (4) Elevated troponin level not due myocardial infarction: (5) Anticoagulant long-term use: Plan 1. Tachycardia: I agree that her elevated heart rates are atrial fibrillation and at times atrial flutter. The regularity on telemetry suggest mostly atrial flutter. 2. Paroxysmal atrial fibrillation/flutter: I do not know if she has had this before. I think we should try to control her rate, she is on high dose beta- blockade but her blood pressure is elevated at times and I am going to try low- dose calcium blockade in addition. We could consider antiarrhythmic therapy if this does not work (atrial flutter can sometimes be difficult to rate control) She should be on anticoagulation for this, but she is already for DVT although the dose would be different. 3. Shortness of breath: Although there is some suggestion of heart failure (elevated BNP) her chest x-ray really does not show it and that could be nonspecific. I would not treat her as being significantly fluid overloaded. I think her shortness of breath is most likely due to her viral infection. 4. Elevated troponin: Although minimally elevated there is no particular trend and this is most likely due to demand ischemia from the stress and possibly heart rate. I would not pursue further. 5. Anticoagulation: She should be on long-term anticoagulation, for atrial fibrillation I would recommend Eliquis 5 mg twice a day rather than Xarelto although Xarelto could be used. I believe Eliquis is a better drug with more efficacy and less risk of bleeding. I have not made that change. History of Present Illness Reason for Consultation: Atrial fibrillation Attending Physician: Camila Padilla MD History of Present Illness This is an 88-year-old woman who is followed by Dr. Townsend in our office. She has a history of diabetes mellitus, hypertension and colon cancer. She resides at [facility]. She also has history of HFpEF and peripheral edema and she is on Xarelto for prior DVT. She presented to the emergency room on February 18, 2022 with increasing dyspnea on exertion with minimal activity. She does not believe her legs have become more edematous. Her bio fire test was positive for RSV and parainfluenza virus which is being treated symptomatically, she also has a possible secondary bacterial pneumonia. This consult was placed due to tachycardia on the evening of February 18, 2023. Her presenting electrocardiogram February 18, 2023 at 09 50 showed sinus rhythm with frequent ventricular ectopy. This was similar to prior electrocardiograms. On February 18, 2023 at 1751 there is an electrocardiogram which shows what appears to be atrial fibrillation with frequent premature ventricular beats and an average heart rate of 106 bpm. There are several electrocardiograms from that evening which show a more organized atrial rhythm, I believe that to be atrial flutter and on the electrocardiogram of February 18, 2023 at 1956 the rate is 123 bpm. All show left anterior fascicular block and right bundle branch block which is longstanding. Several high-sensitivity troponin measurements made around the time of presentation show slight elevation of less than 30 and are probably indicative of demand ischemia. Her chest x-ray is not suggestive of congestive heart failure although her BNP is elevated (I do not have a prior comparison) and her weight is consistent with measurements for the last several years. At the time of my evaluation she was laying in bed and appeared comfortable, she had no specific cardiovascular complaints although she does tell me that she is aware from time to time of an elevated heart rate. She denies symptoms of chest discomfort. She has not been active here in the hospital. Allergies Allergy/AdvReac Type Severity Reaction Status Date / Time codeine AdvReac Confusion Verified 01/27/23 09:42 Home Medications Medication Instructions Recorded Confirmed Type cholecalciferol (vitamin D3) 50 2,000 unit PO QAM 11/30/17 02/18/23 History mcg (2,000 unit) capsule (Vitamin D3) flash glucose scanning reader #1 ea 10/06/20 01/13/23 Rx (FreeStyle Nesha 14 Day [place]) flash glucose sensor (FreeStyle #1 ea 10/06/20 01/13/23 Rx Nesha 14 Day Sensor kit) insulin syringe-needle U-100 1 mL #200 ea 12/08/20 01/13/23 Rx 25 x 1" (BD Insulin Syringe) lancets 33 gauge (Visible Measuresuch Delwarren #100 ea 02/25/21 01/13/23 Rx Lancets) blood sugar diagnostic (PercelloTouch #100 ea 08/31/21 01/13/23 Rx Ultra Test strips) atorvastatin 10 mg tablet 10 mg PO HS #90 tabs 10/31/22 01/13/24 Rx metformin 1,000 mg tablet 1,000 mg PO BID #180 tabs 12/24/21 02/18/23 Rx metoprolol tartrate 100 mg tablet 100 mg PO BID #60 tabs 01/28/22 02/18/23 Rx pen needle, diabetic, safety 30 #100 ea 04/22/22 01/13/23 Rx gauge x 3/16" (Assure ID Pen Needle) amlodipine 5 mg tablet 5 mg PO QAM 07/20/22 02/18/23 History furosemide 40 mg tablet (Lasix) 80 mg PO QAM 07/20/22 02/18/23 History losartan 100 mg tablet 100 mg PO QAM 07/20/22 02/18/23 History rivaroxaban 10 mg tablet (Xarelto) 10 mg PO QAM 07/20/22 02/18/23 History nystatin 100,000 unit/gram topical 1 applic topical BID #30 grams 08/15/22 02/18/23 Rx powder insulin glargine 100 unit/mL (3 26 unit (0.26 mL) subcut QPM #15 mL 09/20/22 02/18/23 Rx mL) subcutaneous pen (Basaglar KwikPen U-100 Insulin) fluticasone propionate 50 2 spray intranasal QAM #16 grams 11/07/22 02/18/23 Rx mcg/actuation nasal spray,suspension benzonatate 200 mg capsule 200 mg PO TID PRN cough 01/13/23 02/18/23 History guaifenesin 600 mg tablet,extended 600 mg PO BID PRN Congestion 01/13/23 02/18/23 History release lanolin alcohols-mineral 1 applic topical DAILY 01/13/23 02/18/23 History oil-w.petrolatum-ceresin topical cream (Minerin Creme topical) loperamide 2 mg tablet 2 mg PO Q4H PRN Loose Stool 01/13/23 02/18/23 History mecobalamin (vitamin B12) 5,000 5,000 mcg PO QAM 01/13/23 02/18/23 History mcg disintegrating tablet menthol 0.44 %-zinc oxide 20.6 % 1 applic topical DAILY PRN Dry Skin 01/13/23 02/18/23 History topical ointment (Calmoseptine) phenol-phenolate sodium lozenges 1 yoon mucous membrane DAILY PRN 01/13/23 02/18/23 History use as per package insulin aspart U-100 100 unit/mL See Rx Instructions SC .COMPLEX 01/17/23 02/18/23 Rx (3 mL) subcutaneous pen (Novolog #15 mL FlexPen U-100 Insulin aspart) Patient History Medical History History of COVID-19 2020, hospitalized History of respiratory failure 2020 r/t covid History of congestive heart failure Unsteady gait General weakness Vitamin B12 deficiency Bifascicular block History of PSVT (paroxysmal supraventricular tachycardia) on beta nando DVT, lower extremity LLE (01/2018) DM (diabetes mellitus), type 2 with neurological complications Hyperlipidemia Obesity Hearing deficit bilateral Cancer of sigmoid colon S/P surgery/chemo-09/2017 Osteoarthritis Low back pain Chronic GI bleed hx, 10/2017 s/p ex lap Hypertension Surgical History History of cataract surgery History of esophagogastroduodenoscopy (EGD) History of removal of Port-a-Cath (09/13/18) Removal of Left Subclavian Mediport Dr. Forbes 09-13-18 History of surgery PLACEMENT OF LEFT SUBCLAVIAN MEDIPORT History of open reduction and internal fixation (ORIF) procedure LEFT FEMUR H/O exploratory laparotomy EX LAP, ABDOMINAL WASHOUT (2/2 GIB)= 10/24/17= GRADE 1 VIEW, JACOBSEN 2, ETT 7.0 AT [facility] History of open sigmoidectomy 09/2018 History of hip replacement LEFT History of cholecystectomy OPEN Family History Uncle Prostate cancer Mother Diabetes Gallbladder disease Grandmother Diabetes Father Hypertension Daughter Family history of diabetes mellitus Social History Smoking Status: Never smoker Second Hand Exposure: Yes (spouse smoked ); Do You Dip or Chew Tobacco: No; Hx Alcohol Use: No Hx Substance Use: No Preferred Language: Chinese Communication Ability: Effective Hog Buyer Required: No Beliefs That Will Affect Care: None marital status: / Current Living Situation: Personal Care Facility How many Children do You have: 5 Feels Safe at Home: Yes Safety Concerns: Feels Safe At This Time Childhood Exposure to Second-Hand Smoke: No Diet: regular caffeine: Yes Dental Care, Regularly: No Physical Activity Frequency: Does not Exercise Seatbelt Use: always Sunscreen Use: No Assistive Devices: Walker and Wheelchair Review of Systems Review of Systems: All systems reviewed & are unremarkable except as noted in HPI & below Physical Exam Physical Exam: Constitutional: Alert, cooperative and in no distress. She is laying supine in bed. HEENT: Unremarkable Neck: No jugular venous distention, carotid pulses are normal and equal bilaterally without bruits. Pulmonary: Bilateral crackles on auscultation. Cardiac: Regular rhythm with no murmur, gallop or rub. Abdomen: Soft, nontender with normal bowel sounds. Extremities: +1 bilateral pretibial edema. Distal pulses intact. Neurologic: No focal findings. Gait is steady. Skin: No rash, ecchymoses or petechiae. Results & Data Vital Signs (Past 12 Hours) Vital Signs Temp Pulse Pulse Resp BP Pulse Ox O2 Del Method 02/19/23 08:08 37.4 C 90 19 172/85 H 91 Room Air 02/19/23 07:15 79 02/19/23 03:04 36.8 C 74 18 150/64 H 91 Room Air 02/19/23 00:52 37.3 C 02/19/23 00:31 Room Air 02/19/23 00:02 110 H 02/18/23 23:30 37.8 C H 02/18/23 23:00 38.5 C H 80 18 146/68 H 96 Room Air Laboratory Results Cardiac Enzymes 02/18/23 02/18/23 02/18/23 Range/Units 09:47 09:55 11:42 AST 18 (13-39) U/L Troponin I High Sens 27.6 H 29.0 H (0-14) pg/ml B-Natriuretic Peptide 659 H (0-100) pg/ml Coagulation 02/18/23 Range/Units 09:55 PT 14.6 H (9.0-12.0) Seconds APTT 40 H (21-31) Seconds B-Natriuretic Peptide 659 H (0-100) pg/ml CBC 02/18/23 02/19/23 Range/Units 09:55 06:06 WBC 14.28 H 11.62 H (4.8-10.8) K/ul RBC 4.31 4.03 L (4.20-5.40) M/uL Hgb 12.6 11.6 L (12.0-16.0) g/dl Hct 38.8 36.7 L (37.0-47.0) % Plt Count 322 261 (130-400) K/uL Neut # (Auto) 11.98 H 9.42 H (1.40-6.50) K/uL Lymph # (Auto) 0.86 L 0.77 L (1.20-3.40) K/uL [place] # (Auto) 1.29 H 1.26 H (0.11-0.59) K/uL Eos # (Auto) 0.00 0.05 (0.00-0.50) K/uL Baso # (Auto) 0.06 0.03 (0.00-0.20) K/uL Comprehensive Metabolic Panel 02/18/23 02/19/23 Range/Units 09:47 06:06 Sodium 136 137 (136-145) mmol/L Potassium 3.0 L 3.4 L (3.5-5.1) mmol/L Chloride 99 100 (98-107) mmol/L Carbon Dioxide 21 27 (21-32) mmol/L BUN 16 15 (6-23) mg/dl Creatinine 1.15 1.08 (0.6-1.2) mg/dl Glucose 115 H 127 H (70-99(Fasting)) mg/dl Calcium 8.9 8.5 L (8.6-10.3) mg/dl AST 18 (13-39) U/L ALT 17 (7-52) U/L Alkaline Phosphatase 71 (34-104) U/L Total Protein 7.9 (6.0-8.3) gm/dl Albumin 3.8 (3.4-5.0) gm/dl Intake and Output 02/18/23 02/19/23 02/19/23 22:59 06:59 14:59 Intake Total 250 / 650 200 / 650 Output Total 550 / 2250 Balance 250 / -1600 -350 / -1600 Intake: IV 250 / 550 100 / 550 Magnesium Sulfate / D5w 1 gm In 200 / 300 100 / 300 100 ml @ 50 mls/hr IV Q2H [facility] Rx#:[id number] cefTRIAXone SODIUM 2,000 mg In 50 / 50 Dextrose 5 % Mini-B 50 ml @ 100 mls/hr IV Q24H [facility] Rx#: [id number] Oral 100 / 100 Output: Urine Amount (Catheter) 550 / 550 External 550 / 550 Other: Other Intake Source Sips Weight 117 kg 118.3 kg Weight Measurement Method Built in Bedscale Built in [facility] Diagnostic Findings Telemetry: Sinus rhythm with periods of atrial arrhythmia, I suspect mostly atrial flutter with a ventricular response of 115 bpm. PG Care Time/CCT Total # of Minutes Spent Total Time Spent with Patient: Total time spent is greater than 50% in coordination of care (as documented) at patient's floor/unit and/or counseling patient: Coding Level of Care Code 77777 INT INP/OBS CARE 3/75MIN Diagnoses Tachyarrhythmia R00.0 Paroxysmal atrial fibrillation I48.0 SOB (shortness of breath) R06.02 Elevated troponin level not due myocardial infarction R79.89 Anticoagulant long-term use Z79.01
[2023-02-19] MEDS: BENZONATATE 100 MG CAPSULE PO PRN ×2 (13:13→20:59)
[2023-02-19] MEDS: dilTIAZem HCL 30 MG TAB PO SCH ×2 (14:55→20:54)
--- NOTE | 2023-02-19 20:45 | Electrocardiogram Report ---
Test Reason : Blood Pressure : / mmHG Vent. Rate : 085 BPM Atrial Rate : 085 BPM P-R Int : 220 ms QRS Dur : 144 ms QT Int : 412 ms P-R-T Axes : 086 -66 034 degrees QTc Int : 490 ms Sinus rhythm with 1st degree A-V block with Premature supraventricular complexes and with occasional Premature ventricular complexes and Fusion complexes Left axis deviation Right bundle branch block Abnormal ECG When compared with ECG of 01-DEC-2022 17:36, Premature supraventricular complexes are now Present Prior tracing has lead reversal Confirmed by Bryant Vega ([id number]) on 02/19/2023 8:44:21 PM Referred By: REFERRED SELF Confirmed By:Bryant Vega
[2023-02-19] MEDS: LANTUS PER UNIT CHARGE SQ SCH (20:50)
[2023-02-19] MEDS: ATORVASTATIN 10 MG TAB PO SCH (20:54)
--- NOTE | 2023-02-19 20:58 | Electrocardiogram Report ---
Test Reason : Blood Pressure : / mmHG Vent. Rate : 106 BPM Atrial Rate : 076 BPM P-R Int : 000 ms QRS Dur : 138 ms QT Int : 384 ms P-R-T Axes : 000 -67 037 degrees QTc Int : 510 ms Poor data quality, interpretation may be adversely affected Atrial fibrillation with rapid ventricular response with premature ventricular or aberrantly conducte d complexes Left axis deviation Right bundle branch block Inferior infarct , age undetermined Anterolateral infarct , age undetermined Abnormal ECG When compared with ECG of 18-FEB-2023 09:50, (unconfirmed) Atrial fibrillation is now Present Confirmed by Bryant Vega ([id number]) on 02/19/2023 8:57:50 PM Referred By: REFERRED SELF Confirmed By:Bryant Vega
--- NOTE | 2023-02-19 21:01 | Electrocardiogram Report ---
Test Reason : Blood Pressure : / mmHG Vent. Rate : 114 BPM Atrial Rate : 059 BPM P-R Int : 000 ms QRS Dur : 144 ms QT Int : 386 ms P-R-T Axes : 000 -69 040 degrees QTc Int : 532 ms Atrial fibrillation Left axis deviation Right bundle branch block Inferior infarct (cited on or before 18-FEB-2023) Anterolateral infarct (cited on or before 18-FEB-2023) Abnormal ECG When compared with ECG of 18-FEB-2023 17:51, (unconfirmed) No significant change Confirmed by Bryant Vega ([id number]) on 02/19/2023 9:00:51 PM Referred By: REFERRED SELF Confirmed By:Bryant Vega
--- NOTE | 2023-02-19 21:02 | Electrocardiogram Report ---
Test Reason : Blood Pressure : / mmHG Vent. Rate : 093 BPM Atrial Rate : 093 BPM P-R Int : 228 ms QRS Dur : 146 ms QT Int : 408 ms P-R-T Axes : 081 -62 037 degrees QTc Int : 507 ms Atrial fibrillation with premature ventricular or aberrantly conducted complexes Left axis deviation Right bundle branch block Abnormal ECG When compared with ECG of 18-FEB-2023 17:53, (unconfirmed) No significant change Confirmed by Bryant Vega ([id number]) on 02/19/2023 9:01:54 PM Referred By: REFERRED SELF Confirmed By:Bryant Vega
--- NOTE | 2023-02-19 21:05 | Electrocardiogram Report ---
Test Reason : Blood Pressure : / mmHG Vent. Rate : 123 BPM Atrial Rate : 123 BPM P-R Int : 000 ms QRS Dur : 132 ms QT Int : 358 ms P-R-T Axes : 000 -68 047 degrees QTc Int : 512 ms Atrial fibrillation Left axis deviation Right bundle branch block Inferior infarct , age undetermined Anterolateral infarct , age undetermined Abnormal ECG When compared with ECG of 18-FEB-2023 17:58, (unconfirmed) No significant change Confirmed by Bryant Vega ([id number]) on 02/19/2023 9:04:47 PM Referred By: REFERRED SELF Confirmed By:Bryant Vega
[2023-02-20] MEDS: dilTIAZem HCL 30 MG TAB PO SCH ×3 (07:26→20:21)
[2023-02-20] MEDS: guaiFENesin 600 MG TABCR PO SCH (07:26)
[2023-02-20] MEDS: METOPROLOL TARTRATE 100 MG TAB PO SCH ×2 (07:26→20:20)
[2023-02-20] MEDS: BENZONATATE 100 MG CAPSULE PO PRN ×3 (07:27→20:18)
[2023-02-20] MEDS: CHOLECALCIFEROL 1,000 UNITS 25 MCG TAB PO SCH (07:27)
[2023-02-20] MEDS: FUROSEMIDE 80 MG TAB PO SCH (07:27)
[2023-02-20] MEDS: LOSARTAN POTASSIUM 50 MG TAB PO SCH (07:27)
[2023-02-20] MEDS: APIXABAN 5 MG TABLET PO SCH ×2 (07:28→20:20)
[2023-02-20 08:02] LABS: BUN Creatinine Ratio 15.2 (10-20); Calcium 8.2 mg/dl (8.6-10.3); Creatinine Clr Calc Pharmacy 52.1 ml/min; Est GFR (Non-African American) 55.2 ml/min; Magnesium 2.1 mg/dl (1.7-2.4); Potassium 3.6 mmol/L (3.5-5.1)
[2023-02-20] MEDS: INSULIN ASPART PER UNIT CHARGE SC SCH ×5 (09:15→20:19)
--- NOTE | 2023-02-20 11:30 | Pharmacy Report ---
Pharmacy Glycemic Short Note 2 - Date of Service February 20, 2023 - Glycemic Short BSG Results (Last 24 hours): 02/19/23 02/19/23 02/19/23 12:05 17:42 20:25 Glucose POC Glucose 214 H 178 H 226 H 02/20/23 02/20/23 07:11 08:12 Glucose 217 H POC Glucose 195 H OUTPATIENT ANTIDIABETIC REGIMEN: * Lantus 26 units SC HS * Novolog SSI * Metformin 1000 mg PO BID * HbA1c pending ASSESSMENT: 02/20: * Patient received total of 35 units of insulin yesterday, of which 15 units were basal insulin * Fasting BSG 195 mg/dL - will increase basal by ~30% closer to home dose * Plan to tighten CF/CR slightly this AM as BSGs >180s yesterday throughout the day 02/18: * 88 yo F admitted on 02/18/23 secondary to possible HF exacerbation and found to be parainfluenza/RSV positive. Pharmacy has been consulted to assist with inpatient glycemic management. Patient is a Type 2 diabetic as an outpatient. Please refer to outpatient regimen and most recent HbA1c above. * Serum BSG was 115 mg/dL this AM. Lunchtime check was 116 mg/dL. Diet ordered and being tolerated. * Will reduce home basal dose by 40% and start this evening. Novolog will be started based on weight/stress of 1-2. PLAN FOR INPATIENT GLYCEMIC CONTROL: * Hold outpatient oral diabetes medications * Basal insulin - increase * Lantus 20 units SC HS * Bolus insulin * NovoLog per scale ACHS or Q6hrs while NPO * Goal Range: Low 110 mg/dL - High 140 mg/dL * Correction Factor: 20 mg/dL/unit * Nutritional / Prandial insulin per carb ratio of 1 unit per 7 grams CHO consumed
[2023-02-20] MEDS: guaiFENesin SUGAR FREE 200 MG/10 ML UDC PO PRN ×2 (14:04→20:19)
--- NOTE | 2023-02-20 15:08 | Hospitalist Progress Note ---
Date of Service February 20, 2023 Assessment & Plan (1) Tachyarrhythmia: Plan: Had tachyarrhythmia evening of 02/18. She has a hx bifascicular block and HFpEF, last seen in [facility] clinic by Dr. Townsend in 01/28. Is on xarelto for hs unprovoked DVT and is on metoprolol but not known afib. Last TTE 10/2020 reviewed - EF 65-70% no rwma's, poor quality study, calcified MV. -consulted cardiology - reviewed recs by Dr. Vega - afib/flutter. 02/20 has been in and out of a flutter however rate is much better controlled -short acting diltiazem added for rate control - tolerating, transition to diltiazem CD1 120 mg ordered for a.m. - automotive porter recommended considering change xarelto to apixaban. her xarelto currently at prophylaxis dose, not therapeutic dose. discussed risks and benefits with Matthew today and made change to apixaban 5 mg twice daily (2) RSV (respiratory syncytial virus infection): Plan: Day 4 of symptoms on admission - Biofire PCR positive for RSV and parainfluenza virus. CRP was 19 but procal 0 in ED and again negative following a.m. Symptomatic treatment with incentive spirometer, flutter valve, guaifenesin, Tessalon (3) Pneumonia: Plan: -CRP was 19 but procal 0, repeat PCT ordered 02/19 - again negative -WBC 14-->11 -bacterial pneumonia unlikely, stopped antibiotics (4) Hypomagnesemia: Plan: Magnesium level 1.4 on admission. Mag sulfate 1 g IV given in the ER. Additional 3g ordered and normalized 02/19. (5) Hypokalemia: Plan: K 3.0 on admission, replaced IV/po - normal at 3.6 today (6) (HFpEF) heart failure with preserved ejection fraction: Plan: Euvolemic. Additional dose of Lasix 60 mg IV given in the emergency room, thereafter resumed chronic dosing -continue lasix 80 mg po daily, ARB, metoprolol - I think her mild wheezing today is related to viral infection however consider extra dose of diuretic in case component of pulmonary edema (7) DM (diabetes mellitus), type 2 with neurological complications: Plan: A1c 7.7 -on basal-bolus insulin, reviewed pharmacist glycemic consult recs (8) Hypertension: Plan: Continue amlodipine, losartan, metoprolol diltiazem being added for rate rate control has been elevated but generally acceptable range given her age (9) Hyperlipidemia: Plan: Continue atorvastatin Plan Minimally elevated HS-troponin reflects myocardial strain rather than ACS Lives at [facility], they do her meds, uses walker short distances and primarily wheelchair VTE prophylaxis - apixaban Disposition - likely return to [place] with PT and OT, less likely to short- term SNF stay Admission and Anticipated Discharge Date Admission Date: February 19, 2023 Subjective most bothersome to Matthew is constant coughing and she does not feel a lot of benefit from Tessalon and Guaifenex. She feels her legs are less swollen than usual. Mildly short of breath no chest pain no abdominal pain or nausea Physical Exam 2 Physical Exam: PHYSICAL EXAMINATION Last 24h vital signs reviewed, see documentation in flowsheet General: comfortable appearing, no distress, but frequent nonproductive coughing HEENT: Normocephalic, atraumatic, pupils round and equal, sclerae anicteric, no conjunctival injection, moist mucus membranes Lungs: Normal respiratory effort. Clear to auscultation bilaterally except mild expiratory wheezing in both bases. Heart: Regular rate and rhythm, no murmurs. No JVD Abdomen: Soft, nontender, nondistended. Bowel sounds present. Extremities: Warm, dry, well-perfused. trace extremity edema. Neuro: Alert and oriented x 4, face symmetric, moves 4 extremities well Psych: Normal affect and behavior Results & Data Results & Data Vital Signs (Past 12 Hours) Vital Signs Temp Pulse Pulse Resp BP Pulse Ox O2 Del Method 02/20/23 11:30 36.7 C 75 18 176/74 H 94 Room Air 02/20/23 10:21 Room Air 02/20/23 07:51 36.9 C 84 18 185/74 H 92 Room Air 02/20/23 07:28 84 Laboratory Results 02/19/23 06:06 02/20/23 07:11 PG Care Time/CCT Total # of Minutes Spent Total Time Spent with Patient: Total time spent is greater than 50% in coordination of care (as documented) at patient's floor/unit and/or counseling patient: Coding Level of Care Code 94803 SUB INP/OBS CARE 2/35MIN Diagnoses Tachyarrhythmia R00.0 RSV (respiratory syncytial virus infection) B33.8 Pneumonia J18.9 Laterality: right Lung location: lower lobe of lung Pneumonia type: due to unspecified organism Hypomagnesemia E83.42 Hypokalemia E87.6 (HFpEF) heart failure with preserved ejection fraction I50.30 DM (diabetes mellitus), type 2 with neurological complications E11.49 Essential hypertension I10 Hypertension type: essential hypertension Pure hypercholesterolemia E78.00 Hyperlipidemia type: pure hypercholesterolemia (3) Pneumonia Laterality: right Lung location: lower lobe of lung Pneumonia type: due to unspecified organism Qualified Code(s): J18.9 - Pneumonia, unspecified organism (8) Hypertension Hypertension type: essential hypertension Qualified Code(s): I10 - Essential (primary) hypertension (9) Hyperlipidemia Hyperlipidemia type: pure hypercholesterolemia Qualified Code(s): E78.00 - Pure hypercholesterolemia, unspecified
[2023-02-20] MEDS ORDERED: traZODone HCL 50 MG TAB PO PRN (18:17)
[2023-02-20] MEDS: FLUTICASONE PROPIONATE NA SPR 16 GM BTL SCH (20:18)
[2023-02-20] MEDS: ACETAMINOPHEN 325 MG TAB PO PRN (20:19)
[2023-02-20] MEDS: ATORVASTATIN 10 MG TAB PO SCH (20:20)
[2023-02-20] MEDS ORDERED: LANTUS PER UNIT CHARGE SQ SCH (21:00)
[2023-02-20] MEDS: MELATONIN 3 MG TAB PO PRN (22:35)
[2023-02-21] MEDS: ACETAMINOPHEN 325 MG TAB PO PRN ×3 (06:06→21:23)
[2023-02-21] MEDS: FUROSEMIDE 80 MG TAB PO SCH (08:37)
[2023-02-21] MEDS: APIXABAN 5 MG TABLET PO SCH ×2 (08:37→21:23)
[2023-02-21] MEDS: CHOLECALCIFEROL 1,000 UNITS 25 MCG TAB PO SCH (08:37)
[2023-02-21] MEDS: LOSARTAN POTASSIUM 50 MG TAB PO SCH (08:38)
[2023-02-21] MEDS: METOPROLOL TARTRATE 100 MG TAB PO SCH ×2 (08:38→21:22)
[2023-02-21] MEDS: dilTIAZem HCL 120 MG CAPCR PO SCH (08:38)
[2023-02-21] MEDS: FLUTICASONE PROPIONATE NA SPR 16 GM BTL SCH (08:38)
[2023-02-21 08:43] LABS: BUN Creatinine Ratio 21.1 (10-20); Calcium 8.4 mg/dl (8.6-10.3); Creatinine Clr Calc Pharmacy 53.5 ml/min; Est GFR (African American) 65.7 ml/min; Est GFR (Non-African American) 56.7 ml/min; Potassium 3.4 mmol/L (3.5-5.1)
[2023-02-21] MEDS: INSULIN ASPART PER UNIT CHARGE SC SCH ×4 (09:20→21:20)
[2023-02-21 10:13] LABS: BUN Creatinine Ratio 20.4 (10-20); Calcium 8.3 mg/dl (8.6-10.3); Creatinine Clr Calc Pharmacy 51.8 ml/min; Est GFR (African American) 63.2 ml/min; Est GFR (Non-African American) 54.5 ml/min; Magnesium 1.9 mg/dl (1.7-2.4); Potassium 3.4 mmol/L (3.5-5.1)
[2023-02-21] MEDS ORDERED: POTASSIUM CHLORIDE CRTAB 20 MEQ TABCR PO STA (11:55)
[2023-02-21] MEDS ORDERED: MAGNESIUM SULFATE / D5W 1 GM/100 ML BAG IV ONE (11:55)
--- NOTE | 2023-02-21 12:10 | Hospitalist Progress Note ---
Date of Service February 21, 2023 Assessment & Plan (1) Paroxysmal atrial fibrillation: Plan: With Paroxysmal atrial flutter and fibrillation evening of 02/18. She has a hx bifascicular block and HFpEF, last seen in [facility] clinic by Dr. Townsend in 01/28. Was on xarelto for history of unprovoked DVT and is on metoprolol for hypertension. Last TTE 10/2020 reviewed - EF 65-70% no rwma's, poor quality study, calcified MV. Remains with paroxysms of atrial flutter with rates as high as the 140s- symptomatic with shortness of breath Consulted cardiology -added diltiazem for better rate control and recommended changing xarelto to apixaban for improved benefit at stroke prevention Continue to monitor on telemetry Keep electrolytes optimal-give potassium and IV magnesium today (2) Hypokalemia: Plan: Remains mildly low but improved from previous Replace with oral potassium chloride and IV magnesium for optimization Follow BMP, magnesium level in the morning (3) RSV (respiratory syncytial virus infection): Plan: Began with symptoms 4 days prior to admission - Biofire PCR positive for RSV and parainfluenza virus. CRP was 19 but procal 0 in ED and again negative on repeat Improving Continue symptomatic treatment with incentive spirometer, flutter valve, guaifenesin, Tessalon -bacterial pneumonia unlikely, stopped antibiotics (4) Hypomagnesemia: Plan: Repleted and resolved Give 1 g IV magnesium today for optimization to keep mag above 2.0 (5) (HFpEF) heart failure with preserved ejection fraction: Plan: Acute on chronic diastolic CHF Was given IV Lasix x 1 for volume overload BNP 659 Remains euvolemic -continue home dose of lasix 80 mg po daily, ARB, metoprolol -Daily weights, I's and O's, low-sodium diet (6) DM (diabetes mellitus), type 2 with neurological complications: Plan: A1c 7.7 -on basal-bolus insulin, with hyperglycemia-recommend increasing insulin- pharmacy is consulted and managing (7) Hypertension: Plan: Blood pressures are controlled to mildly elevated Continue amlodipine, losartan, metoprolol diltiazem added for rate control with atrial flutter (8) Hyperlipidemia: Plan: Continue atorvastatin (9) Obesity: Plan: Morbid obesity with BMI 44.3 (10) Demand ischemia of myocardium: Plan: Minimally elevated HS-troponin at 27-29 reflects myocardial strain rather than ACS No ischemic changes on ECG Plan DVT prophylaxis-Everardo Disposition-lives at [facility], they do her meds, uses walker short distances and primarily wheelchair-likely return to [facility] with home health but PT/OT recommending SNF-will discuss with hospice case manager. Potentially discharge tomorrow Admission and Anticipated Discharge Date Admission Date: February 19, 2023 Anticipated date of discharge: 02/22/23 Subjective Feeling better, still some cough and SOB. Had a rough night and now feeling much better since converting to sinus rhythm today. Telemetry with atrial flutter with rates in the 140s overnight and normal sinus rhythm today with rates in the 70s. Physical Exam Constitutional: WD/WN, vitals as above + obese Respiratory: normal respiratory effort and + cough Auscultation: + rhonchi; no crackles and no wheezes Cardiovascular: Rate/Rhythm: regular rate and regular rhythm Heart Sounds: no murmur Extremities: no edema Gastrointestinal (Abdomen): normal bowel sounds, soft, nontender, no hepatosplenomegaly Inspection/Auscultation: + visible herniation (Easily reducible large ventral wall hernia) Psychiatric: A+Ox3, euthymic affect Results & Data Results & Data Vital Signs (Past 12 Hours) Vital Signs Temp Pulse Pulse Resp BP Pulse Ox O2 Del Method 02/21/23 11:49 36.5 C 74 16 173/70 H 93 Room Air 02/21/23 08:02 36.8 C 79 16 168/77 H 91 Room Air 02/21/23 07:57 79 02/21/23 07:35 Room Air 02/21/23 03:00 36.6 C 74 20 157/81 H 92 Room Air Laboratory Results BMP, magnesium reviewed PG Care Time/CCT Total # of Minutes Spent Total Time Spent with Patient: Total time spent is greater than 50% in coordination of care (as documented) at patient's floor/unit and/or counseling patient: Coding Level of Care Code 12289 SUB INP/OBS CARE 2/35MIN Diagnoses Paroxysmal atrial fibrillation I48.0 Hypokalemia E87.6 RSV (respiratory syncytial virus infection) B33.8 Hypomagnesemia E83.42 (HFpEF) heart failure with preserved ejection fraction I50.30 DM (diabetes mellitus), type 2 with neurological complications E11.49 Essential hypertension I10 Hypertension type: essential hypertension Pure hypercholesterolemia E78.00 Hyperlipidemia type: pure hypercholesterolemia Obesity E66.9 Demand ischemia of myocardium I24.89 (7) Hypertension Hypertension type: essential hypertension Qualified Code(s): I10 - Essential (primary) hypertension (8) Hyperlipidemia Hyperlipidemia type: pure hypercholesterolemia Qualified Code(s): E78.00 - Pure hypercholesterolemia, unspecified
[2023-02-21] MEDS: guaiFENesin/DEXTROM SYRUP 200MG/20MG 10ML UDC PO SCH ×2 (12:55→21:22)
[2023-02-21] MEDS ORDERED: LANTUS PER UNIT CHARGE SQ SCH (21:00)
[2023-02-21] MEDS: ATORVASTATIN 10 MG TAB PO SCH (21:22)
[2023-02-21] MEDS: MELATONIN 3 MG TAB PO PRN (21:24)
[2023-02-22] MEDS: ACETAMINOPHEN 325 MG TAB PO PRN (04:08)
[2023-02-22 07:42] LABS: BUN Creatinine Ratio 21.9 (10-20); Calcium 8.4 mg/dl (8.6-10.3); Creatinine Clr Calc Pharmacy 50.4 ml/min; Est GFR (African American) 60.8 ml/min; Est GFR (Non-African American) 52.4 ml/min; Magnesium 2.1 mg/dl (1.7-2.4); Potassium 3.7 mmol/L (3.5-5.1)
[2023-02-22] MEDS ORDERED: POTASSIUM CHLORIDE CRTAB 20 MEQ TABCR PO STA (08:04)
[2023-02-22] MEDS: CHOLECALCIFEROL 1,000 UNITS 25 MCG TAB PO SCH (08:08)
[2023-02-22] MEDS: APIXABAN 5 MG TABLET PO SCH (08:08)
[2023-02-22] MEDS: dilTIAZem HCL 120 MG CAPCR PO SCH (08:08)
[2023-02-22] MEDS: LOSARTAN POTASSIUM 50 MG TAB PO SCH (08:09)
[2023-02-22] MEDS: guaiFENesin/DEXTROM SYRUP 200MG/20MG 10ML UDC PO SCH (08:09)
[2023-02-22] MEDS: METOPROLOL TARTRATE 100 MG TAB PO SCH (08:09)
[2023-02-22] MEDS: FLUTICASONE PROPIONATE NA SPR 16 GM BTL SCH (08:09)
[2023-02-22] MEDS: FUROSEMIDE 80 MG TAB PO SCH (08:09)
[2023-02-22] MEDS: INSULIN ASPART PER UNIT CHARGE SC SCH (09:08)
--- NOTE | 2023-02-22 09:27 | Cardiology Progress Note ---
Date of Service February 22, 2023 Assessment & Plan (1) Tachyarrhythmia: (2) Paroxysmal atrial fibrillation: (3) SOB (shortness of breath): (4) Elevated troponin level not due myocardial infarction: (5) Anticoagulant long-term use: Plan 1. Tachycardia: I agree that her elevated heart rates are atrial fibrillation and at times atrial flutter. The regularity on telemetry suggest mostly atrial flutter. 2. Paroxysmal atrial fibrillation/flutter: I do not know if she has had this before but I suspect so as she is relatively asymptomatic. I think we should try to control her rate since she is asymptomatic and we do not know her outpatient burden, it seems to be coming under control and her heart rate is better controlled now. I suspect as an outpatient she will do well on her current regimen of metoprolol 200 mg daily (this could be long-acting) and diltiazem 120 mg (long-acting) daily. We should consider monitoring as outpatient, we can see her in the office and prior to that schedule a 3-day Holter monitor. I would wait a week or 2 to do that to let things stabilize. If she has continued fast atrial arrhythmias with a significant burden we could consider antiarrhythmic therapy (atrial flutter can sometimes be difficult to rate control but in her case it seems to be coming under control for the most part) She should be on anticoagulation for this, but she was already for DVT although the dose would be different. 3. Shortness of breath: She does not appear to be in congestive heart failure today. 4. Elevated troponin: Although minimally elevated there is no particular trend and this is most likely due to demand ischemia from the stress and possibly heart rate. I would not pursue further. 5. Anticoagulation: She should be on long-term anticoagulation, for atrial fibrillation, I agree with Eliquis 5 mg twice a day rather than Xarelto although Xarelto could be used at a higher dose. I believe Eliquis is a better drug with more efficacy and less risk of bleeding. Admission and Anticipated Discharge Date Admission Date: February 19, 2023 Subjective She is feeling much better now, she tells me she has felt very well over the last several days, especially today. She denies any palpitations since yesterday. Even yesterday her palpitations were minimal. She is sitting on her bedside commode. Physical Exam Physical Exam: Constitutional: Alert, cooperative and in no distress. She is laying supine in bed. HEENT: Unremarkable Neck: No jugular venous distention, carotid pulses are normal and equal bilaterally without bruits. Pulmonary: Bilateral crackles on auscultation. Cardiac: Regular rhythm with no murmur, gallop or rub. Abdomen: Soft, nontender with normal bowel sounds. Extremities: +1 bilateral pretibial edema. Distal pulses intact. Neurologic: No focal findings. Gait is steady. Skin: No rash, ecchymoses or petechiae. Results & Data Vital Signs (Past 12 Hours) Vital Signs Temp Pulse Pulse Pulse Resp BP Pulse Ox 02/22/23 07:45 66 02/22/23 07:35 36.5 C 69 16 176/83 H 93 02/22/23 07:31 02/22/23 03:00 36.5 C 64 20 152/80 H 94 02/22/23 01:47 02/22/23 00:00 79 02/21/23 22:15 83 02/21/23 22:00 36.5 C 79 20 132/69 92 02/21/23 21:31 36.6 C 132 H 22 145/83 H 96 O2 Del Method 02/22/23 07:45 02/22/23 07:35 Room Air 02/22/23 07:31 Room Air 02/22/23 03:00 Room Air 02/22/23 01:47 Room Air 02/22/23 00:00 02/21/23 22:15 02/21/23 22:00 Room Air 02/21/23 21:31 Room Air Laboratory Results Comprehensive Metabolic Panel 02/21/23 02/22/23 Range/Units 09:43 06:58 Sodium 132 L 135 L (136-145) mmol/L Potassium 3.4 L 3.7 (3.5-5.1) mmol/L Chloride 98 101 (98-107) mmol/L Carbon Dioxide 24 25 (21-32) mmol/L BUN 19 21 (6-23) mg/dl Creatinine 0.93 0.96 (0.6-1.2) mg/dl Glucose 295 H 192 H (70-99(Fasting)) mg/dl Calcium 8.3 L 8.4 L (8.6-10.3) mg/dl Intake and Output 01/02/22/23 02/22/23 22:59 06:59 14:59 Intake Total 250 / 400 150 / 400 Output Total 100 / 1500 400 / 1500 Balance 150 / -1100 -250 / -1100 Intake: IV 100 / 100 Magnesium Sulfate / D5w 1 gm In 100 / 100 100 ml @ 50 mls/hr IV ONE ONE Rx#:[id number] Oral 150 / 300 150 / 300 Output: Urine Amount (Catheter) 100 / 1500 400 / 1500 External 100 / 1500 400 / 1500 Other: Weight 119 kg Diagnostic Findings Telemetry: Minimal atrial arrhythmias overnight, brief episodes of what is probably atrial flutter with 2-1 AV conduction and a heart rate of about 130 bpm. Yesterday she had more prolonged episode at 2 different rates, 1 at around 130 which appears to be atrial flutter with 2-1 AV conduction and another which is probably still atrial flutter but with variable AV conduction. PG Care Time/CCT Total # of Minutes Spent Total Time Spent with Patient: Total time spent is greater than 50% in coordination of care (as documented) at patient's floor/unit and/or counseling patient: Coding Level of Care Code 46853 SUB INP/OBS CARE 2/35MIN Diagnoses Tachyarrhythmia R00.0 Paroxysmal atrial fibrillation I48.0 SOB (shortness of breath) R06.02 Elevated troponin level not due myocardial infarction R79.89 Anticoagulant long-term use Z79.01
--- NOTE | 2023-02-22 10:06 | Pharmacy Report ---
Pharmacy Glycemic Short Note 2 - Date of Service February 22, 2023 - Glycemic Short BSG Results (Last 24 hours): 02/21/23 02/21/23 02/21/23 09:43 12:06 17:25 Glucose 295 H POC Glucose 186 H 132 H 02/21/23 02/22/23 02/22/23 20:17 06:58 07:59 Glucose 192 H POC Glucose 204 H 176 H OUTPATIENT ANTIDIABETIC REGIMEN: * Lantus 26 units SC HS * Novolog SSI * Metformin 1000 mg PO BID * HbA1c pending ASSESSMENT: 02/21: * Matthew received 67 units of insulin yesterday (25 were basal) * Fasting BSG slightly above goal range this AM, but much improved, dose increased 20% yesterday, will continue current regimen and monitor progress. * No glycemic stressors noted at this time. * Novolog tightened further yesterday, carbohydrate ratio tightened this AM. She has historically required tight carbohydrate ratios. Will continue to adjust as indicated. 02/20: * Patient received total of 35 units of insulin yesterday, of which 15 units were basal insulin * Fasting BSG 195 mg/dL - will increase basal by ~30% closer to home dose * Plan to tighten CF/CR slightly this AM as BSGs >180s yesterday throughout the day 02/18: * 88 yo F admitted on 02/18/23 secondary to possible HF exacerbation and found to be parainfluenza/RSV positive. Pharmacy has been consulted to assist with inpatient glycemic management. Patient is a Type 2 diabetic as an outpatient. Please refer to outpatient regimen and most recent HbA1c above. * Serum BSG was 115 mg/dL this AM. Lunchtime check was 116 mg/dL. Diet ordered and being tolerated. * Will reduce home basal dose by 40% and start this evening. Novolog will be started based on weight/stress of 1-2. PLAN FOR INPATIENT GLYCEMIC CONTROL: * Hold outpatient oral diabetes medications * Basal insulin - increase * Lantus 25 units SC HS * Bolus insulin * NovoLog per scale ACHS or Q6hrs while NPO * Goal Range: Low 110 mg/dL - High 140 mg/dL * Correction Factor: 15 mg/dL/unit * Nutritional / Prandial insulin per carb ratio of 1 unit per 4 grams CHO consumed
--- NOTE | 2023-02-22 10:25 | Discharge Summary ---
Discharge Summary Date of Service February 22, 2023 Admission HPI Per Admitting Provider Matthew Ordonez is an 88 year old female with T2DM, HFpEF who presents to the ER with shortness of breath, mildly productive cough, postnasal drip, fever, chills since Monday. She reports her symptoms started on Monday and are getting progressively worse. She lives at [facility] and feels too short of breath on exertion to return home at this time although is currently maintain O2 sats on room air. No chest pain, abdominal pain, nausea, vomiting, diarrhea or urinary symptoms. No palpitations, orthopnea, PND, increased weight or leg swelling. Principal Dx & Hospital Course #1 = Principal Diagnosis (1) Paroxysmal atrial fibrillation: With Paroxysmal atrial flutter and fibrillation evening of 02/18. She has a hx bifascicular block and HFpEF, last seen in [facility] clinic by Dr. Townsend in 01/28. Was on xarelto for history of unprovoked DVT and is on metoprolol for hypertension. Last TTE 10/2020 reviewed - EF 65-70% no rwma's, poor quality study, calcified MV. Remains with paroxysms of atrial flutter with rates as high as the 140s- symptomatic with shortness of breath Consulted cardiology -added diltiazem for better rate control and recommended changing xarelto to apixaban for improved benefit at stroke prevention Continue to monitor on telemetry Keep electrolytes optimal-give potassium and IV magnesium today (2) Hypokalemia: Remains mildly low but improved from previous Replace with oral potassium chloride and IV magnesium for optimization Follow BMP, magnesium level in the morning (3) RSV (respiratory syncytial virus infection): Began with symptoms 4 days prior to admission - Biofire PCR positive for RSV and parainfluenza virus. CRP was 19 but procal 0 in ED and again negative on repeat Improving Continue symptomatic treatment with incentive spirometer, flutter valve, guaifenesin, Tessalon -bacterial pneumonia unlikely, stopped antibiotics (4) Hypomagnesemia: Repleted and resolved Give 1 g IV magnesium today for optimization to keep mag above 2.0 (5) (HFpEF) heart failure with preserved ejection fraction: Acute on chronic diastolic CHF Was given IV Lasix x 1 for volume overload BNP 659 Remains euvolemic -continue home dose of lasix 80 mg po daily, ARB, metoprolol -Daily weights, I's and O's, low-sodium diet (6) DM (diabetes mellitus), type 2 with neurological complications: A1c 7.7 -on basal-bolus insulin, with hyperglycemia-recommend increasing insulin- pharmacy is consulted and managing (7) Hypertension: Blood pressures are controlled to mildly elevated Continue amlodipine, losartan, metoprolol diltiazem added for rate control with atrial flutter (8) Hyperlipidemia: Continue atorvastatin (9) Obesity: Morbid obesity with BMI 44.3 (10) Demand ischemia of myocardium: Minimally elevated HS-troponin at 27-29 reflects myocardial strain rather than ACS No ischemic changes on ECG Plan DVT prophylaxis-Eliquis Disposition-lives at [facility], they do her meds, uses walker short distances and primarily wheelchair-likely return to [facility] with home health but PT/OT recommending SNF-will discuss with caser in. Potentially discharge tomorrow Discharge Exam Constitutional WD/WN, vitals as above + obese Respiratory normal respiratory effort and + cough Auscultation: + rhonchi; no crackles and no wheezes Cardiovascular Rate/Rhythm: regular rate and regular rhythm Heart Sounds: no murmur Extremities: no edema Gastrointestinal (Abdomen) normal bowel sounds, soft, nontender, no hepatosplenomegaly Inspection/Auscultation: + visible herniation (Easily reducible large ventral wall hernia) Psychiatric A+Ox3, euthymic affect Updated Medication List Medication Instructions Recorded Confirmed Type cholecalciferol (vitamin D3) 50 2,000 unit PO QAM 11/30/17 02/18/23 History mcg (2,000 unit) capsule (Vitamin D3) flash glucose scanning reader #1 ea 10/06/20 01/13/23 Rx (FreeStyle Nesha 14 Day [place]) flash glucose sensor (FreeStyle #1 ea 10/06/20 01/13/23 Rx Nesha 14 Day Sensor kit) insulin syringe-needle U-100 1 mL #200 ea 12/08/20 01/13/23 Rx 25 x 1" (BD Insulin Syringe) lancets 33 gauge (LinkuriousTouch Delica #100 ea 02/25/21 01/13/23 Rx Lancets) blood sugar diagnostic (LinkuriousTouch #100 ea 08/31/21 01/13/23 Rx Ultra Test strips) atorvastatin 10 mg tablet 10 mg PO HS #90 tabs 12/06/21 02/18/23 Rx metformin 1,000 mg tablet 1,000 mg PO BID #180 tabs 12/24/21 02/18/23 Rx metoprolol tartrate 100 mg tablet 100 mg PO BID #60 tabs 01/28/22 02/18/23 Rx pen needle, diabetic, safety 30 #100 ea 04/22/22 01/13/23 Rx gauge x 3/16" (Assure ID Pen Needle) amlodipine 5 mg tablet 5 mg PO QAM 07/20/22 02/18/23 History furosemide 40 mg tablet (Lasix) 80 mg PO QAM 07/20/22 02/18/23 History losartan 100 mg tablet 100 mg PO QAM 07/20/22 02/18/23 History rivaroxaban 10 mg tablet (Xarelto) 10 mg PO QAM 07/20/22 02/18/23 History nystatin 100,000 unit/gram topical 1 applic topical BID #30 grams 08/15/22 02/18/23 Rx powder insulin glargine 100 unit/mL (3 26 unit (0.26 mL) subcut QPM #15 mL 09/20/22 02/18/23 Rx mL) subcutaneous pen (Basaglar KwikPen U-100 Insulin) fluticasone propionate 50 2 spray intranasal QAM #16 grams 11/07/22 02/18/23 Rx mcg/actuation nasal spray,suspension benzonatate 200 mg capsule 200 mg PO TID PRN cough 01/13/23 02/18/23 History guaifenesin 600 mg tablet,extended 600 mg PO BID PRN Congestion 01/13/23 02/18/23 History release lanolin alcohols-mineral 1 applic topical DAILY 01/13/23 02/18/23 History oil-w.petrolatum-ceresin topical cream (Minerin Creme topical) loperamide 2 mg tablet 2 mg PO Q4H PRN Loose Stool 01/13/23 02/18/23 History mecobalamin (vitamin B12) 5,000 5,000 mcg PO QAM 01/13/23 02/18/23 History mcg disintegrating tablet menthol 0.44 %-zinc oxide 20.6 % 1 applic topical DAILY PRN Dry Skin 01/13/23 02/18/23 History topical ointment (Calmoseptine) phenol-phenolate sodium lozenges 1 yoon mucous membrane DAILY PRN 01/13/23 02/18/23 History use as per package insulin aspart U-100 100 unit/mL See Rx Instructions SC .COMPLEX 01/17/23 02/18/23 Rx (3 mL) subcutaneous pen (Novolog #15 mL FlexPen U-100 Insulin aspart) apixaban 5 mg tablet (Eliquis) 5 mg PO BID #60 tabs 02/22/23 Rx dextromethorphan-guaifenesin 5 10 ml PO TID PRN cough #1,000 mL 02/22/23 Rx mg-100 mg/5 mL oral liquid (Robitussin Cough-Chest Congestion DM) diltiazem HCl 120 mg 120 mg PO QAM #30 caps 02/22/23 Rx capsule,extended release 24 hr (Cardizem CD) Hospital Stay Data Consultations 02/18/23 10:57 ED Decision to Admit Stat 02/19/23 06:48 Consult Cardiology Routine Pending Results Patient Have Any Pending Studies at Discharge: No Discharge Instructions Given to Patient (Per Discharging Provider) You were started on diltiazem to better control your fast heart rate and Eliquis as your new blood thinner to replace Xarelto. You will need to wear a heart monitor for 3 weeks and follow up with Cardiology after that. You can take cough syrup as needed for your cough. Coding Diagnoses Paroxysmal atrial fibrillation I48.0 Hypokalemia E87.6 RSV (respiratory syncytial virus infection) B33.8 Hypomagnesemia E83.42 (HFpEF) heart failure with preserved ejection fraction I50.30 DM (diabetes mellitus), type 2 with neurological complications E11.49 Essential hypertension I10 Hypertension type: essential hypertension Pure hypercholesterolemia E78.00 Hyperlipidemia type: pure hypercholesterolemia Obesity E66.9 Demand ischemia of myocardium I24.89
== END 2023-02-22 11:41 | disposition home or self-care (01) | DRG 308 ==
LOC: ED 09:25 → EDINP 09:25 → SUATTDRO 11:17 → 2N 12:48 → SUATTDRO 02-19 16:29